=== PATIENT | female | born 1950 | race Caucasian/White ===

== ENCOUNTER 2018-05-26 13:06 | Outpatient (CLI) | payer MEDICARE, BC ==
--- NOTE | 2018-05-26 13:46 | RAD ---
PA AND LATERAL OF THE CHEST: INDICATION: History of dyspnea. COMPARISON: None. FINDINGS: The lungs are clear. Cardiomediastinal silhouette is normal. There are mild vascular calcifications involving the aortic arch. Cholecystectomy clips are seen within the right upper quadrant. There i s mild multilevel spondylosis of S5. IMPRESSION: No acute cardiopulmonary abnormality. POS: [facility]
== END 2018-05-26 13:07 | disposition home or self-care (01) ==
LOC: RAD 13:06
PROVIDERS: ATTEND Internal Medicine Pulmonary Disease
DX: R06.00 Dyspnea, unspecified (principal)
CPT/HCPCS: 71046

== ENCOUNTER 2018-08-17 19:30 | Outpatient (CLI) | payer MEDICARE, BC | END 2018-08-17 19:31 | disposition home or self-care (01) | LOC: SLEEPLAB 19:30 | PROVIDERS: ATTEND Internal Medicine Pulmonary Disease | DX: G47.33 Obstructive sleep apnea (adult) (pediatric) (principal); R53.83 Other fatigue; J44.9 Chronic obstructive pulmonary disease, unspecified; I49.9 Cardiac arrhythmia, unspecified; E66.9 Obesity, unspecified; Z68.41 Body mass index [BMI] 40.0-44.9, adult | CPT/HCPCS: 95810 ==

== ENCOUNTER 2018-09-07 19:30 | Outpatient (CLI) | payer MEDICARE, BC | END 2018-09-07 19:31 | disposition home or self-care (01) | LOC: SLEEPLAB 19:30 | PROVIDERS: ATTEND Internal Medicine Pulmonary Disease | DX: G47.33 Obstructive sleep apnea (adult) (pediatric) (principal); J44.9 Chronic obstructive pulmonary disease, unspecified; R09.89 Other specified symptoms and signs involving the circulatory and respiratory systems; R53.83 Other fatigue; R40.0 Somnolence; I51.89 Other ill-defined heart diseases; E66.9 Obesity, unspecified; Z68.41 Body mass index [BMI] 40.0-44.9, adult | CPT/HCPCS: 95811 ==

== ENCOUNTER 2018-09-10 08:40 | Outpatient (CLI) | payer MEDICARE, BC ==
--- NOTE | 2018-09-10 11:27 | MRI ---
MRI OF LUMBAR SPINE WITHOUT CONTRAST: Date: 09-10-18 Comparison: 05-06-12 History: Low back pain for several years. Technique: Multiplanar, multisequence MR imaging of the lumbar spine provided without contrast media. FINDINGS: The sagittal STIR imaging demonstrates no focal area of osseous marrow edema. There is a T2 hyperintense area within the right hemipelvis, only visualized on the sagittal T2 and S TIR imaging. This is likely on the basis of a T2 hyperintense adnexal abnormality. It measures up to 2.6 cm and should be further assessed via pelvic ultrasound given patient's age. Fluid signal intensity is noted within facet joints at L3-4 and L4-5, left greater than right. There is no significant anterolisthesis or retrolisthesis noted within the lumbar spine. Assuming five lumbar type vertebral bodies, conus medullaris terminates at L1-2. T11-12: There is disc space narrowing with disc bulge and mild central canal stenosis. Mild bilateral facet hypertrophy with mild bilateral neural foraminal stenosis. T12-L1: Mild bilateral facet hypertrophy. No significant central canal or neural foraminal stenosis. L1-2: There is disc desiccation with a central annular tear and tiny associated disc protrusion causi ng no central canal or neural foraminal stenosis. L2-3: Disc space narrowing, disc desiccation and mild disc bulge. Mild bilateral facet hypertrophy. N o significant central canal or neural foraminal stenosis. L3-4: Disc space narrowing and disc desiccation noted with a central small disc herniation with mild superior migration. No significant associated central canal stenosis. Bilateral facet hypertrophy, ri ght greater than left. No significant neural foraminal stenosis. L4-5: Disc space narrowing, disc desiccation, and disc bulge noted. There is a central disc protrusio n, new. There is new mild/moderate associated central canal stenosis. Significant bilateral facet hyp ertrophy with no significant neural foraminal stenosis. L5-S1: There is space narrowing, disc desiccation and disc osteophyte complex, slightly more conspicu ous than on the prior exam. There is significant facet hypertrophy, left greater than right. There is also lateral left sided osteophyte formation. There is severe left neural foraminal stenosis, simila r when compared to the prior exam. No significant central canal or right neural foraminal stenosis. Imaged retroperitoneal structures demonstrate no acute findings. IMPRESSION: 1. Multilevel degenerative change within the lumbar spine as detailed above. Most significant finding is severe neural foraminal stenosis on the left at L5-S1. 2. T2 hyperintense incompletely assessed lesion within the right hemipelvis. Pelvic ultrasound advise sommer Bae POS: OFF
== END 2018-09-10 08:41 | disposition home or self-care (01) ==
LOC: TBSIIMAG 08:40
PROVIDERS: ATTEND Neurological Surgery
DX: M54.5 Low back pain (principal); M47.816 Spondylosis without myelopathy or radiculopathy, lumbar region; M48.07 Spinal stenosis, lumbosacral region; M89.9 Disorder of bone, unspecified
CPT/HCPCS: 72148; 72158; 82565

== ENCOUNTER 2020-09-01 23:35 | Inpatient (IN) | payer MEDICARE, BC ==
[~2020-09-01 23:35] MED LIST: Iopamidol-370 76% 500 ML 1 ML ONE
[2020-09-01] MEDS ORDERED: Acetaminophen 500 MG TAB ONE (23:50)
[2020-09-02 00:07] LABS: Hemoglobin 13.6 g/dL (12.0-16.0); Mean Corpuscular HGB CONC 34.1 g/dL (32.0-36.0); Mean Corpuscular Hemoglobin 32.1 pg (27.0-31.0); Mean Corpuscular Volume 94.2 fL (78.0-98.0); Mean Platelet Volume 9.4 fL (7.4-10.4); Platelet Count 156 thou/uL (130-400); RBC Distribution Width 11.5 % (11.5-14.5); Red Blood Cell (RBC) Count 4.25 mill/uL (4.20-5.40); White Blood Cell (WBC) Count 9.7 thou/uL (4.8-10.8)
[2020-09-02] MEDS ORDERED: cefTRIAXone\\ROCEPHIN 2 GM VIAL ONE (00:22)
[2020-09-02 00:29] LABS: ALT (SGPT) 20 U/L (8-55); AST (SGOT) 56 U/L (5-34); Albumin 3.5 g/dL (3.4-4.8); Alkaline Phosphatase 51 U/L (40-110); Anion Gap 19 mmol/L (10-20); BUN (Urea Nitrogen) 23 mg/dL (9.8-20.1); Bilirubin, Total 0.3 mg/dL (0.2-1.2); Calc. Creatinine Clearance 0 mL/min (70-130); Calcium 8.5 mg/dL (7.8-10.44); Carbon Dioxide 19 mmol/L (23-31); Chloride 104 mmol/L (98-107); Globulin 4.2 g/dL (2.4-3.5); Glucose 147 mg/dL (83-110); Potassium 5.2 mmol/L (3.5-5.1); Protein, Total 7.7 g/dL (6.0-8.3); Sodium 137 mmol/L (136-145)
[2020-09-02 00:32] LABS: Band 11 % (5-11); Lymphocytes 15 % (21-51); MDiff Complete? YES; Monocytes 7 % (0-10); Neutrophil 67 % (42-75); Platelet Morphology Comment Appears Adequate; RBC Morphology Normal
[2020-09-02] MEDS ORDERED: Guaifenesin DM 100-10/5 ML UDCUP PO PRN (01:53)
[2020-09-02] MEDS ORDERED: Dextrose 50% Abboject 50 ML SYRINGE SLOW IVP PRN (02:00)
[2020-09-02] MEDS ORDERED: Dextrose 5% in Water 1,000 ML IV PRN (02:00)
--- NOTE | 2020-09-02 02:08 | PDOC.BPN ---
- Brief Progress Note [id number] dictated
[2020-09-02] MEDS ORDERED: Azithromycin 500 MG VIAL ONE (03:04)
--- NOTE | 2020-09-02 03:36 | HP ---
CHIEF COMPLAINT: Shortness of breath. HISTORY OF PRESENT ILLNESS: Ms. Guerrero is a 70-year-old female, who was recently diagnosed with COVID, presented to the emergency room with shortness of breath, cough, and fever, treated with diarrhea for the last week. The patient was tested positive earlier this week. Her shortness of breath became more severe, has generalized weakness this evening. She is complaining of burning pain in her chest, most when she coughs. Her cough has been nonproductive. Denies nausea or vomiting. Workup in the emergency room, the patient was hypoxic with oxygen saturation of 82% on room air. The patient was placed on 4 L of nasal cannula. Current oxygen saturation is 95%. The patient had a fever with a temperature of 100.9. Lab work, the patient had WBC count of 9.7 with lymphopenia. BNP is 49. Troponin 0.01. Potassium is 5.2. BUN is 23, creatinine 1.5. Glucose 147. CT of the chest is being ordered, results are still pending. Lactic acid is 1.4. Septic workup done in the ED. Started on IV antibiotics, oxygen, IV dexamethasone. The patient is being admitted to hospital for further management. PAST MEDICAL HISTORY: 1. Asthma as mentioned above in the history of present illness. 2. The patient has a history of GERD. 3. Chronic kidney disease stage 3. 4. Congestive heart failure. 5. Diabetes. 6. Hypothyroidism. 7. Hyperlipidemia. 8. Hypertension. 9. Obesity. PAST SURGICAL HISTORY: Cholecystectomy. SOCIAL HISTORY: Denies smoking, alcohol drinking, drug abuse. FAMILY HISTORY: Reviewed and noncontributory. HOME MEDICATIONS: See home medication reconciliation form for updated medications. ALLERGIES: NO KNOWN ALLERGIES. REVIEW OF SYSTEMS: Review of 14 systems negative except what is mentioned in history of present illness. PHYSICAL EXAMINATION: GENERAL: The patient is awake, alert, in moderate respiratory distress. VITAL SIGNS: Blood pressure 112/62, pulse is 77, respiratory rate is 27, temperature is 100.9, oxygen saturation 82% on room air, and 95% on 4 L/minute nasal cannula. HEAD AND NECK: Normocephalic, atraumatic. NECK: Supple. CHEST: Coarse bilateral breath sounds, respirations are labored. HEART: S1, S2. Regular. ABDOMEN: Soft, nontender. Bowel sounds present. NEUROLOGIC: Awake, alert, moving extremities. PSYCH: Unable to assess. EXTREMITIES: No clubbing or cyanosis. GENITOURINARY: No suprapubic tenderness. No flank tenderness. LABORATORY DATA: As mentioned above in history of present illness. CT of the chest is being done to follow results. ASSESSMENT: 1. Acute hypoxic respiratory failure. 2. COVID pneumonia. 3. Congestive heart failure history. 4. Chronic kidney disease stage 3. 5. Hyperkalemia, mild. 6. Diabetes mellitus, type 2. 7. Hyperlipidemia. 8. Hypertension. PLAN: 1. Admit. 2. Septic workup in the ED. 3. CT of the chest being done to follow the results. 4. Isolation precautions. 5. Oxygen to keep saturation more than 92%. 6. IV dexamethasone. 7. Empiric IV antibiotics for now, reassess in a.m. 8. To consult Pulmonary in a.m. for evaluation of further management. 9. Monitor kidney function and urine output. 10. Reconcile home medications. 11. DVT prophylaxis as appropriate. 12. Expected length of stay, 2 midnights or more. Job ID: [id number]
[2020-09-02] MEDS: Aspirin 81 mg Enteric Coated Tablet PO SCH (08:27)
[2020-09-02] MEDS: Levothyroxine Sodium 112 MCG TAB PO SCH (08:27)
[2020-09-02] MEDS: Heparin 5,000 UNITS/ML VIAL SC SCH ×3 (08:28→20:33)
[2020-09-02] MEDS: Fenofibrate 48 MG TAB PO SCH (08:28)
--- NOTE | 2020-09-02 08:33 | RAD ---
PORTABLE CHEST 1 VIEW: Date: 08/23/2020 Time: 1207 hours HISTORY: Shortness of breath. COVID-positive. FINDINGS: The heart size is borderline. There are peripheral patchy opacities in the lung valentine bilaterally, l eft greater than right. No pneumothoraces or pleural effusions are seen. IMPRESSION: Findings are consistent with COVID-19 pneumonia. POS: OFF
[2020-09-02] MEDS ORDERED: Famotidine/PF 20 mg/2ml Vial SLOW IVP SCH (09:00)
--- NOTE | 2020-09-02 10:17 | CT ---
PRELIMINARY REPORT/[facility]/EMERGENCY AFTER HOURS PROCEDURE: EXAM: CTA Chest with Intravenous Contrast CLINICAL HISTORY: Patient COVID positive on Friday, Reports shortness of breath tonight arrived on 4L TECHNIQUE: Axial CTA images of the chest with intravenous contrast. Three-dimensional MIP/volume rendered reform ations were performed. CONTRAST: With; 60ML ISOVUE 370 COMPARISON: None provided. FINDINGS: PULMONARY ARTERIES There is no intraluminal filling defect suspicious for PE. AORTA No thoracic aortic aneurysm or dissection. LUNGS There are scattered alveolar infiltrates with groundglass opacities identified throughout both lungs. The findings are consistent with viral pneumonia. The central airway is patent PLEURAL SPACES No pleural effusion. No pneumothorax. HEART AND MEDIASTINUM No cardiomegaly. No significant pericardial effusion. LYMPH NODES No lymphadenopathy. BONES No focal osseous abnormality or acute fracture. CHEST WALL AND UPPER ABDOMEN Images through the upper abdomen are unremarkable. The chest wall is unremarkable. IMPRESSION: There are scattered alveolar infiltrates with groundglass opacities identified throughout both lungs consistent with viral pneumonia. No effusion or pneumothorax. There is no evidence of pulmonary arterial emboli.. ELECTRONICALLY SIGNED BY: Yadira Bond DO Sep 02, 2020 1:30:39 AM [employer] This report is intended for review by the ordering physician only, in accordance of law. If you recei ve this report in error, please call [facility] at [phone]. FINAL REPORT EMERGENCY AFTER HOURS CT PULMONARY ANGIOGRAM WITH IV CONTRAST AND 3D POSTPROCESSING: Date: 09/01/2020 FINDINGS/IMPRESSION: I agree with the preliminary report given by [facility]. POS: [facility]
[2020-09-02] MEDS: Dexamethasone Sod Phosphate 6 MG in Sodium Chloride 0.9% 50 ML IVPB SCH (10:30)
[2020-09-02] MEDS: Diabetic Tussin 200 MG/10 ML UDCUP PO PRN (11:51)
[2020-09-02] MEDS: Cepastat Lozenges 1 LOZ PO PRN (11:51)
[2020-09-02] MEDS: HumaLOG 300 UNITS/3 ML VIAL SC PRN ×3 (14:08→20:56)
[2020-09-02] MEDS: Benzonatate 100 MG CAP PO SCH ×2 (14:08→20:33)
--- NOTE | 2020-09-02 15:08 | PDOC.HOSPP ---
- Subjective Encounter Date: 09/02/20 Encounter Time: 10:15 Subjective: has cough and sob, is on 5 lts NC her symptoms of sob and diarrhea started 08/25 has diarrhea says she had similar diarrhea in may and is not sure if she had covid then has uri symptoms from last 2 days now. - Objective Vital Signs & Weight: Vital Signs (12 hours) Temp Pulse Resp BP Pulse Ox 09/02/20 12:04 98.5 F 84 24 H 122/67 93 L 09/02/20 10:30 95 09/02/20 08:49 97.8 F 72 24 H 120/72 93 L 09/02/20 06:00 98.8 F 69 22 H 135/70 91 L Weight Admit Weight 238 lb 1.6 oz Weight 238 lb 1.6 oz I&O: 09/01/20 09/02/20 09/03/20 06:59 06:59 06:59 Intake Total 400 Output Total 300 Balance 100 Result Diagrams: 09/01/20 23:56 09/01/20 23:56 Additional Labs: Accuchecks 09/02/20 09/02/20 11:55 05:56 POC Glucose 331 H 187 H Hospitalist ROS - Medication Medications: Active Medications Generic Name Dose Route Start Last Admin Trade Name Freq PRN Reason Stop Dose Admin Aspirin 81 mg 09/02/20 09:00 09/02/20 08:27 Aspirin 81 Mg Enteric Coated Tablet PO 81 mg DAILY QUINTEN Administration Benzonatate 100 mg 09/02/20 15:00 09/02/20 14:08 Benzonatate 100 Mg Cap PO 100 mg TID QUINTEN Administration Fenofibrate 48 mg 09/02/20 09:00 09/02/20 08:28 Fenofibrate 48 Mg Tab PO 48 mg DAILY QUINTEN Administration Guaifenesin 200 mg 09/02/20 11:15 09/02/20 11:51 Diabetic Tussin 200 Mg/10 Ml Udcup PO 200 mg Q4H PRN Administration Cough Heparin Sodium (Porcine) 5,000 units 09/02/20 09:00 09/02/20 14:08 Heparin 5,000 Units/Ml Vial SC 5,000 units TID QUINTEN Administration Dexamethasone Sodium Phosphate 51.5 mls @ 101.756 mls/hr 09/02/20 09:00 09/02/20 10:30 6 mg/ Sodium Chloride IVPB 51.5 mls DAILY QUINTEN Administration Insulin Human Lispro 0 units 09/02/20 02:00 09/02/20 14:08 Humalog 300 Units/3 Ml Vial SC 5 unit .MILD SLIDING SCALE PRN Administration Mild Correctional Scale Levothyroxine Sodium 112 mcg 09/02/20 09:00 09/02/20 08:27 Levothyroxine Sodium 112 Mcg Tab PO 112 mcg DAILY QUINTEN Administration Throat Lozenges 1 ramesh 09/02/20 11:14 09/02/20 11:51 Cepastat Lozenges 1 Ramesh PO 1 ramesh Q4H PRN Administration Cough - Exam General Appearance: awake alert Eye: PERRL, anicteric sclera ENT: no oropharyngeal lesions, moist mucosa Neck: supple, no JVD Heart: RRR, no murmur Respiratory: no wheezes, rales, rhonchi Gastrointestinal: soft, non-tender, non-distended, normal bowel sounds Extremities: no cyanosis, no edema Neurological: cranial nerve grossly intact, no new deficit Psychiatric: normal affect, A&O x 3 Hosp A/P (1) Pneumonia due to COVID-19 virus Code(s): U07.1 - COVID-19; J12.89 - OTHER VIRAL PNEUMONIA Status: Acute (2) Acute respiratory failure with hypoxia Code(s): J96.01 - ACUTE RESPIRATORY FAILURE WITH HYPOXIA Status: Acute (3) Diarrhea due to COVID-19 Code(s): U07.1 - COVID-19; A08.39 - OTHER VIRAL ENTERITIS Status: Suspected (4) CHF (congestive heart failure) Code(s): I50.9 - HEART FAILURE, UNSPECIFIED Status: Chronic Qualifiers: Heart failure type: unspecified Heart failure chronicity: chronic Qualified Code(s): I50.9 - Heart failure, unspecified (5) Asthma Code(s): J45.909 - UNSPECIFIED ASTHMA, UNCOMPLICATED Status: Chronic Qualifiers: Asthma severity: mild Asthma persistence: intermittent Asthma complication type: uncomplicated Qualified Code(s): J45.20 - Mild intermittent asthma, uncomplicated (6) Obesity Code(s): E66.9 - OBESITY, UNSPECIFIED Status: Chronic Qualifiers: Obesity classification: adult class 3 (BMI >= 40) Body mass index: BMI 40.0-44.9 - Plan is on dexamethasone, may need high flow, will start remdesivir (d/w ), aspirin, heparin for dvt prophylaxis, synthroid and protonix hemostable prognosis guarded PT to mobilize as tolerated got symptomatic from last 2 days encourage po intake of fluids and food
[2020-09-02] MEDS ORDERED: REMDESIVIR (EUA) 200 MG in Sodium Chloride 0.9% 250 ML 210 ML IV SCH (16:00)
--- NOTE | 2020-09-02 18:06 | CON ---
DATE OF CONSULTATION: 09/02/2020 REASON FOR CONSULTATION: COVID pneumonia. HISTORY OF PRESENT ILLNESS: A 70-year-old with history of CKD stage 3, type 2 diabetes, CHF, who developed symptoms which were eventually determined to be secondary to SARS-CoV2 infection on August 24 and now she is admitted yesterday because of worsening of dyspnea, hypoxemia, diffuse pulmonary infiltrates. Currently, she is on high-flow nasal cannula at 40 L/minute and she is tachypneic. She is probably at least 34 to 36 breaths per minute, appears uncomfortable at rest. Able to move in bed. No headaches. No visual symptoms, sore throat, odynophagia, or dysphagia. No chest pain, no abdominal pain or diarrhea, no genitourinary symptoms. No joint symptoms. PAST MEDICAL HISTORY: Type 2 diabetes, CKD stage 3, CHF, hypothyroidism, hyperlipidemia, hypertension, obesity. PAST SURGICAL HISTORY: Cholecystectomy. SOCIAL HISTORY: Never a smoker. Does not drink alcoholic beverages. ALLERGIES: NONE. CURRENT MEDICATIONS: 1. Decadron. 2. Remdesivir. 3. She is on heparin 5000 units subcu t.i.d. and other p.r.n. medications. 4. Aspirin. FAMILY HISTORY: Noncontributory. PHYSICAL EXAMINATION: VITAL SIGNS: T-max 98.5, blood pressure 120/60, breathing 36 times a minute, saturating at 89% with high-flow nasal cannula at 40 L, quite uncomfortable at rest still. SKIN: Normal. Peripheral IV access. Voiding in the bedpan. NECK: No lymphadenopathy. HEENT: Ocular movements conjugate. Oral cavity normal. LUNGS: With diffuse scattered inspiratory crackles, more prominent on the left side. No wheezing. HEART: S1, S2. Regular rate. ABDOMEN: Soft, not distended. No tenderness. No ascites. No bladder distention. EXTREMITIES: No joint inflammatory activity. No edema. Moves all extremities equally. NEUROLOGIC: Cognitive function appears to be intact. LABORATORY DATA: Sodium 137, creatinine 1.50, GFR 34. Her lowest creatinine was 1.4 recently. Liver profile: AST 56, albumin 3.5, globulin 4.2. White cell count is 9.7, hemoglobin 13.6, platelets 156. Lymphocytopenia. SARS-CoV2 PCR from outside was positive. CT chest with diffuse bilateral ground-glass opacities. ASSESSMENT: Type 2 diabetes, chronic kidney disease 3, congestive heart failure, hypertension with severe COVID pneumonia, on high-flow O2 at 40. She probably needs to be upgraded to 45 at least to get her O2 saturations in a reasonable range. May need to be transferred to [facility] depending on the next 24 to 48 hours. This is the 8th day of illness, so she still has long ways to go through this and I expect her to worsen in the next few days, maybe Decadron will kick in and change things around. Follow up markers. Job ID: [id number]
[2020-09-02] MEDS: Albuterol 200 PUFF (6.7GM INHALER) INH SCH (18:09)
[2020-09-02] MEDS: guaiFENesin ER 600 MG TAB PO SCH (20:33)
--- NOTE | 2020-09-02 22:12 | CON ---
DATE OF CONSULTATION: 09/02/2020 CHIEF COMPLAINT: COVID pneumonia. HISTORY OF PRESENT ILLNESS: Ms. Guerrero is a 70-year-old female, who lives independently with her . About two weeks ago, she was tested for COVID and was negative. Her was then admitted to [facility] for valve surgery on Friday of last week. She has been tonight with him. Last Friday, she then suddenly noted the onset of runny nose and fever and was "out of it" for about 3 days. She had an outpatient COVID test done earlier this week and it returned positive on Friday. Through this time, she was continuing to have fever of as much as 101.5 degrees. She was having coughing paroxysms and gradually became more and more short of breath. Appetite was extremely poor over this period of time, although without symptoms of loss of smell or taste. She became increasingly breathless and finally presented to the emergency room today and chest x-ray demonstrates bilateral patchy consolidations consistent with her COVID pneumonia. She has low oxygen saturation and oxygen demands have increased steadily throughout the day. She has been seen in consultation by Dr. Cleveland and has been placed on remdesivir. Pulmonary Service is consulted because of her progressive symptoms. At the time I saw her, she was mildly tachypneic in the low 30s. She was on high-flow nasal cannula at 60% FiO2. She has had fairly dramatic coughing paroxysms, which are associated with desaturation. SOCIAL HISTORY: The patient is a 70-year-old female. She still works as a CPA. She has no medication allergies and is a lifelong nonsmoker. She lives with her . He has not had any COVID symptoms and his test today is not yet returned. HOME MEDICATIONS: Include: 1. Pantoprazole daily. 2. Macrodantin daily. 3. Cozaar daily. 4. Synthroid daily. 5. Propranolol daily. 6. Potassium. 7. Lasix daily. 8. Pravastatin. 9. TriCor. 10. Trulicity. 11. Aspirin. None of her home doses are recorded. PAST MEDICAL HISTORY: Remarkable for hypertension, diabetes, hypothyroidism, stage 3 kidney disease, dyslipidemia, and obesity. She is reported to have heart failure, although I do not see an echocardiogram. She has had a sleep study with diagnostic apnea-hypopnea index is 17. She has a home CPAP. PHYSICAL EXAMINATION: VITAL SIGNS: Blood pressure 117/66, respiratory rate 24, saturation 91% on high-flow nasal cannula at 60% FiO2. She is afebrile. GENERAL: She is awake, alert, and in mild distress. HEENT: Shows no oral Kaya. NECK: She has no adenopathy or JVD. LUNGS: Show bilateral coarse rhonchi. There is no pleural friction rub. There is no wheezing. HEART: Regular rate and rhythm. ABDOMEN: Obese, but soft. There is no organomegaly. EXTREMITIES: Without cyanosis, clubbing, or edema. Height is 5 feet 4 inches, weight 238, and BMI of 41. LABORATORY DATA: A chest x-ray has been obtained and I have reviewed it and find it to demonstrate bilateral patchy consolidative findings, most notable in the left periphery although streaky focal changes are seen diffusely. Her white count is 9700, hemoglobin 13.6 with hematocrit 40, platelet count 156,000. She has 67 neutrophils and 11 bands. Her admitting electrolytes include sodium 137, potassium 5.2, chloride 104, CO2 of 19, BUN 23, creatinine 1.5, glucose ranges from 180 to 320. Liver tests are within normal limits. IMPRESSION: 1. COVID pneumonia with hypoxia and impending respiratory failure. She is on high-flow nasal cannula and is receiving treatment for her COVID pneumonia with remdesivir. I have discussed the potential need for intubation and she is willing, although not anxious to accept ventilatory support if required. 2. Diabetes. 3. History of hypertension. PLAN: We will continue current therapies including high-flow nasal cannula. Hopefully, she will begin to show some clinical improvement, but we remain available if there is worsening and intubation or ventilatory support become a requirement. Thank you for this consultation. Job ID: [id number]
[2020-09-03] MEDS ORDERED: Azithromycin 500 MG in Sodium Chloride 0.9% 250 ML 250 ML IVPB SCH (01:00)
[2020-09-03] MEDS: Albuterol 200 PUFF (6.7GM INHALER) INH SCH ×4 (01:00→18:24)
[2020-09-03 04:37] LABS: Band 6 % (5-11); Hemoglobin 12.4 g/dL (12.0-16.0); Lymphocytes 10 % (21-51); MDiff Complete? YES; Mean Corpuscular HGB CONC 33.9 g/dL (32.0-36.0); Mean Corpuscular Hemoglobin 31.9 pg (27.0-31.0); Mean Platelet Volume 9.4 fL (7.4-10.4); Monocytes 3 % (0-10); Neutrophil 81 % (42-75); Platelet Count 253 thou/uL (130-400); Platelet Morphology Comment Appears Adequate; RBC Distribution Width 11.5 % (11.5-14.5); White Blood Cell (WBC) Count 16.7 thou/uL (4.8-10.8)
[2020-09-03 04:50] LABS: ALT (SGPT) 19 U/L (8-55); AST (SGOT) 29 U/L (5-34); Albumin 3.5 g/dL (3.4-4.8); Alkaline Phosphatase 52 U/L (40-110); Bilirubin, Direct 0.2 mg/dL (0.1-0.3); Bilirubin, Total 0.2 mg/dL (0.2-1.2); CRP (Inflammatory) 4.91 mg/dL (= or < 0.5); Protein, Total 6.8 g/dL (6.0-8.3)
[2020-09-03 04:52] LABS: Anion Gap 18 mmol/L (10-20); BUN (Urea Nitrogen) 25 mg/dL (9.8-20.1); Calc. Creatinine Clearance 76 mL/min (70-130); Calcium 8.4 mg/dL (7.8-10.44); Carbon Dioxide 20 mmol/L (23-31); Chloride 106 mmol/L (98-107); Glucose 270 mg/dL (83-110); Potassium 4.3 mmol/L (3.5-5.1); Sodium 140 mmol/L (136-145)
[2020-09-03] MEDS: HumaLOG 300 UNITS/3 ML VIAL SC PRN ×4 (05:14→21:18)
[2020-09-03] MEDS: Diabetic Tussin 200 MG/10 ML UDCUP PO PRN (05:25)
[2020-09-03] MEDS: Fenofibrate 48 MG TAB PO SCH (08:22)
[2020-09-03] MEDS: Benzonatate 100 MG CAP PO SCH ×3 (08:22→21:22)
[2020-09-03] MEDS: guaiFENesin ER 600 MG TAB PO SCH ×2 (08:22→21:22)
[2020-09-03] MEDS: Aspirin 81 mg Enteric Coated Tablet PO SCH (08:22)
[2020-09-03] MEDS: Cepastat Lozenges 1 LOZ PO PRN ×2 (08:22→21:22)
[2020-09-03] MEDS: Levothyroxine Sodium 112 MCG TAB PO SCH (08:22)
[2020-09-03] MEDS: Heparin 5,000 UNITS/ML VIAL SC SCH ×3 (08:22→21:16)
[2020-09-03] MEDS: Dexamethasone Sod Phosphate 6 MG in Sodium Chloride 0.9% 50 ML IVPB SCH (10:02)
--- NOTE | 2020-09-03 12:56 | PDOC.HOSPP ---
- Subjective Encounter Date: 09/03/20 Encounter Time: 11:00 Subjective: sob is better, says she has not slept in 2 days now is wearing high flow, ate her breakfast - Objective Vital Signs & Weight: Vital Signs (12 hours) Temp Pulse Resp BP Pulse Ox 09/03/20 12:14 98.2 F 87 18 132/73 93 L 09/03/20 08:38 91 L 09/03/20 08:00 98.4 F 91 18 134/79 91 L 09/03/20 07:55 95 09/03/20 05:28 98.5 F 80 25 H 126/73 Weight Admit Weight 238 lb 1.6 oz Weight 238 lb 1.6 oz I&O: 09/02/20 09/03/20 09/04/20 06:59 06:59 06:59 Intake Total 400 780 Output Total 300 650 Balance 100 130 Result Diagrams: 09/03/20 04:01 09/03/20 04:01 Additional Labs: Accuchecks 09/03/20 09/02/20 09/02/20 12:21 20:44 15:49 POC Glucose 200 H 397 H 316 H Hospitalist ROS - Medication Medications: Active Medications Generic Name Dose Route Start Last Admin Trade Name Freq PRN Reason Stop Dose Admin Albuterol Sulfate 2 puff 09/02/20 19:00 09/03/20 12:47 Albuterol 200 Puff (6.7gm Inhaler) INH 2 puff [id number] QUINTEN Administration Aspirin 81 mg 09/02/20 09:00 09/03/20 08:22 Aspirin 81 Mg Enteric Coated Tablet PO 81 mg DAILY QUINTEN Administration Benzonatate 100 mg 09/02/20 15:00 09/03/20 08:22 Benzonatate 100 Mg Cap PO 100 mg TID QUINTEN Administration Fenofibrate 48 mg 09/02/20 09:00 09/03/20 08:22 Fenofibrate 48 Mg Tab PO 48 mg DAILY QUINTEN Administration Guaifenesin 600 mg 09/02/20 21:00 09/03/20 08:22 Guaifenesin Er 600 Mg Tab PO 600 mg Q12HR QUINTEN Administration Guaifenesin 200 mg 09/02/20 11:15 09/03/20 05:25 Diabetic Tussin 200 Mg/10 Ml Udcup PO 200 mg Q4H PRN Administration Cough Heparin Sodium (Porcine) 5,000 units 09/02/20 09:00 09/03/20 08:22 Heparin 5,000 Units/Ml Vial SC 5,000 units TID QUINTEN Administration Dexamethasone Sodium Phosphate 51.5 mls @ 101.756 mls/hr 09/02/20 09:00 09/03/20 10:02 6 mg/ Sodium Chloride IVPB 51.5 mls DAILY QUINTEN Administration Insulin Human Lispro 0 units 09/02/20 02:00 09/03/20 12:46 Humalog 300 Units/3 Ml Vial SC 2 unit .MILD SLIDING SCALE PRN Administration Mild Correctional Scale Levothyroxine Sodium 112 mcg 09/02/20 09:00 09/03/20 08:22 Levothyroxine Sodium 112 Mcg Tab PO 112 mcg DAILY QUINTEN Administration Pantoprazole Sodium 40 mg 09/02/20 21:00 09/02/20 20:33 Pantoprazole 40 Mg Tab PO 40 mg HS QUINTEN Administration Throat Lozenges 1 ramesh 09/02/20 11:14 09/03/20 08:22 Cepastat Lozenges 1 Ramesh PO 1 ramesh Q4H PRN Administration Cough - Exam General Appearance: awake alert Eye: PERRL, anicteric sclera ENT: no oropharyngeal lesions, moist mucosa Neck: supple, no JVD Heart: RRR, no murmur Respiratory: no wheezes, rales, rhonchi Gastrointestinal: soft, non-tender, non-distended, normal bowel sounds Extremities: no cyanosis, 1+ LE edema Neurological: cranial nerve grossly intact, no focal deficits Psychiatric: A&O x 3 Hosp A/P (1) Pneumonia due to COVID-19 virus Code(s): U07.1 - COVID-19; J12.89 - OTHER VIRAL PNEUMONIA Status: Acute (2) Acute respiratory failure with hypoxia Code(s): J96.01 - ACUTE RESPIRATORY FAILURE WITH HYPOXIA Status: Acute (3) Diarrhea due to COVID-19 Code(s): U07.1 - COVID-19; A08.39 - OTHER VIRAL ENTERITIS Status: Resolved (4) CHF (congestive heart failure) Code(s): I50.9 - HEART FAILURE, UNSPECIFIED Status: Chronic Qualifiers: Heart failure type: unspecified Heart failure chronicity: chronic Qualified Code(s): I50.9 - Heart failure, unspecified (5) Asthma Code(s): J45.909 - UNSPECIFIED ASTHMA, UNCOMPLICATED Status: Chronic Qualifiers: Asthma severity: mild Asthma persistence: intermittent Asthma complication type: uncomplicated Qualified Code(s): J45.20 - Mild intermittent asthma, uncomplicated (6) Obesity Code(s): E66.9 - OBESITY, UNSPECIFIED Status: Chronic Qualifiers: Obesity classification: adult class 3 (BMI >= 40) Body mass index: BMI 40.0-44.9 - Plan is on dexamethasone, high flow, remdesivir, aspirin, heparin for dvt prophylaxis, synthroid and protonix hemostable prognosis guarded PT to mobilize as tolerated encourage po intake of fluids and food, counselled to lie on lateral sides or prone if she can tolerate.
[2020-09-03] MEDS: REMDESIVIR (EUA) 100 MG in Sodium Chloride 0.9% 250 ML 230 ML IV SCH (16:36)
--- NOTE | 2020-09-03 17:06 | PRG ---
DATE OF SERVICE: 09/03/2020 SUBJECTIVE: She continues to have cough paroxysms, which are vigorous and prolonged and unfortunately associated with deep desaturations into the low 80s. She has a fairly long recovery. She is not producing any notable sputum. She has not had any fevers or chills. She remains on the same high-flow cannula, but increasing FiO2 most recently reported at 85%. She was at 60% yesterday. PHYSICAL EXAMINATION: VITAL SIGNS: Blood pressure 159/68, afebrile, heart rate is 83, respiratory rate is 18. GENERAL: When I saw her, she was calm, but seems to be getting a little fatigued. She has no use of accessory muscles. LUNGS: Show diffuse rales. HEART: Regular rate and rhythm. ABDOMEN: Soft. LABORATORY DATA: White count 16,000, presumably increased due to steroid effect. Hemoglobin is 12.4, platelet count 253,000. She did not have an x-ray today. IMPRESSION: COVID pneumonia. Her condition is certainly not any better, and based on desaturations with cough and her increased high-flow oxygen, I am increasingly concerned about her need for ventilatory support. We will continue to watch, but cautious at best. Job ID: [id number]
[2020-09-04] MEDS: Albuterol 200 PUFF (6.7GM INHALER) INH SCH ×4 (00:46→18:10)
[2020-09-04] MEDS: HumaLOG 300 UNITS/3 ML VIAL SC PRN ×4 (05:36→22:45)
[2020-09-04 05:57] LABS: ALT (SGPT) 18 U/L (8-55); AST (SGOT) 29 U/L (5-34); Albumin 3.3 g/dL (3.4-4.8); Alkaline Phosphatase 57 U/L (40-110); Bilirubin, Direct 0.2 mg/dL (0.1-0.3); Bilirubin, Total 0.3 mg/dL (0.2-1.2); Protein, Total 6.4 g/dL (6.0-8.3)
[2020-09-04] MEDS: Dexamethasone Sod Phosphate 6 MG in Sodium Chloride 0.9% 50 ML IVPB SCH ×2 (08:37→22:55)
[2020-09-04] MEDS: Insulin Glargine 10 UNITS in Pre-Filled Syringe 1 EACH SC SCH ×2 (08:37→22:02)
[2020-09-04] MEDS: Aspirin 81 mg Enteric Coated Tablet PO SCH (08:37)
[2020-09-04] MEDS: Heparin 5,000 UNITS/ML VIAL SC SCH ×3 (08:37→22:02)
[2020-09-04] MEDS: guaiFENesin ER 600 MG TAB PO SCH ×2 (08:37→22:02)
[2020-09-04] MEDS: Benzonatate 100 MG CAP PO SCH ×3 (08:37→22:02)
[2020-09-04] MEDS: Cepastat Lozenges 1 LOZ PO PRN (08:37)
[2020-09-04] MEDS: Fenofibrate 48 MG TAB PO SCH (08:38)
[2020-09-04] MEDS: Levothyroxine Sodium 112 MCG TAB PO SCH (08:38)
--- NOTE | 2020-09-04 11:00 | RAD ---
XR Chest 1 View Portable History: Pneumonia Comparison: Radiograph 2 days prior Findings: Similar appearance of the multifocal peripheral and perihilar opacities without worsening. No pneumothorax. No significant effusion. No acute osseous abnormality. Impression: Similar examination of the chest without worsening lung aeration.
--- NOTE | 2020-09-04 11:01 | PRG ---
DATE OF SERVICE: 09/04/2020 SUBJECTIVE: Maci Guerrero is a morbidly obese female, BMI 40, who is on high-flow, 50 L, 70%, sats are 93%. The patient is awake, responsive. OBJECTIVE: VITAL SIGNS: Temperature 98, pulse 86, respiratory rate 16, blood pressure 168/87. CHEST: No wheezing. No crackles. CARDIAC: Normal S1, S2. No gallops. ABDOMEN: No masses. IMPRESSION: Respiratory failure, roland positive pneumonia, morbid obesity. Convalescent plasma is initiated along with remdesivir on board, high-dose steroids, supportive care, diabetes. PLAN: We are going to increase the dose of Decadron, empiric antibiotics. We will follow. Job ID: [id number]
--- NOTE | 2020-09-04 14:15 | PDOC.HOSPP ---
- Subjective Encounter Date: 09/04/20 Encounter Time: 09:45 Subjective: is on high flow O2, feels weak didn't eat much of her breakfast - Objective Vital Signs & Weight: Vital Signs (12 hours) Temp Pulse Resp BP BP Pulse Ox 09/04/20 13:15 97.8 F 81 28 H 150/82 H 90 L 09/04/20 08:35 97.6 F 80 26 H 153/77 H 91 L 09/04/20 08:20 98.0 F 86 18 165/87 H 96 09/04/20 05:39 93 L Weight Admit Weight 238 lb 1.6 oz Weight 238 lb 1.6 oz I&O: 09/03/20 09/04/20 09/05/20 06:59 06:59 06:59 Intake Total 780 900 Output Total 650 1200 Balance 130 -300 Result Diagrams: 09/03/20 04:01 09/03/20 04:01 Additional Labs: Accuchecks 09/04/20 09/04/20 09/03/20 11:27 05:41 20:14 POC Glucose 305 H 192 H 279 H Hospitalist ROS - Medication Medications: Active Medications Generic Name Dose Route Start Last Admin Trade Name Freq PRN Reason Stop Dose Admin Albuterol Sulfate 2 puff 09/02/20 19:00 09/04/20 13:10 Albuterol 200 Puff (6.7gm Inhaler) INH 2 puff [id number] QUINTEN Administration Aspirin 81 mg 09/02/20 09:00 09/04/20 08:37 Aspirin 81 Mg Enteric Coated Tablet PO 81 mg DAILY QUINTEN Administration Benzonatate 100 mg 09/02/20 15:00 09/04/20 08:37 Benzonatate 100 Mg Cap PO 100 mg TID QUINTEN Administration Fenofibrate 48 mg 09/02/20 09:00 09/04/20 08:38 Fenofibrate 48 Mg Tab PO 48 mg DAILY QUINTEN Administration Guaifenesin 600 mg 09/02/20 21:00 09/04/20 08:37 Guaifenesin Er 600 Mg Tab PO 600 mg Q12HR QUINTEN Administration Guaifenesin 200 mg 09/02/20 11:15 09/03/20 05:25 Diabetic Tussin 200 Mg/10 Ml Udcup PO 200 mg Q4H PRN Administration Cough Heparin Sodium (Porcine) 5,000 units 09/02/20 09:00 09/04/20 08:37 Heparin 5,000 Units/Ml Vial SC 5,000 units TID QUINTEN Administration Remdesivir 100 mg/ Sodium 250 mls @ 250 mls/hr 09/03/20 16:00 09/03/20 16:36 Chloride IV 09/06/20 16:59 250 mls 1600 QUINTEN Administration Insulin Glargine 10 units/ 0.1 mls @ 0 mls/hr 09/04/20 09:00 09/04/20 08:37 Miscellaneous Medication SC 0.1 mls BID QUINTEN Administration Insulin Human Lispro 0 units 09/02/20 02:00 09/04/20 13:10 Humalog 300 Units/3 Ml Vial SC 5 unit .MILD SLIDING SCALE PRN Administration Mild Correctional Scale Insulin Human Lispro 0 units 09/03/20 20:47 09/03/20 21:18 Humalog 300 Units/3 Ml Vial SC 3 unit .BEDTIME SLIDING SC PRN Administration Bedtime Correctional Scale Levothyroxine Sodium 112 mcg 09/02/20 09:00 09/04/20 08:38 Levothyroxine Sodium 112 Mcg Tab PO 112 mcg DAILY QUINTEN Administration Pantoprazole Sodium 40 mg 09/02/20 21:00 09/03/20 21:22 Pantoprazole 40 Mg Tab PO 40 mg HS QUINTEN Administration Sodium Chloride 10 ml 09/02/20 02:30 09/04/20 08:38 Flush - Normal Saline 10 Ml Syringe IVF 10 ml PRN PRN Administration Saline Flush Throat Lozenges 1 ramesh 09/02/20 11:14 09/04/20 08:37 Cepastat Lozenges 1 Ramesh PO 1 ramesh Q4H PRN Administration Cough - Exam General Appearance: awake alert Eye: PERRL, anicteric sclera ENT: no oropharyngeal lesions, dry oral mucosa Neck: supple, no JVD Heart: RRR, no murmur Respiratory: no wheezes, rales, rhonchi Gastrointestinal: soft, non-tender, non-distended, normal bowel sounds Extremities: no cyanosis, no edema Neurological: cranial nerve grossly intact, no focal deficits Psychiatric: A&O x 3 Hosp A/P (1) Pneumonia due to COVID-19 virus Code(s): U07.1 - COVID-19; J12.89 - OTHER VIRAL PNEUMONIA Status: Acute (2) Acute respiratory failure with hypoxia Code(s): J96.01 - ACUTE RESPIRATORY FAILURE WITH HYPOXIA Status: Acute (3) Diarrhea due to COVID-19 Code(s): U07.1 - COVID-19; A08.39 - OTHER VIRAL ENTERITIS Status: Resolved (4) CHF (congestive heart failure) Code(s): I50.9 - HEART FAILURE, UNSPECIFIED Status: Chronic Qualifiers: Heart failure type: unspecified Heart failure chronicity: chronic Qualified Code(s): I50.9 - Heart failure, unspecified (5) Asthma Code(s): J45.909 - UNSPECIFIED ASTHMA, UNCOMPLICATED Status: Chronic Qualifiers: Asthma severity: mild Asthma persistence: intermittent Asthma complication type: uncomplicated Qualified Code(s): J45.20 - Mild intermittent asthma, uncomplicated (6) Obesity Code(s): E66.9 - OBESITY, UNSPECIFIED Status: Chronic Qualifiers: Obesity classification: adult class 3 (BMI >= 40) Body mass index: BMI 40.0-44.9 - Plan is on dexamethasone, high flow, remdesivir, aspirin, heparin for dvt prophylaxis, synthroid and protonix she will get convalescent plasma today hemostable prognosis guarded PT to mobilize as tolerated encourage po intake of fluids and food, counselled to lie on lateral sides or prone if she can tolerate. d/w over phone and gave full updates (09/02, 09/04)
[2020-09-04] MEDS: REMDESIVIR (EUA) 100 MG in Sodium Chloride 0.9% 250 ML 230 ML IV SCH (15:28)
[2020-09-04 16:40] LABS: SARS-CoV-2 NAA Rapid Test DETECTED (NotDetected)
[2020-09-04] MEDS ORDERED: Doxycycline 100 MG in Syringe 0 ML IVPB SCH (21:00)
[2020-09-05] MEDS: Albuterol 200 PUFF (6.7GM INHALER) INH SCH ×4 (00:25→18:45)
[2020-09-05 04:21] LABS: ALT (SGPT) 20 U/L (8-55); AST (SGOT) 37 U/L (5-34); Albumin 3.5 g/dL (3.4-4.8); Alkaline Phosphatase 76 U/L (40-110); Anion Gap 14 mmol/L (10-20); BUN (Urea Nitrogen) 27 mg/dL (9.8-20.1); Bilirubin, Direct 0.3 mg/dL (0.1-0.3); Bilirubin, Total 0.5 mg/dL (0.2-1.2); Calc. Creatinine Clearance 81 mL/min (70-130); Calcium 8.8 mg/dL (7.8-10.44); Carbon Dioxide 26 mmol/L (23-31); Chloride 102 mmol/L (98-107); Glucose 218 mg/dL (83-110); Potassium 4.9 mmol/L (3.5-5.1); Protein, Total 7.1 g/dL (6.0-8.3); Sodium 137 mmol/L (136-145)
[2020-09-05] MEDS: HumaLOG 300 UNITS/3 ML VIAL SC PRN ×4 (06:36→20:30)
[2020-09-05] MEDS: Aspirin 81 mg Enteric Coated Tablet PO SCH (08:19)
[2020-09-05] MEDS: Levothyroxine Sodium 112 MCG TAB PO SCH (08:19)
[2020-09-05] MEDS: guaiFENesin ER 600 MG TAB PO SCH ×2 (08:20→19:58)
[2020-09-05] MEDS: Fenofibrate 48 MG TAB PO SCH (08:20)
[2020-09-05] MEDS: Insulin Glargine 10 UNITS in Pre-Filled Syringe 1 EACH SC SCH ×2 (08:21→19:58)
[2020-09-05] MEDS: Heparin 5,000 UNITS/ML VIAL SC SCH (08:21)
[2020-09-05] MEDS: Dexamethasone Sod Phosphate 6 MG in Sodium Chloride 0.9% 50 ML IVPB SCH (08:21)
[2020-09-05] MEDS: Benzonatate 100 MG CAP PO SCH ×3 (08:23→19:58)
--- NOTE | 2020-09-05 08:47 | RAD ---
PORTABLE CHEST: HISTORY: COVID pneumonia followup. COMPARISON: 09/04/2020. FINDINGS/IMPRESSION: Hazy somewhat patchy infiltrate in the left lung base. Hazy [id number] infiltrate in both mid lung valentine. The lungs show improvement when compared to 09/04/2020. POS: AGW
--- NOTE | 2020-09-05 09:31 | PRG ---
DATE OF SERVICE: SUBJECTIVE: Maci Guerrero is a 70-year-old, morbidly obese female, transferred last night after she developed respiratory distress on the medical floor in the ICU on high-flow, sats are adequate. She had been placed earlier on BiPAP for 75% FiO2. OBJECTIVE: VITAL SIGNS: Pulse 85, blood pressure 156/92, temperature 98. I's and O's even. CHEST: No wheezing, no crackles. HEART: Normal S1, S2. No gallops. ABDOMEN: Soft. LABORATORY DATA: Renal function improved. C-reactive protein 6. X-ray shows bilateral infiltrates. ASSESSMENT: Jean positive pneumonia, respiratory failure, morbid obesity. PLAN: She has received convalescent plasma. Patient is on high-dose Decadron. The patient is getting Remdesivir. Continue all supportive care. We will follow while in the ICU, PT, supportive care. Job ID: [id number]
[2020-09-05] MEDS ORDERED: Insulin Glargine 20 UNITS in Pre-Filled Syringe 1 EACH SC SCH (13:15)
--- NOTE | 2020-09-05 14:15 | PDOC.HOSPP ---
- Subjective Encounter Date: 09/05/20 Encounter Time: 08:40 Subjective: not in distress, is on bipap sitting on bed - Objective Vital Signs & Weight: Vital Signs (12 hours) Temp Pulse Pulse Ox 09/05/20 08:00 94 L 09/05/20 07:16 85 98 09/05/20 04:00 98.8 F 09/05/20 02:41 77 96 Weight Admit Weight 238 lb 1.6 oz Weight 220 lb 7.396 oz Most Recent Monitor Data Heart Rate from ECG 96 NIBP 132/67 NIBP BP-Mean 88 Respiration from ECG 27 SpO2 100 I&O: 09/04/20 09/05/20 09/06/20 06:59 06:59 06:59 Intake Total 900 1453.6 460 Output Total 1200 2015 765 Balance -300 -561.4 -305 Result Diagrams: 09/03/20 04:01 09/05/20 03:27 Additional Labs: Accuchecks 09/05/20 09/04/20 09/04/20 06:16 22:35 16:39 POC Glucose 241 H 235 H 299 H 09/03/20 16:09 POC Glucose 264 H Hospitalist ROS - Medication Medications: Active Medications Generic Name Dose Route Start Last Admin Trade Name Freq PRN Reason Stop Dose Admin Albuterol Sulfate 2 puff 09/02/20 19:00 09/05/20 06:05 Albuterol 200 Puff (6.7gm Inhaler) INH 2 puff [id number] QUINTEN Administration Aspirin 81 mg 09/02/20 09:00 09/05/20 08:19 Aspirin 81 Mg Enteric Coated Tablet PO 81 mg DAILY QUINTEN Administration Benzonatate 100 mg 09/02/20 15:00 09/05/20 08:23 Benzonatate 100 Mg Cap PO 100 mg TID QUINTEN Administration Fenofibrate 48 mg 09/02/20 09:00 09/05/20 08:20 Fenofibrate 48 Mg Tab PO 48 mg DAILY QUINTEN Administration Guaifenesin 600 mg 09/02/20 21:00 09/05/20 08:20 Guaifenesin Er 600 Mg Tab PO 600 mg Q12HR QUINTEN Administration Guaifenesin 200 mg 09/02/20 11:15 09/03/20 05:25 Diabetic Tussin 200 Mg/10 Ml Udcup PO 200 mg Q4H PRN Administration Cough Remdesivir 100 mg/ Sodium 250 mls @ 250 mls/hr 09/03/20 16:00 09/04/20 15:28 Chloride IV 09/06/20 16:59 250 mls 1600 QUINTEN Administration Insulin Glargine 10 units/ 0.1 mls @ 0 mls/hr 09/04/20 09:00 09/05/20 08:21 Miscellaneous Medication SC 0.1 mls BID QUINTEN Administration Insulin Glargine 20 units/ 0.2 mls @ 0 mls/hr 09/05/20 13:15 09/05/20 13:30 Miscellaneous Medication SC 09/05/20 15:00 0.2 mls NOW QUINTEN Administration Insulin Human Lispro 0 units 09/02/20 02:00 09/05/20 12:49 Humalog 300 Units/3 Ml Vial SC 6 unit .MILD SLIDING SCALE PRN Administration Mild Correctional Scale Insulin Human Lispro 0 units 09/03/20 20:47 09/04/20 22:45 Humalog 300 Units/3 Ml Vial SC 2 unit .BEDTIME SLIDING SC PRN Administration Bedtime Correctional Scale Levothyroxine Sodium 112 mcg 09/02/20 09:00 09/05/20 08:19 Levothyroxine Sodium 112 Mcg Tab PO 112 mcg DAILY QUINTEN Administration Pantoprazole Sodium 40 mg 09/02/20 21:00 09/04/20 22:03 Pantoprazole 40 Mg Tab PO 40 mg HS QUINTEN Administration Sodium Chloride 10 ml 09/02/20 02:30 09/04/20 08:38 Flush - Normal Saline 10 Ml Syringe IVF 10 ml PRN PRN Administration Saline Flush Throat Lozenges 1 ramesh 09/02/20 11:14 09/04/20 08:37 Cepastat Lozenges 1 Ramesh PO 1 ramesh Q4H PRN Administration Cough - Exam General Appearance: awake alert, ill appearing Eye: PERRL, anicteric sclera ENT: no oropharyngeal lesions, moist mucosa Neck: supple, no JVD Heart: RRR, no murmur Respiratory: no wheezes, rales, rhonchi Gastrointestinal: soft, non-tender, non-distended, normal bowel sounds Extremities: no cyanosis, no edema Neurological: cranial nerve grossly intact, no focal deficits Psychiatric: A&O x 3 Hosp A/P (1) Pneumonia due to COVID-19 virus Code(s): U07.1 - COVID-19; J12.89 - OTHER VIRAL PNEUMONIA Status: Acute (2) Acute respiratory failure with hypoxia Code(s): J96.01 - ACUTE RESPIRATORY FAILURE WITH HYPOXIA Status: Acute (3) Diarrhea due to COVID-19 Code(s): U07.1 - COVID-19; A08.39 - OTHER VIRAL ENTERITIS Status: Resolved (4) CHF (congestive heart failure) Code(s): I50.9 - HEART FAILURE, UNSPECIFIED Status: Chronic Qualifiers: Heart failure type: unspecified Heart failure chronicity: chronic Qualified Code(s): I50.9 - Heart failure, unspecified (5) Asthma Code(s): J45.909 - UNSPECIFIED ASTHMA, UNCOMPLICATED Status: Chronic Qualifiers: Asthma severity: mild Asthma persistence: intermittent Asthma complication type: uncomplicated Qualified Code(s): J45.20 - Mild intermittent asthma, uncomplicated (6) Obesity Code(s): E66.9 - OBESITY, UNSPECIFIED Status: Chronic Qualifiers: Obesity classification: adult class 3 (BMI >= 40) Body mass index: BMI 40.0-44.9 - Plan is on dexamethasone, high flow/bipap, remdesivir, aspirin, heparin for dvt prophylaxis, synthroid and protonix got convalescent plasma 09/04 hemostable prognosis guarded PT to mobilize as tolerated encourage po intake of fluids and food, counselled to lie on lateral sides or prone if she can tolerate. d/w over phone and gave full updates (09/02, 09/04, 09/05)
[2020-09-05] MEDS: REMDESIVIR (EUA) 100 MG in Sodium Chloride 0.9% 250 ML 230 ML IV SCH (15:00)
[2020-09-05] MEDS: Dexamethasone 4 MG TAB PO SCH (16:39)
[2020-09-05] MEDS: Mometasone 200 MCG/Formoterol 5 MCG 120 PUFF INHALER INH SCH (18:46)
[2020-09-05] MEDS: Doxycycline 100 MG CAP PO SCH (19:58)
[2020-09-05] MEDS: Enoxaparin Sodium 40 MG/0.4 ML SYRINGE SC SCH (19:58)
[2020-09-06] MEDS: Albuterol 200 PUFF (6.7GM INHALER) INH SCH ×4 (00:25→18:59)
[2020-09-06 04:26] LABS: ALT (SGPT) 19 U/L (8-55); AST (SGOT) 25 U/L (5-34); Albumin 3.2 g/dL (3.4-4.8); Alkaline Phosphatase 77 U/L (40-110); Anion Gap 15 mmol/L (10-20); BUN (Urea Nitrogen) 35 mg/dL (9.8-20.1); Bilirubin, Direct 0.2 mg/dL (0.1-0.3); Bilirubin, Total 0.4 mg/dL (0.2-1.2); Calc. Creatinine Clearance 68 mL/min (70-130); Calcium 8.7 mg/dL (7.8-10.44); Carbon Dioxide 23 mmol/L (23-31); Chloride 100 mmol/L (98-107); Glucose 378 mg/dL (83-110); Potassium 5.1 mmol/L (3.5-5.1); Protein, Total 6.7 g/dL (6.0-8.3); Sodium 133 mmol/L (136-145)
[2020-09-06] MEDS: HumaLOG 300 UNITS/3 ML VIAL SC PRN ×3 (06:35→16:48)
[2020-09-06] MEDS: Mometasone 200 MCG/Formoterol 5 MCG 120 PUFF INHALER INH SCH ×2 (07:43→18:59)
[2020-09-06] MEDS: Dexamethasone 4 MG TAB PO SCH ×2 (08:50→16:47)
--- NOTE | 2020-09-06 09:34 | PRG ---
DATE OF SERVICE: 09/06/2020 SUBJECTIVE: Maci Guerrero remains in the ICU on high-flow. OBJECTIVE: VITAL SIGNS: Saturations are 90%, flow rate is at 40, FiO2 was 80%, blood pressure 133/57. I's and O's have been even. CHEST: No wheezing. No crackles. CARDIAC: Normal S1 and S2. No gallops. ABDOMEN: No masses. LABORATORY DATA: White count unremarkable. Blood culture, coagulase staph contamination. C-reactive protein is down to 4.85. ASSESSMENT: Jean positive pneumonia, respiratory failure. Continue Decadron, empiric antibiotics. Supportive care. She has received plasma and remdesivir. One-half hour of critical care time. Job ID: [id number]
[2020-09-06] MEDS: Insulin Glargine 10 UNITS in Pre-Filled Syringe 1 EACH SC SCH (09:50)
[2020-09-06] MEDS: Aspirin 81 mg Enteric Coated Tablet PO SCH (09:57)
[2020-09-06] MEDS: Levothyroxine Sodium 112 MCG TAB PO SCH (09:57)
[2020-09-06] MEDS: Enoxaparin Sodium 40 MG/0.4 ML SYRINGE SC SCH ×2 (09:57→20:06)
[2020-09-06] MEDS: Fenofibrate 48 MG TAB PO SCH (09:57)
[2020-09-06] MEDS: guaiFENesin ER 600 MG TAB PO SCH ×2 (09:57→20:06)
[2020-09-06] MEDS: Benzonatate 100 MG CAP PO SCH ×3 (10:00→20:06)
[2020-09-06] MEDS: Doxycycline 100 MG CAP PO SCH ×2 (10:00→20:06)
--- NOTE | 2020-09-06 13:28 | PDOC.HOSPP ---
- Subjective Encounter Date: 09/06/20 Encounter Time: 09:45 Subjective: is comfortable on high flow O2, watching tv - Objective Vital Signs & Weight: Vital Signs (12 hours) Pulse Ox 09/06/20 10:58 92 L 09/06/20 07:39 85 L 09/06/20 02:00 71 L Weight Admit Weight 238 lb 1.6 oz Weight 220 lb 7.396 oz Most Recent Monitor Data Heart Rate from ECG 91 NIBP 141/78 NIBP BP-Mean 99 Respiration from ECG 33 SpO2 96 I&O: 09/05/20 09/06/20 09/07/20 06:59 06:59 06:59 Intake Total 1453.6 970.3 540 Output Total 2014 2350 250 Balance -561.4 -1379.7 290 Result Diagrams: 09/03/20 04:01 09/06/20 03:09 Additional Labs: Accuchecks 09/06/20 09/06/20 09/05/20 13:14 06:22 20:13 POC Glucose 340 H 326 H 396 H 09/05/20 15:24 POC Glucose 321 H Hospitalist ROS - Medication Medications: Active Medications Generic Name Dose Route Start Last Admin Trade Name Freq PRN Reason Stop Dose Admin Albuterol Sulfate 2 puff 09/02/20 19:00 09/06/20 13:05 Albuterol 200 Puff (6.7gm Inhaler) INH 2 puff [id number] QUINTEN Administration Aspirin 81 mg 09/02/20 09:00 09/06/20 09:57 Aspirin 81 Mg Enteric Coated Tablet PO 81 mg DAILY QUINTEN Administration Benzonatate 100 mg 09/02/20 15:00 09/06/20 10:00 Benzonatate 100 Mg Cap PO 100 mg TID QUINTEN Administration Dexamethasone 6 mg 09/05/20 17:00 09/06/20 08:50 Dexamethasone 4 Mg Tab PO 6 mg BID-WM QUINTEN Administration Doxycycline Hyclate 100 mg 09/05/20 21:00 09/06/20 10:00 Doxycycline 100 Mg Cap PO 100 mg BID QUINTEN Administration Enoxaparin Sodium 40 mg 09/05/20 21:00 09/06/20 09:57 Enoxaparin Sodium 40 Mg/0.4 Ml Syringe SC 40 mg 0900,2100 QUINTEN Administration Fenofibrate 48 mg 09/02/20 09:00 09/06/20 09:57 Fenofibrate 48 Mg Tab PO 48 mg DAILY QUINTEN Administration Guaifenesin 600 mg 09/02/20 21:00 09/06/20 09:57 Guaifenesin Er 600 Mg Tab PO 600 mg Q12HR QUINTEN Administration Guaifenesin 200 mg 09/02/20 11:15 09/03/20 05:25 Diabetic Tussin 200 Mg/10 Ml Udcup PO 200 mg Q4H PRN Administration Cough Remdesivir 100 mg/ Sodium 250 mls @ 250 mls/hr 09/03/20 16:00 09/05/20 15:00 Chloride IV 09/06/20 16:59 250 mls 1600 QUINTEN Administration Insulin Glargine 10 units/ 0.1 mls @ 0 mls/hr 09/04/20 09:00 09/06/20 09:50 Miscellaneous Medication SC 0.1 mls BID QUINTEN Administration Insulin Human Lispro 0 units 09/03/20 20:47 09/04/20 22:45 Humalog 300 Units/3 Ml Vial SC 2 unit .BEDTIME SLIDING SC PRN Administration Bedtime Correctional Scale Insulin Human Lispro 0 units 09/06/20 05:30 09/06/20 06:35 Humalog 300 Units/3 Ml Vial SC 11 units .AGGRESSIVE SLIDING PRN Administration AGGRESSIVE SLIDING SCALE Protocol Levothyroxine Sodium 112 mcg 09/02/20 09:00 09/06/20 09:57 Levothyroxine Sodium 112 Mcg Tab PO 112 mcg DAILY QUINTEN Administration Mometasone Furoate/Formoterol Fumar 2 puff 09/05/20 18:30 09/06/20 07:43 Mometasone 200 Mcg/Formoterol 5 Mcg 120 Puff Inhaler INH 2 puff BID-RT QUINTEN Administration Pantoprazole Sodium 40 mg 09/02/20 21:00 09/05/20 19:59 Pantoprazole 40 Mg Tab PO 40 mg HS QUINTEN Administration Sodium Chloride 10 ml 09/02/20 02:30 09/04/20 08:38 Flush - Normal Saline 10 Ml Syringe IVF 10 ml PRN PRN Administration Saline Flush Throat Lozenges 1 ramesh 09/02/20 11:14 09/04/20 08:37 Cepastat Lozenges 1 Ramesh PO 1 ramesh Q4H PRN Administration Cough - Exam General Appearance: awake alert Eye: PERRL, anicteric sclera ENT: no oropharyngeal lesions, moist mucosa Neck: supple, no JVD Heart: RRR, no murmur Respiratory: no wheezes, rales, rhonchi Gastrointestinal: soft, non-tender, non-distended, normal bowel sounds Extremities: no cyanosis, no edema Neurological: cranial nerve grossly intact, no focal deficits Psychiatric: A&O x 3 Hosp A/P (1) Pneumonia due to COVID-19 virus Code(s): U07.1 - COVID-19; J12.89 - OTHER VIRAL PNEUMONIA Status: Acute (2) Acute respiratory failure with hypoxia Code(s): J96.01 - ACUTE RESPIRATORY FAILURE WITH HYPOXIA Status: Acute (3) Diarrhea due to COVID-19 Code(s): U07.1 - COVID-19; A08.39 - OTHER VIRAL ENTERITIS Status: Resolved (4) CHF (congestive heart failure) Code(s): I50.9 - HEART FAILURE, UNSPECIFIED Status: Chronic Qualifiers: Heart failure type: unspecified Heart failure chronicity: chronic Qualified Code(s): I50.9 - Heart failure, unspecified (5) Asthma Code(s): J45.909 - UNSPECIFIED ASTHMA, UNCOMPLICATED Status: Chronic Qualifiers: Asthma severity: mild Asthma persistence: intermittent Asthma complication type: uncomplicated Qualified Code(s): J45.20 - Mild intermittent asthma, uncomplicated (6) Obesity Code(s): E66.9 - OBESITY, UNSPECIFIED Status: Chronic Qualifiers: Obesity classification: adult class 3 (BMI >= 40) Body mass index: BMI 40.0-44.9 - Plan is on dexamethasone, high flow/bipap, remdesivir, aspirin, heparin for dvt prophylaxis, synthroid and protonix got convalescent plasma 09/04 hemostable prognosis guarded PT to mobilize as tolerated encourage po intake of fluids and food, counselled to lie on lateral sides or prone if she can tolerate. d/w over phone and gave full updates (09/02, 09/04, 09/05, 09/06)
[2020-09-06] MEDS: ALPRAZolam 0.5 MG TAB PO PRN ×2 (13:34→23:03)
[2020-09-06] MEDS: REMDESIVIR (EUA) 100 MG in Sodium Chloride 0.9% 250 ML 230 ML IV SCH (16:00)
[2020-09-06] MEDS ORDERED: Insulin Glargine 20 UNITS in Pre-Filled Syringe 1 EACH SC SCH (16:45)
[2020-09-06] MEDS ORDERED: Insulin Glargine 10 UNITS in Pre-Filled Syringe 1 EACH SC SCH (21:00)
[2020-09-07] MEDS: Albuterol 200 PUFF (6.7GM INHALER) INH SCH ×4 (01:00→17:38)
[2020-09-07 04:55] LABS: ALT (SGPT) 20 U/L (8-55); AST (SGOT) 22 U/L (5-34); Albumin 3.3 g/dL (3.4-4.8); Alkaline Phosphatase 89 U/L (40-110); Anion Gap 17 mmol/L (10-20); BUN (Urea Nitrogen) 40 mg/dL (9.8-20.1); Bilirubin, Direct 0.2 mg/dL (0.1-0.3); Bilirubin, Total 0.3 mg/dL (0.2-1.2); CRP (Inflammatory) 2.93 mg/dL (= or < 0.5); Calc. Creatinine Clearance 62 mL/min (70-130); Carbon Dioxide 24 mmol/L (23-31); Chloride 99 mmol/L (98-107); Glucose 396 mg/dL (83-110); Potassium 4.9 mmol/L (3.5-5.1); Sodium 135 mmol/L (136-145)
[2020-09-07] MEDS: Mometasone 200 MCG/Formoterol 5 MCG 120 PUFF INHALER INH SCH ×2 (06:34→17:39)
[2020-09-07] MEDS: HumaLOG 300 UNITS/3 ML VIAL SC PRN ×4 (06:50→23:14)
--- NOTE | 2020-09-07 09:12 | PRG ---
DATE OF SERVICE: 09/07/2020 SUBJECTIVE: Maci Guerrero remains in the ICU. She finished convalescent plasma. She is on remdesivir, finished last day. OBJECTIVE: VITAL SIGNS: Blood pressure 147/82, sats are 90% on O2, pulse 83, respirations 30. CHEST: Bilateral crackles and wheezing. CARDIAC: Normal S1, S2. No gallops. ABDOMEN: No masses. ASSESSMENT: Jean positive pneumonia, obesity, severe deconditioning. PLAN: She can be transferred out of the ICU to ongoing monitored bed. Continue with PT, supportive care. Job ID: [id number]
[2020-09-07] MEDS: Dexamethasone 4 MG TAB PO SCH ×2 (09:54→16:03)
[2020-09-07] MEDS: Enoxaparin Sodium 40 MG/0.4 ML SYRINGE SC SCH ×2 (09:54→21:03)
[2020-09-07] MEDS: Aspirin 81 mg Enteric Coated Tablet PO SCH (09:55)
[2020-09-07] MEDS: Benzonatate 100 MG CAP PO SCH ×3 (09:55→21:03)
[2020-09-07] MEDS: Levothyroxine Sodium 112 MCG TAB PO SCH (09:55)
[2020-09-07] MEDS: Fenofibrate 48 MG TAB PO SCH (09:55)
[2020-09-07] MEDS: Doxycycline 100 MG CAP PO SCH ×2 (09:55→21:03)
[2020-09-07] MEDS: guaiFENesin ER 600 MG TAB PO SCH ×2 (09:55→21:03)
[2020-09-07] MEDS: Insulin Glargine 20 UNITS in Pre-Filled Syringe 1 EACH SC SCH ×2 (09:55→23:13)
[2020-09-07] MEDS: ALPRAZolam 0.5 MG TAB PO PRN (13:10)
--- NOTE | 2020-09-07 16:12 | PDOC.HOSPP ---
- Subjective Encounter Date: 09/07/20 Encounter Time: 09:00 Subjective: no sob, is sitting in chair is eating better on high flow O2 - Objective Vital Signs & Weight: Vital Signs (12 hours) Temp Pulse Resp BP Pulse Ox 09/07/20 13:30 101 H 28 H 165/76 H 94 L 09/07/20 12:00 93 L 09/07/20 09:00 96.0 F L 09/07/20 08:00 92 L Weight Admit Weight 238 lb 1.6 oz Weight 220 lb 7.396 oz Most Recent Monitor Data Heart Rate from ECG 92 NIBP 162/90 NIBP BP-Mean 114 Respiration from ECG 35 SpO2 91 I&O: 09/06/20 09/07/20 09/08/20 06:59 06:59 06:59 Intake Total 970.3 1700 570 Output Total 2350 2140 245 Balance -1379.7 -440 325 Result Diagrams: 09/03/20 04:01 09/07/20 03:33 Additional Labs: Accuchecks 09/07/20 09/07/20 09/07/20 15:57 10:04 06:39 POC Glucose 302 H 253 H 392 H 09/06/20 09/06/20 09/05/20 20:19 16:31 12:39 POC Glucose 428 H 442 H 395 H Hospitalist ROS - Medication Medications: Active Medications Generic Name Dose Route Start Last Admin Trade Name Freq PRN Reason Stop Dose Admin Albuterol Sulfate 2 puff 09/02/20 19:00 09/07/20 06:34 Albuterol 200 Puff (6.7gm Inhaler) INH 2 puff [id number] QUINTEN Administration Alprazolam 0.5 mg 09/06/20 12:16 09/07/20 13:10 Alprazolam 0.5 Mg Tab PO 0.5 mg BIDPRN PRN Administration Anxiety Aspirin 81 mg 09/02/20 09:00 09/07/20 09:55 Aspirin 81 Mg Enteric Coated Tablet PO 81 mg DAILY QUINTEN Administration Benzonatate 100 mg 09/02/20 15:00 09/07/20 09:55 Benzonatate 100 Mg Cap PO 100 mg TID QUINTEN Administration Dexamethasone 6 mg 09/05/20 17:00 09/07/20 09:54 Dexamethasone 4 Mg Tab PO 6 mg BID-WM QUINTEN Administration Doxycycline Hyclate 100 mg 09/05/20 21:00 09/07/20 09:55 Doxycycline 100 Mg Cap PO 100 mg BID QUINTEN Administration Enoxaparin Sodium 40 mg 09/05/20 21:00 09/07/20 09:54 Enoxaparin Sodium 40 Mg/0.4 Ml Syringe SC 40 mg 0900,2100 QUINTEN Administration Fenofibrate 48 mg 09/02/20 09:00 09/07/20 09:55 Fenofibrate 48 Mg Tab PO 48 mg DAILY QUINTEN Administration Guaifenesin 600 mg 09/02/20 21:00 09/07/20 09:55 Guaifenesin Er 600 Mg Tab PO 600 mg Q12HR QUINTEN Administration Guaifenesin 200 mg 09/02/20 11:15 09/03/20 05:25 Diabetic Tussin 200 Mg/10 Ml Udcup PO 200 mg Q4H PRN Administration Cough Insulin Glargine 20 units/ 0.2 mls @ 0 mls/hr 09/07/20 09:00 09/07/20 09:55 Miscellaneous Medication SC 0.2 mls BID QUINTEN Administration Insulin Human Lispro 0 units 09/03/20 20:47 09/04/20 22:45 Humalog 300 Units/3 Ml Vial SC 2 unit .BEDTIME SLIDING SC PRN Administration Bedtime Correctional Scale Insulin Human Lispro 0 units 09/06/20 05:30 09/07/20 10:18 Humalog 300 Units/3 Ml Vial SC 3 units .AGGRESSIVE SLIDING PRN Administration AGGRESSIVE SLIDING SCALE Protocol Levothyroxine Sodium 112 mcg 09/02/20 09:00 09/07/20 09:55 Levothyroxine Sodium 112 Mcg Tab PO 112 mcg DAILY QUINTEN Administration Mometasone Furoate/Formoterol Fumar 2 puff 09/05/20 18:30 09/07/20 06:34 Mometasone 200 Mcg/Formoterol 5 Mcg 120 Puff Inhaler INH 2 puff BID-RT QUINTEN Administration Pantoprazole Sodium 40 mg 09/02/20 21:00 09/06/20 20:06 Pantoprazole 40 Mg Tab PO 40 mg HS QUINTEN Administration Sodium Chloride 10 ml 09/02/20 02:30 09/04/20 08:38 Flush - Normal Saline 10 Ml Syringe IVF 10 ml PRN PRN Administration Saline Flush Throat Lozenges 1 ramesh 09/02/20 11:14 09/04/20 08:37 Cepastat Lozenges 1 Ramesh PO 1 ramesh Q4H PRN Administration Cough - Exam General Appearance: awake alert Eye: PERRL, anicteric sclera ENT: no oropharyngeal lesions, moist mucosa Neck: supple, no JVD Heart: RRR, no murmur Respiratory: no wheezes, rales, rhonchi Gastrointestinal: soft, non-tender, non-distended, normal bowel sounds Extremities: no cyanosis, no edema Neurological: cranial nerve grossly intact, no focal deficits Psychiatric: A&O x 3 Hosp A/P (1) Pneumonia due to COVID-19 virus Code(s): U07.1 - COVID-19; J12.89 - OTHER VIRAL PNEUMONIA Status: Acute (2) Acute respiratory failure with hypoxia Code(s): J96.01 - ACUTE RESPIRATORY FAILURE WITH HYPOXIA Status: Acute (3) Diarrhea due to COVID-19 Code(s): U07.1 - COVID-19; A08.39 - OTHER VIRAL ENTERITIS Status: Resolved (4) CHF (congestive heart failure) Code(s): I50.9 - HEART FAILURE, UNSPECIFIED Status: Chronic Qualifiers: Heart failure type: unspecified Heart failure chronicity: chronic Qualified Code(s): I50.9 - Heart failure, unspecified (5) Asthma Code(s): J45.909 - UNSPECIFIED ASTHMA, UNCOMPLICATED Status: Chronic Qualifiers: Asthma severity: mild Asthma persistence: intermittent Asthma complication type: uncomplicated Qualified Code(s): J45.20 - Mild intermittent asthma, uncomplicated (6) Obesity Code(s): E66.9 - OBESITY, UNSPECIFIED Status: Chronic Qualifiers: Body mass index: BMI 35.0-35.9 - Plan is on dexamethasone, high flow/bipap, finished remdesivir (09/07), aspirin, heparin for dvt prophylaxis, synthroid and protonix got convalescent plasma 09/04 hemostable prognosis guarded PT to mobilize as tolerated encourage po intake of fluids and food, counselled to lie on lateral sides or prone if she can tolerate. d/w over phone and gave full updates (09/02, 09/04, 09/05, 09/06)
[2020-09-08 05:36] LABS: ALT (SGPT) 17 U/L (8-55); AST (SGOT) 20 U/L (5-34); Albumin 3.3 g/dL (3.4-4.8); Alkaline Phosphatase 79 U/L (40-110); Anion Gap 17 mmol/L (10-20); BUN (Urea Nitrogen) 43 mg/dL (9.8-20.1); Bilirubin, Direct 0.3 mg/dL (0.1-0.3); Bilirubin, Total 0.4 mg/dL (0.2-1.2); Calc. Creatinine Clearance 61 mL/min (70-130); Calcium 8.9 mg/dL (7.8-10.44); Carbon Dioxide 23 mmol/L (23-31); Chloride 98 mmol/L (98-107); Glucose 384 mg/dL (83-110); Protein, Total 6.8 g/dL (6.0-8.3); Sodium 133 mmol/L (136-145)
[2020-09-08] MEDS: Albuterol 200 PUFF (6.7GM INHALER) INH SCH ×4 (07:40→17:44)
[2020-09-08] MEDS: Mometasone 200 MCG/Formoterol 5 MCG 120 PUFF INHALER INH SCH ×2 (07:41→17:44)
[2020-09-08] MEDS: Enoxaparin Sodium 40 MG/0.4 ML SYRINGE SC SCH ×2 (07:44→21:25)
[2020-09-08] MEDS: glipiZIDE 5 MG TAB PO SCH (07:44)
[2020-09-08] MEDS: Doxycycline 100 MG CAP PO SCH ×2 (07:44→21:25)
[2020-09-08] MEDS: Aspirin 81 mg Enteric Coated Tablet PO SCH (07:44)
[2020-09-08] MEDS: Dexamethasone 4 MG TAB PO SCH (07:44)
[2020-09-08] MEDS: Benzonatate 100 MG CAP PO SCH ×3 (07:44→21:25)
[2020-09-08] MEDS: Fenofibrate 48 MG TAB PO SCH (07:45)
[2020-09-08] MEDS: Levothyroxine Sodium 112 MCG TAB PO SCH (07:45)
[2020-09-08] MEDS: guaiFENesin ER 600 MG TAB PO SCH ×2 (07:45→21:25)
--- NOTE | 2020-09-08 08:12 | RAD ---
EXAM: Single view of the chest HISTORY: Covid pneumonia COMPARISON: 09/05/2020 FINDINGS: Single view of the chest shows a mildly enlarged cardiomediastinal silhouette. Atheroscler otic calcifications are seen in the aorta. Airspace opacities are seen in both lower lobes, left greater than right.. No acute osseous abnormality. IMPRESSION: Stable exam
[2020-09-08] MEDS: Insulin Glargine 30 UNITS in Pre-Filled Syringe 1 EACH SC SCH ×2 (08:16→21:20)
--- NOTE | 2020-09-08 10:30 | PRG ---
DATE OF SERVICE: 09/08/2020 OBJECTIVE: VITAL SIGNS: Temperature 97, pulse 90, respiratory rate 24, sats are 96%, on high-flow, 55 L. Blood pressure 150/79. CHEST: No wheezing, no crackles. CARDIAC: Normal S1 and S2. No gallops. ABDOMEN: No masses. LABORATORY DATA: Blood sugar 342. X-ray still shows significant bilateral infiltrates. ASSESSMENT AND PLAN: Morbid obesity, roland positive pneumonia, has received convalescent plasma, high-dose steroids. Because of ongoing elevated blood sugar, I am going to decrease the Decadron to 6 mg once a day. We will transition to p.o. prednisone once her oxygen requirements have decreased. Otherwise, she is also on empiric antibiotics. Continue PT and supportive care. Job ID: [id number]
[2020-09-08] MEDS: HumaLOG 300 UNITS/3 ML VIAL SC PRN ×3 (12:38→21:20)
--- NOTE | 2020-09-08 13:21 | PDOC.HOSPP ---
- Subjective Encounter Date: 09/08/20 Encounter Time: 11:35 Subjective: sitting on recliner, has sob and is on high flow has not been able to ambulate so far is scared to breathe to lie on bed - Objective Vital Signs & Weight: Vital Signs (12 hours) Temp Pulse Resp BP BP Pulse Ox 09/08/20 11:11 97.9 F 84 22 H 136/85 100 09/08/20 07:30 97.4 F L 91 24 H 156/79 H 96 09/08/20 04:00 97.7 F 75 28 H 145/79 H 97 Weight Admit Weight 238 lb 1.6 oz Weight 220 lb 7.396 oz Most Recent Monitor Data Heart Rate from ECG 92 NIBP 162/90 NIBP BP-Mean 114 Respiration from ECG 35 SpO2 91 I&O: 09/07/20 09/08/20 09/09/20 06:59 06:59 06:59 Intake Total 1700 1530 240 Output Total 2140 1645 Balance -440 -115 240 Result Diagrams: 09/03/20 04:01 09/08/20 04:48 Additional Labs: Accuchecks 09/08/20 09/08/20 09/07/20 11:08 05:55 20:27 POC Glucose 399 H 342 H 404 H 09/07/20 09/07/20 15:57 12:38 POC Glucose 302 H 270 H Hospitalist ROS - Medication Medications: Active Medications Generic Name Dose Route Start Last Admin Trade Name Freq PRN Reason Stop Dose Admin Albuterol Sulfate 2 puff 09/02/20 19:00 09/08/20 12:38 Albuterol 200 Puff (6.7gm Inhaler) INH 2 puff [id number] QUINTEN Administration Alprazolam 0.5 mg 09/06/20 12:16 09/07/20 13:10 Alprazolam 0.5 Mg Tab PO 0.5 mg BIDPRN PRN Administration Anxiety Aspirin 81 mg 09/02/20 09:00 09/08/20 07:44 Aspirin 81 Mg Enteric Coated Tablet PO 81 mg DAILY QUINTEN Administration Benzonatate 100 mg 09/02/20 15:00 09/08/20 07:44 Benzonatate 100 Mg Cap PO 100 mg TID QUINTEN Administration Doxycycline Hyclate 100 mg 09/05/20 21:00 09/08/20 07:44 Doxycycline 100 Mg Cap PO 100 mg BID QUINTEN Administration Enoxaparin Sodium 40 mg 09/05/20 21:00 09/08/20 07:44 Enoxaparin Sodium 40 Mg/0.4 Ml Syringe SC 40 mg 0900,2100 QUINTEN Administration Fenofibrate 48 mg 09/02/20 09:00 09/08/20 07:45 Fenofibrate 48 Mg Tab PO 48 mg DAILY QUINTEN Administration Glipizide 5 mg 09/08/20 07:30 09/08/20 07:44 Glipizide 5 Mg Tab PO 5 mg DAILY-AC QUINTEN Administration Guaifenesin 600 mg 09/02/20 21:00 09/08/20 07:45 Guaifenesin Er 600 Mg Tab PO 600 mg Q12HR QUINTEN Administration Guaifenesin 200 mg 09/02/20 11:15 09/03/20 05:25 Diabetic Tussin 200 Mg/10 Ml Udcup PO 200 mg Q4H PRN Administration Cough Insulin Glargine 30 units/ 0.3 mls @ 0 mls/hr 09/08/20 09:00 09/08/20 08:16 Miscellaneous Medication SC 0.3 mls BID QUINTEN Administration Insulin Human Lispro 0 units 09/03/20 20:47 09/07/20 23:14 Humalog 300 Units/3 Ml Vial SC 5 unit .BEDTIME SLIDING SC PRN Administration Bedtime Correctional Scale Insulin Human Lispro 0 units 09/06/20 05:30 09/08/20 12:38 Humalog 300 Units/3 Ml Vial SC 13 units .AGGRESSIVE SLIDING PRN Administration AGGRESSIVE SLIDING SCALE Protocol Levothyroxine Sodium 112 mcg 09/02/20 09:00 09/08/20 07:45 Levothyroxine Sodium 112 Mcg Tab PO 112 mcg DAILY QUINTEN Administration Mometasone Furoate/Formoterol Fumar 2 puff 09/05/20 18:30 09/08/20 07:41 Mometasone 200 Mcg/Formoterol 5 Mcg 120 Puff Inhaler INH 2 puff BID-RT QUINTEN Administration Pantoprazole Sodium 40 mg 09/02/20 21:00 09/07/20 21:03 Pantoprazole 40 Mg Tab PO 40 mg HS QUINTEN Administration Sodium Chloride 10 ml 09/02/20 02:30 09/08/20 07:45 Flush - Normal Saline 10 Ml Syringe IVF 10 ml PRN PRN Administration Saline Flush Throat Lozenges 1 ramesh 09/02/20 11:14 09/04/20 08:37 Cepastat Lozenges 1 Ramesh PO 1 ramesh Q4H PRN Administration Cough - Exam General Appearance: awake alert Eye: PERRL, anicteric sclera ENT: no oropharyngeal lesions, moist mucosa Neck: supple, no JVD Heart: RRR, no murmur Respiratory: no wheezes, rales, rhonchi Gastrointestinal: soft, non-tender, non-distended, normal bowel sounds Extremities: no cyanosis, 1+ LE edema Neurological: cranial nerve grossly intact, no focal deficits Psychiatric: normal affect, A&O x 3 Hosp A/P (1) Pneumonia due to COVID-19 virus Code(s): U07.1 - COVID-19; J12.89 - OTHER VIRAL PNEUMONIA Status: Acute (2) Acute respiratory failure with hypoxia Code(s): J96.01 - ACUTE RESPIRATORY FAILURE WITH HYPOXIA Status: Acute (3) Diarrhea due to COVID-19 Code(s): U07.1 - COVID-19; A08.39 - OTHER VIRAL ENTERITIS Status: Resolved (4) CHF (congestive heart failure) Code(s): I50.9 - HEART FAILURE, UNSPECIFIED Status: Chronic Qualifiers: Heart failure type: unspecified Heart failure chronicity: chronic Qualified Code(s): I50.9 - Heart failure, unspecified (5) Asthma Code(s): J45.909 - UNSPECIFIED ASTHMA, UNCOMPLICATED Status: Chronic Qualifiers: Asthma severity: mild Asthma persistence: intermittent Asthma complication type: uncomplicated Qualified Code(s): J45.20 - Mild intermittent asthma, uncomplicated (6) Obesity Code(s): E66.9 - OBESITY, UNSPECIFIED Status: Chronic Qualifiers: Body mass index: BMI 35.0-35.9 - Plan is on dexamethasone, high flow with 91% fio2, finished remdesivir (09/07), aspirin, heparin for dvt prophylaxis, synthroid and protonix got convalescent plasma 09/04 hemostable prognosis guarded PT to mobilize as tolerated encourage po intake of fluids and food, counselled to lie on lateral sides or pr one if she can tolerate. d/w over phone and gave full updates (09/02, 09/04, 09/05, 09/06), d/w daughter 09/08 and gave full updates.
[2020-09-08] MEDS ORDERED: Insulin Glargine 25 UNITS in Pre-Filled Syringe 1 EACH SC SCH (18:00)
[2020-09-08] MEDS ORDERED: glipiZIDE 5 MG TAB PO SCH (18:00)
[2020-09-09] MEDS: Albuterol 200 PUFF (6.7GM INHALER) INH SCH ×4 (01:50→17:36)
[2020-09-09 05:38] LABS: ALT (SGPT) 17 U/L (8-55); AST (SGOT) 21 U/L (5-34); Albumin 3.4 g/dL (3.4-4.8); Alkaline Phosphatase 86 U/L (40-110); Anion Gap 18 mmol/L (10-20); BUN (Urea Nitrogen) 41 mg/dL (9.8-20.1); Bilirubin, Direct 0.3 mg/dL (0.1-0.3); Bilirubin, Total 0.5 mg/dL (0.2-1.2); Calc. Creatinine Clearance 66 mL/min (70-130); Calcium 9.3 mg/dL (7.8-10.44); Carbon Dioxide 25 mmol/L (23-31); Chloride 99 mmol/L (98-107); Glucose 204 mg/dL (83-110); Potassium 4.5 mmol/L (3.5-5.1); Protein, Total 7.1 g/dL (6.0-8.3); Sodium 137 mmol/L (136-145)
[2020-09-09] MEDS: HumaLOG 300 UNITS/3 ML VIAL SC PRN ×2 (06:33→22:19)
[2020-09-09] MEDS: Mometasone 200 MCG/Formoterol 5 MCG 120 PUFF INHALER INH SCH ×2 (06:55→17:35)
[2020-09-09] MEDS: Insulin Glargine 30 UNITS in Pre-Filled Syringe 1 EACH SC SCH ×2 (08:41→22:18)
[2020-09-09] MEDS: Enoxaparin Sodium 40 MG/0.4 ML SYRINGE SC SCH ×2 (08:43→20:38)
[2020-09-09] MEDS: Dexamethasone 4 MG TAB PO SCH (08:43)
[2020-09-09] MEDS: Benzonatate 100 MG CAP PO SCH ×3 (08:44→20:38)
[2020-09-09] MEDS: guaiFENesin ER 600 MG TAB PO SCH ×2 (08:44→20:38)
[2020-09-09] MEDS: Levothyroxine Sodium 112 MCG TAB PO SCH (08:44)
[2020-09-09] MEDS: glipiZIDE 5 MG TAB PO SCH (08:44)
[2020-09-09] MEDS: Aspirin 81 mg Enteric Coated Tablet PO SCH (08:44)
[2020-09-09] MEDS: Fenofibrate 48 MG TAB PO SCH (08:45)
[2020-09-09] MEDS: Doxycycline 100 MG CAP PO SCH ×2 (08:45→20:38)
--- NOTE | 2020-09-09 12:42 | PDOC.HOSPP ---
- Subjective Encounter Date: 09/09/20 Encounter Time: 12:40 Subjective: This is a 70-year-old woman admitted for COVID-19 pneumonia. She is on high flow at this time. She seems to be struggling. I am going to watch her closely. We will consider transfer to the [facility] if she does not improve. On exam she does have bibasilar rales noted. She does take Lasix at home which was not continued. I am going to give a one-time dose of IV Lasix and will restart her p.o. meds. - Objective Vital Signs & Weight: Vital Signs (12 hours) Temp Pulse Resp BP Pulse Ox 09/09/20 08:00 97.6 F 102 H 25 H 132/74 91 L 09/09/20 03:32 97.8 F 77 22 H 155/70 H 95 Weight Admit Weight 238 lb 1.6 oz Weight 220 lb 7.396 oz Most Recent Monitor Data Heart Rate from ECG 92 NIBP 162/90 NIBP BP-Mean 114 Respiration from ECG 35 SpO2 91 I&O: 09/08/20 09/09/20 09/10/20 06:59 06:59 06:59 Intake Total 1530 960 360 Output Total 2482 848 3394 Balance -115 60 -690 Result Diagrams: 09/03/20 04:01 09/09/20 04:42 Additional Labs: Accuchecks 09/09/20 09/08/20 09/08/20 12:20 20:34 16:16 POC Glucose 123 H 426 H 480 H Radiology Reviewed by me: Yes EKG Reviewed by me: Yes Hospitalist ROS - Review of Systems Constitutional: reports: weakness, malaise Respiratory: reports: cough, shortness of breath, SOB with excertion Cardiovascular: reports: chest pain, paroxysmal noc. dyspnea Gastrointestinal: reports: nausea Neurological: reports: weakness - Medication Medications: Active Medications Generic Name Dose Route Start Last Admin Trade Name Freq PRN Reason Stop Dose Admin Albuterol Sulfate 2 puff 09/02/20 19:00 09/09/20 06:55 Albuterol 200 Puff (6.7gm Inhaler) INH 2 puff [id number] QUINTEN Administration Alprazolam 0.5 mg 09/06/20 12:16 09/07/20 13:10 Alprazolam 0.5 Mg Tab PO 0.5 mg BIDPRN PRN Administration Anxiety Aspirin 81 mg 09/02/20 09:00 09/09/20 08:44 Aspirin 81 Mg Enteric Coated Tablet PO 81 mg DAILY QUINTEN Administration Benzonatate 100 mg 09/02/20 15:00 09/09/20 08:44 Benzonatate 100 Mg Cap PO 100 mg TID QUINTEN Administration Dexamethasone 6 mg 09/09/20 08:00 09/09/20 08:43 Dexamethasone 4 Mg Tab PO 6 mg QAM-WM QUINTEN Administration Doxycycline Hyclate 100 mg 09/05/20 21:00 09/09/20 08:45 Doxycycline 100 Mg Cap PO 100 mg BID QUINTEN Administration Enoxaparin Sodium 40 mg 09/05/20 21:00 09/09/20 08:43 Enoxaparin Sodium 40 Mg/0.4 Ml Syringe SC 40 mg 09,2100 QUINTEN Administration Fenofibrate 48 mg 09/02/20 09:00 09/09/20 08:45 Fenofibrate 48 Mg Tab PO 48 mg DAILY QUINTEN Administration Glipizide 5 mg 09/08/20 07:30 09/09/20 08:44 Glipizide 5 Mg Tab PO 5 mg DAILY-AC QUINTEN Administration Guaifenesin 600 mg 09/02/20 21:00 09/09/20 08:44 Guaifenesin Er 600 Mg Tab PO 600 mg Q12HR QUINTEN Administration Guaifenesin 200 mg 09/02/20 11:15 09/03/20 05:25 Diabetic Tussin 200 Mg/10 Ml Udcup PO 200 mg Q4H PRN Administration Cough Insulin Glargine 30 units/ 0.3 mls @ 0 mls/hr 09/08/20 09:00 09/09/20 08:41 Miscellaneous Medication SC 0.3 mls BID QUINTEN Administration Insulin Human Lispro 0 units 09/03/20 20:47 09/09/20 06:33 Humalog 300 Units/3 Ml Vial SC 2 unit .BEDTIME SLIDING SC PRN Administration Bedtime Correctional Scale Insulin Human Lispro 0 units 09/06/20 05:30 09/08/20 17:42 Humalog 300 Units/3 Ml Vial SC 13 units .AGGRESSIVE SLIDING PRN Administration AGGRESSIVE SLIDING SCALE Protocol Levothyroxine Sodium 112 mcg 09/02/20 09:00 12/19/20 08:44 Levothyroxine Sodium 112 Mcg Tab PO 112 mcg DAILY QUINTEN Administration Mometasone Furoate/Formoterol Fumar 2 puff 09/05/20 18:30 09/09/20 06:55 Mometasone 200 Mcg/Formoterol 5 Mcg 120 Puff Inhaler INH 2 puff BID-RT QUINTEN Administration Pantoprazole Sodium 40 mg 09/02/20 21:00 09/08/20 21:25 Pantoprazole 40 Mg Tab PO 40 mg HS QUINTEN Administration Sodium Chloride 10 ml 09/02/20 02:30 09/08/20 07:45 Flush - Normal Saline 10 Ml Syringe IVF 10 ml PRN PRN Administration Saline Flush Throat Lozenges 1 ramesh 09/02/20 11:14 09/04/20 08:37 Cepastat Lozenges 1 Ramesh PO 1 ramesh Q4H PRN Administration Cough - Exam General Appearance: awake alert, ill appearing ENT: normocephalic atraumatic, no oropharyngeal lesions Neck: supple, symmetric, no JVD, no thyromegaly Heart: RRR, no murmur Respiratory: CTAB, normal chest expansion Gastrointestinal: soft, non-tender, non-distended, normal bowel sounds, no palpable masses Neurological: cranial nerve grossly intact Psychiatric: normal affect, normal behavior, A&O x 3 Hosp A/P - Plan #1. Acute respiratory failure with hypoxia. Likely secondary to COVID-19 pneumonia. Continue O2 supplementation and wean as tolerated. I will have a low threshold to intubate in this unfortunate woman. 2. COVID-19 pneumonia. She has received remdesivir and convalescent plasma. We appreciate ID ongoing evaluation. 3. Chronic kidney disease at least stage III. Supportive care. 4. Hypertensive heart disease.
[2020-09-09] MEDS ORDERED: Loratadine 10 MG TAB PO PRN (12:43)
[2020-09-09] MEDS ORDERED: Furosemide 100 MG/10 ML VIAL SLOW IVP SCH (12:45)
[2020-09-09] MEDS ORDERED: (Dulaglutide [Trulicity] 0.75 MG/0.5 ML Pen.Injctr) SC SCH (12:45)
--- NOTE | 2020-09-09 13:26 | PRG ---
DATE OF SERVICE: 09/09/2020 SUBJECTIVE: The patient is fairly stable on high-flow oxygen. She is somewhat depressed. OBJECTIVE: VITAL SIGNS: On exam, temperature 98.1, pulse 106, respirations 20, O2 saturation 92% on 83% high-flow oxygen, and blood pressure 130/65. HEENT: Unremarkable. NECK: No JVD. LUNGS: Inspiratory crackles. CARDIAC: S1 and S2. Regular. ABDOMEN: Soft. EXTREMITIES: No edema. LABORATORY DATA: Sodium 137, potassium 4.5, BUN 41, creatinine 1.2, and glucose 204. Ferritin 387 down from 414. ASSESSMENT: COVID-19 pneumonia with acute hypoxic respiratory failure. PLAN: She is being treated with anticoagulation, steroids and oxygen and is slowly improving. Job ID: [id number]
--- NOTE | 2020-09-09 15:07 | EKG ---
Test Reason : Blood Pressure : / mmHG Vent. Rate : 080 BPM Atrial Rate : 080 BPM P-R Int : 128 ms QRS Dur : 076 ms QT Int : 376 ms P-R-T Axes : 022 -11 043 degrees QTc Int : 433 ms Sinus rhythm with Premature supraventricular complexes Moderate voltage criteria for LVH, may be normal variant Inferior infarct , age undetermined Abnormal ECG Confirmed by BARBARA HILL ([id number]), video tape editor CYNTHIA PAUL ([id number]) on 09/09/2020 3:06:50 PM Referred By: Confirmed By:BARBARA HILL
[2020-09-09] MEDS: Simvastatin 10 MG TAB PO SCH (20:38)
[2020-09-09] MEDS: Propranolol HCl LA 80 MG CAP PO SCH (20:38)
[2020-09-09 21:52] LABS: Glucose 590 mg/dL (83-110)
[2020-09-10] MEDS: Albuterol 200 PUFF (6.7GM INHALER) INH SCH ×4 (01:37→18:00)
[2020-09-10 05:25] LABS: ALT (SGPT) 16 U/L (8-55); AST (SGOT) 33 U/L (5-34); Albumin 3.1 g/dL (3.4-4.8); Alkaline Phosphatase 77 U/L (40-110); Anion Gap 18 mmol/L (10-20); BUN (Urea Nitrogen) 42 mg/dL (9.8-20.1); Bilirubin, Direct 0.2 mg/dL (0.1-0.3); Bilirubin, Total 0.5 mg/dL (0.2-1.2); Calc. Creatinine Clearance 61 mL/min (70-130); Calcium 9.1 mg/dL (7.8-10.44); Carbon Dioxide 24 mmol/L (23-31); Chloride 97 mmol/L (98-107); Glucose 241 mg/dL (83-110); Protein, Total 7.2 g/dL (6.0-8.3); Sodium 134 mmol/L (136-145)
[2020-09-10] MEDS: Furosemide 40 MG/4 ML VIAL SLOW IVP SCH ×2 (05:42→15:45)
[2020-09-10] MEDS: Mometasone 200 MCG/Formoterol 5 MCG 120 PUFF INHALER INH SCH ×2 (05:43→17:58)
[2020-09-10 05:49] LABS: Band 6 % (5-11); Hemoglobin 14.3 g/dL (12.0-16.0); Lymphocytes 8 % (21-51); MDiff Complete? YES; Mean Corpuscular HGB CONC 33.6 g/dL (32.0-36.0); Mean Corpuscular Hemoglobin 32.4 pg (27.0-31.0); Mean Corpuscular Volume 96.5 fL (78.0-98.0); Mean Platelet Volume 8.2 fL (7.4-10.4); Metamyelocyte 1 % (0-0); Monocytes 1 % (0-10); Neutrophil 84 % (42-75); Platelet Count 465 thou/uL (130-400); RBC Distribution Width 11.9 % (11.5-14.5); Red Blood Cell (RBC) Count 4.42 mill/uL (4.20-5.40); White Blood Cell (WBC) Count 21.7 thou/uL (4.8-10.8)
[2020-09-10] MEDS: HumaLOG 300 UNITS/3 ML VIAL SC PRN ×4 (06:35→21:18)
[2020-09-10] MEDS: Doxycycline 100 MG CAP PO SCH ×2 (08:43→21:18)
[2020-09-10] MEDS: Insulin Glargine 30 UNITS in Pre-Filled Syringe 1 EACH SC SCH ×2 (08:43→21:19)
[2020-09-10] MEDS: Enoxaparin Sodium 40 MG/0.4 ML SYRINGE SC SCH ×2 (08:43→21:21)
[2020-09-10] MEDS: guaiFENesin ER 600 MG TAB PO SCH ×2 (08:44→21:18)
[2020-09-10] MEDS: Calcium Carbonate 600 MG TAB PO SCH (08:44)
[2020-09-10] MEDS: Dexamethasone 4 MG TAB PO SCH (08:44)
[2020-09-10] MEDS: Levothyroxine Sodium 112 MCG TAB PO SCH (08:44)
[2020-09-10] MEDS: glipiZIDE 5 MG TAB PO SCH (08:44)
[2020-09-10] MEDS: Aspirin 81 mg Enteric Coated Tablet PO SCH (08:44)
[2020-09-10] MEDS: Fenofibrate 48 MG TAB PO SCH (08:44)
[2020-09-10] MEDS: Benzonatate 100 MG CAP PO SCH ×3 (08:44→21:18)
[2020-09-10] MEDS ORDERED: Losartan 25 MG TAB PO SCH (09:00)
--- NOTE | 2020-09-10 10:06 | RAD ---
CHEST 1 VIEW: HISTORY: Followup COVID pneumonia. COMPARISON: 09/08/2020 exam. FINDINGS: Bilateral lung infiltrates have worsened as compared to that exam. Heart size is borderline. IMPRESSION: Suggestion of some slight worsening to the bilateral lung infiltrates. POS: ZAINA
--- NOTE | 2020-09-10 12:35 | PDOC.HOSPP ---
- Subjective Encounter Date: 09/10/20 Encounter Time: 11:48 Subjective: 70-year-old female seen and examined today at the bedside. She remains on high flow nasal cannula for acute respiratory failure related to COVID-19 pneumonia. She reports feeling somewhat better today as opposed to yesterday. She remains on the high flow nasal cannula. No fever has been reported. I will continue current management plan. - Objective Vital Signs & Weight: Vital Signs (12 hours) Temp Pulse Resp BP Pulse Ox 09/10/20 08:51 95 F L 90 19 124/60 94 L 09/10/20 05:43 74 28 H 90 L 09/10/20 03:40 98.5 F 78 30 H 133/73 90 L 09/10/20 00:45 80 28 H 95 Weight Admit Weight 238 lb 1.6 oz Weight 220 lb 7.396 oz Most Recent Monitor Data Heart Rate from ECG 92 NIBP 162/90 NIBP BP-Mean 114 Respiration from ECG 35 SpO2 91 I&O: 09/09/20 09/10/20 09/11/20 06:59 06:59 06:59 Intake Total 960 2390 Output Total 900 4750 Balance 60 -2360 Result Diagrams: 09/10/20 04:41 09/10/20 04:41 Additional Labs: Accuchecks 09/10/20 09/09/20 11:21 12:20 POC Glucose 263 H 123 H Radiology Reviewed by me: Yes EKG Reviewed by me: Yes Hospitalist ROS - Review of Systems Constitutional: reports: weakness Respiratory: reports: shortness of breath, SOB with excertion, pleuritic pain, wheezing Neurological: reports: weakness - Medication Medications: Active Medications Generic Name Dose Route Start Last Admin Trade Name Freq PRN Reason Stop Dose Admin Albuterol Sulfate 2 puff 09/02/20 19:00 09/10/20 05:45 Albuterol 200 Puff (6.7gm Inhaler) INH 2 puff [id number] QUINTEN Administration Alprazolam 0.5 mg 09/06/20 12:16 09/07/20 13:10 Alprazolam 0.5 Mg Tab PO 0.5 mg BIDPRN PRN Administration Anxiety Aspirin 81 mg 09/02/20 09:00 09/10/20 08:44 Aspirin 81 Mg Enteric Coated Tablet PO 81 mg DAILY QUINTEN Administration Benzonatate 100 mg 09/02/20 15:00 09/10/20 08:44 Benzonatate 100 Mg Cap PO 100 mg TID QUINTEN Administration Calcium Carbonate 600 mg 09/10/20 09:00 09/10/20 08:44 Calcium Carbonate 600 Mg Tab PO 600 mg DAILY QUINTEN Administration Dexamethasone 6 mg 09/09/20 08:00 09/10/20 08:44 Dexamethasone 4 Mg Tab PO 6 mg QAM-WM QUINTEN Administration Doxycycline Hyclate 100 mg 09/05/20 21:00 09/10/20 08:43 Doxycycline 100 Mg Cap PO 100 mg BID QUINTEN Administration Enoxaparin Sodium 40 mg 09/05/20 21:00 09/10/20 08:43 Enoxaparin Sodium 40 Mg/0.4 Ml Syringe SC 40 mg 0900,2100 QUINTEN Administration Fenofibrate 48 mg 09/02/20 09:00 09/10/20 08:44 Fenofibrate 48 Mg Tab PO 48 mg DAILY QUINTEN Administration Furosemide 40 mg 09/10/20 06:00 09/10/20 05:42 Furosemide 40 Mg/4 Ml Vial SLOW IVP 09/11/20 14:01 40 mg 0600,1400 QUINTEN Administration Glipizide 5 mg 09/08/20 07:30 09/10/20 08:44 Glipizide 5 Mg Tab PO 5 mg DAILY-AC QUINTEN Administration Guaifenesin 600 mg 09/02/20 21:00 09/10/20 08:44 Guaifenesin Er 600 Mg Tab PO 600 mg Q12HR QUINTEN Administration Guaifenesin 200 mg 09/02/20 11:15 09/03/20 05:25 Diabetic Tussin 200 Mg/10 Ml Udcup PO 200 mg Q4H PRN Administration Cough Insulin Glargine 30 units/ 0.3 mls @ 0 mls/hr 09/08/20 09:00 09/10/20 08:43 Miscellaneous Medication SC 0.3 mls BID QUINTEN Administration Insulin Human Lispro 0 units 09/03/20 20:47 09/09/20 22:19 Humalog 300 Units/3 Ml Vial SC 5 unit .BEDTIME SLIDING SC PRN Administration Bedtime Correctional Scale Insulin Human Lispro 0 units 09/06/20 05:30 09/10/20 06:35 Humalog 300 Units/3 Ml Vial SC 6 units .AGGRESSIVE SLIDING PRN Administration AGGRESSIVE SLIDING SCALE Protocol Levothyroxine Sodium 112 mcg 09/02/20 09:00 09/10/20 08:44 Levothyroxine Sodium 112 Mcg Tab PO 112 mcg DAILY QUINTEN Administration Mometasone Furoate/Formoterol Fumar 2 puff 09/05/20 18:30 09/10/20 05:43 Mometasone 200 Mcg/Formoterol 5 Mcg 120 Puff Inhaler INH 2 puff BID-RT QUINTEN Administration Pantoprazole Sodium 40 mg 09/02/20 21:00 09/09/20 20:38 Pantoprazole 40 Mg Tab PO 40 mg HS QUINTEN Administration Propranolol HCl 80 mg 09/09/20 21:00 09/09/20 20:38 Propranolol Hcl La 80 Mg Cap PO 80 mg HS QUINTEN Administration Simvastatin 10 mg 09/09/20 21:00 09/09/20 20:38 Simvastatin 10 Mg Tab PO 10 mg HS QUINTEN Administration Sodium Chloride 10 ml 09/02/20 02:30 09/10/20 05:45 Flush - Normal Saline 10 Ml Syringe IVF 10 ml PRN PRN Administration Saline Flush Throat Lozenges 1 ramesh 09/02/20 11:14 09/04/20 08:37 Cepastat Lozenges 1 Ramesh PO 1 ramesh Q4H PRN Administration Cough - Exam General Appearance: awake alert, ill appearing ENT: normocephalic atraumatic, no oropharyngeal lesions Neck: supple, symmetric, no JVD, no thyromegaly Heart: RRR, no murmur, no gallops, no rubs Respiratory: CTAB, no wheezes Gastrointestinal: soft, non-tender, non-distended Neurological: cranial nerve grossly intact Musculoskeletal: normal tone, normal strength, no muscle wasting Psychiatric: A&O x 3 Hosp A/P (1) Acute respiratory failure with hypoxia Code(s): J96.01 - ACUTE RESPIRATORY FAILURE WITH HYPOXIA Status: Acute (2) Pneumonia due to COVID-19 virus Code(s): U07.1 - COVID-19; J12.89 - OTHER VIRAL PNEUMONIA Status: Acute (3) CHF (congestive heart failure) Code(s): I50.9 - HEART FAILURE, UNSPECIFIED Status: Chronic Qualifiers: Heart failure type: unspecified Heart failure chronicity: chronic Qualified Code(s): I50.9 - Heart failure, unspecified (4) Diarrhea due to COVID-19 Code(s): U07.1 - COVID-19; A08.39 - OTHER VIRAL ENTERITIS Status: Resolved - Plan old records reviewed/req, continue antibiotics, PT/OT #1. Acute respiratory failure with hypoxia. Likely secondary to COVID-19 pneumonia. Continue O2 supplementation and wean as tolerated. I will have a low threshold to intubate in this unfortunate woman. 09/10/2020. She remains on high flow nasal cannula today. I will continue this for now. 2. COVID-19 pneumonia. She has received remdesivir and convalescent plasma. We appreciate ID ongoing evaluation. 3. Chronic kidney disease at least stage III. Supportive care. 4. Hypertensive heart disease.
[2020-09-10] MEDS: Bisacodyl 5 MG TAB PO PRN (13:30)
--- NOTE | 2020-09-10 13:32 | PRG ---
DATE OF SERVICE: 09/10/2020 SUBJECTIVE: She is in good spirits. Overall, she looks about the same. OBJECTIVE: VITAL SIGNS: Temperature 98.5, pulse 94, respirations 20, O2 saturation 94% on 87% high-flow oxygen, blood pressure 126/62. HEENT: Clear. NECK: No adenopathy or JVD. LUNGS: Distant, but clear breath sounds anteriorly. CARDIAC: S1, S2. Regular. ABDOMEN: Soft. EXTREMITIES: No edema. DIAGNOSTIC DATA: Chest x-ray continued to show bilateral infiltrates. LABORATORY DATA: Sodium 134, potassium 5, chloride 97, CO2 of 24, BUN 42, creatinine 1.3, glucose 241. White blood cell count 21.7, hematocrit 42.6, and platelet count 465. ASSESSMENT: COVID-19 pneumonia with prolonged hypoxic respiratory failure. PLAN: The best we can do is to wait this out and hopefully she will improve to the point, where we can begin weaning her oxygen. I have reviewed the orders. Agree with anticoagulation, corticosteroids, and general supportive care. Job ID: [id number]
[2020-09-10] MEDS: Propranolol HCl LA 80 MG CAP PO SCH (21:22)
[2020-09-10] MEDS: Simvastatin 10 MG TAB PO SCH (22:30)
[2020-09-11] MEDS: Albuterol 200 PUFF (6.7GM INHALER) INH SCH ×4 (02:42→18:03)
[2020-09-11] MEDS: Furosemide 40 MG/4 ML VIAL SLOW IVP SCH ×2 (05:16→13:17)
[2020-09-11] MEDS: Milk Of Magnesia 30 ML UDCUP PO PRN (05:17)
[2020-09-11 05:44] LABS: Band 4 % (5-11); Hemoglobin 15.2 g/dL (12.0-16.0); Lymphocytes 8 % (21-51); MDiff Complete? YES; Mean Corpuscular HGB CONC 33.6 g/dL (32.0-36.0); Mean Corpuscular Hemoglobin 32.2 pg (27.0-31.0); Mean Corpuscular Volume 95.7 fL (78.0-98.0); Mean Platelet Volume 8.9 fL (7.4-10.4); Monocytes 2 % (0-10); Neutrophil 86 % (42-75); Platelet Count 482 thou/uL (130-400); Platelet Morphology Comment Appears Increased; RBC Distribution Width 11.9 % (11.5-14.5); Red Blood Cell (RBC) Count 4.73 mill/uL (4.20-5.40); White Blood Cell (WBC) Count 25.1 thou/uL (4.8-10.8)
[2020-09-11 05:54] LABS: BUN (Urea Nitrogen) 54 mg/dL (9.8-20.1); Calc. Creatinine Clearance 70 mL/min (70-130); Calcium 9.2 mg/dL (7.8-10.44); Carbon Dioxide 21 mmol/L (23-31); Chloride 96 mmol/L (98-107); Glucose 73 mg/dL (83-110); Potassium 4.6 mmol/L (3.5-5.1); Sodium 135 mmol/L (136-145)
[2020-09-11] MEDS: Mometasone 200 MCG/Formoterol 5 MCG 120 PUFF INHALER INH SCH ×2 (06:20→18:04)
[2020-09-11 06:37] LABS: Anion Gap 23 mmol/L (10-20)
[2020-09-11 07:00] LABS: ALT (SGPT) 16 U/L (8-55); AST (SGOT) 40 U/L (5-34); Alkaline Phosphatase 79 U/L (40-110); Bilirubin, Direct 0.2 mg/dL (0.1-0.3); Bilirubin, Total 0.6 mg/dL (0.2-1.2); Protein, Total 7.5 g/dL (6.0-8.3)
[2020-09-11] MEDS: Doxycycline 100 MG CAP PO SCH ×2 (08:26→19:57)
[2020-09-11] MEDS: glipiZIDE 5 MG TAB PO SCH (08:26)
[2020-09-11] MEDS: Dexamethasone 4 MG TAB PO SCH (08:26)
[2020-09-11] MEDS: Levothyroxine Sodium 112 MCG TAB PO SCH (08:27)
[2020-09-11] MEDS: guaiFENesin ER 600 MG TAB PO SCH ×2 (08:27→19:58)
[2020-09-11] MEDS: Benzonatate 100 MG CAP PO SCH ×3 (08:27→19:58)
[2020-09-11] MEDS: Calcium Carbonate 600 MG TAB PO SCH (08:27)
[2020-09-11] MEDS: Aspirin 81 mg Enteric Coated Tablet PO SCH (08:28)
[2020-09-11] MEDS: Bisacodyl 5 MG TAB PO PRN (08:30)
[2020-09-11] MEDS: Enoxaparin Sodium 40 MG/0.4 ML SYRINGE SC SCH ×2 (08:33→19:57)
[2020-09-11] MEDS: Insulin Glargine 30 UNITS in Pre-Filled Syringe 1 EACH SC SCH ×2 (08:37→20:39)
[2020-09-11] MEDS: Fenofibrate 48 MG TAB PO SCH (08:38)
[2020-09-11] MEDS: HumaLOG 300 UNITS/3 ML VIAL SC PRN ×3 (13:08→20:40)
--- NOTE | 2020-09-11 14:05 | PDOC.HOSPP ---
- Subjective Encounter Date: 09/11/20 Encounter Time: 14:03 Subjective: Patient seems pretty depressed today. She is an unfortunate 70-year-old admitted with COVID-19 pneumonia and respiratory failure. She remains on high flow nasal cannula. Saturation is acceptable at 92% at this time. - Objective Vital Signs & Weight: Vital Signs (12 hours) Temp Pulse Resp BP Pulse Ox 09/11/20 11:36 98.0 F 85 28 H 116/59 L 91 L 09/11/20 08:45 98.5 F 92 21 H 122/66 92 L 09/11/20 07:49 92 L 09/11/20 04:59 97.6 F 76 25 H 136/60 92 L Weight Admit Weight 238 lb 1.6 oz Weight 219 lb 5 oz Most Recent Monitor Data Heart Rate from ECG 92 NIBP 162/90 NIBP BP-Mean 114 Respiration from ECG 35 SpO2 91 I&O: 09/10/20 09/11/20 09/12/20 06:59 06:59 06:59 Intake Total 2390 974 Output Total 4300 3064 Balance -2360 -0 Result Diagrams: 09/11/20 04:42 09/11/20 04:33 Additional Labs: Accuchecks 09/11/20 09/10/20 09/10/20 11:36 20:05 17:04 POC Glucose 190 H 328 H 310 H 09/09/20 20:24 POC Glucose Greater than 500 H Radiology Reviewed by me: Yes EKG Reviewed by me: Yes Hospitalist ROS - Review of Systems Respiratory: reports: shortness of breath, SOB with excertion, sputum Gastrointestinal: reports: nausea Neurological: reports: weakness - Medication Medications: Active Medications Generic Name Dose Route Start Last Admin Trade Name Freq PRN Reason Stop Dose Admin Albuterol Sulfate 2 puff 09/02/20 19:00 09/11/20 13:10 Albuterol 200 Puff (6.7gm Inhaler) INH 2 puff [id number] QUINTEN Administration Alprazolam 0.5 mg 09/06/20 12:16 09/07/20 13:10 Alprazolam 0.5 Mg Tab PO 0.5 mg BIDPRN PRN Administration Anxiety Aspirin 81 mg 09/02/20 09:00 09/11/20 08:28 Aspirin 81 Mg Enteric Coated Tablet PO 81 mg DAILY QUINTEN Administration Benzonatate 100 mg 09/02/20 15:00 09/11/20 08:27 Benzonatate 100 Mg Cap PO 100 mg TID QUINTEN Administration Bisacodyl 10 mg 09/10/20 12:38 09/11/20 08:30 Bisacodyl 5 Mg Tab PO 10 mg DAILYPRN PRN Administration Constipation Calcium Carbonate 600 mg 09/10/20 09:00 09/11/20 08:27 Calcium Carbonate 600 Mg Tab PO 600 mg DAILY QUINTEN Administration Dexamethasone 6 mg 09/09/20 08:00 09/11/20 08:26 Dexamethasone 4 Mg Tab PO 6 mg QAM-WM QUINTEN Administration Doxycycline Hyclate 100 mg 09/05/20 21:00 09/11/20 08:26 Doxycycline 100 Mg Cap PO 100 mg BID QUINTEN Administration Enoxaparin Sodium 40 mg 09/05/20 21:00 09/11/20 08:33 Enoxaparin Sodium 40 Mg/0.4 Ml Syringe SC 40 mg 0900,2100 QUINTEN Administration Fenofibrate 48 mg 09/02/20 09:00 09/11/20 08:38 Fenofibrate 48 Mg Tab PO 48 mg DAILY QUINTEN Administration Glipizide 5 mg 09/08/20 07:30 09/11/20 08:26 Glipizide 5 Mg Tab PO 5 mg DAILY-AC QUINTEN Administration Guaifenesin 600 mg 09/02/20 21:00 09/11/20 08:27 Guaifenesin Er 600 Mg Tab PO 600 mg Q12HR QUINTEN Administration Guaifenesin 200 mg 09/02/20 11:15 09/03/20 05:25 Diabetic Tussin 200 Mg/10 Ml Udcup PO 200 mg Q4H PRN Administration Cough Insulin Glargine 30 units/ 0.3 mls @ 0 mls/hr 09/08/20 09:00 09/11/20 08:37 Miscellaneous Medication SC Not Given BID QUINTEN Insulin Human Lispro 0 units 09/03/20 20:47 09/10/20 21:18 Humalog 300 Units/3 Ml Vial SC 4 unit .BEDTIME SLIDING SC PRN Administration Bedtime Correctional Scale Insulin Human Lispro 0 units 09/06/20 05:30 09/11/20 13:08 Humalog 300 Units/3 Ml Vial SC 3 units .AGGRESSIVE SLIDING PRN Administration AGGRESSIVE SLIDING SCALE Protocol Levothyroxine Sodium 112 mcg 09/02/20 09:00 09/11/20 08:27 Levothyroxine Sodium 112 Mcg Tab PO 112 mcg DAILY QUINTEN Administration Loratadine 10 mg 09/09/20 12:43 09/10/20 22:30 Loratadine 10 Mg Tab PO 10 mg DAILY PRN Administration Allergies Magnesium Hydroxide 30 ml 09/10/20 12:38 09/11/20 05:17 Milk Of Magnesia 30 Ml Udcup PO 30 ml DAILYPRN PRN Administration Constipation Mometasone Furoate/Formoterol Fumar 2 puff 09/05/20 18:30 09/11/20 06:20 Mometasone 200 Mcg/Formoterol 5 Mcg 120 Puff Inhaler INH 2 puff BID-RT QUINTEN Administration Pantoprazole Sodium 40 mg 09/02/20 21:00 09/10/20 21:18 Pantoprazole 40 Mg Tab PO 40 mg HS QUINTEN Administration Propranolol HCl 80 mg 09/09/20 21:00 09/10/20 21:22 Propranolol Hcl La 80 Mg Cap PO 80 mg HS QUINTEN Administration Simvastatin 10 mg 09/09/20 21:00 09/10/20 22:30 Simvastatin 10 Mg Tab PO 10 mg HS QUINTEN Administration Sodium Chloride 10 ml 09/02/20 02:30 09/10/20 21:22 Flush - Normal Saline 10 Ml Syringe IVF 10 ml PRN PRN Administration Saline Flush Throat Lozenges 1 ramesh 09/02/20 11:14 09/04/20 08:37 Cepastat Lozenges 1 Ramesh PO 1 ramesh Q4H PRN Administration Cough - Exam General Appearance: awake alert, ill appearing Eye: PERRL, anicteric sclera ENT: normocephalic atraumatic, no oropharyngeal lesions Neck: supple, symmetric, no JVD, no thyromegaly Heart: RRR, no murmur, no gallops Respiratory: CTAB Gastrointestinal: soft, non-tender, non-distended Neurological: cranial nerve grossly intact Musculoskeletal: normal tone, normal strength Psychiatric: normal affect, normal behavior, A&O x 3 Hosp A/P (1) Acute respiratory failure with hypoxia Code(s): J96.01 - ACUTE RESPIRATORY FAILURE WITH HYPOXIA Status: Acute (2) Pneumonia due to COVID-19 virus Code(s): U07.1 - COVID-19; J12.89 - OTHER VIRAL PNEUMONIA Status: Acute (3) CHF (congestive heart failure) Code(s): I50.9 - HEART FAILURE, UNSPECIFIED Status: Chronic Qualifiers: Heart failure type: unspecified Heart failure chronicity: chronic Qualified Code(s): I50.9 - Heart failure, unspecified (4) Diarrhea due to COVID-19 Code(s): U07.1 - COVID-19; A08.39 - OTHER VIRAL ENTERITIS Status: Resolved - Plan PT/OT, social worker delinquency prevention, respiratory therapy, incentive spirometry, out of bed/ambulate, DVT proph w/lovenox #1. Acute respiratory failure with hypoxia. Likely secondary to COVID-19 pneumonia. Continue O2 supplementation and wean as tolerated. I will have a low threshold to intubate in this unfortunate woman. 09/10/2020. She remains on high flow nasal cannula today. I will continue this for now. 2. COVID-19 pneumonia. She has received remdesivir and convalescent plasma. We appreciate ID ongoing evaluation. 3. Chronic kidney disease at least stage III. Supportive care. 4. Hypertensive heart disease.
[2020-09-11] MEDS: Simvastatin 10 MG TAB PO SCH (19:56)
[2020-09-11] MEDS: Propranolol HCl LA 80 MG CAP PO SCH (19:57)
[2020-09-12] MEDS: Albuterol 200 PUFF (6.7GM INHALER) INH SCH ×4 (01:57→18:24)
[2020-09-12 05:39] LABS: ALT (SGPT) 15 U/L (8-55); AST (SGOT) 20 U/L (5-34); Albumin 3.2 g/dL (3.4-4.8); Alkaline Phosphatase 78 U/L (40-110); Anion Gap 18 mmol/L (10-20); BUN (Urea Nitrogen) 58 mg/dL (9.8-20.1); Bilirubin, Direct 0.3 mg/dL (0.1-0.3); Bilirubin, Total 0.6 mg/dL (0.2-1.2); Calc. Creatinine Clearance 63 mL/min (70-130); Calcium 9.5 mg/dL (7.8-10.44); Carbon Dioxide 27 mmol/L (23-31); Chloride 92 mmol/L (98-107); Glucose 228 mg/dL (83-110); Magnesium 2.1 mg/dL (1.6-2.6); Potassium 4.2 mmol/L (3.5-5.1); Protein, Total 7.4 g/dL (6.0-8.3); Sodium 133 mmol/L (136-145)
[2020-09-12] MEDS: HumaLOG 300 UNITS/3 ML VIAL SC PRN ×4 (05:53→21:16)
[2020-09-12] MEDS: Mometasone 200 MCG/Formoterol 5 MCG 120 PUFF INHALER INH SCH ×2 (05:54→18:24)
[2020-09-12 06:35] LABS: Band 4 % (5-11); Hemoglobin 15.6 g/dL (12.0-16.0); Lymphocytes 5 % (21-51); MDiff Complete? YES; Mean Corpuscular HGB CONC 34.6 g/dL (32.0-36.0); Mean Corpuscular Hemoglobin 32.6 pg (27.0-31.0); Mean Corpuscular Volume 94.3 fL (78.0-98.0); Mean Platelet Volume 8.9 fL (7.4-10.4); Monocytes 3 % (0-10); Neutrophil 88 % (42-75); Platelet Count 466 thou/uL (130-400); RBC Distribution Width 11.9 % (11.5-14.5); Red Blood Cell (RBC) Count 4.79 mill/uL (4.20-5.40); White Blood Cell (WBC) Count 26.5 thou/uL (4.8-10.8)
[2020-09-12] MEDS: Doxycycline 100 MG CAP PO SCH ×2 (08:38→21:15)
[2020-09-12] MEDS: Fenofibrate 48 MG TAB PO SCH (08:39)
[2020-09-12] MEDS: Dexamethasone 4 MG TAB PO SCH (08:39)
[2020-09-12] MEDS: Enoxaparin Sodium 40 MG/0.4 ML SYRINGE SC SCH ×2 (08:40→21:15)
[2020-09-12] MEDS: Aspirin 81 mg Enteric Coated Tablet PO SCH (08:40)
[2020-09-12] MEDS: Calcium Carbonate 600 MG TAB PO SCH (08:40)
[2020-09-12] MEDS: Benzonatate 100 MG CAP PO SCH ×3 (08:40→21:15)
[2020-09-12] MEDS: Levothyroxine Sodium 112 MCG TAB PO SCH (08:40)
[2020-09-12] MEDS: glipiZIDE 5 MG TAB PO SCH (08:40)
[2020-09-12] MEDS: guaiFENesin ER 600 MG TAB PO SCH ×2 (08:40→21:15)
[2020-09-12] MEDS: Insulin Glargine 30 UNITS in Pre-Filled Syringe 1 EACH SC SCH ×2 (08:41→22:00)
[2020-09-12] MEDS: Acetaminophen 325 MG TAB PO PRN (08:57)
[2020-09-12 09:51] LABS: Actual Bicarbonate (HCO3a) 27.2 mEq/L (22-28); Base Excess (BEa) 4.7 mEq/L (-2.0 to +3.0); CO2 Tension 34.1 mmHg (35.0-45.0); Carboxyhemoglobin (COHb) 1.5 gm% (0.0-3.0); Hemoglobin (Hb) 16.2 g/dL (12.0-16.0); Potassium - ABG Lab 3.92 mmol/L (3.70-5.30); pH, Arterial 7.52 (7.35-7.45)
[2020-09-12 09:53] LABS: O2 Tension (PaO2), arterial 42.2 mmHg (> 70.0)
[2020-09-12 09:54] LABS: ALV-art Gradient 364.365 mmHg (0-20); Puncture Site LBA
--- NOTE | 2020-09-12 09:54 | RAD ---
PORTABLE CHEST: Date: 09/12/2020 COMPARISON: 09/10/2020 exam. HISTORY: COVID pneumonia follow-up. FINDINGS: Heart size is borderline. Bilateral lung infiltrates are stable. IMPRESSION: Stable exam. POS: OFF
[2020-09-12] MEDS: Lorazepam 0.5 MG TAB PO PRN ×3 (12:33→21:46)
--- NOTE | 2020-09-12 15:28 | PDOC.HOSPP ---
- Subjective Encounter Date: 09/12/20 Encounter Time: 15:26 Subjective: She remains on a high flow nasal cannula. A blood gas obtained earlier today shows significant hypoxia. She is almost maxed out on the high flow nasal cannula. She is very anxious. I will keep her on this high flow and adjust the settings to improve oxygenation. - Objective Vital Signs & Weight: Vital Signs (12 hours) Temp Pulse Resp BP Pulse Ox 09/12/20 14:02 92 L 09/12/20 11:18 97.7 F 84 32 H 116/71 94 L 09/12/20 08:50 97.8 F 77 30 H 109/68 95 09/12/20 03:55 97.3 F L 71 15 134/73 95 Weight Admit Weight 238 lb 1.6 oz Weight 215 lb 8 oz Most Recent Monitor Data Heart Rate from ECG 92 NIBP 162/90 NIBP BP-Mean 114 Respiration from ECG 35 SpO2 91 I&O: 09/11/20 09/12/20 09/13/20 06:59 06:59 06:59 Intake Total 974 1210 Output Total 3060 6536 Balance -8694 -789 Result Diagrams: 09/12/20 04:45 09/12/20 04:45 Additional Labs: Accuchecks 09/12/20 09/11/20 09/11/20 11:17 18:12 16:28 POC Glucose 302 H 497 H 425 H Radiology Reviewed by me: Yes EKG Reviewed by me: Yes Hospitalist ROS - Review of Systems Constitutional: reports: weakness, malaise Respiratory: reports: cough, shortness of breath, SOB with excertion, sputum, wheezing Gastrointestinal: reports: nausea Neurological: reports: weakness, numbness - Medication Medications: Active Medications Generic Name Dose Route Start Last Admin Trade Name Freq PRN Reason Stop Dose Admin Acetaminophen 650 mg 09/02/20 01:53 09/12/20 08:57 Acetaminophen 325 Mg Tab PO 650 mg Q4H PRN Administration Headache/Fever/Mild Pain (1-3) Albuterol Sulfate 2 puff 09/02/20 19:00 09/12/20 12:29 Albuterol 200 Puff (6.7gm Inhaler) INH 2 puff [id number] QUINTEN Administration Alprazolam 0.5 mg 09/06/20 12:16 09/07/20 13:10 Alprazolam 0.5 Mg Tab PO 0.5 mg BIDPRN PRN Administration Anxiety Aspirin 81 mg 09/02/20 09:00 09/12/20 08:40 Aspirin 81 Mg Enteric Coated Tablet PO 81 mg DAILY QUINTEN Administration Benzonatate 100 mg 09/02/20 15:00 09/12/20 08:40 Benzonatate 100 Mg Cap PO 100 mg TID QUINTEN Administration Bisacodyl 10 mg 09/10/20 12:38 09/11/20 08:30 Bisacodyl 5 Mg Tab PO 10 mg DAILYPRN PRN Administration Constipation Calcium Carbonate 600 mg 09/10/20 09:00 09/12/20 08:40 Calcium Carbonate 600 Mg Tab PO 600 mg DAILY QUINTEN Administration Dexamethasone 6 mg 09/09/20 08:00 09/12/20 08:39 Dexamethasone 4 Mg Tab PO 6 mg QAM-WM QUINTEN Administration Doxycycline Hyclate 100 mg 09/05/20 21:00 09/12/20 08:38 Doxycycline 100 Mg Cap PO 100 mg BID QUINTEN Administration Enoxaparin Sodium 40 mg 09/05/20 21:00 09/12/20 08:40 Enoxaparin Sodium 40 Mg/0.4 Ml Syringe SC 40 mg 0900,2100 QUINTEN Administration Fenofibrate 48 mg 09/02/20 09:00 09/12/20 08:39 Fenofibrate 48 Mg Tab PO 48 mg DAILY QUINTEN Administration Glipizide 5 mg 09/08/20 07:30 09/12/20 08:40 Glipizide 5 Mg Tab PO 5 mg DAILY-AC QUINTEN Administration Guaifenesin 600 mg 09/02/20 21:00 09/12/20 08:40 Guaifenesin Er 600 Mg Tab PO 600 mg Q12HR QUINTEN Administration Guaifenesin 200 mg 09/02/20 11:15 09/03/20 05:25 Diabetic Tussin 200 Mg/10 Ml Udcup PO 200 mg Q4H PRN Administration Cough Insulin Glargine 30 units/ 0.3 mls @ 0 mls/hr 09/08/20 09:00 09/12/20 08:41 Miscellaneous Medication SC 0.3 mls BID QUINTEN Administration Insulin Human Lispro 0 units 09/03/20 20:47 09/11/20 20:40 Humalog 300 Units/3 Ml Vial SC 5 unit .BEDTIME SLIDING SC PRN Administration Bedtime Correctional Scale Insulin Human Lispro 0 units 09/06/20 05:30 09/12/20 12:34 Humalog 300 Units/3 Ml Vial SC 11 units .AGGRESSIVE SLIDING PRN Administration AGGRESSIVE SLIDING SCALE Protocol Levothyroxine Sodium 112 mcg 09/02/20 09:00 09/12/20 08:40 Levothyroxine Sodium 112 Mcg Tab PO 112 mcg DAILY QUINTEN Administration Loratadine 10 mg 09/09/20 12:43 09/10/20 22:30 Loratadine 10 Mg Tab PO 10 mg DAILY PRN Administration Allergies Lorazepam 0.25 mg 09/12/20 09:20 09/12/20 12:33 Lorazepam 0.5 Mg Tab PO 0.25 mg Q4H PRN Administration Anxiety Magnesium Hydroxide 30 ml 09/10/20 12:38 09/11/20 05:17 Milk Of Magnesia 30 Ml Udcup PO 30 ml DAILYPRN PRN Administration Constipation Mometasone Furoate/Formoterol Fumar 2 puff 09/05/20 18:30 09/12/20 05:54 Mometasone 200 Mcg/Formoterol 5 Mcg 120 Puff Inhaler INH 2 puff BID-RT QUINTEN Administration Pantoprazole Sodium 40 mg 09/02/20 21:00 09/11/20 19:58 Pantoprazole 40 Mg Tab PO 40 mg HS QUINTEN Administration Propranolol HCl 80 mg 09/09/20 21:00 09/11/20 19:57 Propranolol Hcl La 80 Mg Cap PO 80 mg HS QUINTEN Administration Simvastatin 10 mg 09/09/20 21:00 09/11/20 19:56 Simvastatin 10 Mg Tab PO 10 mg HS QUINTEN Administration Sodium Chloride 10 ml 09/02/20 02:30 09/11/20 19:57 Flush - Normal Saline 10 Ml Syringe IVF 10 ml PRN PRN Administration Saline Flush Throat Lozenges 1 ramesh 09/02/20 11:14 09/04/20 08:37 Cepastat Lozenges 1 Ramesh PO 1 ramesh Q4H PRN Administration Cough - Exam General Appearance: ill appearing ENT: normocephalic atraumatic, no oropharyngeal lesions Neck: supple, symmetric, no JVD Heart: RRR, no murmur, no gallops, no rubs, normal peripheral pulses Respiratory: no rales, rales, wheezes Gastrointestinal: soft, non-tender, non-distended, normal bowel sounds Extremities: 2+ LE edema Neurological: cranial nerve grossly intact, normal sensation to touch Musculoskeletal: normal tone, normal strength, no muscle wasting, generalized weakness Psychiatric: normal affect, normal behavior, A&O x 3 Hosp A/P (1) Acute respiratory failure with hypoxia Code(s): J96.01 - ACUTE RESPIRATORY FAILURE WITH HYPOXIA Status: Acute (2) Pneumonia due to COVID-19 virus Code(s): U07.1 - COVID-19; J12.89 - OTHER VIRAL PNEUMONIA Status: Acute (3) CHF (congestive heart failure) Code(s): I50.9 - HEART FAILURE, UNSPECIFIED Status: Chronic Qualifiers: Heart failure type: unspecified Heart failure chronicity: chronic Qualified Code(s): I50.9 - Heart failure, unspecified (4) Diarrhea due to COVID-19 Code(s): U07.1 - COVID-19; A08.39 - OTHER VIRAL ENTERITIS Status: Resolved - Plan old records reviewed/req, PT/OT, respiratory therapy, incentive spirometry, DVT proph w/lovenox Consults: Palliative Care #1. Acute respiratory failure with hypoxia. Likely secondary to COVID-19 pneumonia. Continue O2 supplementation and wean as tolerated. I will have a low threshold to intubate in this unfortunate woman. 09/10/2020. She remains on high flow nasal cannula today. I will continue this for now. 09/12/2020. She has significant hypoxemia and a blood gas obtained earlier today. We will continue high flow nasal cannula and I will have a low threshold to intubate her. 2. COVID-19 pneumonia. She has received remdesivir and convalescent plasma. We appreciate ID ongoing evaluation. 3. Chronic kidney disease at least stage III. Supportive care. 4. Hypertensive heart disease.
[2020-09-12] MEDS: Propranolol HCl LA 80 MG CAP PO SCH (22:19)
[2020-09-12] MEDS: Simvastatin 10 MG TAB PO SCH (22:19)
[2020-09-13] MEDS: Albuterol 200 PUFF (6.7GM INHALER) INH SCH ×4 (02:53→19:14)
[2020-09-13] MEDS: ALPRAZolam 0.5 MG TAB PO PRN (04:28)
[2020-09-13] MEDS: Acetaminophen 325 MG TAB PO PRN (05:10)
[2020-09-13 05:12] LABS: Actual Bicarbonate (HCO3a) 30.1 mEq/L (22-28); Base Excess (BEa) 6.2 mEq/L (-2.0 to +3.0); CO2 Tension 40.9 mmHg (35.0-45.0); Calcium, Ionized (arterial) 1.21 mmol/L (1.12-1.30); Carboxyhemoglobin (COHb) 1.6 gm% (0.0-3.0); Hemoglobin (Hb) 15.5 g/dL (12.0-16.0); pH, Arterial 7.49 (7.35-7.45)
[2020-09-13 05:14] LABS: ALV-art Gradient 572.695 mmHg (0-20); O2 Tension (PaO2), arterial 46.4 mmHg (> 70.0); Puncture Site RRA
[2020-09-13] MEDS: Mometasone 200 MCG/Formoterol 5 MCG 120 PUFF INHALER INH SCH ×2 (05:19→19:14)
[2020-09-13 05:44] LABS: Hemoglobin 14.8 g/dL (12.0-16.0); Mean Corpuscular HGB CONC 32.7 g/dL (32.0-36.0); Mean Corpuscular Hemoglobin 30.6 pg (27.0-31.0); Mean Corpuscular Volume 93.7 fL (78.0-98.0); Mean Platelet Volume 9.3 fL (7.4-10.4); Platelet Count 440 thou/uL (130-400); RBC Distribution Width 11.8 % (11.5-14.5); Red Blood Cell (RBC) Count 4.82 mill/uL (4.20-5.40); White Blood Cell (WBC) Count 26.2 thou/uL (4.8-10.8)
[2020-09-13 06:01] LABS: ALT (SGPT) 14 U/L (8-55); AST (SGOT) 20 U/L (5-34); Alkaline Phosphatase 90 U/L (40-110); Anion Gap 15 mmol/L (10-20); BUN (Urea Nitrogen) 53 mg/dL (9.8-20.1); Bilirubin, Direct 0.3 mg/dL (0.1-0.3); Bilirubin, Total 0.5 mg/dL (0.2-1.2); Calc. Creatinine Clearance 72 mL/min (70-130); Calcium 9.4 mg/dL (7.8-10.44); Carbon Dioxide 29 mmol/L (23-31); Chloride 91 mmol/L (98-107); Glucose 329 mg/dL (83-110); Potassium 4.1 mmol/L (3.5-5.1); Protein, Total 6.9 g/dL (6.0-8.3); Sodium 131 mmol/L (136-145)
[2020-09-13 06:10] LABS: Band 1 % (5-11); Lymphocytes 4 % (21-51); MDiff Complete? YES; Metamyelocyte 1 % (0-0); Monocytes 3 % (0-10); Neutrophil 91 % (42-75)
[2020-09-13] MEDS: HumaLOG 300 UNITS/3 ML VIAL SC PRN ×2 (06:53→21:35)
[2020-09-13] MEDS: Dexamethasone 4 MG TAB PO SCH (07:46)
[2020-09-13] MEDS: Aspirin 81 mg Enteric Coated Tablet PO SCH (07:46)
[2020-09-13] MEDS: glipiZIDE 5 MG TAB PO SCH (07:46)
[2020-09-13] MEDS: Calcium Carbonate 600 MG TAB PO SCH (07:47)
[2020-09-13] MEDS: Doxycycline 100 MG CAP PO SCH (07:47)
[2020-09-13] MEDS: guaiFENesin ER 600 MG TAB PO SCH ×2 (07:47→20:52)
[2020-09-13] MEDS: Benzonatate 100 MG CAP PO SCH ×3 (07:47→22:15)
[2020-09-13] MEDS: Lorazepam 0.5 MG TAB PO PRN (07:47)
[2020-09-13] MEDS: Levothyroxine Sodium 112 MCG TAB PO SCH (07:47)
[2020-09-13] MEDS: Enoxaparin Sodium 40 MG/0.4 ML SYRINGE SC SCH ×2 (07:51→20:51)
[2020-09-13] MEDS: Fenofibrate 48 MG TAB PO SCH (07:58)
[2020-09-13] MEDS: Insulin Glargine 30 UNITS in Pre-Filled Syringe 1 EACH SC SCH ×2 (08:02→21:34)
[2020-09-13] MEDS ORDERED: Vecuronium 10 MG VIAL ONE ×2 (10:05→11:12)
[2020-09-13] MEDS ORDERED: Ventilator Sedation Protocol 1 EACH FS SCH (11:05)
[2020-09-13] MEDS ORDERED: Electrolyte Replacement Protocol 1 EACH FS ONE (11:05)
[2020-09-13] MEDS ORDERED: Norepinephrine 8 MG/0.9% NS 250 ML IVPB SCH (11:15)
--- NOTE | 2020-09-13 11:26 | PRG ---
DATE OF SERVICE: 09/13/2020 35 minutes critical care time. SUBJECTIVE: This patient's changed his mind about code status. The patient was brought over here and intubated. She has COVID-19 pneumonia and has not responded to any type of therapy during the hospitalization. She has been both on high-flow oxygen and on BiPAP. PHYSICAL EXAMINATION: VITAL SIGNS: Her heart rate is 83, blood pressure consistently running around 112/70, O2 saturation in the high 80s on high-flow oxygen 90%, temperature 97.6. HEENT: Unremarkable. NECK: No JVD. LUNGS: Coarse breath sounds. CARDIOVASCULAR: S1, S2. Regular. ABDOMEN: Soft. EXTREMITIES: Edematous. LABORATORY DATA: White blood cell count 26.2, hematocrit 45.2, and platelet count 440. pH 7.49, pCO2 of 40, pO2 of 46 and that was on high-flow oxygen. Sodium 131, potassium 4.1, chloride 91, CO2 of 29, BUN 53, creatinine 1.1, glucose 329. ASSESSMENT: 1. COVID-19 pneumonia. 2. Acute hypoxic respiratory failure, requiring mechanical ventilation. 3. Blood sugars out of control. PLAN: The patient has been intubated and placed on mechanical ventilation. I have spoken with her stepdaughter over the phone. I related my belief that the patient's prognosis is dismal. Nevertheless, we will continue aggressive care. I have brought up the prospect of having the visit her on Friday as he will be 14 days out of his COVID. Job ID: [id number]
--- NOTE | 2020-09-13 11:36 | OP ---
DATE OF PROCEDURE: 09/10/2020 PROCEDURE PERFORMED: Central line placement. PREOPERATIVE DIAGNOSIS: Poor IV access. POSTOPERATIVE DIAGNOSIS: Successful right subclavian central line placement. ANESTHESIA: 1% lidocaine without epinephrine. DESCRIPTION OF PROCEDURE: The patient was placed in Trendelenburg position. The right subclavian area was cleansed with chlorhexidine and draped sterilely. 1% lidocaine was used to anesthetize the entry site. With some difficulty, the right subclavian vein was cannulated. A triple-lumen catheter was placed via the modified Seldinger technique. Three ports flushed venous blood. Postoperative x-ray was pending. Job ID: [id number]
[2020-09-13] MEDS ORDERED: Propofol BOLUS 1,000 MG/100 ML VIAL IV PRN (12:00)
[2020-09-13] MEDS ORDERED: DISCONTINUE PREVIOUS NARCOTIC PAIN MEDICATIONS AND BENZODIAZEPINES FS SCH (12:00)
[2020-09-13] MEDS ORDERED: Fentanyl BOLUS 250 ML IVPB PRN (12:00)
[2020-09-13] MEDS ORDERED: Electrolyte Replacement Protocol FS PRN (12:00)
[2020-09-13] MEDS: Sodium Chloride 0.9% 1,000 ML IV SCH (12:13)
[2020-09-13] MEDS: Micafungin 100 MG in Sodium Chloride 0.9% 100 ML IVPB SCH (12:15)
[2020-09-13] MEDS: methylPREDNISolone Sod Succ 40 MG VIAL IVP SCH ×3 (12:15→23:12)
--- NOTE | 2020-09-13 12:38 | RAD ---
SUPINE FRONTAL CHEST RADIOGRAPH: Date: 09/13/2020 COMPARISON: 09/12/2020. HISTORY: Intubated patient, line placement, COVID pneumonia. FINDINGS: There is an endotracheal tube and nasogastric tube in proper position. There is a right-sided vascula r catheter, distal tip overlying the region of the right atrium. Supine imaging limits assessment for pneumothorax and pleural fluid. There is extensive interstitial and alveolar/ground-glass opacity bi laterally with a perihilar/bibasilar predominance, not significantly changed, inconsistent with provi ded history of COVID pneumonia. IMPRESSION: Lines and tubes as detailed above. Parenchymal opacities consistent with the provided history of COVI D pneumonia. POS: AH
[2020-09-13] MEDS: Lorazepam 2 MG/ML VIAL SLOW IVP PRN ×2 (12:50→19:23)
[2020-09-13] MEDS: Meropenem 2 GM, Admixture Fee 1 EACH in Sodium Chloride 0.9% 100 ML IVPB SCH ×2 (14:33→22:34)
--- NOTE | 2020-09-13 16:01 | PDOC.HOSPP ---
- Subjective Encounter Date: 09/13/20 Encounter Time: 16:00 Subjective: I visited with the patient at the bedside this morning. She seemed to be struggling to breathe. She was maxed out on a high flow nasal cannula and she was still very tachypneic. Her saturations were barely crossing in the 90s. I discussed with her about her goals of care. She referred me to her and I had a chance to discuss with her earlier this morning as well. He revoked the initial DO NOT RESUSCITATE order and wanted her to be intubated to give her a chance to fight. I did call and speak with the ICU service of Dr. Kirk who kindly agreed to take over the care and medicine continues to fol low. The patient went ahead and was intubated. Clearly she has very poor prognosis based on the severity of her illness. - Objective Vital Signs & Weight: Vital Signs (12 hours) Temp Temp Pulse Pulse Pulse Pulse Resp 09/13/20 15:18 80 09/13/20 12:58 99.8 F H 09/13/20 12:00 99.8 F H 09/13/20 11:39 20 09/13/20 11:37 88 09/13/20 07:47 09/13/20 07:35 97.6 F 63 23 H 09/13/20 05:19 77 30 H 09/13/20 04:47 97.9 F 76 73 28 L 09/13/20 04:40 97.9 F 70 30 H Resp Resp Resp BP BP BP BP 09/13/20 15:18 86/57 L 09/13/20 12:58 09/13/20 12:00 09/13/20 11:39 09/13/20 11:37 156/66 H 09/13/20 07:47 09/13/20 07:35 112/70 09/13/20 05:19 09/13/20 04:47 32 H 31 H 27 H 128/58 L 127/66 09/13/20 04:40 138/76 Pulse Ox Pulse Ox Pulse Ox Pulse Ox Pulse Ox Pulse Ox 09/13/20 15:18 09/13/20 12:58 09/13/20 12:00 09/13/20 11:39 92 L 09/13/20 11:37 09/13/20 07:47 90 L 09/13/20 07:35 90 L 09/13/20 05:19 91 L 09/13/20 04:47 86 L 91 L 89 L 91 L 92 L 09/13/20 04:40 79 L Weight Admit Weight 238 lb 1.6 oz Weight 215 lb 7.994 oz Most Recent Monitor Data Heart Rate from ECG 78 NIBP 86/57 NIBP BP-Mean 66 Respiration from ECG 20 SpO2 98 I&O: 09/12/20 09/13/20 09/14/20 06:59 06:59 06:59 Intake Total 1210 1780 0 Output Total 1955 1800 120 Balance -745 -20 -120 Result Diagrams: 09/13/20 05:16 09/13/20 05:16 Additional Labs: Accuchecks 09/13/20 09/13/20 09/12/20 14:38 04:52 20:04 POC Glucose 188 H 350 H 441 H 09/12/20 17:05 POC Glucose 424 H Radiology Reviewed by me: Yes EKG Reviewed by me: Yes Hospitalist ROS - Review of Systems ROS unobtainable: due to mental status Constitutional: reports: weakness, malaise Respiratory: reports: shortness of breath, SOB with excertion Gastrointestinal: reports: nausea Neurological: reports: weakness - Medication Medications: Active Medications Generic Name Dose Route Start Last Admin Trade Name Freq PRN Reason Stop Dose Admin Acetaminophen 650 mg 09/02/20 01:53 09/13/20 05:10 Acetaminophen 325 Mg Tab PO 650 mg Q4H PRN Administration Headache/Fever/Mild Pain (1-3) Albuterol Sulfate 2 puff 09/02/20 19:00 09/13/20 15:17 Albuterol 200 Puff (6.7gm Inhaler) INH 2 puff [id number] QUINTEN Administration Aspirin 81 mg 09/02/20 09:00 09/13/20 07:46 Aspirin 81 Mg Enteric Coated Tablet PO 81 mg DAILY QUINTEN Administration Benzonatate 100 mg 09/02/20 15:00 09/13/20 14:17 Benzonatate 100 Mg Cap PO Not Given TID QUINTEN Bisacodyl 10 mg 09/10/20 12:38 09/11/20 08:30 Bisacodyl 5 Mg Tab PO 10 mg DAILYPRN PRN Administration Constipation Calcium Carbonate 600 mg 09/10/20 09:00 09/13/20 07:47 Calcium Carbonate 600 Mg Tab PO 600 mg DAILY QUINTEN Administration Enoxaparin Sodium 40 mg 09/05/20 21:00 09/13/20 07:51 Enoxaparin Sodium 40 Mg/0.4 Ml Syringe SC 40 mg 0900,2100 QUINTEN Administration Fenofibrate 48 mg 09/02/20 09:00 09/13/20 07:58 Fenofibrate 48 Mg Tab PO 48 mg DAILY QUINTEN Administration Glipizide 5 mg 09/08/20 07:30 09/13/20 07:46 Glipizide 5 Mg Tab PO 5 mg DAILY-AC QUINTEN Administration Guaifenesin 600 mg 09/02/20 21:00 09/13/20 07:47 Guaifenesin Er 600 Mg Tab PO 600 mg Q12HR QUINTEN Administration Guaifenesin 200 mg 09/02/20 11:15 09/03/20 05:25 Diabetic Tussin 200 Mg/10 Ml Udcup PO 200 mg Q4H PRN Administration Cough Insulin Glargine 30 units/ 0.3 mls @ 0 mls/hr 09/08/20 09:00 09/13/20 08:02 Miscellaneous Medication SC 0.3 mls BID QUINTEN Administration Meropenem 2 gm/ Miscellaneous 100 mls @ 200 mls/hr 09/13/20 14:00 09/13/20 14:33 Medication 1 each/ Sodium IVPB 100 mls Chloride Q8HR QUINTEN Administration Micafungin Sodium 100 mg/ 100 mls @ 100 mls/hr 09/13/20 12:00 09/13/20 12:15 Sodium Chloride IVPB 100 mls 1200 QUINTEN Administration Sodium Chloride 1,000 mls @ 70 mls/hr 09/13/20 11:15 09/13/20 12:13 Normal Saline 0.9% IV 1,000 mls .[id number] QUINTEN Administration Insulin Human Lispro 0 units 09/03/20 20:47 09/12/20 21:16 Humalog 300 Units/3 Ml Vial SC 5 unit .BEDTIME SLIDING SC PRN Administration Bedtime Correctional Scale Insulin Human Lispro 0 units 09/06/20 05:30 09/13/20 06:53 Humalog 300 Units/3 Ml Vial SC 11 units .AGGRESSIVE SLIDING PRN Administration AGGRESSIVE SLIDING SCALE Protocol Levothyroxine Sodium 112 mcg 09/02/20 09:00 09/13/20 07:47 Levothyroxine Sodium 112 Mcg Tab PO 112 mcg DAILY QUINTEN Administration Loratadine 10 mg 09/09/20 12:43 09/10/20 22:30 Loratadine 10 Mg Tab PO 10 mg DAILY PRN Administration Allergies Lorazepam 2 mg 09/13/20 12:00 09/13/20 12:50 Lorazepam 2 Mg/Ml Vial SLOW IVP 10/13/20 12:00 2 mg Q1H PRN Administration Breakthrough agitation Magnesium Hydroxide 30 ml 09/10/20 12:38 09/11/20 05:17 Milk Of Magnesia 30 Ml Udcup PO 30 ml DAILYPRN PRN Administration Constipation Methylprednisolone Sodium Succinate 60 mg 09/13/20 12:00 09/13/20 12:15 Methylprednisolone Sod Succ 40 Mg Vial IVP 60 mg Q6HR QUINTEN Administration Mometasone Furoate/Formoterol Fumar 2 puff 09/05/20 18:30 09/13/20 05:19 Mometasone 200 Mcg/Formoterol 5 Mcg 120 Puff Inhaler INH 2 puff BID-RT QUINTEN Administration Pantoprazole Sodium 40 mg 09/02/20 21:00 09/12/20 21:15 Pantoprazole 40 Mg Tab PO 40 mg HS QUINTEN Administration Propranolol HCl 80 mg 09/09/20 21:00 09/12/20 22:19 Propranolol Hcl La 80 Mg Cap PO 80 mg HS QUINTEN Administration Simvastatin 10 mg 09/09/20 21:00 09/12/20 22:19 Simvastatin 10 Mg Tab PO 10 mg HS QUINTEN Administration Sodium Chloride 10 ml 09/02/20 02:30 09/13/20 07:48 Flush - Normal Saline 10 Ml Syringe IVF 10 ml PRN PRN Administration Saline Flush Throat Lozenges 1 ramesh 09/02/20 11:14 09/04/20 08:37 Cepastat Lozenges 1 Ramesh PO 1 ramesh Q4H PRN Administration Cough - Exam General Appearance: awake alert, ill appearing Eye: PERRL, anicteric sclera ENT: normocephalic atraumatic, no oropharyngeal lesions Neck: supple, symmetric, no JVD, no thyromegaly Heart: RRR, no murmur, no gallops Respiratory: CTAB, no wheezes, no rales Gastrointestinal: soft, non-tender, non-distended, normal bowel sounds Neurological: cranial nerve grossly intact Psychiatric: somnolent, lethargic Hosp A/P (1) Acute respiratory failure with hypoxia Code(s): J96.01 - ACUTE RESPIRATORY FAILURE WITH HYPOXIA Status: Acute (2) Pneumonia due to COVID-19 virus Code(s): U07.1 - COVID-19; J12.89 - OTHER VIRAL PNEUMONIA Status: Acute (3) CHF (congestive heart failure) Code(s): I50.9 - HEART FAILURE, UNSPECIFIED Status: Chronic Qualifiers: Heart failure type: unspecified Heart failure chronicity: chronic Qualified Code(s): I50.9 - Heart failure, unspecified (4) Diarrhea due to COVID-19 Code(s): U07.1 - COVID-19; A08.39 - OTHER VIRAL ENTERITIS Status: Resolved - Plan #1. Acute respiratory failure with hypoxia. Likely secondary to COVID-19 pneumonia. Continue O2 supplementation and wean as tolerated. I will have a low threshold to intubate in this unfortunate woman. 09/10/2020. She remains on high flow nasal cannula today. I will continue this for now. 09/12/2020. She has significant hypoxemia and a blood gas obtained earlier today. We will continue high flow nasal cannula and I will have a low threshold to intubate her. 09/13/2020. She deteriorated very rapidly since the last couple hours. We made a decision to move her to the ICU. She has since been intubated by the ICU service. Her prognosis appears to be poor. 2. COVID-19 pneumonia. She has received remdesivir and convalescent plasma. We appreciate ID ongoing evaluation. 3. Chronic kidney disease at least stage III. Supportive care. 4. Hypertensive heart disease.
[2020-09-13] MEDS: Propofol 1,000 MG/100 ML VIAL IV PRN ×2 (16:32→23:13)
[2020-09-13] MEDS: Simvastatin 10 MG TAB PO SCH (20:51)
[2020-09-13] MEDS: Cholecalciferol 1,000 UNITS (25 MCG) TAB PER TUBE SCH (20:52)
[2020-09-13] MEDS: fentaNYL Citrate/PF 2,000 MCG in Sodium Chloride 0.9% 60 ML IV SCH (20:53)
[2020-09-13] MEDS: Propranolol HCl LA 80 MG CAP PO SCH (22:15)
[2020-09-14] MEDS: Albuterol 200 PUFF (6.7GM INHALER) INH SCH ×5 (00:14→23:43)
[2020-09-14] MEDS: Sodium Chloride 0.9% 1,000 ML IV SCH ×2 (01:20→14:51)
[2020-09-14] MEDS: HumaLOG 300 UNITS/3 ML VIAL SC PRN ×3 (01:37→21:29)
[2020-09-14 05:33] LABS: #Lymphocytes 1.2 thou/uL (1.20-3.40); #Monocytes 0.3 thou/uL (0.11-0.59); #Neutrophils 14.1 thou/uL (1.40-6.50); %Basophils 0.1 % (0.0-1.0); %Lymphocytes 7.7 % (21.0-51.0); %Monocytes 1.8 % (0.0-10.0); %Neutrophils 90.4 % (42.0-75.0); Mean Corpuscular HGB CONC 33.1 g/dL (32.0-36.0); Mean Corpuscular Hemoglobin 32.3 pg (27.0-31.0); Mean Corpuscular Volume 97.5 fL (78.0-98.0); Mean Platelet Volume 9.5 fL (7.4-10.4); Platelet Count 332 thou/uL (130-400); RBC Distribution Width 11.8 % (11.5-14.5); Red Blood Cell (RBC) Count 4.33 mill/uL (4.20-5.40); White Blood Cell (WBC) Count 15.6 thou/uL (4.8-10.8)
[2020-09-14 05:38] LABS: ALT (SGPT) 12 U/L (8-55); AST (SGOT) 17 U/L (5-34); Albumin 2.8 g/dL (3.4-4.8); Alkaline Phosphatase 62 U/L (40-110); Anion Gap 15 mmol/L (10-20); BUN (Urea Nitrogen) 57 mg/dL (9.8-20.1); Bilirubin, Direct 0.2 mg/dL (0.1-0.3); Bilirubin, Total 0.4 mg/dL (0.2-1.2); Calc. Creatinine Clearance 72 mL/min (70-130); Calcium 8.6 mg/dL (7.8-10.44); Carbon Dioxide 32 mmol/L (23-31); Chloride 95 mmol/L (98-107); Glucose 179 mg/dL (83-110); Protein, Total 6.3 g/dL (6.0-8.3); Sodium 138 mmol/L (136-145)
[2020-09-14] MEDS: Meropenem 2 GM, Admixture Fee 1 EACH in Sodium Chloride 0.9% 100 ML IVPB SCH ×3 (05:48→23:03)
[2020-09-14] MEDS: methylPREDNISolone Sod Succ 40 MG VIAL IVP SCH ×4 (05:50→23:04)
[2020-09-14] MEDS: Propofol 1,000 MG/100 ML VIAL IV PRN ×3 (06:35→21:53)
--- NOTE | 2020-09-14 07:48 | RAD ---
Portable frontal chest radiograph: 09/14/2020 COMPARISON: 09/13/2020 HISTORY: Pneumonia FINDINGS: Stable endotracheal tube, nasogastric tube, and right vascular catheter. There is severe ex tensive interstitial and alveolar/groundglass opacity bilaterally, which has not significantly changed when compared to the prior examination. Findings are consistent with the provided history of Covid pneumonia. IMPRESSION: No significant interval change.
[2020-09-14] MEDS: glipiZIDE 5 MG TAB PO SCH (08:09)
[2020-09-14] MEDS: Mometasone 200 MCG/Formoterol 5 MCG 120 PUFF INHALER INH SCH ×2 (08:17→18:53)
[2020-09-14 08:37] LABS: Base Excess (BEa) -0.9 mEq/L (-2.0 to +3.0); Calcium, Ionized (arterial) 1.18 mmol/L (1.12-1.30); Carboxyhemoglobin (COHb) 1.2 gm% (0.0-3.0); Hemoglobin (Hb) 17.3 g/dL (12.0-16.0); Potassium - ABG Lab 4.12 mmol/L (3.70-5.30); pH, Arterial 7.33 (7.35-7.45)
[2020-09-14] MEDS: Insulin Glargine 30 UNITS in Pre-Filled Syringe 1 EACH SC SCH ×2 (08:42→21:28)
[2020-09-14] MEDS: Zinc Sulfate 220 MG CAP PER TUBE SCH (08:43)
[2020-09-14] MEDS: Calcium Carbonate 600 MG TAB PO SCH (08:43)
[2020-09-14] MEDS: Enoxaparin Sodium 40 MG/0.4 ML SYRINGE SC SCH ×2 (08:43→21:00)
[2020-09-14] MEDS: Benzonatate 100 MG CAP PO SCH ×3 (08:43→22:20)
[2020-09-14] MEDS: Aspirin 81 mg Enteric Coated Tablet PO SCH (08:43)
[2020-09-14] MEDS: guaiFENesin ER 600 MG TAB PO SCH ×2 (08:43→21:00)
[2020-09-14] MEDS: Fenofibrate 48 MG TAB PO SCH (08:43)
[2020-09-14] MEDS: Ascorbic Acid 500 mg Chewable Tablet PER TUBE SCH (08:43)
[2020-09-14] MEDS: Levothyroxine Sodium 112 MCG TAB PO SCH (08:45)
[2020-09-14 08:46] LABS: O2 Tension (PaO2), arterial 56.1 mmHg (> 70.0); Puncture Site RRA
--- NOTE | 2020-09-14 11:31 | PRG ---
DATE OF SERVICE: 09/14/2020 35 minutes of critical care time. SUBJECTIVE: The patient remains intubated in a prone position on mechanical ventilation for COVID-19 pneumonia. OBJECTIVE: VITAL SIGNS: Temperature 96.4, pulse 61, blood pressure 89/62, O2 saturation 92%. Total intake for 24 hours was 1780, output 1800. HEENT: Unremarkable. NECK: No JVD. LUNGS: Expiratory crackles bilaterally. CARDIAC: S1, S2. Regular. ABDOMEN: Soft. EXTREMITIES: No edema. LABORATORY DATA: White blood cell count 15.6, hematocrit 42.2, and platelet count 332. PH of 7.33, pCO2 of 51, pO2 of 56 on bilevel ventilation, rate of 20, high pressure 28, low pressure 9, FiO2 of 60%. Sodium 138, potassium 4, chloride 95, CO2 of 32, BUN 57, creatinine 1.1, glucose 179. Ferritin 506. IMAGING: Chest x-ray continues to show bilateral infiltrates, no better than yesterday. ASSESSMENT: 1. COVID-19 pneumonia. 2. Acute hypoxic respiratory failure, requiring mechanical ventilation. 3. Hyperglycemia. PLAN: 1. The patient was started on empiric antibiotics and antifungals yesterday which should be continued for 7 days. This was done in case she has secondary infections given the duration she has taken steroids. 2. I have switched her to high-dose Solu-Medrol. 3. Continue insulin. 4. Continue anticoagulation. 5. This patient's prognosis is very poor for functional recovery. Job ID: [id number]
[2020-09-14] MEDS: Micafungin 100 MG in Sodium Chloride 0.9% 100 ML IVPB SCH (12:57)
[2020-09-14] MEDS: Lorazepam 2 MG/ML VIAL SLOW IVP PRN (16:02)
[2020-09-14] MEDS: fentaNYL Citrate/PF 2,000 MCG in Sodium Chloride 0.9% 60 ML IV SCH (16:25)
--- NOTE | 2020-09-14 17:15 | PDOC.HOSPP ---
- Subjective Encounter Date: 09/14/20 Encounter Time: 17:14 Subjective: Patient is intubated and in a prone position. This is an unfortunate 70-year-old with COVID-19 pneumonia and acute respiratory failure. She deteriorated yesterday to the point of not being intubated. Prognosis remains poor. - Objective Vital Signs & Weight: Vital Signs (12 hours) Temp Pulse Resp BP Pulse Ox 09/14/20 14:43 85 107/58 L 09/14/20 14:00 20 09/14/20 12:00 21 H 09/14/20 11:38 65 89/59 L 09/14/20 10:00 97.1 F L 23 H 09/14/20 09:00 96.5 F L 09/14/20 08:18 62 09/14/20 08:00 94.9 F L 20 94 L 09/14/20 06:00 20 Weight Admit Weight 238 lb 1.6 oz Weight 217 lb 6.012 oz Most Recent Monitor Data Heart Rate from ECG 81 NIBP 97/63 NIBP BP-Mean 74 Respiration from ECG 20 SpO2 90 I&O: 09/13/20 09/14/20 09/15/20 06:59 06:59 06:59 Intake Total 1780 1755.2 30 Output Total 1800 893 500 Balance -20 862.2 -470 Result Diagrams: 09/14/20 04:00 09/14/20 04:00 Additional Labs: Accuchecks 09/14/20 09/14/20 09/14/20 16:11 13:09 04:00 POC Glucose 226 H 116 H 189 H 09/14/20 09/13/20 01:22 21:04 POC Glucose 186 H 251 H Radiology Reviewed by me: Yes EKG Reviewed by me: Yes Hospitalist ROS - Review of Systems ROS unobtainable: due to endotracheal tube Constitutional: reports: weakness Respiratory: reports: cough, dry, shortness of breath, hemoptysis, SOB with excertion Gastrointestinal: reports: nausea, vomiting Neurological: reports: weakness, other - Medication Medications: Active Medications Generic Name Dose Route Start Last Admin Trade Name Freq PRN Reason Stop Dose Admin Acetaminophen 650 mg 09/02/20 01:53 09/13/20 05:10 Acetaminophen 325 Mg Tab PO 650 mg Q4H PRN Administration Headache/Fever/Mild Pain (1-3) Albuterol Sulfate 2 puff 09/02/20 19:00 09/14/20 14:14 Albuterol 200 Puff (6.7gm Inhaler) INH 2 puff [id number] QUINTEN Administration Ascorbic Acid 1,000 mg 09/14/20 09:00 09/14/20 08:43 Ascorbic Acid 500 Mg Chewable Tablet PER TUBE 1,000 mg DAILY QUINTEN Administration Aspirin 81 mg 09/02/20 09:00 09/14/20 08:43 Aspirin 81 Mg Enteric Coated Tablet PO 81 mg DAILY QUINTEN Administration Benzonatate 100 mg 09/02/20 15:00 09/14/20 14:21 Benzonatate 100 Mg Cap PO 100 mg TID QUINTEN Administration Bisacodyl 10 mg 09/10/20 12:38 09/11/20 08:30 Bisacodyl 5 Mg Tab PO 10 mg DAILYPRN PRN Administration Constipation Calcium Carbonate 600 mg 09/10/20 09:00 09/14/20 08:43 Calcium Carbonate 600 Mg Tab PO 600 mg DAILY QUINTEN Administration Cholecalciferol 5,000 units 09/13/20 21:00 09/13/20 20:52 Cholecalciferol 1,000 Units (25 Mcg) Tab PER TUBE 5,000 units HS QUINTEN Administration Enoxaparin Sodium 40 mg 09/05/20 21:00 09/14/20 08:43 Enoxaparin Sodium 40 Mg/0.4 Ml Syringe SC 40 mg 0900,2100 QUINTEN Administration Fenofibrate 48 mg 09/02/20 09:00 09/14/20 08:43 Fenofibrate 48 Mg Tab PO 48 mg DAILY QUINTEN Administration Glipizide 5 mg 09/08/20 07:30 09/14/20 08:09 Glipizide 5 Mg Tab PO 5 mg DAILY-AC QUINTEN Administration Guaifenesin 600 mg 09/02/20 21:00 09/14/20 08:43 Guaifenesin Er 600 Mg Tab PO 600 mg Q12HR QUINTEN Administration Guaifenesin 200 mg 09/02/20 11:15 09/03/20 05:25 Diabetic Tussin 200 Mg/10 Ml Udcup PO 200 mg Q4H PRN Administration Cough Insulin Glargine 30 units/ 0.3 mls @ 0 mls/hr 09/08/20 09:00 09/14/20 08:42 Miscellaneous Medication SC 0.3 mls BID QUINTEN Administration Meropenem 2 gm/ Miscellaneous 100 mls @ 200 mls/hr 09/13/20 14:00 09/14/20 14:49 Medication 1 each/ Sodium IVPB 100 mls Chloride Q8HR QUINTEN Administration Micafungin Sodium 100 mg/ 100 mls @ 100 mls/hr 09/13/20 12:00 09/14/20 12:57 Sodium Chloride IVPB 100 mls 1200 QUINTEN Administration Sodium Chloride 1,000 mls @ 70 mls/hr 09/13/20 11:15 09/14/20 14:51 Normal Saline 0.9% IV 1,000 mls .[id number] QUINTEN Administration Fentanyl Citrate 2,000 mcg/ 100 mls @ 0 mls/hr 09/13/20 12:00 09/14/20 16:25 Sodium Chloride IV 10/13/20 12:00 100 mls INF QUINTEN Administration Protocol Per Protocol Insulin Human Lispro 0 units 09/03/20 20:47 09/12/20 21:16 Humalog 300 Units/3 Ml Vial SC 5 unit .BEDTIME SLIDING SC PRN Administration Bedtime Correctional Scale Insulin Human Lispro 0 units 09/06/20 05:30 09/14/20 01:37 Humalog 300 Units/3 Ml Vial SC 3 units .AGGRESSIVE SLIDING PRN Administration AGGRESSIVE SLIDING SCALE Protocol Levothyroxine Sodium 112 mcg 09/02/20 09:00 09/14/20 08:45 Levothyroxine Sodium 112 Mcg Tab PO 112 mcg DAILY QUINTEN Administration Loratadine 10 mg 09/09/20 12:43 09/10/20 22:30 Loratadine 10 Mg Tab PO 10 mg DAILY PRN Administration Allergies Lorazepam 2 mg 09/13/20 12:00 09/14/20 16:02 Lorazepam 2 Mg/Ml Vial SLOW IVP 10/13/20 12:00 2 mg Q1H PRN Administration Breakthrough agitation Magnesium Hydroxide 30 ml 09/10/20 12:38 09/11/20 05:17 Milk Of Magnesia 30 Ml Udcup PO 30 ml DAILYPRN PRN Administration Constipation Methylprednisolone Sodium Succinate 60 mg 09/13/20 12:00 09/14/20 12:57 Methylprednisolone Sod Succ 40 Mg Vial IVP 60 mg Q6HR QUINTEN Administration Mometasone Furoate/Formoterol Fumar 2 puff 09/05/20 18:30 09/14/20 08:17 Mometasone 200 Mcg/Formoterol 5 Mcg 120 Puff Inhaler INH 2 puff BID-RT QUINTEN Administration Pantoprazole Sodium 40 mg 09/02/20 21:00 09/13/20 20:52 Pantoprazole 40 Mg Tab PO 40 mg HS QUINTEN Administration Propofol 1,000 mg 09/13/20 12:00 09/14/20 08:43 Propofol 1,000 Mg/100 Ml Vial IV 10/13/20 12:00 1,000 mg INF PRN Administration TO ACHIEVE GOAL RASS Protocol Propranolol HCl 80 mg 09/09/20 21:00 09/13/20 22:15 Propranolol Hcl La 80 Mg Cap PO Not Given HS QUINTEN Simvastatin 10 mg 09/09/20 21:00 09/13/20 20:51 Simvastatin 10 Mg Tab PO 10 mg HS QUINTEN Administration Sodium Chloride 10 ml 09/02/20 02:30 09/13/20 07:48 Flush - Normal Saline 10 Ml Syringe IVF 10 ml PRN PRN Administration Saline Flush Throat Lozenges 1 ramesh 09/02/20 11:14 09/04/20 08:37 Cepastat Lozenges 1 Ramesh PO 1 ramesh Q4H PRN Administration Cough Zinc Sulfate 220 mg 09/14/20 09:00 09/14/20 08:43 Zinc Sulfate 220 Mg Cap PER TUBE 220 mg DAILY QUINTEN Administration - Exam General Appearance: ill appearing Eye: PERRL ENT: normocephalic atraumatic, no oropharyngeal lesions Neck: supple, symmetric, no JVD, no thyromegaly Heart: RRR, no murmur, no gallops, no rubs, normal peripheral pulses Respiratory: CTAB, no wheezes, no rales, no ronchi Gastrointestinal: soft, non-tender, non-distended, normal bowel sounds Neurological: cranial nerve grossly intact, normal sensation to touch Musculoskeletal: generalized weakness Psychiatric: somnolent, lethargic Hosp A/P (1) Acute respiratory failure with hypoxia Code(s): J96.01 - ACUTE RESPIRATORY FAILURE WITH HYPOXIA Status: Acute (2) Pneumonia due to COVID-19 virus Code(s): U07.1 - COVID-19; J12.89 - OTHER VIRAL PNEUMONIA Status: Acute (3) CHF (congestive heart failure) Code(s): I50.9 - HEART FAILURE, UNSPECIFIED Status: Chronic Qualifiers: Heart failure type: unspecified Heart failure chronicity: chronic Qualified Code(s): I50.9 - Heart failure, unspecified (4) Diarrhea due to COVID-19 Code(s): U07.1 - COVID-19; A08.39 - OTHER VIRAL ENTERITIS Status: Resolved - Plan old records reviewed/req, PT/OT, respiratory therapy, incentive spirometry, DVT proph w/lovenox #1. Acute respiratory failure with hypoxia. Likely secondary to COVID-19 pneumonia. Continue O2 supplementation and wean as tolerated. I will have a low threshold to intubate in this unfortunate woman. 09/10/2020. She remains on high flow nasal cannula today. I will continue this for now. 09/12/2020. She has significant hypoxemia and a blood gas obtained earlier today. We will continue high flow nasal cannula and I will have a low threshold to intubate her. 09/13/2020. She deteriorated very rapidly since the last couple hours. We made a decision to move her to the ICU. She has since been intubated by the ICU service. Her prognosis appears to be poor. 2. COVID-19 pneumonia. She has received remdesivir and convalescent plasma. We appreciate ID ongoing evaluation. 3. Chronic kidney disease at least stage III. Supportive care. 4. Hypertensive heart disease.
[2020-09-14] MEDS: Cholecalciferol 1,000 UNITS (25 MCG) TAB PER TUBE SCH (21:00)
[2020-09-14] MEDS: Simvastatin 10 MG TAB PO SCH (21:01)
[2020-09-14] MEDS: Propranolol HCl LA 80 MG CAP PO SCH (22:20)
[2020-09-15] MEDS: HumaLOG 300 UNITS/3 ML VIAL SC PRN ×4 (01:18→21:45)
[2020-09-15 04:23] LABS: #Lymphocytes 0.9 thou/uL (1.20-3.40); #Monocytes 0.5 thou/uL (0.11-0.59); %Basophils 0.1 % (0.0-1.0); %Eosinophils 0.1 % (0.0-10.0); %Lymphocytes 4.4 % (21.0-51.0); %Monocytes 2.6 % (0.0-10.0); %Neutrophils 92.8 % (42.0-75.0); Hemoglobin 13.2 g/dL (12.0-16.0); Mean Corpuscular HGB CONC 32.9 g/dL (32.0-36.0); Mean Corpuscular Hemoglobin 31.6 pg (27.0-31.0); Mean Corpuscular Volume 95.9 fL (78.0-98.0); Mean Platelet Volume 9.8 fL (7.4-10.4); Platelet Count 346 thou/uL (130-400); RBC Distribution Width 11.8 % (11.5-14.5); Red Blood Cell (RBC) Count 4.18 mill/uL (4.20-5.40); White Blood Cell (WBC) Count 19.4 thou/uL (4.8-10.8)
[2020-09-15 04:44] LABS: ALT (SGPT) 13 U/L (8-55); AST (SGOT) 18 U/L (5-34); Albumin 2.8 g/dL (3.4-4.8); Alkaline Phosphatase 57 U/L (40-110); Anion Gap 14 mmol/L (10-20); BUN (Urea Nitrogen) 64 mg/dL (9.8-20.1); Bilirubin, Direct 0.2 mg/dL (0.1-0.3); Bilirubin, Total 0.3 mg/dL (0.2-1.2); Calc. Creatinine Clearance 65 mL/min (70-130); Calcium 8.3 mg/dL (7.8-10.44); Carbon Dioxide 30 mmol/L (23-31); Chloride 98 mmol/L (98-107); Glucose 252 mg/dL (83-110); Potassium 4.3 mmol/L (3.5-5.1); Protein, Total 6.2 g/dL (6.0-8.3); Sodium 138 mmol/L (136-145)
[2020-09-15] MEDS: Propofol 1,000 MG/100 ML VIAL IV PRN ×3 (05:11→16:30)
[2020-09-15] MEDS: methylPREDNISolone Sod Succ 40 MG VIAL IVP SCH ×4 (05:11→23:05)
[2020-09-15] MEDS: Meropenem 2 GM, Admixture Fee 1 EACH in Sodium Chloride 0.9% 100 ML IVPB SCH ×3 (06:02→22:32)
[2020-09-15] MEDS: Mometasone 200 MCG/Formoterol 5 MCG 120 PUFF INHALER INH SCH ×2 (07:28→19:36)
[2020-09-15] MEDS: Albuterol 200 PUFF (6.7GM INHALER) INH SCH ×3 (07:28→19:37)
[2020-09-15] MEDS: Levothyroxine Sodium 112 MCG TAB PO SCH (07:34)
[2020-09-15] MEDS: Enoxaparin Sodium 40 MG/0.4 ML SYRINGE SC SCH ×2 (07:34→19:31)
[2020-09-15] MEDS: Sodium Chloride 0.9% 1,000 ML IV SCH ×2 (07:34→19:27)
[2020-09-15] MEDS: Lorazepam 2 MG/ML VIAL SLOW IVP PRN (07:34)
[2020-09-15] MEDS: glipiZIDE 5 MG TAB PO SCH (07:34)
[2020-09-15] MEDS: Aspirin 81 mg Enteric Coated Tablet PO SCH (07:34)
[2020-09-15] MEDS: Calcium Carbonate 600 MG TAB PO SCH (07:35)
[2020-09-15] MEDS: Fenofibrate 48 MG TAB PO SCH ×2 (07:35→19:29)
[2020-09-15] MEDS: guaiFENesin ER 600 MG TAB PO SCH ×2 (07:35→19:28)
[2020-09-15] MEDS: Zinc Sulfate 220 MG CAP PER TUBE SCH (07:35)
[2020-09-15] MEDS: Ascorbic Acid 500 mg Chewable Tablet PER TUBE SCH (07:35)
[2020-09-15] MEDS: Benzonatate 100 MG CAP PO SCH ×3 (07:36→19:28)
[2020-09-15] MEDS: Insulin Glargine 30 UNITS in Pre-Filled Syringe 1 EACH SC SCH ×2 (07:40→19:31)
[2020-09-15 07:44] LABS: Actual Bicarbonate (HCO3a) 28.6 mEq/L (22-28); Base Excess (BEa) 2.9 mEq/L (-2.0 to +3.0); CO2 Tension 47.5 mmHg (35.0-45.0); Calcium, Ionized (arterial) 1.16 mmol/L (1.12-1.30); Carboxyhemoglobin (COHb) 1.1 gm% (0.0-3.0); Hemoglobin (Hb) 15.6 g/dL (12.0-16.0); Potassium - ABG Lab 4.38 mmol/L (3.70-5.30)
[2020-09-15 07:49] LABS: O2 Tension (PaO2), arterial 55.1 mmHg (> 70.0); Puncture Site RRA
[2020-09-15 07:50] LABS: ALV-art Gradient 313.325 mmHg (0-20)
--- NOTE | 2020-09-15 07:55 | RAD ---
CHEST 1 VIEW: Date: 09/15/2020 INDICATION: History of pneumonia. COMPARISON: Prior exam dated 09/14/2020. FINDINGS: Bilateral air space disease is stable. Cardiomegaly persists. ET tube and gastric catheter are unchan ged. Some focus of lucent lung within the left lung apex is stable. There is a stable right subclavia n central venous catheter, ET tube, and gastric catheter. IMPRESSION: Stable bilateral pneumonia. POS: BH
[2020-09-15] MEDS: fentaNYL Citrate/PF 2,000 MCG in Sodium Chloride 0.9% 60 ML IV SCH (08:25)
[2020-09-15] MEDS: Micafungin 100 MG in Sodium Chloride 0.9% 100 ML IVPB SCH (10:45)
[2020-09-15] MEDS: Vecuronium 10 MG VIAL IV PRN (16:24)
--- NOTE | 2020-09-15 16:42 | PRG ---
DATE OF SERVICE: 09/15/2020 SUBJECTIVE: Ms. Guerrero was prone this morning. She is scheduled to come off being proned after lunch today. OBJECTIVE: VITAL SIGNS: Heart rate is in 80s, respiratory rate is in the 20s, FiO2 is at 50%. LUNGS: Clear. HEART: Regular rhythm. ABDOMEN: Soft. LABORATORY DATA: White count 19.4, hemoglobin 13.2, platelets 346. Electrolytes are normal. BUN 64, creatinine 1.23. Chest radiographs, unchanged. IMPRESSION: COVID pneumonia requiring prone ventilation. PLAN: Continue supportive care. She is not weanable. Job ID: [id number]
[2020-09-15] MEDS: Propranolol HCl LA 80 MG CAP PO SCH (19:28)
[2020-09-15] MEDS: Simvastatin 10 MG TAB PO SCH (19:30)
[2020-09-15] MEDS: Cholecalciferol 1,000 UNITS (25 MCG) TAB PER TUBE SCH (19:40)
[2020-09-16] MEDS: Albuterol 200 PUFF (6.7GM INHALER) INH SCH ×4 (00:12→18:54)
[2020-09-16 03:57] LABS: ALT (SGPT) 17 U/L (8-55); AST (SGOT) 24 U/L (5-34); Albumin 2.7 g/dL (3.4-4.8); Alkaline Phosphatase 51 U/L (40-110); Anion Gap 15 mmol/L (10-20); BUN (Urea Nitrogen) 53 mg/dL (9.8-20.1); Bilirubin, Direct 0.2 mg/dL (0.1-0.3); Bilirubin, Total 0.3 mg/dL (0.2-1.2); Calc. Creatinine Clearance 78 mL/min (70-130); Calcium 8.4 mg/dL (7.8-10.44); Carbon Dioxide 30 mmol/L (23-31); Chloride 100 mmol/L (98-107); Glucose 275 mg/dL (83-110); Potassium 4.5 mmol/L (3.5-5.1); Protein, Total 5.8 g/dL (6.0-8.3); Sodium 140 mmol/L (136-145)
[2020-09-16 04:01] LABS: Band 1 % (5-11); Hemoglobin 12.5 g/dL (12.0-16.0); Lymphocytes 4 % (21-51); MDiff Complete? YES; Mean Corpuscular HGB CONC 33.5 g/dL (32.0-36.0); Mean Corpuscular Hemoglobin 32.2 pg (27.0-31.0); Mean Corpuscular Volume 96.3 fL (78.0-98.0); Mean Platelet Volume 9.5 fL (7.4-10.4); Monocytes 2 % (0-10); Neutrophil 93 % (42-75); Platelet Count 312 thou/uL (130-400); Platelet Morphology Comment Appears Adequate; RBC Distribution Width 11.9 % (11.5-14.5); Red Blood Cell (RBC) Count 3.87 mill/uL (4.20-5.40); White Blood Cell (WBC) Count 18.8 thou/uL (4.8-10.8)
[2020-09-16] MEDS: Mometasone 200 MCG/Formoterol 5 MCG 120 PUFF INHALER INH SCH ×2 (04:30→18:54)
[2020-09-16] MEDS: HumaLOG 300 UNITS/3 ML VIAL SC PRN ×6 (05:19→23:45)
[2020-09-16] MEDS: Propofol 1,000 MG/100 ML VIAL IV PRN ×5 (05:19→19:27)
[2020-09-16] MEDS: methylPREDNISolone Sod Succ 40 MG VIAL IVP SCH ×4 (05:20→23:42)
[2020-09-16] MEDS: Meropenem 2 GM, Admixture Fee 1 EACH in Sodium Chloride 0.9% 100 ML IVPB SCH ×3 (05:23→19:57)
[2020-09-16 08:15] LABS: Actual Bicarbonate (HCO3a) 27.5 mEq/L (22-28); Base Excess (BEa) 3.6 mEq/L (-2.0 to +3.0); CO2 Tension 39.5 mmHg (35.0-45.0); Calcium, Ionized (arterial) 1.17 mmol/L (1.12-1.30); Carboxyhemoglobin (COHb) 1.2 gm% (0.0-3.0); Potassium - ABG Lab 4.28 mmol/L (3.70-5.30); pH, Arterial 7.46 (7.35-7.45)
[2020-09-16 08:27] LABS: O2 Tension (PaO2), arterial 58.5 mmHg (> 70.0); Puncture Site RBA
[2020-09-16 08:28] LABS: ALV-art Gradient 248.625 mmHg (0-20)
--- NOTE | 2020-09-16 08:29 | RAD ---
Chest AP view INDICATION: Pneumonia COMPARISON: September 15, 2020 FINDINGS: Lungs: Bilateral airspace disease is stable Cardiac silhouette: Mild cardiomegaly is stable Pulmonary vasculature: Normal Pleural spaces: No pleural effusion or pneumothorax is demonstrated. Upper abdomen: No abnormality seen. Osseous structures: No acute osseous abnormality. Additional findings: ET tube, gastric catheter and right subclavian central venous catheter are unch anged. IMPRESSION: Stable bilateral pneumonia. No pneumothorax.
[2020-09-16] MEDS: Aspirin 81 mg Enteric Coated Tablet PO SCH (09:16)
[2020-09-16] MEDS: glipiZIDE 5 MG TAB PO SCH (09:16)
[2020-09-16] MEDS: Ascorbic Acid 500 mg Chewable Tablet PER TUBE SCH (09:16)
[2020-09-16] MEDS: Enoxaparin Sodium 40 MG/0.4 ML SYRINGE SC SCH ×2 (09:16→19:27)
[2020-09-16] MEDS: guaiFENesin ER 600 MG TAB PO SCH ×2 (09:16→19:29)
[2020-09-16] MEDS: Zinc Sulfate 220 MG CAP PER TUBE SCH (09:16)
[2020-09-16] MEDS: Calcium Carbonate 600 MG TAB PO SCH (09:16)
[2020-09-16] MEDS: Insulin Glargine 30 UNITS in Pre-Filled Syringe 1 EACH SC SCH ×2 (09:18→20:05)
[2020-09-16] MEDS: Benzonatate 100 MG CAP PO SCH ×3 (12:30→19:28)
[2020-09-16] MEDS: Micafungin 100 MG in Sodium Chloride 0.9% 100 ML IVPB SCH (12:32)
[2020-09-16] MEDS: fentaNYL Citrate/PF 2,000 MCG in Sodium Chloride 0.9% 60 ML IV SCH (12:48)
[2020-09-16] MEDS: Sodium Chloride 0.9% 1,000 ML IV SCH (12:59)
--- NOTE | 2020-09-16 14:19 | PRG ---
DATE OF SERVICE: 09/16/2020 SUBJECTIVE: Ms. Guerrero remains hemodynamically stable. OBJECTIVE: VITAL SIGNS: Blood pressure 129/71, heart rate is in the 90s to 100, respiratory rate is in the 20s. LUNGS: Unchanged. HEART: Unchanged. ABDOMEN: Unchanged. LABORATORY DATA: White count 18.8, hemoglobin 12.5, and platelets 312. Electrolytes were normal. BUN 53, creatinine 1.04. The pH 7.46, CO2 39, PO2 58. FiO2 is at 50%. IMPRESSION: COVID pneumonia, stable, but given that she is 14 days into her hospitalization, this will undoubtedly be a very slow process. Job ID: [id number]
[2020-09-16] MEDS: Lorazepam 2 MG/ML VIAL SLOW IVP PRN ×3 (14:33→19:29)
--- NOTE | 2020-09-16 17:13 | PDOC.HOSPP ---
- Subjective Encounter Date: 09/16/20 Encounter Time: 10:20 Subjective: is on vent, sedated - Objective Vital Signs & Weight: Vital Signs (12 hours) Pulse Resp Pulse Ox 09/16/20 14:00 24 H 09/16/20 12:41 106 H 09/16/20 12:00 20 09/16/20 10:00 31 H 09/16/20 08:00 24 H 90 L 09/16/20 06:00 20 Weight Admit Weight 238 lb 1.6 oz Weight 218 lb 14.704 oz Most Recent Monitor Data Heart Rate from ECG 98 NIBP 114/67 NIBP BP-Mean 82 Respiration from ECG 20 SpO2 88 I&O: 09/15/20 09/16/20 09/17/20 06:59 06:59 06:59 Intake Total 2838.1 1826.6 150 Output Total 1430 1245 560 Balance 1408.1 581.6 -410 Result Diagrams: 09/16/20 03:00 09/16/20 03:00 Additional Labs: Accuchecks 09/16/20 09/16/20 09/15/20 15:58 07:59 21:35 POC Glucose 194 H 270 H 301 H Hospitalist ROS - Medication Medications: Active Medications Generic Name Dose Route Start Last Admin Trade Name Freq PRN Reason Stop Dose Admin Acetaminophen 650 mg 09/02/20 01:53 09/13/20 05:10 Acetaminophen 325 Mg Tab PO 650 mg Q4H PRN Administration Headache/Fever/Mild Pain (1-3) Albuterol Sulfate 2 puff 09/02/20 19:00 09/16/20 13:25 Albuterol 200 Puff (6.7gm Inhaler) INH 2 puff [id number] QUINTEN Administration Ascorbic Acid 1,000 mg 09/14/20 09:00 09/16/20 09:16 Ascorbic Acid 500 Mg Chewable Tablet PER TUBE 1,000 mg DAILY QUINTEN Administration Aspirin 81 mg 09/02/20 09:00 09/16/20 09:16 Aspirin 81 Mg Enteric Coated Tablet PO 81 mg DAILY QUINTEN Administration Benzonatate 100 mg 09/02/20 15:00 09/16/20 15:29 Benzonatate 100 Mg Cap PO Not Given TID QUINTEN Bisacodyl 10 mg 09/10/20 12:38 09/11/20 08:30 Bisacodyl 5 Mg Tab PO 10 mg DAILYPRN PRN Administration Constipation Calcium Carbonate 600 mg 09/10/20 09:00 09/16/20 09:16 Calcium Carbonate 600 Mg Tab PO 600 mg DAILY QUINTEN Administration Cholecalciferol 5,000 units 09/13/20 21:00 09/15/20 19:40 Cholecalciferol 1,000 Units (25 Mcg) Tab PER TUBE 5,000 units HS QUINTEN Administration Enoxaparin Sodium 40 mg 09/05/20 21:00 09/16/20 09:16 Enoxaparin Sodium 40 Mg/0.4 Ml Syringe SC 40 mg 09,2099 QUINTEN Administration Fenofibrate 48 mg 09/02/20 09:00 09/15/20 19:29 Fenofibrate 48 Mg Tab PO 48 mg DAILY QUINTEN Administration Glipizide 5 mg 09/08/20 07:30 09/16/20 09:16 Glipizide 5 Mg Tab PO 5 mg DAILY-AC QUINTEN Administration Guaifenesin 600 mg 09/02/20 21:00 09/16/20 09:16 Guaifenesin Er 600 Mg Tab PO 600 mg Q12HR QUINTEN Administration Guaifenesin 200 mg 09/02/20 11:15 09/03/20 05:25 Diabetic Tussin 200 Mg/10 Ml Udcup PO 200 mg Q4H PRN Administration Cough Insulin Glargine 30 units/ 0.3 mls @ 0 mls/hr 09/08/20 09:00 09/16/20 09:18 Miscellaneous Medication SC 0.3 mls BID QUINTEN Administration Meropenem 2 gm/ Miscellaneous 100 mls @ 200 mls/hr 09/13/20 14:00 09/16/20 14:33 Medication 1 each/ Sodium IVPB 100 mls Chloride Q8HR QUINTEN Administration Micafungin Sodium 100 mg/ 100 mls @ 100 mls/hr 09/13/20 12:00 09/16/20 12:32 Sodium Chloride IVPB 100 mls 1200 QUINTEN Administration Sodium Chloride 1,000 mls @ 70 mls/hr 09/13/20 11:15 09/16/20 12:59 Normal Saline 0.9% IV 1,000 mls .[id number] QUINTEN Administration Fentanyl Citrate 2,000 mcg/ 100 mls @ 0 mls/hr 09/13/20 12:00 09/16/20 12:48 Sodium Chloride IV 10/13/20 12:00 100 mls INF QUINTEN Administration Protocol Per Protocol Insulin Human Lispro 0 units 09/03/20 20:47 09/12/20 21:16 Humalog 300 Units/3 Ml Vial SC 5 unit .BEDTIME SLIDING SC PRN Administration Bedtime Correctional Scale Insulin Human Lispro 0 units 09/06/20 05:30 09/16/20 13:10 Humalog 300 Units/3 Ml Vial SC 6 units .AGGRESSIVE SLIDING PRN Administration AGGRESSIVE SLIDING SCALE Protocol Loratadine 10 mg 09/09/20 12:43 09/10/20 22:30 Loratadine 10 Mg Tab PO 10 mg DAILY PRN Administration Allergies Lorazepam 2 mg 09/13/20 12:00 09/16/20 15:52 Lorazepam 2 Mg/Ml Vial SLOW IVP 10/13/20 12:00 2 mg Q1H PRN Administration Breakthrough agitation Magnesium Hydroxide 30 ml 09/10/20 12:38 09/11/20 05:17 Milk Of Magnesia 30 Ml Udcup PO 30 ml DAILYPRN PRN Administration Constipation Methylprednisolone Sodium Succinate 60 mg 09/13/20 12:00 09/16/20 12:46 Methylprednisolone Sod Succ 40 Mg Vial IVP 60 mg Q6HR QUINTEN Administration Mometasone Furoate/Formoterol Fumar 2 puff 09/05/20 18:30 09/16/20 04:30 Mometasone 200 Mcg/Formoterol 5 Mcg 120 Puff Inhaler INH 2 puff BID-RT QUINTEN Administration Pantoprazole Sodium 40 mg 09/02/20 21:00 09/15/20 19:30 Pantoprazole 40 Mg Tab PO 40 mg HS QUINTEN Administration Propofol 1,000 mg 09/13/20 12:00 09/16/20 12:48 Propofol 1,000 Mg/100 Ml Vial IV 10/13/20 12:00 1,000 mg INF PRN Administration TO ACHIEVE GOAL RASS Protocol Propranolol HCl 80 mg 09/09/20 21:00 09/15/20 19:28 Propranolol Hcl La 80 Mg Cap PO 80 mg HS QUINTEN Administration Simvastatin 10 mg 09/09/20 21:00 09/15/20 19:30 Simvastatin 10 Mg Tab PO 10 mg HS QUINTEN Administration Sodium Chloride 10 ml 09/02/20 02:30 09/13/20 07:48 Flush - Normal Saline 10 Ml Syringe IVF 10 ml PRN PRN Administration Saline Flush Throat Lozenges 1 ramesh 09/02/20 11:14 09/04/20 08:37 Cepastat Lozenges 1 Ramesh PO 1 ramesh Q4H PRN Administration Cough Vecuronium [place] 10 mg 09/15/20 11:54 09/15/20 16:24 Vecuronium 10 Mg Vial IV 10 mg Q1H PRN Administration SEDATION/MOVEMENT Zinc Sulfate 220 mg 09/14/20 09:00 09/16/20 09:16 Zinc Sulfate 220 Mg Cap PER TUBE 220 mg DAILY QUINTEN Administration - Exam ENT: normocephalic atraumatic Neck: no JVD Heart: RRR Respiratory: normal chest expansion Gastrointestinal: non-distended Extremities: no cyanosis, 1+ LE edema Hosp A/P (1) Pneumonia due to COVID-19 virus Code(s): U07.1 - COVID-19; J12.89 - OTHER VIRAL PNEUMONIA Status: Acute (2) Acute respiratory failure with hypoxia Code(s): J96.01 - ACUTE RESPIRATORY FAILURE WITH HYPOXIA Status: Acute (3) Diarrhea due to COVID-19 Code(s): U07.1 - COVID-19; A08.39 - OTHER VIRAL ENTERITIS Status: Resolved (4) CHF (congestive heart failure) Code(s): I50.9 - HEART FAILURE, UNSPECIFIED Status: Chronic Qualifiers: Heart failure type: unspecified Heart failure chronicity: chronic Qualified Code(s): I50.9 - Heart failure, unspecified (5) Asthma Code(s): J45.909 - UNSPECIFIED ASTHMA, UNCOMPLICATED Status: Chronic Qualifiers: Asthma severity: mild Asthma persistence: intermittent Asthma c omplication type: uncomplicated Qualified Code(s): J45.20 - Mild intermittent asthma, uncomplicated (6) Obesity Code(s): E66.9 - OBESITY, UNSPECIFIED Status: Chronic Qualifiers: Body mass index: BMI 35.0-35.9 (7) DM type 2 (diabetes mellitus, type 2) Status: Chronic Qualifiers: Diabetes mellitus [facility] insulin use: with communications department chair use (8) Hypothyroidism Code(s): E03.9 - HYPOTHYROIDISM, UNSPECIFIED Status: Chronic Qualifiers: Hypothyroidism type: acquired Qualified Code(s): E03.9 - Hypothyroidism, unspecified (9) Dyslipidemia Code(s): E78.5 - HYPERLIPIDEMIA, UNSPECIFIED Status: Chronic - Plan is on steroids, merrem, micafungin, albuterol, dulera continue aspirin, tricor, glipizide, lantus u 30 bid, synthroid, zocor, inderal, protonix finished remdesivir (09/07), got convalescent plasma 09/04 hemostable prognosis guarded
[2020-09-16] MEDS: Cholecalciferol 1,000 UNITS (25 MCG) TAB PER TUBE SCH (19:28)
[2020-09-16] MEDS: Simvastatin 10 MG TAB PO SCH (19:56)
[2020-09-16] MEDS: Propranolol HCl LA 80 MG CAP PO SCH (19:56)
[2020-09-17] MEDS: Albuterol 200 PUFF (6.7GM INHALER) INH SCH ×5 (00:32→23:19)
[2020-09-17] MEDS: Sodium Chloride 0.9% 1,000 ML IV SCH ×3 (00:34→20:00)
[2020-09-17] MEDS: Propofol 1,000 MG/100 ML VIAL IV PRN ×4 (03:28→18:02)
[2020-09-17 03:55] LABS: #Lymphocytes 0.8 thou/uL (1.20-3.40); #Monocytes 0.5 thou/uL (0.11-0.59); #Neutrophils 14.5 thou/uL (1.40-6.50); %Eosinophils 0.2 % (0.0-10.0); %Lymphocytes 5.2 % (21.0-51.0); %Monocytes 2.9 % (0.0-10.0); %Neutrophils 91.7 % (42.0-75.0); Hemoglobin 11.8 g/dL (12.0-16.0); Mean Corpuscular HGB CONC 32.9 g/dL (32.0-36.0); Mean Corpuscular Hemoglobin 32.2 pg (27.0-31.0); Mean Platelet Volume 9.1 fL (7.4-10.4); Platelet Count 250 thou/uL (130-400); RBC Distribution Width 12.3 % (11.5-14.5); Red Blood Cell (RBC) Count 3.65 mill/uL (4.20-5.40); White Blood Cell (WBC) Count 15.8 thou/uL (4.8-10.8)
[2020-09-17 04:21] LABS: ALT (SGPT) 15 U/L (8-55); AST (SGOT) 21 U/L (5-34); Albumin 2.6 g/dL (3.4-4.8); Alkaline Phosphatase 47 U/L (40-110); Anion Gap 15 mmol/L (10-20); BUN (Urea Nitrogen) 47 mg/dL (9.8-20.1); Bilirubin, Direct 0.2 mg/dL (0.1-0.3); Bilirubin, Total 0.3 mg/dL (0.2-1.2); Calc. Creatinine Clearance 102 mL/min (70-130); Calcium 8.1 mg/dL (7.8-10.44); Carbon Dioxide 28 mmol/L (23-31); Chloride 104 mmol/L (98-107); Glucose 246 mg/dL (83-110); Potassium 4.6 mmol/L (3.5-5.1); Protein, Total 5.5 g/dL (6.0-8.3); Sodium 142 mmol/L (136-145)
[2020-09-17] MEDS: Mometasone 200 MCG/Formoterol 5 MCG 120 PUFF INHALER INH SCH ×2 (05:08→19:34)
[2020-09-17] MEDS: methylPREDNISolone Sod Succ 40 MG VIAL IVP SCH ×3 (05:15→17:59)
[2020-09-17] MEDS: Levothyroxine Sodium 112 MCG TAB PO SCH (05:15)
[2020-09-17] MEDS: Meropenem 2 GM, Admixture Fee 1 EACH in Sodium Chloride 0.9% 100 ML IVPB SCH ×3 (06:23→21:18)
[2020-09-17] MEDS: HumaLOG 300 UNITS/3 ML VIAL SC PRN ×5 (06:47→22:36)
[2020-09-17 07:52] LABS: Actual Bicarbonate (HCO3a) 29.6 mEq/L (22-28); Base Excess (BEa) 5.1 mEq/L (-2.0 to +3.0); CO2 Tension 42.8 mmHg (35.0-45.0); Carboxyhemoglobin (COHb) 1.5 gm% (0.0-3.0); Hemoglobin (Hb) 15.5 g/dL (12.0-16.0); Potassium - ABG Lab 4.72 mmol/L (3.70-5.30); pH, Arterial 7.46 (7.35-7.45)
[2020-09-17] MEDS: guaiFENesin ER 600 MG TAB PO SCH ×2 (07:53→21:18)
[2020-09-17] MEDS: Ascorbic Acid 500 mg Chewable Tablet PER TUBE SCH (07:53)
[2020-09-17] MEDS: Enoxaparin Sodium 40 MG/0.4 ML SYRINGE SC SCH ×2 (07:53→21:16)
[2020-09-17] MEDS: Zinc Sulfate 220 MG CAP PER TUBE SCH (07:53)
[2020-09-17] MEDS: Aspirin 81 mg Enteric Coated Tablet PO SCH (07:53)
[2020-09-17] MEDS: Benzonatate 100 MG CAP PO SCH ×3 (07:53→21:03)
[2020-09-17] MEDS: glipiZIDE 5 MG TAB PO SCH (07:53)
[2020-09-17] MEDS: Calcium Carbonate 600 MG TAB PO SCH (07:53)
[2020-09-17] MEDS: Fenofibrate 48 MG TAB PO SCH (07:55)
[2020-09-17 08:12] LABS: O2 Tension (PaO2), arterial 57.3 mmHg (> 70.0); Puncture Site RBA
--- NOTE | 2020-09-17 08:34 | RAD ---
Chest AP view INDICATION: History of pneumonia COMPARISON: Prior exam dated September 16, 2020 4:58 AM FINDINGS: Lungs: Diffuse airspace disease has slightly worsened. Cardiac silhouette: Stable mild cardiomegaly Pulmonary vasculature: Normal Pleural spaces: There is a new small left apical pneumothorax. There is new pneumomediastinum and tran bcutaneous emphysema. Upper abdomen: No abnormality seen. Osseous structures: No acute osseous abnormality. Additional findings: Patient is intubated with gastric catheter placement. The ET tube is slightly l ow lying with the tip overlying the aleah. Retraction 1 cm is recommended. Right subclavian central venous catheter is unchanged. IMPRESSION: New small left apical pneumothorax with pneumomediastinum and subcutaneous emphysema. Findings called to Kory Mims RN at 8:30 AM on September 17, 2020. Low-lying ET tube. Recommend retraction approximately 1 cm. Worsening bilateral pneumonia.
[2020-09-17] MEDS: Insulin Glargine 40 UNITS in Pre-Filled Syringe 1 EACH SC SCH ×2 (09:02→21:16)
[2020-09-17] MEDS: Vecuronium 10 MG VIAL IV PRN ×2 (09:04→16:30)
[2020-09-17] MEDS: Lorazepam 2 MG/ML VIAL SLOW IVP PRN ×2 (09:04→17:59)
[2020-09-17] MEDS: Micafungin 100 MG in Sodium Chloride 0.9% 100 ML IVPB SCH (11:15)
[2020-09-17] MEDS ORDERED: Lidocaine 1% w/Epinephrine 1:100K 20 ML VIAL ONE ×2 (13:44→15:50)
--- NOTE | 2020-09-17 13:57 | PDOC.HOSPP ---
- Subjective Encounter Date: 09/17/20 Encounter Time: 10:45 Subjective: on vent, is sedated - Objective Vital Signs & Weight: Vital Signs (12 hours) Pulse Resp Pulse Ox 09/17/20 12:00 20 09/17/20 10:06 104 H 09/17/20 10:00 27 H 09/17/20 08:00 30 H 90 L 09/17/20 06:00 20 09/17/20 04:00 20 09/17/20 02:00 20 Weight Admit Weight 238 lb 1.6 oz Weight 220 lb 14.451 oz Most Recent Monitor Data Heart Rate from ECG 103 NIBP 136/67 NIBP BP-Mean 90 Respiration from ECG 20 SpO2 87 I&O: 09/16/20 09/17/20 09/18/20 06:59 06:59 06:59 Intake Total 1826.6 3190 160 Output Total 1245 1620 400 Balance 581.6 1570 -240 Result Diagrams: 09/17/20 03:30 09/17/20 03:30 Additional Labs: Accuchecks 09/17/20 09/16/20 09/16/20 07:59 23:49 20:40 POC Glucose 273 H 284 H 243 H 09/16/20 15:58 POC Glucose 194 H Hospitalist ROS - Medication Medications: Active Medications Generic Name Dose Route Start Last Admin Trade Name Freq PRN Reason Stop Dose Admin Acetaminophen 650 mg 09/02/20 01:53 09/13/20 05:10 Acetaminophen 325 Mg Tab PO 650 mg Q4H PRN Administration Headache/Fever/Mild Pain (1-3) Albuterol Sulfate 2 puff 09/02/20 19:00 09/17/20 12:30 Albuterol 200 Puff (6.7gm Inhaler) INH 2 puff [id number] QUINTEN Administration Ascorbic Acid 1,000 mg 09/14/20 09:00 09/17/20 07:53 Ascorbic Acid 500 Mg Chewable Tablet PER TUBE 1,000 mg DAILY QUINTEN Administration Aspirin 81 mg 09/02/20 09:00 09/17/20 07:53 Aspirin 81 Mg Enteric Coated Tablet PO 81 mg DAILY QUINTEN Administration Benzonatate 100 mg 09/02/20 15:00 09/17/20 13:10 Benzonatate 100 Mg Cap PO 100 mg TID QUINTEN Administration Bisacodyl 10 mg 09/10/20 12:38 09/11/20 08:30 Bisacodyl 5 Mg Tab PO 10 mg DAILYPRN PRN Administration Constipation Calcium Carbonate 600 mg 09/10/20 09:00 09/17/20 07:53 Calcium Carbonate 600 Mg Tab PO 600 mg DAILY QUINTEN Administration Cholecalciferol 5,000 units 09/13/20 21:00 09/16/20 19:28 Cholecalciferol 1,000 Units (25 Mcg) Tab PER TUBE 5,000 units HS QUINTEN Administration Enoxaparin Sodium 40 mg 09/05/20 21:00 09/17/20 07:53 Enoxaparin Sodium 40 Mg/0.4 Ml Syringe SC 40 mg 09,2100 QUINTEN Administration Fenofibrate 48 mg 09/02/20 09:00 09/17/20 07:55 Fenofibrate 48 Mg Tab PO 48 mg DAILY QUINTEN Administration Glipizide 5 mg 09/08/20 07:30 09/17/20 07:53 Glipizide 5 Mg Tab PO 5 mg DAILY-AC QUINTEN Administration Guaifenesin 600 mg 09/02/20 21:00 09/17/20 07:53 Guaifenesin Er 600 Mg Tab PO 600 mg Q12HR QUINTEN Administration Guaifenesin 200 mg 09/02/20 11:15 09/03/20 05:25 Diabetic Tussin 200 Mg/10 Ml Udcup PO 200 mg Q4H PRN Administration Cough Meropenem 2 gm/ Miscellaneous 100 mls @ 200 mls/hr 09/13/20 14:00 09/17/20 13:47 Medication 1 each/ Sodium IVPB 100 mls Chloride Q8HR QUINTEN Administration Micafungin Sodium 100 mg/ 100 mls @ 100 mls/hr 09/13/20 12:00 09/17/20 11:15 Sodium Chloride IVPB 100 mls 1200 QUINTEN Administration Sodium Chloride 1,000 mls @ 70 mls/hr 09/13/20 11:15 09/17/20 00:34 Normal Saline 0.9% IV 1,000 mls .[id number] QUINTEN Administration Fentanyl Citrate 2,000 mcg/ 100 mls @ 0 mls/hr 09/13/20 12:00 09/16/20 12:48 Sodium Chloride IV 10/13/20 12:00 100 mls INF QUINTEN Administration Protocol Per Protocol Insulin Glargine 40 units/ 0.4 mls @ 0 mls/hr 09/17/20 09:00 09/17/20 09:02 Miscellaneous Medication SC 0.4 mls BID QUINTEN Administration Insulin Human Lispro 0 units 09/03/20 20:47 09/12/20 21:16 Humalog 300 Units/3 Ml Vial SC 5 unit .BEDTIME SLIDING SC PRN Administration Bedtime Correctional Scale Insulin Human Lispro 0 units 09/06/20 05:30 09/17/20 09:03 Humalog 300 Units/3 Ml Vial SC 9 units .AGGRESSIVE SLIDING PRN Administration AGGRESSIVE SLIDING SCALE Protocol Levothyroxine Sodium 112 mcg 09/17/20 06:00 09/17/20 05:15 Levothyroxine Sodium 112 Mcg Tab PO 112 mcg 0600 QUINTEN Administration Loratadine 10 mg 09/09/20 12:43 09/10/20 22:30 Loratadine 10 Mg Tab PO 10 mg DAILY PRN Administration Allergies Lorazepam 2 mg 09/13/20 12:00 09/17/20 09:04 Lorazepam 2 Mg/Ml Vial SLOW IVP 10/13/20 12:00 2 mg Q1H PRN Administration Breakthrough agitation Magnesium Hydroxide 30 ml 09/10/20 12:38 09/11/20 05:17 Milk Of Magnesia 30 Ml Udcup PO 30 ml DAILYPRN PRN Administration Constipation Methylprednisolone Sodium Succinate 60 mg 09/13/20 12:00 09/17/20 11:18 Methylprednisolone Sod Succ 40 Mg Vial IVP 60 mg Q6HR QUINTEN Administration Mometasone Furoate/Formoterol Fumar 2 puff 09/05/20 18:30 09/17/20 05:08 Mometasone 200 Mcg/Formoterol 5 Mcg 120 Puff Inhaler INH 2 puff BID-RT QUINTEN Administration Pantoprazole Sodium 40 mg 09/02/20 21:00 09/16/20 19:29 Pantoprazole 40 Mg Tab PO 40 mg HS QUINTEN Administration Propofol 1,000 mg 09/13/20 12:00 09/17/20 13:07 Propofol 1,000 Mg/100 Ml Vial IV 10/13/20 12:00 1,000 mg INF PRN Administration TO ACHIEVE GOAL RASS Protocol Propranolol HCl 80 mg 09/09/20 21:00 09/16/20 19:56 Propranolol Hcl La 80 Mg Cap PO 80 mg HS QUINTEN Administration Simvastatin 10 mg 09/09/20 21:00 09/16/20 19:56 Simvastatin 10 Mg Tab PO 10 mg HS QUINTEN Administration Sodium Chloride 10 ml 09/02/20 02:30 09/13/20 07:48 Flush - Normal Saline 10 Ml Syringe IVF 10 ml PRN PRN Administration Saline Flush Throat Lozenges 1 ramesh 09/02/20 11:14 09/04/20 08:37 Cepastat Lozenges 1 Ramesh PO 1 ramesh Q4H PRN Administration Cough Vecuronium [place] 10 mg 09/15/20 11:54 09/17/20 09:04 Vecuronium 10 Mg Vial IV 10 mg Q1H PRN Administration SEDATION/MOVEMENT Zinc Sulfate 220 mg 09/14/20 09:00 09/17/20 07:53 Zinc Sulfate 220 Mg Cap PER TUBE 220 mg DAILY QUINTEN Administration - Exam General Appearance: ill appearing Eye: PERRL, anicteric sclera ENT: no oropharyngeal lesions, dry oral mucosa Neck: supple, no JVD Heart: RRR, no murmur Respiratory: no wheezes, rales, rhonchi Gastrointestinal: soft, non-tender, non-distended, normal bowel sounds Extremities: no cyanosis, no edema Neurological: cranial nerve grossly intact, no focal deficits Hosp A/P (1) Pneumonia due to COVID-19 virus Code(s): U07.1 - COVID-19; J12.89 - OTHER VIRAL PNEUMONIA Status: Acute (2) Acute respiratory failure with hypoxia Code(s): J96.01 - ACUTE RESPIRATORY FAILURE WITH HYPOXIA Status: Acute (3) Diarrhea due to COVID-19 Code(s): U07.1 - COVID-19; A08.39 - OTHER VIRAL ENTERITIS Status: Resolved (4) CHF (congestive heart failure) Code(s): I50.9 - HEART FAILURE, UNSPECIFIED Status: Chronic Qualifiers: Heart failure type: unspecified Heart failure chronicity: chronic Qualified Code(s): I50.9 - Heart failure, unspecified (5) Asthma Code(s): J45.909 - UNSPECIFIED ASTHMA, UNCOMPLICATED Status: Chronic Qualifiers: Asthma severity: mild Asthma persistence: intermittent Asthma compli cation type: uncomplicated Qualified Code(s): J45.20 - Mild intermittent asthma, uncomplicated (6) Obesity Code(s): E66.9 - OBESITY, UNSPECIFIED Status: Chronic Qualifiers: Body mass index: BMI 35.0-35.9 (7) DM type 2 (diabetes mellitus, type 2) Status: Chronic Qualifiers: Diabetes mellitus [facility] insulin use: with intermediate accountant use (8) Hypothyroidism Code(s): E03.9 - HYPOTHYROIDISM, UNSPECIFIED Status: Chronic Qualifiers: Hypothyroidism type: acquired Qualified Code(s): E03.9 - Hypothyroidism, unspecified (9) Dyslipidemia Code(s): E78.5 - HYPERLIPIDEMIA, UNSPECIFIED Status: Chronic - Plan is on steroids, merrem, micafungin, albuterol, dulera continue aspirin, tricor, glipizide, lantus u 40 bid, synthroid, zocor, inderal, protonix finished remdesivir (09/07), got convalescent plasma 09/04 hemostable prognosis guarded, d/w daughter over phone, she will come see her today (she is covid -ve, pt's covid test is pending)
--- NOTE | 2020-09-17 15:34 | RAD ---
Chest AP view INDICATION: History of chest tube placement COMPARISON: Prior exam dated September 17, 2020 FINDINGS: Lungs: Diffuse airspace disease persists Cardiac silhouette: Mild cardiomegaly is stable Pulmonary vasculature: Normal Pleural spaces: There is been interval placement of a left-sided chest tube. Left-sided pneumothorax is smaller. Small residual left apical pneumothorax remains. However, there is a new small to moderate right-sided pneumothorax that has developed. There is worsening chest wall emphysema Upper abdomen: No abnormality seen. Osseous structures: No acute osseous abnormality. Additional findings: Patient remains intubated with gastric catheter placement. Right subclavian chema tral venous catheter is stable. IMPRESSION: New [id number] right-sided pneumothorax. Interval placement of left-sided thoracostomy tube. R eduction in size of the left pneumothorax. Small residual left apical pneumothorax remains. Findings called to Dayami Villalba RN for this patient at 3:31 PM on September 17, 2020.
--- NOTE | 2020-09-17 16:36 | OP ---
DATE OF PROCEDURE: 09/17/2020 PROCEDURE PERFORMED: 36-Italian left tube thoracostomy. PREOPERATIVE DIAGNOSIS: Left-sided pneumothorax. POSTOPERATIVE DIAGNOSIS: Left-sided pneumothorax. ANESTHESIA: 1% lidocaine local anesthesia. INDICATIONS: The patient is a 70-year-old woman, intubated, requiring sedation and chemical paralytics for ventilatory support. On today's x-ray, she was noted to have left-sided pneumothorax. FINDINGS: Good positioning of the tube and near complete re-expansion of the lung on postprocedure chest x-ray. No air marc heard upon entering the chest. DESCRIPTION OF PROCEDURE: After informed consent was obtained from the patient's family, the patient's pendulous left breast was retracted cephalad and taped into position. Her left upper quadrant and lower chest were prepped and draped in sterile fashion. At the level of the xiphoid and nipple line, just below the inframammary crease, 1% lidocaine was used to infiltrate the skin and subcutaneous tissues. An incision was made sharply there and a subcutaneous tract was developed posteriorly and superiorly. While it was possible to aspirate pleural fluid on one of the multiple attempts at aspirating air from the chest prior tube blunt entry into the chest cavity, the patient's body habitus was such to make infiltrating lidocaine along the rib surface and superior rib margin quite difficult. That was finally abandoned and blunt dissection was used in the intercostal space. No air marc was heard upon entering the chest, but upon palpating the chest, the beating heart was readily appreciable. A 36-Italian chest tube was inserted and guided postero-apically with fogging noted in the tube. The chest tube was secured to the skin with suture, connected to close suction drainage and dressed. Job ID: [id number]
--- NOTE | 2020-09-17 16:42 | RAD ---
RADIOGRAPH CHEST 1 VIEW: DATE: 09/17/2020 TIME: 4:22 PM HISTORY: 70-year-old female bilateral pneumothorax COMPARISON: 09/17/2020 2:40 PM FINDINGS: New right-sided chest tube, with distal tip overlapping the right hilar shadow. Right pneumothorax no longer visualized. Left-sided chest tube remains. Very small left apical pneumothorax is similar in size, perhaps 5% volume. Endotracheal tube and esophagogastric tube remain. Right subclavian central line remains. No cardiomegaly. Very extensive infiltrates throughout all visualized lung valentine bilaterally, either severe pneumonia or pulmonary edema or both, unchanged. Bilateral subcutaneous emphysema, unchanged. IMPRESSION: 1) interval resolution of right pneumothorax upon placement of right sided chest tube. 2) no other interval change. 3) tiny left apical pneumothorax unchanged.
--- NOTE | 2020-09-17 16:44 | OP ---
DATE OF PROCEDURE: 09/17/2020 PROCEDURE PERFORMED: 40-Ecuadorean right tube thoracostomy. PREOPERATIVE DIAGNOSIS: Right pneumothorax. POSTOPERATIVE DIAGNOSIS: Right pneumothorax. ANESTHESIA: 1% lidocaine local anesthesia. INDICATIONS: The patient is a 70-year-old, intubated, COVID patient, who on this morning's x-ray had a left-sided pneumothorax, on the chest x-ray done to follow up on the left-sided chest tube placement, a right-sided pneumothorax was seen and right-sided chest tube is now being placed. DESCRIPTION OF PROCEDURE: The patient's pendulous right breast was retracted cephalad and held in place with tape. Her right upper chest and right upper quadrant were prepped and draped in sterile fashion. At about the nipple line at the level of the xiphoid, 1% lidocaine was infiltrated in the skin and subcutaneous tissues. The skin was sharply incised at that point and a subcutaneous tract was developed posteriorly and superiorly. Lidocaine was infiltrated along the rib and air bubbles were aspirated by advancing the needle over the superior rib margin. A bolus of lidocaine was infiltrated into the intercostal space and then blunt dissection was used to enter the pleural space. An air marc was heard. The wound was probed and a 40-Ecuadorean chest tube was placed through that intercostal defect. The chest tube was secured to the skin with suture, connected to close suction drainage and dressed. Job ID: [id number]
--- NOTE | 2020-09-17 20:38 | PRG ---
DATE OF SERVICE: 09/17/2020 SUBJECTIVE: Maci Guerrero had a 20% pneumothorax on chest radiograph this morning and corresponding decrease in O2 saturation. Chest tube was placed on the left. Followup film showed a right pneumothorax. Chest tube was eventually placed on the right as well. Dr. Garcia assistance was greatly appreciated. Hemodynamically, she has been stable. OBJECTIVE: LUNGS AND ABDOMEN: Otherwise unchanged. LABORATORY DATA: White count 15.8, hemoglobin 11.8, platelets 250,000. Electrolytes are unremarkable. Creatinine is 0.7. IMPRESSION: COVID pneumonia with bilateral spontaneous pneumo. PLAN: Continue supportive care. Try to decrease her FiO2 now, she has chest tubes in place. Blood gases reviewed and there is no significant change compared to yesterday. Job ID: [id number]
--- NOTE | 2020-09-17 20:40 | CON ---
DATE OF CONSULTATION: 09/17/2020 REQUESTING PHYSICIAN: Dr. Muller. REASON FOR CONSULTATION: Pneumothorax. HISTORY OF PRESENT ILLNESS: The patient is a 70-year-old obese diabetic patient with asthma, who presented to the emergency room about 2 weeks ago with shortness of breath, fever, a recent diagnosis of COVID. About 10 days into her hospitalization, she became more short of breath and desaturated and required intubation. On this morning's x-ray, she was found to have a left-sided pneumothorax. PAST MEDICAL HISTORY: Notable for asthma, GE reflux disease, diabetes, hypothyroidism, hyperlipidemia, hypertension, obesity, congestive heart failure and renal insufficiency. HOME MEDICATIONS: 1. Trulicity. 2. Tresiba. 3. Pravastatin. 4. Fenofibrate. 5. Aspirin. 6. Pantoprazole. 7. Nitrofurantoin. 8. Cozaar. 9. Propranolol. 10. Lasix. 11. Potassium. 12. Synthroid. She is currently intubated on, 1. Meropenem. 2. Micafungin. 3. Solu-Medrol. ALLERGIES: DENIES ANY MEDICAL ALLERGIES. SOCIAL HISTORY: She does not smoke. REVIEW OF SYSTEMS: Not able to give a review of systems. PHYSICAL EXAMINATION: GENERAL: On exam, she is an obese woman, sedated and paralyzed on the ventilator. VITAL SIGNS: Height is 5 feet 6 inches and weighs 221 pounds. Heart rate in the low 100s. Blood pressure 115 to 135 over 60 to 75 range, O2 saturations have been running in upper 80s to low 90s, but drifted to the mid 80s on bilevel ventilatory support, 70% FiO2. She has no overt crepitus, even though some subcu air seen on her chest x-ray. LUNGS: She has coarse breath sounds. HEART: Regular rate and rhythm. ABDOMEN: Soft, nontender. DIAGNOSTIC STUDIES: IMAGING STUDIES: Her chest x-ray shows diffuse infiltrates and large left-sided pneumothorax. IMPRESSION AND RECOMMENDATION: Left-sided pneumothorax on an intubated patient with COVID. We will plan on left chest tube placement. Job ID: [id number]
[2020-09-17] MEDS: Propranolol HCl LA 80 MG CAP PO SCH (21:16)
[2020-09-17] MEDS: Simvastatin 10 MG TAB PO SCH (21:18)
[2020-09-17] MEDS: Cholecalciferol 1,000 UNITS (25 MCG) TAB PER TUBE SCH (21:19)
[2020-09-17] MEDS ORDERED: Propofol 1,000 MG/100 ML VIAL IV ONE (23:29)
[2020-09-18] MEDS: methylPREDNISolone Sod Succ 40 MG VIAL IVP SCH ×5 (01:43→23:37)
[2020-09-18 05:01] LABS: #Lymphocytes 0.7 thou/uL (1.20-3.40); #Monocytes 0.6 thou/uL (0.11-0.59); #Neutrophils 16.5 thou/uL (1.40-6.50); %Eosinophils 0.2 % (0.0-10.0); %Lymphocytes 3.7 % (21.0-51.0); %Monocytes 3.4 % (0.0-10.0); %Neutrophils 92.6 % (42.0-75.0); Hemoglobin 11.1 g/dL (12.0-16.0); Mean Corpuscular HGB CONC 32.4 g/dL (32.0-36.0); Mean Corpuscular Hemoglobin 32.6 pg (27.0-31.0); Mean Platelet Volume 9.4 fL (7.4-10.4); Platelet Count 260 thou/uL (130-400); RBC Distribution Width 12.3 % (11.5-14.5); Red Blood Cell (RBC) Count 3.42 mill/uL (4.20-5.40); White Blood Cell (WBC) Count 17.8 thou/uL (4.8-10.8)
[2020-09-18 05:15] LABS: ALT (SGPT) 23 U/L (8-55); AST (SGOT) 25 U/L (5-34); Albumin 2.6 g/dL (3.4-4.8); Alkaline Phosphatase 47 U/L (40-110); Anion Gap 11 mmol/L (10-20); BUN (Urea Nitrogen) 48 mg/dL (9.8-20.1); Bilirubin, Direct 0.2 mg/dL (0.1-0.3); Bilirubin, Total 0.4 mg/dL (0.2-1.2); Calc. Creatinine Clearance 103 mL/min (70-130); Calcium 8.4 mg/dL (7.8-10.44); Carbon Dioxide 33 mmol/L (23-31); Chloride 105 mmol/L (98-107); Glucose 368 mg/dL (83-110); Potassium 5.9 mmol/L (3.5-5.1); Protein, Total 5.3 g/dL (6.0-8.3); Sodium 143 mmol/L (136-145)
[2020-09-18] MEDS: Levothyroxine Sodium 112 MCG TAB PO SCH (07:57)
[2020-09-18] MEDS: glipiZIDE 5 MG TAB PO SCH (08:01)
[2020-09-18] MEDS: Aspirin 81 mg Enteric Coated Tablet PO SCH (08:02)
[2020-09-18] MEDS: Enoxaparin Sodium 40 MG/0.4 ML SYRINGE SC SCH ×2 (08:02→20:12)
[2020-09-18] MEDS: Ascorbic Acid 500 mg Chewable Tablet PER TUBE SCH (08:02)
[2020-09-18] MEDS: Calcium Carbonate 600 MG TAB PO SCH (08:02)
[2020-09-18] MEDS: guaiFENesin ER 600 MG TAB PO SCH ×2 (08:03→20:11)
[2020-09-18] MEDS: Fenofibrate 48 MG TAB PO SCH (08:03)
[2020-09-18] MEDS: Zinc Sulfate 220 MG CAP PER TUBE SCH (08:03)
--- NOTE | 2020-09-18 08:09 | RAD ---
XR Chest 1 View Portable History: Pneumonia Comparison: Radiograph prior day Findings: Similar location of the bilateral thoracostomy tubes. Similar left pneumothorax with an ant erior and apical component with unchanged apical pleural line between the posterior second-third rib interspace. Right subclavian central venous catheter tip projects over the right atrium. Enteric tube tip below diaphragm although out of field of view. Extensive subcutaneous emphysema. Impression: Similar examination of the chest.
[2020-09-18] MEDS: Meropenem 2 GM, Admixture Fee 1 EACH in Sodium Chloride 0.9% 100 ML IVPB SCH ×3 (08:12→21:02)
[2020-09-18] MEDS: HumaLOG 300 UNITS/3 ML VIAL SC PRN ×3 (08:20→20:40)
[2020-09-18] MEDS: Albuterol 200 PUFF (6.7GM INHALER) INH SCH ×3 (08:30→19:16)
[2020-09-18] MEDS: Mometasone 200 MCG/Formoterol 5 MCG 120 PUFF INHALER INH SCH ×2 (08:30→19:15)
[2020-09-18 08:45] LABS: Base Excess (BEa) 4.2 mEq/L (-2.0 to +3.0); CO2 Tension 56.1 mmHg (35.0-45.0); Calcium, Ionized (arterial) 1.26 mmol/L (1.12-1.30); Carboxyhemoglobin (COHb) 1.3 gm% (0.0-3.0); Hemoglobin (Hb) 12.7 g/dL (12.0-16.0); O2 Tension (PaO2), arterial 62.4 mmHg (> 70.0); Potassium - ABG Lab 5.65 mmol/L (3.70-5.30); pH, Arterial 7.36 (7.35-7.45)
[2020-09-18 08:49] LABS: ALV-art Gradient 295.275 mmHg (0-20); Puncture Site LRA
[2020-09-18] MEDS: Benzonatate 100 MG CAP PO SCH ×3 (09:11→20:12)
[2020-09-18] MEDS: Propofol 1,000 MG/100 ML VIAL IV PRN ×4 (09:20→23:37)
--- NOTE | 2020-09-18 09:37 | PRG ---
DATE OF SERVICE: 09/18/2020 SUBJECTIVE: Maci Guerrero is a 70-year-old female, remains in the ICU, intubated in the vent, day #16, roland positive pneumonia. X-ray still shows extensive bilateral infiltrates, bilateral chest tube in place. OBJECTIVE: VITAL SIGNS: Pulse 80, blood pressure , temperature 98. CHEST: Bilateral rhonchi, crackles. CARDIAC: Normal S1, S2. ABDOMEN: No masses. LABORATORY DATA: White count 17,000, 11, 34, platelet count 260. pO2 of 62, pCO2 of PEEP of 11. Creatinine and BUN are normal. Blood sugar 359. ASSESSMENT: Respiratory failure, roland positive pneumonia, bilateral spontaneous pneumothorax, obesity. PLAN: Continue vent support. She is not weanable at day #21. Consider trach and a PEG after discussed with family. One-half hour of critical time. Job ID: [id number]
[2020-09-18] MEDS: Insulin Glargine 40 UNITS in Pre-Filled Syringe 1 EACH SC SCH ×2 (10:57→20:11)
[2020-09-18] MEDS: Micafungin 100 MG in Sodium Chloride 0.9% 100 ML IVPB SCH (12:21)
--- NOTE | 2020-09-18 12:45 | PRG ---
DATE OF SERVICE: 09/18/2020 SUBJECTIVE: Maci Guerrero remains mechanically ventilated. OBJECTIVE: VITAL SIGNS: Heart rate is in 70s, blood pressure 102/71, respiratory rate 24. LUNGS: Unchanged. HEART: Unchanged. ABDOMEN: Unchanged. LABORATORY DATA: White count 17.8, hemoglobin 11.1, platelets 260. Sodium 143, potassium 5.9, chloride 105, bicarb 33, BUN 48, creatinine 0.79. Glucoses have been over 300. IMPRESSION: Coronavirus disease pneumonia, respiratory failure, not weanable. Apparently, Dr. Mcmillan saw this patient. Job ID: [id number]
[2020-09-18] MEDS: fentaNYL Citrate/PF 2,000 MCG in Sodium Chloride 0.9% 60 ML IV SCH (13:13)
--- NOTE | 2020-09-18 15:40 | PDOC.HOSPP ---
- Subjective Encounter Date: 09/18/20 Encounter Time: 10:45 Subjective: on vent, sedated - Objective Vital Signs & Weight: Vital Signs (12 hours) Temp Resp Pulse Ox 09/18/20 14:00 23 H 09/18/20 13:00 98.2 F 09/18/20 12:00 23 H 09/18/20 10:00 20 09/18/20 08:30 98 09/18/20 08:00 98.1 F 20 Weight Admit Weight 238 lb 1.6 oz Weight 3.644 oz Most Recent Monitor Data Heart Rate from ECG 79 NIBP 141/77 NIBP BP-Mean 98 Respiration from ECG 22 SpO2 90 I&O: 09/17/20 09/18/20 09/19/20 06:59 06:59 06:59 Intake Total 3190 2669 2716 Output Total 1620 1420 1220 Balance 1570 1249 1496 Result Diagrams: 09/18/20 04:22 09/18/20 04:22 Additional Labs: Accuchecks 09/18/20 09/18/20 09/18/20 11:02 08:16 05:04 POC Glucose 305 H 359 H 341 H 09/17/20 09/17/20 09/17/20 21:05 17:06 13:14 POC Glucose 258 H 266 H 229 H 09/11/20 20:10 POC Glucose 488 H Hospitalist ROS - Medication Medications: Active Medications Generic Name Dose Route Start Last Admin Trade Name Freq PRN Reason Stop Dose Admin Acetaminophen 650 mg 09/02/20 01:53 09/13/20 05:10 Acetaminophen 325 Mg Tab PO 650 mg Q4H PRN Administration Headache/Fever/Mild Pain (1-3) Albuterol Sulfate 2 puff 09/02/20 19:00 09/18/20 14:31 Albuterol 200 Puff (6.7gm Inhaler) INH 2 puff [id number] QUINTEN Administration Ascorbic Acid 1,000 mg 09/14/20 09:00 09/18/20 08:02 Ascorbic Acid 500 Mg Chewable Tablet PER TUBE 1,000 mg DAILY QUINTEN Administration Aspirin 81 mg 09/02/20 09:00 09/18/20 08:02 Aspirin 81 Mg Enteric Coated Tablet PO 81 mg DAILY QUINTEN Administration Benzonatate 100 mg 09/02/20 15:00 09/18/20 15:16 Benzonatate 100 Mg Cap PO Not Given TID QUINTEN Bisacodyl 10 mg 09/10/20 12:38 09/11/20 08:30 Bisacodyl 5 Mg Tab PO 10 mg DAILYPRN PRN Administration Constipation Calcium Carbonate 600 mg 09/10/20 09:00 09/18/20 08:02 Calcium Carbonate 600 Mg Tab PO 600 mg DAILY QUINTEN Administration Cholecalciferol 5,000 units 09/13/20 21:00 09/17/20 21:19 Cholecalciferol 1,000 Units (25 Mcg) Tab PER TUBE 5,000 units HS QUINTEN Administration Enoxaparin Sodium 40 mg 09/05/20 21:00 09/18/20 08:02 Enoxaparin Sodium 40 Mg/0.4 Ml Syringe SC 40 mg 899,2099 QUINTEN Administration Fenofibrate 48 mg 09/02/20 09:00 09/18/20 08:03 Fenofibrate 48 Mg Tab PO 48 mg DAILY QUINTEN Administration Glipizide 5 mg 09/08/20 07:30 09/18/20 08:01 Glipizide 5 Mg Tab PO 5 mg DAILY-AC QUINTEN Administration Guaifenesin 600 mg 09/02/20 21:00 09/18/20 08:03 Guaifenesin Er 600 Mg Tab PO 600 mg Q12HR QUINTEN Administration Guaifenesin 200 mg 09/02/20 11:15 09/03/20 05:25 Diabetic Tussin 200 Mg/10 Ml Udcup PO 200 mg Q4H PRN Administration Cough Meropenem 2 gm/ Miscellaneous 100 mls @ 200 mls/hr 09/13/20 14:00 09/18/20 14:07 Medication 1 each/ Sodium IVPB 100 mls Chloride Q8HR QUINTEN Administration Micafungin Sodium 100 mg/ 100 mls @ 100 mls/hr 09/13/20 12:00 09/18/20 12:21 Sodium Chloride IVPB 100 mls 1200 QUINTEN Administration Sodium Chloride 1,000 mls @ 70 mls/hr 09/13/20 11:15 09/17/20 20:00 Normal Saline 0.9% IV 1,000 mls .[id number] QUINTEN Administration Fentanyl Citrate 2,000 mcg/ 100 mls @ 0 mls/hr 09/13/20 12:00 09/18/20 13:13 Sodium Chloride IV 10/13/20 12:00 100 mls INF QUINTEN Administration Protocol Per Protocol Fentanyl Citrate 250 mls @ 0 mls/hr 09/13/20 12:00 09/17/20 16:59 Fentanyl Bolus IVPB 10/13/20 12:00 250 mls PRN PRN Administration Breakthrough pain/agitation As Directed Insulin Glargine 40 units/ 0.4 mls @ 0 mls/hr 09/17/20 09:00 09/18/20 10:57 Miscellaneous Medication SC 0.4 mls BID QUINTEN Administration Insulin Human Lispro 0 units 09/03/20 20:47 09/17/20 22:36 Humalog 300 Units/3 Ml Vial SC 3 unit .BEDTIME SLIDING SC PRN Administration Bedtime Correctional Scale Insulin Human Lispro 0 units 09/06/20 05:30 09/18/20 08:20 Humalog 300 Units/3 Ml Vial SC 13 units .AGGRESSIVE SLIDING PRN Administration AGGRESSIVE SLIDING SCALE Protocol Levothyroxine Sodium 112 mcg 09/17/20 06:00 09/18/20 07:57 Levothyroxine Sodium 112 Mcg Tab PO 112 mcg 0600 QUINTEN Administration Loratadine 10 mg 09/09/20 12:43 09/10/20 22:30 Loratadine 10 Mg Tab PO 10 mg DAILY PRN Administration Allergies Lorazepam 2 mg 09/13/20 12:00 09/17/20 17:59 Lorazepam 2 Mg/Ml Vial SLOW IVP 10/13/20 12:00 2 mg Q1H PRN Administration Breakthrough agitation Magnesium Hydroxide 30 ml 09/10/20 12:38 09/11/20 05:17 Milk Of Magnesia 30 Ml Udcup PO 30 ml DAILYPRN PRN Administration Constipation Methylprednisolone Sodium Succinate 40 mg 09/18/20 12:00 09/18/20 12:20 Methylprednisolone Sod Succ 40 Mg Vial IVP 40 mg Q6HR QUINTEN Administration Mometasone Furoate/Formoterol Fumar 2 puff 09/05/20 18:30 09/18/20 08:30 Mometasone 200 Mcg/Formoterol 5 Mcg 120 Puff Inhaler INH 2 puff BID-RT QUINTEN Administration Pantoprazole Sodium 40 mg 09/02/20 21:00 09/17/20 21:16 Pantoprazole 40 Mg Tab PO 40 mg HS QUINTEN Administration Propofol 1,000 mg 09/13/20 12:00 09/18/20 14:10 Propofol 1,000 Mg/100 Ml Vial IV 10/13/20 12:00 1,000 mg INF PRN Administration TO ACHIEVE GOAL RASS Protocol Propranolol HCl 80 mg 09/09/20 21:00 09/17/20 21:16 Propranolol Hcl La 80 Mg Cap PO 80 mg HS QUINTEN Administration Simvastatin 10 mg 09/09/20 21:00 09/17/20 21:18 Simvastatin 10 Mg Tab PO 10 mg HS QUINTEN Administration Sodium Chloride 10 ml 09/02/20 02:30 09/13/20 07:48 Flush - Normal Saline 10 Ml Syringe IVF 10 ml PRN PRN Administration Saline Flush Throat Lozenges 1 ramesh 09/02/20 11:14 09/04/20 08:37 Cepastat Lozenges 1 Ramesh PO 1 ramesh Q4H PRN Administration Cough Vecuronium Nelson 10 mg 09/15/20 11:54 09/17/20 16:30 Vecuronium 10 Mg Vial IV 10 mg Q1H PRN Administration SEDATION/MOVEMENT Zinc Sulfate 220 mg 09/14/20 09:00 09/18/20 08:03 Zinc Sulfate 220 Mg Cap PER TUBE 220 mg DAILY QUINTEN Administration - Exam General Appearance: ill appearing ENT: normocephalic atraumatic Heart: RRR Respiratory: normal chest expansion Gastrointestinal: non-distended Extremities: no cyanosis, 1+ LE edema Neurological: cranial nerve grossly intact Hosp A/P (1) Pneumonia due to COVID-19 virus Code(s): U07.1 - COVID-19; J12.89 - OTHER VIRAL PNEUMONIA Status: Acute (2) Acute respiratory failure with hypoxia Code(s): J96.01 - ACUTE RESPIRATORY FAILURE WITH HYPOXIA Status: Acute (3) Diarrhea due to COVID-19 Code(s): U07.1 - COVID-19; A08.39 - OTHER VIRAL ENTERITIS Status: Resolved (4) CHF (congestive heart failure) Code(s): I50.9 - HEART FAILURE, UNSPECIFIED Status: Chronic Qualifiers: Heart failure type: unspecified Heart failure chronicity: chronic Qualified Code(s): I50.9 - Heart failure, unspecified (5) Asthma Code(s): J45.909 - UNSPECIFIED ASTHMA, UNCOMPLICATED Status: Chronic Qualifiers: Asthma severity: mild Asthma persistence: intermittent Asthma complication type: uncomplicated Qualified Code(s): J45.20 - Mild intermittent asthma, uncomplicated (6) Obesity Code(s): E66.9 - OBESITY, UNSPECIFIED Status: Chronic Qualifiers: Body mass index: BMI 35.0-35.9 (7) DM type 2 (diabetes mellitus, type 2) Status: Chronic Qualifiers: Diabetes mellitus exterminator helper insulin use: with exterminator helper use (8) Hypothyroidism Code(s): E03.9 - HYPOTHYROIDISM, UNSPECIFIED Status: Chronic Qualifiers: Hypothyroidism type: acquired Qualified Code(s): E03.9 - Hypothyroidism, unspecified (9) Dyslipidemia Code(s): E78.5 - HYPERLIPIDEMIA, UNSPECIFIED Status: Chronic (10) Pneumothorax Code(s): J93.9 - PNEUMOTHORAX, UNSPECIFIED Status: Acute Qualifiers: Pneumothorax type: spontaneous, primary Qualified Code(s): J93.11 - Primary spontaneous pneumothorax - Plan has b/l pneumothorax with chest tubes from 09/18 she got intubated on 09/13, its day 5 on vent prior to which was on high flow. is on steroids, merrem, micafungin, albuterol, dulera continue aspirin, tricor, glipizide, lantus u 50 bid, synthroid, zocor, inderal, protonix finished remdesivir (09/07), got convalescent plasma 09/04 hemostable prognosis guarded, d/w daughter over phone 09/17 is DNAR now
[2020-09-18] MEDS: Cholecalciferol 1,000 UNITS (25 MCG) TAB PER TUBE SCH (20:11)
[2020-09-18] MEDS: Simvastatin 10 MG TAB PO SCH (20:12)
[2020-09-18] MEDS: Sodium Chloride 0.9% 1,000 ML IV SCH (20:15)
[2020-09-18] MEDS: Propranolol HCl LA 80 MG CAP PO SCH (21:07)
--- NOTE | 2020-09-18 21:29 | PDOC.EVN ---
Event Note - Event Note Event Note: Notified by RN, patient had scheduled dose of Propanolol long acting 80 mg PO due tonight (capsuled can not be opened/given via tube per pharmacy). Recommendations were to change to Propanolol (short acting) 40 mg PO BID. Changes made.
[2020-09-18] MEDS: Lorazepam 2 MG/ML VIAL SLOW IVP PRN (21:43)
[2020-09-18] MEDS ORDERED: Propranolol 40 MG TAB PO SCH (21:45)
[2020-09-18] MEDS ORDERED: Sterile Water 10 ML ONE (21:58)
[2020-09-18] MEDS: Vecuronium 10 MG VIAL IV PRN (21:59)
[2020-09-19] MEDS: HumaLOG 300 UNITS/3 ML VIAL SC PRN ×5 (00:10→21:26)
[2020-09-19] MEDS: Albuterol 200 PUFF (6.7GM INHALER) INH SCH ×5 (02:46→23:47)
[2020-09-19] MEDS: Propofol 1,000 MG/100 ML VIAL IV PRN ×4 (05:07→22:32)
[2020-09-19] MEDS: methylPREDNISolone Sod Succ 40 MG VIAL IVP SCH ×3 (05:07→20:42)
[2020-09-19 05:24] LABS: Band 2 % (5-11); Hemoglobin 10.5 g/dL (12.0-16.0); Hypochromia SLIGHT = 6-15 cells (100X) (0-5/hpf); Lymphocytes 9 % (21-51); MDiff Complete? YES; Mean Corpuscular HGB CONC 31.8 g/dL (32.0-36.0); Mean Corpuscular Hemoglobin 32.2 pg (27.0-31.0); Mean Platelet Volume 9.6 fL (7.4-10.4); Monocytes 4 % (0-10); Neutrophil 85 % (42-75); Platelet Count 248 thou/uL (130-400); Platelet Morphology Comment Appears Adequate; RBC Distribution Width 12.6 % (11.5-14.5); Red Blood Cell (RBC) Count 3.27 mill/uL (4.20-5.40); White Blood Cell (WBC) Count 15.4 thou/uL (4.8-10.8)
[2020-09-19 05:24] LABS: Albumin 2.6 g/dL (3.4-4.8); Anion Gap 11 mmol/L (10-20); BUN (Urea Nitrogen) 51 mg/dL (9.8-20.1); Bilirubin, Direct 0.2 mg/dL (0.1-0.3); Bilirubin, Total 0.3 mg/dL (0.2-1.2); Calc. Creatinine Clearance 0 mL/min (70-130); Calcium 8.4 mg/dL (7.8-10.44); Carbon Dioxide 34 mmol/L (23-31); Chloride 108 mmol/L (98-107); Glucose 256 mg/dL (83-110); Potassium 5.7 mmol/L (3.5-5.1); Protein, Total 5.2 g/dL (6.0-8.3); Sodium 147 mmol/L (136-145)
[2020-09-19 05:25] LABS: ALT (SGPT) 24 U/L (8-55); AST (SGOT) 20 U/L (5-34); Alkaline Phosphatase 45 U/L (40-110)
[2020-09-19] MEDS: Levothyroxine Sodium 112 MCG TAB PO SCH (06:00)
[2020-09-19] MEDS: Meropenem 2 GM, Admixture Fee 1 EACH in Sodium Chloride 0.9% 100 ML IVPB SCH ×3 (06:00→22:11)
[2020-09-19] MEDS: glipiZIDE 5 MG TAB PO SCH (07:31)
[2020-09-19] MEDS: Mometasone 200 MCG/Formoterol 5 MCG 120 PUFF INHALER INH SCH ×2 (07:50→19:12)
[2020-09-19 08:16] LABS: Actual Bicarbonate (HCO3a) 32.6 mEq/L (22-28); CO2 Tension 57.4 mmHg (35.0-45.0); Calcium, Ionized (arterial) 1.23 mmol/L (1.12-1.30); Carboxyhemoglobin (COHb) 0.7 gm% (0.0-3.0); O2 Tension (PaO2), arterial 61.1 mmHg (> 70.0); Potassium - ABG Lab 5.67 mmol/L (3.70-5.30); pH, Arterial 7.37 (7.35-7.45)
[2020-09-19 08:19] LABS: Puncture Site LRA
[2020-09-19] MEDS: Calcium Carbonate 600 MG TAB PO SCH (08:25)
[2020-09-19] MEDS: Zinc Sulfate 220 MG CAP PER TUBE SCH (08:25)
[2020-09-19] MEDS: Aspirin 81 mg Enteric Coated Tablet PO SCH (08:25)
[2020-09-19] MEDS: Enoxaparin Sodium 40 MG/0.4 ML SYRINGE SC SCH ×2 (08:25→20:43)
[2020-09-19] MEDS: guaiFENesin ER 600 MG TAB PO SCH ×2 (08:26→20:43)
[2020-09-19] MEDS: Ascorbic Acid 500 mg Chewable Tablet PER TUBE SCH (08:26)
[2020-09-19] MEDS: Fenofibrate 48 MG TAB PO SCH (08:26)
[2020-09-19] MEDS: fentaNYL Citrate/PF 2,000 MCG in Sodium Chloride 0.9% 60 ML IV SCH (08:28)
[2020-09-19] MEDS ORDERED: Furosemide 40 MG/4 ML VIAL IVP SCH (08:30)
[2020-09-19] MEDS: Benzonatate 100 MG CAP PO SCH ×3 (08:39→20:20)
--- NOTE | 2020-09-19 08:50 | RAD ---
PORTABLE CHEST: INDICATION: Pneumonia. CCU followup. COMPARISON: 09/18/2020. FINDINGS/IMPRESSION: ET tube and NG tube remain in place. Central line unchanged. Bilateral chest tubes again noted. Ex tensive subcutaneous emphysema again noted. Small left pneumothorax, unchanged. Hazy opacity throug hout both lung valentine unchanged. No significant interval change. POS: AGW
[2020-09-19] MEDS: Insulin Glargine 40 UNITS in Pre-Filled Syringe 1 EACH SC SCH ×2 (08:55→20:43)
--- NOTE | 2020-09-19 09:28 | PRG ---
DATE OF SERVICE: 09/19/2020 SUBJECTIVE: Maci Guerrero remains in the ICU, intubated in the vent. X-ray shows slight improvement. She has bilateral chest tubes. OBJECTIVE: VITAL SIGNS: Saturations are 95%, pulse is 85, blood pressure 130/80, respiratory rate 18. CHEST: Bilateral rhonchi and crackles. CARDIAC: Sinus tach. ABDOMEN: Soft. EXTREMITIES: Trace edema. LABORATORY DATA: 85 segs, 2 bands, 15,000 white count. PO2 of 61, pCO2 of . Lytes are normal. Potassium 5.7, glucose 264. ASSESSMENT AND PLAN: 1. Respiratory failure. 2. Jean positive pneumonia. 3. Severe deconditioning. The patient was made a DNR as per the family members. We are going to try and minimize sedation. Continue nutrition antibiotics, steroids. TIME SPENT: One-half hour of critical care time. Job ID: [id number]
[2020-09-19] MEDS: Propranolol 40 MG TAB PO SCH ×2 (09:53→20:42)
[2020-09-19] MEDS: Sodium Chloride 0.9% 1,000 ML IV SCH (11:04)
[2020-09-19] MEDS: Micafungin 100 MG in Sodium Chloride 0.9% 100 ML IVPB SCH (11:04)
[2020-09-19] MEDS: Bisacodyl 5 MG TAB PO PRN (12:39)
--- NOTE | 2020-09-19 16:31 | PDOC.HOSPP ---
- Subjective Encounter Date: 09/19/20 Encounter Time: 12:25 Subjective: sedated, is on vent - Objective Vital Signs & Weight: Vital Signs (12 hours) Temp Pulse Resp BP Pulse Ox 09/19/20 16:00 22 H 09/19/20 14:45 78 113/57 L 09/19/20 14:00 20 09/19/20 12:00 99.2 F 22 H 09/19/20 10:26 63 178/90 H 09/19/20 10:00 20 09/19/20 08:00 99.0 F 21 H 96 09/19/20 07:50 68 117/53 L 09/19/20 06:00 20 Weight Admit Weight 238 lb 1.6 oz Weight 230 lb 9.656 oz Most Recent Monitor Data Heart Rate from ECG 83 NIBP 148/72 NIBP BP-Mean 97 Respiration from ECG 18 SpO2 97 I&O: 09/18/20 09/19/20 09/20/20 06:59 06:59 06:59 Intake Total 2669 5805.1 290 Output Total 1420 2740 2080 Balance 1249 3065.1 -1790 Result Diagrams: 09/19/20 03:40 09/19/20 03:30 Additional Labs: Accuchecks 09/19/20 09/19/20 09/19/20 16:13 07:38 04:27 POC Glucose 245 H 264 H 236 H 09/19/20 09/18/20 09/18/20 00:09 20:39 16:41 POC Glucose 266 H 271 H 312 H Hospitalist ROS - Medication Medications: Active Medications Generic Name Dose Route Start Last Admin Trade Name Aparna PRN Reason Stop Dose Admin Acetaminophen 650 mg 09/02/20 01:53 09/13/20 05:10 Acetaminophen 325 Mg Tab PO 650 mg Q4H PRN Administration Headache/Fever/Mild Pain (1-3) Albuterol Sulfate 2 puff 09/02/20 19:00 09/19/20 15:19 Albuterol 200 Puff (6.7gm Inhaler) INH Not Given [id number] [id number] Ascorbic Acid 1,000 mg 09/14/20 09:00 09/19/20 08:26 Ascorbic Acid 500 Mg Chewable Tablet PER TUBE 1,000 mg DAILY QUINTEN Administration Aspirin 81 mg 09/02/20 09:00 09/19/20 08:25 Aspirin 81 Mg Enteric Coated Tablet PO 81 mg DAILY QUINTEN Administration Benzonatate 100 mg 09/02/20 15:00 09/19/20 15:52 Benzonatate 100 Mg Cap PO Not Given TID QUINTEN Bisacodyl 10 mg 09/10/20 12:38 09/19/20 12:39 Bisacodyl 5 Mg Tab PO 10 mg DAILYPRN PRN Administration Constipation Calcium Carbonate 600 mg 09/10/20 09:00 09/19/20 08:25 Calcium Carbonate 600 Mg Tab PO 600 mg DAILY QUINTEN Administration Cholecalciferol 5,000 units 09/13/20 21:00 09/18/20 20:11 Cholecalciferol 1,000 Units (25 Mcg) Tab PER TUBE 5,000 units HS QUINTEN Administration Enoxaparin Sodium 40 mg 09/05/20 21:00 09/19/20 08:25 Enoxaparin Sodium 40 Mg/0.4 Ml Syringe SC 40 mg 0900,2100 QUINTEN Administration Fenofibrate 48 mg 09/02/20 09:00 09/19/20 08:26 Fenofibrate 48 Mg Tab PO 48 mg DAILY QUINTEN Administration Glipizide 5 mg 09/08/20 07:30 09/19/20 07:31 Glipizide 5 Mg Tab PO 5 mg DAILY-AC QUINTEN Administration Guaifenesin 600 mg 09/02/20 21:00 09/19/20 08:26 Guaifenesin Er 600 Mg Tab PO 600 mg Q12HR QUINTEN Administration Guaifenesin 200 mg 09/02/20 11:15 09/03/20 05:25 Diabetic Tussin 200 Mg/10 Ml Udcup PO 200 mg Q4H PRN Administration Cough Meropenem 2 gm/ Miscellaneous 100 mls @ 200 mls/hr 09/13/20 14:00 09/19/20 14:33 Medication 1 each/ Sodium IVPB 100 mls Chloride Q8HR QUINTEN Administration Micafungin Sodium 100 mg/ 100 mls @ 100 mls/hr 09/13/20 12:00 09/19/20 11:04 Sodium Chloride IVPB 100 mls 1200 QUINTEN Administration Sodium Chloride 1,000 mls @ 70 mls/hr 09/13/20 11:15 09/19/20 11:04 Normal Saline 0.9% IV 1,000 mls .[id number] QUINTEN Administration Fentanyl Citrate 2,000 mcg/ 100 mls @ 0 mls/hr 09/13/20 12:00 09/19/20 08:28 Sodium Chloride IV 10/13/20 12:00 100 mls INF QUINTEN Administration Protocol Per Protocol Fentanyl Citrate 250 mls @ 0 mls/hr 09/13/20 12:00 09/17/20 16:59 Fentanyl Bolus IVPB 10/13/20 12:00 250 mls PRN PRN Administration Breakthrough pain/agitation As Directed Insulin Glargine 40 units/ 0.4 mls @ 0 mls/hr 09/17/20 09:00 09/19/20 08:55 Miscellaneous Medication SC 0.4 mls BID QUINTEN Administration Insulin Human Lispro 0 units 09/03/20 20:47 09/17/20 22:36 Humalog 300 Units/3 Ml Vial SC 3 unit .BEDTIME SLIDING SC PRN Administration Bedtime Correctional Scale Insulin Human Lispro 0 units 09/06/20 05:30 09/19/20 12:15 Humalog 300 Units/3 Ml Vial SC 6 units .AGGRESSIVE SLIDING PRN Administration AGGRESSIVE SLIDING SCALE Protocol Levothyroxine Sodium 112 mcg 09/17/20 06:00 09/19/20 06:00 Levothyroxine Sodium 112 Mcg Tab PO 112 mcg 0600 QUINTEN Administration Loratadine 10 mg 09/09/20 12:43 09/10/20 22:30 Loratadine 10 Mg Tab PO 10 mg DAILY PRN Administration Allergies Lorazepam 2 mg 09/13/20 12:00 09/18/20 21:43 Lorazepam 2 Mg/Ml Vial SLOW IVP 10/13/20 12:00 2 mg Q1H PRN Administration Breakthrough agitation Magnesium Hydroxide 30 ml 09/10/20 12:38 09/11/20 05:17 Milk Of Magnesia 30 Ml Udcup PO 30 ml DAILYPRN PRN Administration Constipation Methylprednisolone Sodium Succinate 40 mg 09/19/20 09:00 09/19/20 08:55 Methylprednisolone Sod Succ 40 Mg Vial IVP 40 mg BID QUINTEN Administration Mometasone Furoate/Formoterol Fumar 2 puff 09/05/20 18:30 09/19/20 07:50 Mometasone 200 Mcg/Formoterol 5 Mcg 120 Puff Inhaler INH 2 puff BID-RT QUINTEN Administration Pantoprazole Sodium 40 mg 09/02/20 21:00 09/18/20 20:11 Pantoprazole 40 Mg Tab PO 40 mg HS QUINTEN Administration Propofol 1,000 mg 09/13/20 12:00 09/19/20 15:52 Propofol 1,000 Mg/100 Ml Vial IV 10/13/20 12:00 1,000 mg INF PRN Administration TO ACHIEVE GOAL RASS Protocol Propranolol HCl 40 mg 09/19/20 09:00 09/19/20 09:53 Propranolol 40 Mg Tab PO Not Given BID QUINTEN Simvastatin 10 mg 09/09/20 21:00 09/18/20 20:12 Simvastatin 10 Mg Tab PO 10 mg HS QUINTEN Administration Sodium Chloride 10 ml 09/02/20 02:30 09/13/20 07:48 Flush - Normal Saline 10 Ml Syringe IVF 10 ml PRN PRN Administration Saline Flush Throat Lozenges 1 ramesh 09/02/20 11:14 09/04/20 08:37 Cepastat Lozenges 1 Ramesh PO 1 ramesh Q4H PRN Administration Cough Zinc Sulfate 220 mg 09/14/20 09:00 09/19/20 08:25 Zinc Sulfate 220 Mg Cap PER TUBE 220 mg DAILY QUINTEN Administration - Exam General Appearance: ill appearing Eye: PERRL, anicteric sclera ENT: no oropharyngeal lesions, moist mucosa Neck: supple, no JVD Heart: RRR, no murmur Respiratory: no wheezes, rales, rhonchi Respiratory - other findings: sub cut emphysema++, chest tubes x2 Gastrointestinal: soft, non-tender, normal bowel sounds Extremities: no cyanosis, 1+ LE edema Neurological: cranial nerve grossly intact, no focal deficits Hosp A/P (1) Pneumonia due to COVID-19 virus Code(s): U07.1 - COVID-19; J12.89 - OTHER VIRAL PNEUMONIA Status: Acute (2) Acute respiratory failure with hypoxia Code(s): J96.01 - ACUTE RESPIRATORY FAILURE WITH HYPOXIA Status: Acute (3) Diarrhea due to COVID-19 Code(s): U07.1 - COVID-19; A08.39 - OTHER VIRAL ENTERITIS Status: Resolved (4) CHF (congestive heart failure) Code(s): I50.9 - HEART FAILURE, UNSPECIFIED Status: Chronic Qualifiers: Heart failure type: unspecified Heart failure chronicity: chronic Qualified Code(s): I50.9 - Heart failure, unspecified (5) Asthma Code(s): J45.909 - UNSPECIFIED ASTHMA, UNCOMPLICATED Status: Chronic Qualifiers: Asthma severity: mild Asthma persistence: intermittent Asthma complication type: uncomplicated Qualified Code(s): J45.20 - Mild intermittent asthma, uncomplicated (6) Obesity Code(s): E66.9 - OBESITY, UNSPECIFIED Status: Chronic Qualifiers: Body mass index: BMI 35.0-35.9 (7) DM type 2 (diabetes mellitus, type 2) Status: Chronic Qualifiers: Diabetes mellitus halfway insulin use: with intermission coordinator use (8) Hypothyroidism Code(s): E03.9 - HYPOTHYROIDISM, UNSPECIFIED Status: Chronic Qualifiers: Hypothyroidism type: acquired Qualified Code(s): E03.9 - Hypothyroidism, unspecified (9) Dyslipidemia Code(s): E78.5 - HYPERLIPIDEMIA, UNSPECIFIED Status: Chronic (10) Pneumothorax Code(s): J93.9 - PNEUMOTHORAX, UNSPECIFIED Status: Acute Qualifiers: Pneumothorax type: spontaneous, primary Qualified Code(s): J93.11 - Primary spontaneous pneumothorax (11) Subcutaneous emphysema Code(s): T79.7XXA - TRAUMATIC SUBCUTANEOUS EMPHYSEMA, INITIAL ENCOUNTER Status: Acute Qualifiers: Encounter type: subsequent encounter Qualified Code(s): T79.7XXD - Traumatic subcutaneous emphysema, subsequent encounter - Plan has b/l pneumothorax with chest tubes from 09/18, subcut emphysema she got intubated on 09/13, its day 6 on vent prior to which was on high flow. is on steroids, merrem, micafungin, albuterol, dulera continue aspirin, tricor, glipizide, lantus u 40 bid, synthroid, zocor, inderal, protonix finished remdesivir (09/07), got convalescent plasma 09/04 dm is uncontrolled, steroids are being tapered, will f/u trend hemostable prognosis guarded, d/w daughter over phone 09/17. is DNAR now
[2020-09-19] MEDS: Simvastatin 10 MG TAB PO SCH (20:42)
[2020-09-19] MEDS: Cholecalciferol 1,000 UNITS (25 MCG) TAB PER TUBE SCH (21:46)
[2020-09-20] MEDS: Sodium Chloride 0.9% 1,000 ML IV SCH ×2 (00:18→14:16)
[2020-09-20] MEDS: HumaLOG 300 UNITS/3 ML VIAL SC PRN ×5 (00:22→23:50)
[2020-09-20] MEDS: fentaNYL Citrate/PF 2,000 MCG in Sodium Chloride 0.9% 60 ML IV SCH ×2 (03:58→23:29)
[2020-09-20 04:45] LABS: #Eosinphils 0.1 thou/uL (0.0-0.7); #Lymphocytes 1.1 thou/uL (1.20-3.40); #Monocytes 0.7 thou/uL (0.11-0.59); #Neutrophils 15.9 thou/uL (1.40-6.50); %Basophils 0.2 % (0.0-1.0); %Eosinophils 0.4 % (0.0-10.0); %Monocytes 3.8 % (0.0-10.0); %Neutrophils 89.7 % (42.0-75.0); Hemoglobin 10.7 g/dL (12.0-16.0); Mean Corpuscular HGB CONC 31.9 g/dL (32.0-36.0); Mean Corpuscular Hemoglobin 32.1 pg (27.0-31.0); Mean Platelet Volume 9.4 fL (7.4-10.4); Platelet Count 263 thou/uL (130-400); RBC Distribution Width 12.9 % (11.5-14.5); Red Blood Cell (RBC) Count 3.33 mill/uL (4.20-5.40); White Blood Cell (WBC) Count 17.7 thou/uL (4.8-10.8)
[2020-09-20 05:38] LABS: ALT (SGPT) 26 U/L (8-55); AST (SGOT) 24 U/L (5-34); Albumin 2.7 g/dL (3.4-4.8); Alkaline Phosphatase 45 U/L (40-110); Anion Gap 11 mmol/L (10-20); BUN (Urea Nitrogen) 54 mg/dL (9.8-20.1); Bilirubin, Direct 0.2 mg/dL (0.1-0.3); Bilirubin, Total 0.4 mg/dL (0.2-1.2); CRP (Inflammatory) Less than 0.50 mg/dL (= or < 0.5); Calc. Creatinine Clearance 117 mL/min (70-130); Calcium 8.4 mg/dL (7.8-10.44); Carbon Dioxide 37 mmol/L (23-31); Chloride 105 mmol/L (98-107); Glucose 210 mg/dL (83-110); Potassium 5.7 mmol/L (3.5-5.1); Protein, Total 5.3 g/dL (6.0-8.3); Sodium 147 mmol/L (136-145)
[2020-09-20] MEDS: Propofol 1,000 MG/100 ML VIAL IV PRN (05:49)
[2020-09-20] MEDS: Levothyroxine Sodium 112 MCG TAB PO SCH (05:49)
[2020-09-20] MEDS: Meropenem 2 GM, Admixture Fee 1 EACH in Sodium Chloride 0.9% 100 ML IVPB SCH ×3 (05:49→21:29)
[2020-09-20] MEDS: glipiZIDE 5 MG TAB PO SCH (07:21)
[2020-09-20] MEDS: Albuterol 200 PUFF (6.7GM INHALER) INH SCH ×4 (08:15→23:42)
[2020-09-20] MEDS: Mometasone 200 MCG/Formoterol 5 MCG 120 PUFF INHALER INH SCH ×2 (08:15→19:18)
[2020-09-20] MEDS: Enoxaparin Sodium 40 MG/0.4 ML SYRINGE SC SCH ×2 (08:35→20:00)
[2020-09-20] MEDS: Calcium Carbonate 600 MG TAB PO SCH (08:35)
[2020-09-20] MEDS: Ascorbic Acid 500 mg Chewable Tablet PER TUBE SCH (08:36)
[2020-09-20] MEDS: Aspirin 81 mg Enteric Coated Tablet PO SCH (08:36)
[2020-09-20] MEDS: Zinc Sulfate 220 MG CAP PER TUBE SCH (08:36)
[2020-09-20] MEDS: Propranolol 40 MG TAB PO SCH (08:36)
[2020-09-20] MEDS: Fenofibrate 48 MG TAB PO SCH (08:37)
[2020-09-20] MEDS: guaiFENesin ER 600 MG TAB PO SCH ×2 (08:37→20:00)
[2020-09-20] MEDS: Insulin Glargine 40 UNITS in Pre-Filled Syringe 1 EACH SC SCH ×2 (08:38→20:02)
[2020-09-20] MEDS: methylPREDNISolone Sod Succ 40 MG VIAL IVP SCH ×2 (08:38→20:02)
[2020-09-20] MEDS ORDERED: Furosemide 20 MG TAB PO SCH (09:00)
[2020-09-20] MEDS: cloNIDine 0.1 MG TAB PO PRN ×2 (09:18→14:50)
[2020-09-20] MEDS: Milk Of Magnesia 30 ML UDCUP PO PRN (09:21)
[2020-09-20] MEDS: Benzonatate 100 MG CAP PO SCH ×3 (09:22→19:36)
[2020-09-20] MEDS: Furosemide 20 MG TAB PO SCH (09:22)
--- NOTE | 2020-09-20 09:24 | PRG ---
DATE OF SERVICE: 09/20/2020 SUBJECTIVE: 18 days in the hospital. Jean positive pneumonia, spontaneous pneumothorax, encephalopathy. She is slowly getting better. It appears going to switch over to today. Chest tubes in place, small air leak. OBJECTIVE: CHEST: Rhonchi, crepitus. CARDIAC: Sinus tach. ABDOMEN: Soft. VITAL SIGNS: Temperature 98, respiratory rate 20, 50% FiO2 and sats 90%, blood pressure 109/57. I's and O's have been consistently even. ASSESSMENT: 1. Acute respiratory distress syndrome. 2. Jean positive pneumonia. 3. Morbid obesity. 4. Spontaneous pneumothorax, slowly improving. We will try and decrease sedation. Otherwise, we are going to continue all supportive care, PT. One-half hour of critical time. Job ID: [id number]
--- NOTE | 2020-09-20 10:51 | RAD ---
PORTABLE CHEST: INDICATION: Pneumonia followup on ventilator. COMPARISON: 09/19/2020. FINDINGS: Diffuse subcutaneous emphysema again noted over the chest and neck. Bilateral chest tubes. ET tube and NG tube. ET tube has tip just above aleah, unchanged from yesterday. The hazy bilateral infiltrates showed no significant interval change. No significant pneumothorax id entified. POS: AGW
[2020-09-20] MEDS: Micafungin 100 MG in Sodium Chloride 0.9% 100 ML IVPB SCH (12:11)
[2020-09-20] MEDS: Metoprolol Tartrate 50 MG TAB PO SCH ×2 (12:35→20:02)
[2020-09-20] MEDS: Morphine 2 MG/ML VIAL SLOW IVP PRN (14:30)
[2020-09-20] MEDS: Lorazepam 2 MG/ML VIAL SLOW IVP PRN ×3 (15:01→21:41)
--- NOTE | 2020-09-20 15:03 | PDOC.HOSPP ---
- Subjective Encounter Date: 09/20/20 Encounter Time: 13:00 Subjective: on vent, sedated - Objective Vital Signs & Weight: Vital Signs (12 hours) Temp Pulse Resp BP 09/20/20 14:50 184/89 H 09/20/20 14:00 19 09/20/20 12:00 100.1 F H 16 09/20/20 10:45 70 182/87 H 09/20/20 10:00 20 09/20/20 09:18 174/88 H 09/20/20 08:45 79 109/57 L 09/20/20 08:15 79 109/57 L 09/20/20 08:00 98.3 F 20 09/20/20 06:00 20 09/20/20 04:00 20 Weight Admit Weight 238 lb 1.6 oz Weight 231 lb 4.238 oz Most Recent Monitor Data Heart Rate from ECG 74 NIBP 174/86 NIBP BP-Mean 115 Respiration from ECG 16 SpO2 88 I&O: 09/19/20 09/20/20 09/21/20 06:59 06:59 06:59 Intake Total 5805.1 3228 384.5 Output Total 2740 3340 1770 Balance 3065.1 -112 -1385.5 Result Diagrams: 09/20/20 04:00 09/20/20 04:00 Additional Labs: Accuchecks 09/20/20 09/20/20 09/20/20 08:50 04:04 00:21 POC Glucose 126 H 213 H 214 H 09/19/20 09/19/20 09/19/20 20:53 16:13 11:40 POC Glucose 265 H 245 H 250 H Hospitalist ROS - Medication Medications: Active Medications Generic Name Dose Route Start Last Admin Trade Name Freq PRN Reason Stop Dose Admin Acetaminophen 650 mg 09/02/20 01:53 09/13/20 05:10 Acetaminophen 325 Mg Tab PO 650 mg Q4H PRN Administration Headache/Fever/Mild Pain (1-3) Albuterol Sulfate 2 puff 09/02/20 19:00 09/20/20 08:15 Albuterol 200 Puff (6.7gm Inhaler) INH 2 puff [id number] QUINTEN Administration Ascorbic Acid 1,000 mg 09/14/20 09:00 09/20/20 08:36 Ascorbic Acid 500 Mg Chewable Tablet PER TUBE 1,000 mg DAILY QUINTEN Administration Aspirin 81 mg 09/02/20 09:00 09/20/20 08:36 Aspirin 81 Mg Enteric Coated Tablet PO 81 mg DAILY QUINTEN Administration Benzonatate 100 mg 09/02/20 15:00 09/20/20 14:54 Benzonatate 100 Mg Cap PO Not Given TID QUINTEN Bisacodyl 10 mg 09/10/20 12:38 09/19/20 12:39 Bisacodyl 5 Mg Tab PO 10 mg DAILYPRN PRN Administration Constipation Calcium Carbonate 600 mg 09/10/20 09:00 09/20/20 08:35 Calcium Carbonate 600 Mg Tab PO 600 mg DAILY QUINTEN Administration Cholecalciferol 5,000 units 09/13/20 21:00 09/19/20 21:46 Cholecalciferol 1,000 Units (25 Mcg) Tab PER TUBE 5,000 units HS QUINTEN Administration Clonidine 0.1 mg 09/20/20 08:47 09/20/20 14:50 Clonidine 0.1 Mg Tab PO 0.1 mg Q4H PRN Administration Hypertension SBP>180 Enoxaparin Sodium 40 mg 09/05/20 21:00 09/20/20 08:35 Enoxaparin Sodium 40 Mg/0.4 Ml Syringe SC 40 mg 0900,2100 QUINTEN Administration Fenofibrate 48 mg 09/02/20 09:00 09/20/20 08:37 Fenofibrate 48 Mg Tab PO 48 mg DAILY QUINTEN Administration Furosemide 20 mg 09/20/20 09:00 09/20/20 09:22 Furosemide 20 Mg Tab PO 20 mg DAILY QUINTEN Administration Glipizide 5 mg 09/08/20 07:30 09/20/20 07:21 Glipizide 5 Mg Tab PO 5 mg DAILY-AC QUINTEN Administration Guaifenesin 600 mg 09/02/20 21:00 09/20/20 08:37 Guaifenesin Er 600 Mg Tab PO 600 mg Q12HR QUINTEN Administration Guaifenesin 200 mg 09/02/20 11:15 09/03/20 05:25 Diabetic Tussin 200 Mg/10 Ml Udcup PO 200 mg Q4H PRN Administration Cough Meropenem 2 gm/ Miscellaneous 100 mls @ 200 mls/hr 09/13/20 14:00 09/20/20 14:15 Medication 1 each/ Sodium IVPB 100 mls Chloride Q8HR QUINTEN Administration Micafungin Sodium 100 mg/ 100 mls @ 100 mls/hr 09/13/20 12:00 09/20/20 12:11 Sodium Chloride IVPB 100 mls 1200 QUINTEN Administration Fentanyl Citrate 2,000 mcg/ 100 mls @ 0 mls/hr 09/13/20 12:00 09/20/20 03:58 Sodium Chloride IV 10/13/20 12:00 100 mls INF QUINTEN Administration Protocol Per Protocol Fentanyl Citrate 250 mls @ 0 mls/hr 09/13/20 12:00 09/17/20 16:59 Fentanyl Bolus IVPB 10/13/20 12:00 250 mls PRN PRN Administration Breakthrough pain/agitation As Directed Insulin Glargine 40 units/ 0.4 mls @ 0 mls/hr 09/17/20 09:00 09/20/20 08:38 Miscellaneous Medication SC 0.4 mls BID QUINTEN Administration Insulin Human Lispro 0 units 09/03/20 20:47 09/17/20 22:36 Humalog 300 Units/3 Ml Vial SC 3 unit .BEDTIME SLIDING SC PRN Administration Bedtime Correctional Scale Insulin Human Lispro 0 units 09/06/20 05:30 09/20/20 04:05 Humalog 300 Units/3 Ml Vial SC 6 units .AGGRESSIVE SLIDING PRN Administration AGGRESSIVE SLIDING SCALE Protocol Levothyroxine Sodium 112 mcg 09/17/20 06:00 09/20/20 05:49 Levothyroxine Sodium 112 Mcg Tab PO 112 mcg 0600 QUINTEN Administration Loratadine 10 mg 09/09/20 12:43 09/10/20 22:30 Loratadine 10 Mg Tab PO 10 mg DAILY PRN Administration Allergies Lorazepam 2 mg 09/13/20 12:00 09/18/20 21:43 Lorazepam 2 Mg/Ml Vial SLOW IVP 10/13/20 12:00 2 mg Q1H PRN Administration Breakthrough agitation Magnesium Hydroxide 30 ml 09/10/20 12:38 09/20/20 09:21 Milk Of Magnesia 30 Ml Udcup PO 30 ml DAILYPRN PRN Administration Constipation Methylprednisolone Sodium Succinate 40 mg 09/19/20 09:00 09/20/20 08:38 Methylprednisolone Sod Succ 40 Mg Vial IVP 40 mg BID QUINTEN Administration Metoprolol Tartrate 50 mg 09/20/20 09:00 09/20/20 12:35 Metoprolol Tartrate 50 Mg Tab PO 50 mg BID QUINTEN Administration Mometasone Furoate/Formoterol Fumar 2 puff 09/05/20 18:30 09/20/20 08:15 Mometasone 200 Mcg/Formoterol 5 Mcg 120 Puff Inhaler INH 2 puff BID-RT QUINTEN Administration Morphine Sulfate 2 mg 09/13/20 12:00 09/20/20 14:30 Morphine 2 Mg/Ml Vial SLOW IVP 10/13/20 12:00 2 mg Q1H PRN Administration Breakthrough Pain/Agitation Pantoprazole Sodium 40 mg 09/02/20 21:00 09/19/20 20:42 Pantoprazole 40 Mg Tab PO 40 mg HS QUINTEN Administration Propofol 1,000 mg 09/13/20 12:00 09/20/20 05:49 Propofol 1,000 Mg/100 Ml Vial IV 10/13/20 12:00 1,000 mg INF PRN Administration TO ACHIEVE GOAL RASS Protocol Simvastatin 10 mg 09/09/20 21:00 09/19/20 20:42 Simvastatin 10 Mg Tab PO 10 mg HS QUINTEN Administration Sodium Chloride 10 ml 09/02/20 02:30 09/13/20 07:48 Flush - Normal Saline 10 Ml Syringe IVF 10 ml PRN PRN Administration Saline Flush Throat Lozenges 1 ramesh 09/02/20 11:14 09/04/20 08:37 Cepastat Lozenges 1 Ramesh PO 1 ramesh Q4H PRN Administration Cough Zinc Sulfate 220 mg 09/14/20 09:00 09/20/20 08:36 Zinc Sulfate 220 Mg Cap PER TUBE 220 mg DAILY QUINTEN Administration - Exam General Appearance: ill appearing Respiratory: normal chest expansion Gastrointestinal: non-distended Extremities: no cyanosis, 1+ LE edema Hosp A/P (1) Pneumonia due to COVID-19 virus Code(s): U07.1 - COVID-19; J12.89 - OTHER VIRAL PNEUMONIA Status: Acute (2) Acute respiratory failure with hypoxia Code(s): J96.01 - ACUTE RESPIRATORY FAILURE WITH HYPOXIA Status: Acute (3) Diarrhea due to COVID-19 Code(s): U07.1 - COVID-19; A08.39 - OTHER VIRAL ENTERITIS Status: Resolved (4) CHF (congestive heart failure) Code(s): I50.9 - HEART FAILURE, UNSPECIFIED Status: Chronic Qualifiers: Heart failure type: unspecified Heart failure chronicity: chronic Qualified Code(s): I50.9 - Heart failure, unspecified (5) Asthma Code(s): J45.909 - UNSPECIFIED ASTHMA, UNCOMPLICATED Status: Chronic Qualifiers: Asthma severity: mild Asthma persistence: intermittent Asthma complication type: uncomplicated Qualified Code(s): J45.20 - Mild intermittent asthma, uncomplicated (6) Obesity Code(s): E66.9 - OBESITY, UNSPECIFIED Status: Chronic Qualifiers: Body mass index: BMI 35.0-35.9 (7) DM type 2 (diabetes mellitus, type 2) Status: Chronic Qualifiers: Diabetes mellitus shelter 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 (8) Hypothyroidism Code(s): E03.9 - HYPOTHYROIDISM, UNSPECIFIED Status: Chronic Qualifiers: Hypothyroidism type: acquired Qualified Code(s): E03.9 - Hypothyroidism, unspecified (9) Dyslipidemia Code(s): E78.5 - HYPERLIPIDEMIA, UNSPECIFIED Status: Chronic (10) Pneumothorax Code(s): J93.9 - PNEUMOTHORAX, UNSPECIFIED Status: Acute Qualifiers: Pneumothorax type: spontaneous, primary Qualified Code(s): J93.11 - Primary spontaneous pneumothorax (11) Subcutaneous emphysema Code(s): T79.7XXA - TRAUMATIC SUBCUTANEOUS EMPHYSEMA, INITIAL ENCOUNTER Status: Acute Qualifiers: Encounter type: subsequent encounter Qualified Code(s): T79.7XXD - Traumatic subcutaneous emphysema, subsequent encounter - Plan has b/l pneumothorax with chest tubes from 09/18, subcut emphysema she got intubated on 09/13, its day 7 on vent prior to which was on high flow. is on steroids, merrem, micafungin, albuterol, dulera continue aspirin, tricor, glipizide, lantus u 40 bid, synthroid, zocor, inderal, protonix finished remdesivir (09/07), got convalescent plasma 09/04 dm is slowly getting controlled with tapering of steroids, will f/u trend hemostable prognosis guarded, d/w daughter over phone 09/17. is DNAR
[2020-09-20] MEDS: Sodium Chloride 0.45% 1,000 ML IV SCH (15:51)
[2020-09-20] MEDS: Cholecalciferol 1,000 UNITS (25 MCG) TAB PER TUBE SCH (20:00)
[2020-09-20] MEDS: Pantoprazole 40 MG GRANULES PACKET PO SCH (20:00)
[2020-09-20] MEDS ORDERED: Pantoprazole 40 MG GRANULES PACKET PO SCH (21:00)
[2020-09-20] MEDS: Simvastatin 10 MG TAB PO SCH (21:29)
[2020-09-21 04:33] LABS: ALT (SGPT) 32 U/L (8-55); AST (SGOT) 33 U/L (5-34); Albumin 2.5 g/dL (3.4-4.8); Alkaline Phosphatase 41 U/L (40-110); BUN (Urea Nitrogen) 49 mg/dL (9.8-20.1); Bilirubin, Direct 0.2 mg/dL (0.1-0.3); Bilirubin, Total 0.4 mg/dL (0.2-1.2); Calc. Creatinine Clearance 131 mL/min (70-130); Glucose 124 mg/dL (83-110); Protein, Total 4.9 g/dL (6.0-8.3)
[2020-09-21 04:34] LABS: Band 2 % (5-11); Hemoglobin 10.5 g/dL (12.0-16.0); Hypochromia SLIGHT = 6-15 cells (100X) (0-5/hpf); Lymphocytes 5 % (21-51); MDiff Complete? YES; Mean Corpuscular HGB CONC 32.6 g/dL (32.0-36.0); Mean Corpuscular Hemoglobin 32.7 pg (27.0-31.0); Mean Platelet Volume 9.2 fL (7.4-10.4); Monocytes 5 % (0-10); Neutrophil 88 % (42-75); Nucleated RBC 1 % (0); Platelet Count 226 thou/uL (130-400); Platelet Morphology Comment Appears Adequate; White Blood Cell (WBC) Count 18.2 thou/uL (4.8-10.8)
[2020-09-21 04:42] LABS: Anion Gap 16 mmol/L (10-20); Carbon Dioxide 33 mmol/L (23-31); Chloride 102 mmol/L (98-107); Potassium 5.2 mmol/L (3.5-5.1); Sodium 146 mmol/L (136-145)
[2020-09-21] MEDS: Levothyroxine Sodium 112 MCG TAB PO SCH (05:51)
[2020-09-21] MEDS: Meropenem 2 GM, Admixture Fee 1 EACH in Sodium Chloride 0.9% 100 ML IVPB SCH ×3 (05:51→21:48)
[2020-09-21] MEDS: Albuterol 200 PUFF (6.7GM INHALER) INH SCH ×3 (07:32→20:07)
[2020-09-21] MEDS: Mometasone 200 MCG/Formoterol 5 MCG 120 PUFF INHALER INH SCH ×2 (07:32→20:07)
--- NOTE | 2020-09-21 08:22 | RAD ---
Portable frontal chest radiograph: 09/21/2020 COMPARISON: 09/20/2020 HISTORY: Pneumonia FINDINGS: Stable extensive subcutaneous gas at the base of the neck and overlying bilateral chest wal l soft tissues, not significantly changed. Stable bilateral chest tubes, stable endotracheal tube, nasogastric tube, and right-sided vascular catheter. Extensive interstitial opacity noted bilaterally , left greater than right with superimposed bibasilar and perihilar groundglass opacity, left greater than right. There is a questionable tiny apical pneumothorax in the superior medial left lung apex versus artifact. IMPRESSION: Stable lines and tubes. Extensive interstitial and groundglass opacity bilaterally, left greater than right. Extensive stable subcutaneous emphysema. Questionable tiny apical pneumothorax versus artifact in the medial left lung apex.
[2020-09-21 08:34] LABS: Actual Bicarbonate (HCO3a) 37.6 mEq/L (22-28); Base Excess (BEa) 11.4 mEq/L (-2.0 to +3.0); Calcium, Ionized (arterial) 1.17 mmol/L (1.12-1.30); Carboxyhemoglobin (COHb) 1.8 gm% (0.0-3.0); Hemoglobin (Hb) 12.2 g/dL (12.0-16.0); Potassium - ABG Lab 5.31 mmol/L (3.70-5.30); pH, Arterial 7.44 (7.35-7.45)
[2020-09-21] MEDS ORDERED: Pantoprazole 40 MG GRANULES PACKET PO SCH (09:00)
[2020-09-21 09:02] LABS: O2 Tension (PaO2), arterial 51.4 mmHg (> 70.0); Puncture Site RRA
[2020-09-21] MEDS: Ascorbic Acid 500 mg Chewable Tablet PER TUBE SCH (09:18)
[2020-09-21] MEDS: Aspirin 81 mg Enteric Coated Tablet PO SCH (09:18)
[2020-09-21] MEDS: glipiZIDE 5 MG TAB PO SCH (09:18)
[2020-09-21] MEDS: Zinc Sulfate 220 MG CAP PER TUBE SCH (09:18)
[2020-09-21] MEDS: Furosemide 20 MG TAB PO SCH (09:19)
[2020-09-21] MEDS: guaiFENesin ER 600 MG TAB PO SCH ×2 (09:19→22:30)
[2020-09-21] MEDS: Losartan 25 MG TAB PO SCH (09:19)
[2020-09-21] MEDS: Metoprolol Tartrate 50 MG TAB PO SCH ×2 (09:19→20:26)
[2020-09-21] MEDS: Benzonatate 100 MG CAP PO SCH ×3 (09:20→20:44)
[2020-09-21] MEDS: Fenofibrate 48 MG TAB PO SCH (09:20)
[2020-09-21] MEDS: Calcium Carbonate 600 MG TAB PO SCH (09:20)
[2020-09-21] MEDS: Enoxaparin Sodium 40 MG/0.4 ML SYRINGE SC SCH ×2 (09:20→20:26)
[2020-09-21] MEDS: methylPREDNISolone Sod Succ 40 MG VIAL IVP SCH ×2 (09:20→20:39)
[2020-09-21] MEDS: Insulin Glargine 40 UNITS in Pre-Filled Syringe 1 EACH SC SCH ×2 (09:21→21:10)
[2020-09-21] MEDS: Sodium Chloride 0.45% 1,000 ML IV SCH (11:23)
[2020-09-21] MEDS: Micafungin 100 MG in Sodium Chloride 0.9% 100 ML IVPB SCH (13:24)
[2020-09-21] MEDS: HumaLOG 300 UNITS/3 ML VIAL SC PRN ×3 (13:45→21:10)
--- NOTE | 2020-09-21 15:20 | PDOC.HOSPP ---
- Subjective Encounter Date: 09/21/20 Encounter Time: 09:50 Subjective: on vent, sedated not in distress - Objective Vital Signs & Weight: Vital Signs (12 hours) Temp Pulse Resp BP Pulse Ox 09/21/20 14:35 87 131/75 09/21/20 14:00 99.3 F 16 09/21/20 12:00 20 09/21/20 11:03 73 166/103 H 09/21/20 10:00 16 09/21/20 08:00 99.1 F 17 93 L 09/21/20 07:32 92 16 100 09/21/20 07:16 93 144/87 H 09/21/20 06:00 18 09/21/20 04:00 98.7 F 16 Weight Admit Weight 238 lb 1.6 oz Weight 227 lb 11.8 oz Most Recent Monitor Data Heart Rate from ECG 79 NIBP 159/73 NIBP BP-Mean 101 Respiration from ECG 17 SpO2 93 I&O: 09/20/20 09/21/20 09/22/20 06:59 06:59 06:59 Intake Total 3228 3024.3 210 Output Total 3340 3775 1530 Balance -112 -750.7 -1320 Result Diagrams: 09/21/20 04:00 09/21/20 04:00 Additional Labs: Accuchecks 09/21/20 09/21/20 09/20/20 13:28 08:10 23:48 POC Glucose 226 H 158 H 215 H 09/20/20 09/20/20 09/20/20 20:12 16:11 11:28 POC Glucose 184 H 175 H 192 H Hospitalist ROS - Medication Medications: Active Medications Generic Name Dose Route Start Last Admin Trade Name Freq PRN Reason Stop Dose Admin Acetaminophen 650 mg 09/02/20 01:53 09/13/20 05:10 Acetaminophen 325 Mg Tab PO 650 mg Q4H PRN Administration Headache/Fever/Mild Pain (1-3) Albuterol Sulfate 2 puff 09/02/20 19:00 09/21/20 13:30 Albuterol 200 Puff (6.7gm Inhaler) INH 2 puff [id number] QUINTEN Administration Ascorbic Acid 1,000 mg 09/14/20 09:00 09/21/20 09:18 Ascorbic Acid 500 Mg Chewable Tablet PER TUBE 1,000 mg DAILY QUINTEN Administration Aspirin 81 mg 12/12/20 09:00 09/21/20 09:18 Aspirin 81 Mg Enteric Coated Tablet PO 81 mg DAILY QUINTEN Administration Benzonatate 100 mg 09/02/20 15:00 09/21/20 09:20 Benzonatate 100 Mg Cap PO Not Given TID QUINTEN Bisacodyl 10 mg 09/10/20 12:38 09/19/20 12:39 Bisacodyl 5 Mg Tab PO 10 mg DAILYPRN PRN Administration Constipation Calcium Carbonate 600 mg 09/10/20 09:00 09/21/20 09:20 Calcium Carbonate 600 Mg Tab PO 600 mg DAILY QUINTEN Administration Cholecalciferol 5,000 units 09/13/20 21:00 09/20/20 20:00 Cholecalciferol 1,000 Units (25 Mcg) Tab PER TUBE 5,000 units HS QUINTEN Administration Clonidine 0.1 mg 09/20/20 08:47 09/20/20 14:50 Clonidine 0.1 Mg Tab PO 0.1 mg Q4H PRN Administration Hypertension SBP>180 Enoxaparin Sodium 40 mg 09/05/20 21:00 09/21/20 09:20 Enoxaparin Sodium 40 Mg/0.4 Ml Syringe SC 40 mg 0900,2100 QUINTEN Administration Fenofibrate 48 mg 09/02/20 09:00 09/21/20 09:20 Fenofibrate 48 Mg Tab PO 48 mg DAILY QUINTEN Administration Furosemide 20 mg 09/20/20 09:00 09/21/20 09:19 Furosemide 20 Mg Tab PO 20 mg DAILY QUINTEN Administration Glipizide 5 mg 09/08/20 07:30 09/21/20 09:18 Glipizide 5 Mg Tab PO 5 mg DAILY-AC QUINTEN Administration Guaifenesin 600 mg 09/02/20 21:00 09/21/20 09:19 Guaifenesin Er 600 Mg Tab PO 600 mg Q12HR QUINTEN Administration Guaifenesin 200 mg 09/02/20 11:15 09/03/20 05:25 Diabetic Tussin 200 Mg/10 Ml Udcup PO 200 mg Q4H PRN Administration Cough Meropenem 2 gm/ Miscellaneous 100 mls @ 200 mls/hr 09/13/20 14:00 09/21/20 15:08 Medication 1 each/ Sodium IVPB 100 mls Chloride Q8HR QUINTEN Administration Micafungin Sodium 100 mg/ 100 mls @ 100 mls/hr 09/13/20 12:00 09/21/20 13:24 Sodium Chloride IVPB 100 mls 1200 QUINTEN Administration Fentanyl Citrate 2,000 mcg/ 100 mls @ 0 mls/hr 09/13/20 12:00 09/20/20 23:29 Sodium Chloride IV 10/13/20 12:00 100 mls INF QUINTEN Administration Protocol Per Protocol Fentanyl Citrate 250 mls @ 0 mls/hr 09/13/20 12:00 09/17/20 16:59 Fentanyl Bolus IVPB 10/13/20 12:00 250 mls PRN PRN Administration Breakthrough pain/agitation As Directed Insulin Glargine 40 units/ 0.4 mls @ 0 mls/hr 09/17/20 09:00 09/21/20 09:21 Miscellaneous Medication SC 0.4 mls BID QUINTEN Administration Sodium Chloride 1,000 mls @ 50 mls/hr 09/20/20 15:00 09/21/20 11:23 1/2 Normal Saline IV 1,000 mls .Q20H QUINTEN Administration Insulin Human Lispro 0 units 09/03/20 20:47 09/17/20 22:36 Humalog 300 Units/3 Ml Vial SC 3 unit .BEDTIME SLIDING SC PRN Administration Bedtime Correctional Scale Insulin Human Lispro 0 units 09/06/20 05:30 09/21/20 13:45 Humalog 300 Units/3 Ml Vial SC 6 units .AGGRESSIVE SLIDING PRN Administration AGGRESSIVE SLIDING SCALE Protocol Levothyroxine Sodium 112 mcg 09/17/20 06:00 09/21/20 05:51 Levothyroxine Sodium 112 Mcg Tab PO 112 mcg 0600 QUINTEN Administration Loratadine 10 mg 09/09/20 12:43 09/10/20 22:30 Loratadine 10 Mg Tab PO 10 mg DAILY PRN Administration Allergies Lorazepam 2 mg 09/13/20 12:00 09/20/20 21:41 Lorazepam 2 Mg/Ml Vial SLOW IVP 10/13/20 12:00 2 mg Q1H PRN Administration Breakthrough agitation Losartan Potassium 50 mg 09/21/20 09:00 09/21/20 09:19 Losartan 25 Mg Tab PO 50 mg DAILY QUINTEN Administration Magnesium Hydroxide 30 ml 09/10/20 12:38 09/20/20 09:21 Milk Of Magnesia 30 Ml Udcup PO 30 ml DAILYPRN PRN Administration Constipation Methylprednisolone Sodium Succinate 40 mg 09/19/20 09:00 09/21/20 09:20 Methylprednisolone Sod Succ 40 Mg Vial IVP 40 mg BID QUINTEN Administration Metoprolol Tartrate 50 mg 09/20/20 09:00 09/21/20 09:19 Metoprolol Tartrate 50 Mg Tab PO 50 mg BID QUINTEN Administration Mometasone Furoate/Formoterol Fumar 2 puff 09/05/20 18:30 09/21/20 07:32 Mometasone 200 Mcg/Formoterol 5 Mcg 120 Puff Inhaler INH 2 puff BID-RT QUINTEN Administration Morphine Sulfate 2 mg 09/13/20 12:00 09/20/20 14:30 Morphine 2 Mg/Ml Vial SLOW IVP 10/13/20 12:00 2 mg Q1H PRN Administration Breakthrough Pain/Agitation Pantoprazole Sodium 40 mg 09/20/20 21:00 09/20/20 20:00 Pantoprazole 40 Mg Granules Packet PO 40 mg HS QUINTEN Administration Propofol 1,000 mg 09/13/20 12:00 09/20/20 05:49 Propofol 1,000 Mg/100 Ml Vial IV 10/13/20 12:00 1,000 mg INF PRN Administration TO ACHIEVE GOAL RASS Protocol Simvastatin 10 mg 09/09/20 21:00 09/20/20 21:29 Simvastatin 10 Mg Tab PO 10 mg HS QUINTEN Administration Sodium Chloride 10 ml 09/02/20 02:30 09/13/20 07:48 Flush - Normal Saline 10 Ml Syringe IVF 10 ml PRN PRN Administration Saline Flush Throat Lozenges 1 ramesh 09/02/20 11:14 09/04/20 08:37 Cepastat Lozenges 1 Ramesh PO 1 ramesh Q4H PRN Administration Cough Zinc Sulfate 220 mg 09/14/20 09:00 09/21/20 09:18 Zinc Sulfate 220 Mg Cap PER TUBE 220 mg DAILY QUINTEN Administration - Exam General Appearance: ill appearing Eye: PERRL, anicteric sclera ENT: no oropharyngeal lesions, dry oral mucosa Neck: supple, no JVD Heart: RRR, no murmur Respiratory: no wheezes, no rales Respiratory - other findings: distant breath sounds, sub cut emphysema+ Gastrointestinal: soft, non-tender, non-distended, normal bowel sounds Extremities: no cyanosis, 1+ LE edema Neurological: cranial nerve grossly intact, no focal deficits Hosp A/P (1) Pneumonia due to COVID-19 virus Code(s): U07.1 - COVID-19; J12.89 - OTHER VIRAL PNEUMONIA Status: Acute (2) Acute respiratory failure with hypoxia Code(s): J96.01 - ACUTE RESPIRATORY FAILURE WITH HYPOXIA Status: Acute (3) Diarrhea due to COVID-19 Code(s): U07.1 - COVID-19; A08.39 - OTHER VIRAL ENTERITIS Status: Resolved (4) CHF (congestive heart failure) Code(s): I50.9 - HEART FAILURE, UNSPECIFIED Status: Chronic Qualifiers: Heart failure type: unspecified Heart failure chronicity: chronic Qualified Code(s): I50.9 - Heart failure, unspecified (5) Asthma Code(s): J45.909 - UNSPECIFIED ASTHMA, UNCOMPLICATED Status: Chronic Qualifiers: Asthma severity: mild Asthma persistence: intermittent Asthma complication type: uncomplicated Qualified Code(s): J45.20 - Mild intermittent asthma, uncomplicated (6) Obesity Code(s): E66.9 - OBESITY, UNSPECIFIED Status: Chronic Qualifiers: Body mass index: BMI 35.0-35.9 (7) DM type 2 (diabetes mellitus, type 2) Status: Chronic Qualifiers: Diabetes mellitus terminal press operator insulin use: with terminal press operator use (8) Hypothyroidism Code(s): E03.9 - HYPOTHYROIDISM, UNSPECIFIED Status: Chronic Qualifiers: Hypothyroidism type: acquired Qualified Code(s): E03.9 - Hypothyroidism, unspecified (9) Dyslipidemia Code(s): E78.5 - HYPERLIPIDEMIA, UNSPECIFIED Status: Chronic (10) Pneumothorax Code(s): J93.9 - PNEUMOTHORAX, UNSPECIFIED Status: Acute Qualifiers: Pneumothorax type: spontaneous, primary Qualified Code(s): J93.11 - Primary spontaneous pneumothorax (11) Subcutaneous emphysema Code(s): T79.7XXA - TRAUMATIC SUBCUTANEOUS EMPHYSEMA, INITIAL ENCOUNTER Status: Acute Qualifiers: Encounter type: subsequent encounter Qualified Code(s): T79.7XXD - Traumatic subcutaneous emphysema, subsequent encounter - Plan has b/l pneumothorax with chest tubes from 09/18, subcut emphysema she got intubated on 09/13, its day 8 on vent, prior to which was on high flow. is on steroids, merrem, micafungin, albuterol, dulera continue aspirin, tricor, glipizide, lantus u 40 bid, synthroid, zocor, inderal, protonix finished remdesivir (09/07), got convalescent plasma 09/04 dm is slowly getting controlled with tapering of steroids, will f/u trend hemostable prognosis guarded, d/w daughter over phone 09/17, 09/21. is DNAR
--- NOTE | 2020-09-21 17:48 | PRG ---
DATE OF SERVICE: 09/21/2020 SUBJECTIVE: Ms. Guerrero remains stable, mechanically ventilated. OBJECTIVE: VITAL SIGNS: Blood pressure 139/106, 137/74 earlier; heart rate is in the 90s; respiratory rate is in the 20s; oximetry is 95%. LUNGS: Clear. HEART: Regular rhythm. ABDOMEN: Soft. LABORATORY DATA: White count 18.2, hemoglobin 10.5, and platelets 226. Sodium 146, potassium 5.2, chloride 102, bicarb 33, BUN 49, creatinine 0.6, glucose 124. PH 7.44, CO2 of 57, pO2 of 51, FiO2 is at 50%, tidal lungs are 450, PEEP 7. IMPRESSION: COVID pneumonia and respiratory failure, making slow progress muscle weakness at this point likely may dictate a need for tracheostomy, but we will just continue supportive care for now. Job ID: [id number]
[2020-09-21] MEDS: fentaNYL Citrate/PF 2,000 MCG in Sodium Chloride 0.9% 60 ML IV SCH (18:41)
[2020-09-21] MEDS: Pantoprazole 40 MG GRANULES PACKET PO SCH (20:26)
[2020-09-21] MEDS: Cholecalciferol 1,000 UNITS (25 MCG) TAB PER TUBE SCH (20:26)
[2020-09-21] MEDS: Simvastatin 10 MG TAB PO SCH (20:38)
[2020-09-21] MEDS: Diabetic Tussin 200 MG/10 ML UDCUP PO PRN (21:48)
[2020-09-22] MEDS: HumaLOG 300 UNITS/3 ML VIAL SC PRN ×6 (01:00→22:54)
[2020-09-22] MEDS: Albuterol 200 PUFF (6.7GM INHALER) INH SCH ×5 (01:22→23:57)
[2020-09-22] MEDS: Lorazepam 2 MG/ML VIAL SLOW IVP PRN (01:50)
[2020-09-22 05:42] LABS: Hemoglobin 11.6 g/dL (12.0-16.0); Mean Corpuscular HGB CONC 32.3 g/dL (32.0-36.0); Mean Corpuscular Hemoglobin 32.4 pg (27.0-31.0); Mean Platelet Volume 9.7 fL (7.4-10.4); Platelet Count 261 thou/uL (130-400); RBC Distribution Width 13.2 % (11.5-14.5); Red Blood Cell (RBC) Count 3.58 mill/uL (4.20-5.40); White Blood Cell (WBC) Count 33.1 thou/uL (4.8-10.8)
[2020-09-22 05:49] LABS: ALT (SGPT) 32 U/L (8-55); AST (SGOT) 47 U/L (5-34); Albumin 2.8 g/dL (3.4-4.8); Alkaline Phosphatase 62 U/L (40-110); Anion Gap 14 mmol/L (10-20); BUN (Urea Nitrogen) 53 mg/dL (9.8-20.1); Bilirubin, Direct 0.3 mg/dL (0.1-0.3); Bilirubin, Total 0.7 mg/dL (0.2-1.2); Calc. Creatinine Clearance 108 mL/min (70-130); Calcium 8.6 mg/dL (7.8-10.44); Carbon Dioxide 36 mmol/L (23-31); Chloride 99 mmol/L (98-107); Glucose 320 mg/dL (83-110); Potassium 5.6 mmol/L (3.5-5.1); Protein, Total 5.5 g/dL (6.0-8.3); Sodium 143 mmol/L (136-145)
[2020-09-22] MEDS: Levothyroxine Sodium 112 MCG TAB PO SCH (05:54)
[2020-09-22] MEDS: Meropenem 2 GM, Admixture Fee 1 EACH in Sodium Chloride 0.9% 100 ML IVPB SCH ×3 (06:09→22:53)
[2020-09-22 07:07] LABS: Band 4 % (5-11); Lymphocytes 6 % (21-51); MDiff Complete? YES; Monocytes 1 % (0-10); Neutrophil 89 % (42-75); Nucleated RBC 1 % (0); Polychromasia SLIGHT = 2-3 cells (100X) (0-2/hpf)
[2020-09-22] MEDS: Sodium Chloride 0.45% 1,000 ML IV SCH (07:45)
[2020-09-22] MEDS: Mometasone 200 MCG/Formoterol 5 MCG 120 PUFF INHALER INH SCH ×2 (08:06→18:56)
[2020-09-22] MEDS: guaiFENesin ER 600 MG TAB PO SCH ×2 (08:06→21:11)
[2020-09-22] MEDS: Calcium Carbonate 600 MG TAB PO SCH (08:06)
[2020-09-22] MEDS: Aspirin 81 mg Enteric Coated Tablet PO SCH (08:06)
[2020-09-22] MEDS: Furosemide 20 MG TAB PO SCH (08:06)
[2020-09-22] MEDS: glipiZIDE 5 MG TAB PO SCH (08:06)
[2020-09-22] MEDS: Fenofibrate 48 MG TAB PO SCH (08:07)
[2020-09-22] MEDS: Enoxaparin Sodium 40 MG/0.4 ML SYRINGE SC SCH ×2 (08:08→21:10)
[2020-09-22] MEDS: methylPREDNISolone Sod Succ 40 MG VIAL IVP SCH ×2 (08:08→21:10)
[2020-09-22] MEDS: Ascorbic Acid 500 mg Chewable Tablet PER TUBE SCH (08:09)
[2020-09-22] MEDS: Benzonatate 100 MG CAP PO SCH ×3 (08:10→19:26)
[2020-09-22] MEDS: Losartan 25 MG TAB PO SCH (08:12)
[2020-09-22] MEDS: Metoprolol Tartrate 50 MG TAB PO SCH ×2 (08:12→21:11)
[2020-09-22] MEDS: Zinc Sulfate 220 MG CAP PER TUBE SCH (08:12)
[2020-09-22] MEDS: Insulin Glargine 40 UNITS in Pre-Filled Syringe 1 EACH SC SCH (08:28)
[2020-09-22 08:53] LABS: Analyzer IN Cardio ER; Base Excess (BEa) 9.9 mEq/L (-2.0 to +3.0); CO2 Tension 55.2 mmHg (35.0-45.0); Calcium, Ionized (arterial) 1.14 mmol/L (1.12-1.30); Carboxyhemoglobin (COHb) 1.3 gm% (0.0-3.0); Hemoglobin (Hb) 12.7 g/dL (12.0-16.0); Potassium - ABG Lab 5.28 mmol/L (3.70-5.30); pH, Arterial 7.43 (7.35-7.45)
[2020-09-22 09:13] LABS: O2 Tension (PaO2), arterial 55.5 mmHg (> 70.0)
[2020-09-22 09:14] LABS: Puncture Site RRA
--- NOTE | 2020-09-22 10:06 | RAD ---
EXAM: Chest one view: HISTORY: Follow-up pneumonia COMPARISON: 09/21/2020 FINDINGS: Stable last support tubes and right chest tube and left chest tubes. Heart size: Within normal limits. Lungs: Extensive bilateral alveolar, interstitial, and groundglass opacity changes Possible tiny left-sided pneumothorax or pneumomediastinum. Extensive subcutaneous emphysema. IMPRESSION: Complicated bilateral pneumonia with probable small left-sided pneumothorax or pneumomediastinum with chest tubes in place. Continued short-term follow-up.
[2020-09-22] MEDS ORDERED: Insulin Glargine 50 UNITS in Pre-Filled Syringe 1 EACH SC SCH ×2 (10:55→11:00)
[2020-09-22] MEDS: Micafungin 100 MG in Sodium Chloride 0.9% 100 ML IVPB SCH (11:00)
[2020-09-22] MEDS: fentaNYL Citrate/PF 2,000 MCG in Sodium Chloride 0.9% 60 ML IV SCH (11:00)
--- NOTE | 2020-09-22 11:15 | PRG ---
DATE OF SERVICE: 09/22/2020 SUBJECTIVE: She remains intubated in the vent, day #20 with bilateral chest tube. X-ray looks relatively stable. OBJECTIVE: VITAL SIGNS: Maximum temperature is 99, respirations 20, saturation 95%, blood pressure 160/82. CHEST: Bilateral rhonchi and crackles. CARDIAC: Normal S1, S2. ABDOMEN: No masses. LABORATORY DATA: White count 47578, pO2 of 55, pCO2 on a PEEP of . Lytes are normal. Blood sugar 300. C-reactive protein is 0.5. X-ray: Bilateral infiltrates. IMPRESSION: Respiratory failure, roland positive pneumonia, bilateral spontaneous pneumothorax. She is on micafungin, meropenem. I may consider adding an anti-Staph antibiotic. Discuss with family whether they would like a trach and a PEG. One-half hour of critical care time. Job ID: [id number]
[2020-09-22] MEDS: Acetaminophen 325 MG TAB PO PRN ×2 (11:23→22:28)
--- NOTE | 2020-09-22 14:46 | PDOC.HOSPP ---
- Subjective Encounter Date: 09/22/20 Encounter Time: 13:00 Subjective: is sedated and on vent not in distress - Objective Vital Signs & Weight: Vital Signs (12 hours) Temp Pulse Resp BP Pulse Ox 09/22/20 12:00 28 H 09/22/20 11:00 100.5 F H 09/22/20 10:58 93 162/82 H 09/22/20 10:00 20 09/22/20 08:06 74 20 95 09/22/20 08:00 99.9 F H 21 H 90 L 09/22/20 07:51 87 78/51 L 09/22/20 04:00 99.4 F Weight Admit Weight 238 lb 1.6 oz Weight 225 lb 8.526 oz Most Recent Monitor Data Heart Rate from ECG 85 NIBP 162/74 NIBP BP-Mean 103 Respiration from ECG 16 SpO2 91 I&O: 09/21/20 09/22/20 09/23/20 06:59 06:59 06:59 Intake Total 3024.3 3480.2 130 Output Total 3775 3320 890 Balance -750.7 160.2 -760 Result Diagrams: 09/22/20 04:20 09/22/20 04:20 Additional Labs: Accuchecks 09/22/20 09/22/20 09/22/20 11:12 08:34 00:48 POC Glucose 263 H 300 H 243 H 09/21/20 09/21/20 20:58 16:07 POC Glucose 194 H 220 H Hospitalist ROS - Medication Medications: Active Medications Generic Name Dose Route Start Last Admin Trade Name Freq PRN Reason Stop Dose Admin Acetaminophen 650 mg 09/02/20 01:53 09/22/20 11:23 Acetaminophen 325 Mg Tab PO 650 mg Q4H PRN Administration Headache/Fever/Mild Pain (1-3) Albuterol Sulfate 2 puff 09/02/20 19:00 09/22/20 12:32 Albuterol 200 Puff (6.7gm Inhaler) INH 2 puff [id number] QUINTEN Administration Ascorbic Acid 1,000 mg 09/14/20 09:00 09/22/20 08:09 Ascorbic Acid 500 Mg Chewable Tablet PER TUBE 1,000 mg DAILY QUINTEN Administration Aspirin 81 mg 09/02/20 09:00 09/22/20 08:06 Aspirin 81 Mg Enteric Coated Tablet PO 81 mg DAILY QUINTEN Administration Benzonatate 100 mg 09/02/20 15:00 09/22/20 08:10 Benzonatate 100 Mg Cap PO Not Given TID QUINTEN Bisacodyl 10 mg 09/10/20 12:38 09/19/20 12:39 Bisacodyl 5 Mg Tab PO 10 mg DAILYPRN PRN Administration Constipation Calcium Carbonate 600 mg 09/10/20 09:00 09/22/20 08:06 Calcium Carbonate 600 Mg Tab PO 600 mg DAILY QUINTEN Administration Cholecalciferol 5,000 units 09/13/20 21:00 09/21/20 20:26 Cholecalciferol 1,000 Units (25 Mcg) Tab PER TUBE 5,000 units HS QUINTEN Administration Clonidine 0.1 mg 09/20/20 08:47 09/20/20 14:50 Clonidine 0.1 Mg Tab PO 0.1 mg Q4H PRN Administration Hypertension SBP>180 Enoxaparin Sodium 40 mg 09/05/20 21:00 09/22/20 08:08 Enoxaparin Sodium 40 Mg/0.4 Ml Syringe SC 40 mg 0900,2100 QUINTEN Administration Fenofibrate 48 mg 09/02/20 09:00 09/22/20 08:07 Fenofibrate 48 Mg Tab PO 48 mg DAILY QUINTEN Administration Furosemide 20 mg 09/20/20 09:00 09/22/20 08:06 Furosemide 20 Mg Tab PO 20 mg DAILY QUINTEN Administration Glipizide 5 mg 09/08/20 07:30 09/22/20 08:06 Glipizide 5 Mg Tab PO 5 mg DAILY-AC QUINTEN Administration Guaifenesin 600 mg 09/02/20 21:00 09/22/20 08:06 Guaifenesin Er 600 Mg Tab PO 600 mg Q12HR QUINTEN Administration Guaifenesin 200 mg 09/02/20 11:15 09/21/20 21:48 Diabetic Tussin 200 Mg/10 Ml Udcup PO 200 mg Q4H PRN Administration Cough Meropenem 2 gm/ Miscellaneous 100 mls @ 200 mls/hr 09/13/20 14:00 09/22/20 14:33 Medication 1 each/ Sodium IVPB 100 mls Chloride Q8HR QUINTEN Administration Micafungin Sodium 100 mg/ 100 mls @ 100 mls/hr 09/13/20 12:00 09/22/20 11:00 Sodium Chloride IVPB 100 mls 1200 QUINTEN Administration Fentanyl Citrate 2,000 mcg/ 100 mls @ 0 mls/hr 09/13/20 12:00 09/22/20 11:00 Sodium Chloride IV 10/13/20 12:00 100 mls INF QUINTEN Administration Protocol Per Protocol Fentanyl Citrate 250 mls @ 0 mls/hr 09/13/20 12:00 09/17/20 16:59 Fentanyl Bolus IVPB 10/13/20 12:00 250 mls PRN PRN Administration Breakthrough pain/agitation As Directed Sodium Chloride 1,000 mls @ 50 mls/hr 09/20/20 15:00 09/22/20 07:45 1/2 Normal Saline IV 1,000 mls .Q20H QUINTEN Administration Insulin Human Lispro 0 units 09/03/20 20:47 09/21/20 16:10 Humalog 300 Units/3 Ml Vial SC 6 unit .BEDTIME SLIDING SC PRN Administration Bedtime Correctional Scale Insulin Human Lispro 0 units 09/06/20 05:30 09/22/20 11:41 Humalog 300 Units/3 Ml Vial SC 9 unit .AGGRESSIVE SLIDING PRN Administration AGGRESSIVE SLIDING SCALE Protocol Levothyroxine Sodium 112 mcg 09/17/20 06:00 09/22/20 05:54 Levothyroxine Sodium 112 Mcg Tab PO 112 mcg 0600 QUINTEN Administration Loratadine 10 mg 09/09/20 12:43 09/10/20 22:30 Loratadine 10 Mg Tab PO 10 mg DAILY PRN Administration Allergies Lorazepam 2 mg 09/13/20 12:00 09/22/20 01:50 Lorazepam 2 Mg/Ml Vial SLOW IVP 10/13/20 12:00 2 mg Q1H PRN Administration Breakthrough agitation Losartan Potassium 50 mg 09/21/20 09:00 09/22/20 08:12 Losartan 25 Mg Tab PO 50 mg DAILY QUINTEN Administration Magnesium Hydroxide 30 ml 09/10/20 12:38 09/20/20 09:21 Milk Of Magnesia 30 Ml Udcup PO 30 ml DAILYPRN PRN Administration Constipation Methylprednisolone Sodium Succinate 40 mg 09/19/20 09:00 09/22/20 08:08 Methylprednisolone Sod Succ 40 Mg Vial IVP 40 mg BID QUINTEN Administration Metoprolol Tartrate 50 mg 09/20/20 09:00 09/22/20 08:12 Metoprolol Tartrate 50 Mg Tab PO 50 mg BID QUINTEN Administration Mometasone Furoate/Formoterol Fumar 2 puff 09/05/20 18:30 09/22/20 08:06 Mometasone 200 Mcg/Formoterol 5 Mcg 120 Puff Inhaler INH 2 puff BID-RT QUINTEN Administration Morphine Sulfate 2 mg 09/13/20 12:00 09/20/20 14:30 Morphine 2 Mg/Ml Vial SLOW IVP 10/13/20 12:00 2 mg Q1H PRN Administration Breakthrough Pain/Agitation Pantoprazole Sodium 40 mg 09/20/20 21:00 09/21/20 20:26 Pantoprazole 40 Mg Granules Packet PO 40 mg HS QUINTEN Administration Propofol 1,000 mg 09/13/20 12:00 09/20/20 05:49 Propofol 1,000 Mg/100 Ml Vial IV 10/13/20 12:00 1,000 mg INF PRN Administration TO ACHIEVE GOAL RASS Protocol Simvastatin 10 mg 09/09/20 21:00 09/21/20 20:38 Simvastatin 10 Mg Tab PO 10 mg HS QUINTEN Administration Sodium Chloride 10 ml 09/02/20 02:30 09/13/20 07:48 Flush - Normal Saline 10 Ml Syringe IVF 10 ml PRN PRN Administration Saline Flush Throat Lozenges 1 ramesh 09/02/20 11:14 09/04/20 08:37 Cepastat Lozenges 1 Ramesh PO 1 ramesh Q4H PRN Administration Cough Zinc Sulfate 220 mg 09/14/20 09:00 09/22/20 08:12 Zinc Sulfate 220 Mg Cap PER TUBE 220 mg DAILY QUINTEN Administration - Exam General Appearance: ill appearing Eye: anicteric sclera ENT: no oropharyngeal lesions, dry oral mucosa Neck: supple, no JVD Heart: RRR, no murmur Respiratory: no wheezes, rhonchi Respiratory - other findings: distant breath sounds, chest tubes b/l Gastrointestinal: soft, non-tender, non-distended, normal bowel sounds Extremities: no cyanosis, 1+ LE edema Neurological: cranial nerve grossly intact, no focal deficits Hosp A/P (1) Pneumonia due to COVID-19 virus Code(s): U07.1 - COVID-19; J12.89 - OTHER VIRAL PNEUMONIA Status: Acute (2) Acute respiratory failure with hypoxia Code(s): J96.01 - ACUTE RESPIRATORY FAILURE WITH HYPOXIA Status: Acute (3) Diarrhea due to COVID-19 Code(s): U07.1 - COVID-19; A08.39 - OTHER VIRAL ENTERITIS Status: Resolved (4) CHF (congestive heart failure) Code(s): I50.9 - HEART FAILURE, UNSPECIFIED Status: Chronic Qualifiers: Heart failure type: diastolic Heart failure chronicity: chronic Qualified Code(s): I50.32 - Chronic diastolic (congestive) heart failure (5) Asthma Code(s): J45.909 - UNSPECIFIED ASTHMA, UNCOMPLICATED Status: Chronic Qualifiers: Asthma severity: mild Asthma persistence: intermittent Asthma complication type: uncomplicated Qualified Code(s): J45.20 - Mild intermittent asthma, uncomplicated (6) Obesity Code(s): E66.9 - OBESITY, UNSPECIFIED Status: Chronic Qualifiers: Body mass index: BMI 35.0-35.9 (7) DM type 2 (diabetes mellitus, type 2) Status: Chronic Qualifiers: Diabetes mellitus buttermaker continuous churn insulin use: with buttermaker continuous churn use (8) Hypothyroidism Code(s): E03.9 - HYPOTHYROIDISM, UNSPECIFIED Status: Chronic Qualifiers: Hypothyroidism type: acquired Qualified Code(s): E03.9 - Hypothyroidism, unspecified (9) Dyslipidemia Code(s): E78.5 - HYPERLIPIDEMIA, UNSPECIFIED Status: Chronic (10) Pneumothorax Code(s): J93.9 - PNEUMOTHORAX, UNSPECIFIED Status: Acute Qualifiers: Pneumothorax type: spontaneous, primary Qualified Code(s): J93.11 - Primary spontaneous pneumothorax (11) Subcutaneous emphysema Code(s): T79.7XXA - TRAUMATIC SUBCUTANEOUS EMPHYSEMA, INITIAL ENCOUNTER Status: Acute Qualifiers: Encounter type: subsequent encounter Qualified Code(s): T79.7XXD - Traumatic subcutaneous emphysema, subsequent encounter - Plan has b/l pneumothorax with chest tubes from 09/18, subcut emphysema she got intubated on 09/13, its day 9 on vent, prior to which was on high flow. is on steroids, merrem, micafungin, albuterol, dulera continue aspirin, tricor, glipizide, lantus u 40 bid, synthroid, zocor, inderal, protonix finished remdesivir (09/07), got convalescent plasma 09/04 dm is slowly getting controlled with tapering of steroids, will f/u trend hemostable prognosis guarded, d/w daughter over phone 09/17, 09/21, 09/2020. is DNAR
[2020-09-22] MEDS: Linezolid 600 MG in Premix Bag 1 BAG IVPB SCH (21:10)
[2020-09-22] MEDS: Cholecalciferol 1,000 UNITS (25 MCG) TAB PER TUBE SCH (21:11)
[2020-09-22] MEDS: Pantoprazole 40 MG GRANULES PACKET PO SCH (21:11)
[2020-09-22] MEDS: Simvastatin 10 MG TAB PO SCH (21:11)
[2020-09-22] MEDS: Insulin Glargine 50 UNITS in Pre-Filled Syringe 1 EACH SC SCH (21:16)
[2020-09-23] MEDS: HumaLOG 300 UNITS/3 ML VIAL SC PRN ×5 (04:30→20:00)
[2020-09-23 05:40] LABS: ALT (SGPT) 35 U/L (8-55); AST (SGOT) 56 U/L (5-34); Albumin 2.7 g/dL (3.4-4.8); Alkaline Phosphatase 60 U/L (40-110); Anion Gap 13 mmol/L (10-20); BUN (Urea Nitrogen) 47 mg/dL (9.8-20.1); Bilirubin, Direct 0.3 mg/dL (0.1-0.3); Bilirubin, Total 0.8 mg/dL (0.2-1.2); Calc. Creatinine Clearance 111 mL/min (70-130); Calcium 8.8 mg/dL (7.8-10.44); Carbon Dioxide 37 mmol/L (23-31); Chloride 97 mmol/L (98-107); Glucose 230 mg/dL (83-110); Potassium 5.2 mmol/L (3.5-5.1); Protein, Total 5.3 g/dL (6.0-8.3); Sodium 142 mmol/L (136-145)
[2020-09-23] MEDS: Sodium Chloride 0.45% 1,000 ML IV SCH (05:44)
[2020-09-23] MEDS: Meropenem 2 GM, Admixture Fee 1 EACH in Sodium Chloride 0.9% 100 ML IVPB SCH ×3 (05:45→22:44)
[2020-09-23] MEDS: Morphine 2 MG/ML VIAL SLOW IVP PRN (05:46)
[2020-09-23] MEDS: Levothyroxine Sodium 112 MCG TAB PO SCH (05:47)
[2020-09-23 06:15] LABS: Hemoglobin 10.8 g/dL (12.0-16.0); MDiff Complete? YES; Mean Corpuscular HGB CONC 32.1 g/dL (32.0-36.0); Mean Corpuscular Hemoglobin 32.2 pg (27.0-31.0); Platelet Count 236 thou/uL (130-400); RBC Distribution Width 14.1 % (11.5-14.5); Red Blood Cell (RBC) Count 3.36 mill/uL (4.20-5.40); White Blood Cell (WBC) Count 37.3 thou/uL (4.8-10.8)
[2020-09-23 06:16] LABS: Band 8 % (5-11); Lymphocytes 5 % (21-51); Monocytes 3 % (0-10); Neutrophil 84 % (42-75); Nucleated RBC 3 % (0)
[2020-09-23] MEDS: fentaNYL Citrate/PF 2,000 MCG in Sodium Chloride 0.9% 60 ML IV SCH (07:11)
[2020-09-23] MEDS: Acetaminophen 325 MG TAB PO PRN (07:18)
[2020-09-23] MEDS: Albuterol 200 PUFF (6.7GM INHALER) INH SCH ×3 (07:50→19:27)
[2020-09-23] MEDS: Mometasone 200 MCG/Formoterol 5 MCG 120 PUFF INHALER INH SCH ×2 (07:50→19:27)
[2020-09-23] MEDS: Losartan 25 MG TAB PO SCH (08:13)
[2020-09-23] MEDS: guaiFENesin ER 600 MG TAB PO SCH ×2 (08:14→19:50)
[2020-09-23] MEDS: glipiZIDE 5 MG TAB PO SCH (08:14)
[2020-09-23] MEDS: Ascorbic Acid 500 mg Chewable Tablet PER TUBE SCH (08:14)
[2020-09-23] MEDS: Enoxaparin Sodium 40 MG/0.4 ML SYRINGE SC SCH ×2 (08:14→19:49)
[2020-09-23] MEDS: Metoprolol Tartrate 50 MG TAB PO SCH ×2 (08:14→19:22)
[2020-09-23] MEDS: Furosemide 20 MG TAB PO SCH (08:14)
[2020-09-23] MEDS: methylPREDNISolone Sod Succ 40 MG VIAL IVP SCH ×2 (08:15→19:50)
[2020-09-23] MEDS: Benzonatate 100 MG CAP PO SCH ×3 (08:15→19:18)
[2020-09-23] MEDS: Aspirin 81 mg Enteric Coated Tablet PO SCH (08:15)
[2020-09-23] MEDS: Insulin Glargine 50 UNITS in Pre-Filled Syringe 1 EACH SC SCH ×2 (08:16→19:50)
[2020-09-23] MEDS: Fenofibrate 48 MG TAB PO SCH (08:16)
[2020-09-23 08:18] LABS: Base Excess (BEa) 9.3 mEq/L (-2.0 to +3.0); CO2 Tension 46.7 mmHg (35.0-45.0); Calcium, Ionized (arterial) 1.19 mmol/L (1.12-1.30); Carboxyhemoglobin (COHb) 1.2 gm% (0.0-3.0); Hemoglobin (Hb) 11.3 g/dL (12.0-16.0); O2 Tension (PaO2), arterial 62.7 mmHg (> 70.0); Potassium - ABG Lab 4.93 mmol/L (3.70-5.30); pH, Arterial 7.48 (7.35-7.45)
--- NOTE | 2020-09-23 08:19 | RAD ---
Chest one view HISTORY: Pneumonia. Follow-up. COMPARISON: 09/22/2020. FINDINGS: Cardiac silhouette is magnified by projection. Pulmonary vasculature predominantly obscured by widespread interstitial and parenchymal opacity similar in appearance to the previous exam. Mediastinum is midline. Lines and tubes unchanged in position. Bilateral thoracostomy tubes remain in place without significant pneumothorax apparent. Gas underlyin g the left paramediastinal pleura is similar in appearance to the prior exam. Extensive bilateral chest wall gas is also stable. IMPRESSION : Widespread infiltrate, pneumomediastinum, and other findings are stable.
[2020-09-23 08:20] LABS: Puncture Site RRA
[2020-09-23 08:21] LABS: ALV-art Gradient 306.725 mmHg (0-20)
[2020-09-23] MEDS: Linezolid 600 MG in Premix Bag 1 BAG IVPB SCH ×2 (08:40→19:50)
[2020-09-23] MEDS: Calcium Carbonate 600 MG TAB PO SCH (08:41)
--- NOTE | 2020-09-23 11:37 | PRG ---
DATE OF SERVICE: 09/23/2020 SUBJECTIVE: Morbidly obese female, day #20 in the hospital with roland positive pneumonia and respiratory failure. She is slowly getting better. Her main problem is severely deconditioned and weak. OBJECTIVE: VITAL SIGNS: Temperature is 101.6, pulse 74, blood pressure 125/57, respiratory rate 18. I's and O's have been good. CHEST: No wheezing. No crackles. CARDIAC: Normal S1 and S2. No gallops. ABDOMEN: No masses. LABORATORY DATA: White count 30,000; H and H 10 and 33; platelet count is normal. The pO2 is 62, pCO2 is . BUN and creatinine are slightly elevated. X-ray; stable findings. ASSESSMENT: Bilateral chest tube, bilateral spontaneous pneumothorax, respiratory failure, mild azotemia. PLAN: She is on meropenem and Zyvox. We will re-culture. Supportive care and PT. Minimize sedation. One-half hour of critical care time. Job ID: [id number]
[2020-09-23] MEDS: Micafungin 100 MG in Sodium Chloride 0.9% 100 ML IVPB SCH (12:43)
[2020-09-23] MEDS: Zinc Sulfate 220 MG CAP PER TUBE SCH (12:51)
[2020-09-23] MEDS ORDERED: Lorazepam 2 MG/ML VIAL SLOW IVP PRN (18:10)
--- NOTE | 2020-09-23 18:12 | PDOC.HOSPP ---
- Subjective Encounter Date: 09/23/20 Encounter Time: 18:12 Subjective: Patient intubated - Objective Vital Signs & Weight: Vital Signs (12 hours) Temp Pulse Resp BP Pulse Ox 09/23/20 16:00 16 09/23/20 14:54 87 148/115 H 09/23/20 14:00 16 09/23/20 12:00 17 09/23/20 10:37 74 125/57 L 09/23/20 10:00 16 09/23/20 08:00 38 H 99 09/23/20 07:51 96 129/69 09/23/20 07:50 97 20 94 L 09/23/20 07:18 101.6 F H Weight Admit Weight 238 lb 1.6 oz Weight 229 lb 0.964 oz Most Recent Monitor Data Heart Rate from ECG 97 NIBP 126/69 NIBP BP-Mean 88 Respiration from ECG 24 SpO2 94 I&O: 09/22/20 09/23/20 09/24/20 06:59 06:59 06:59 Intake Total 3480.2 3378 1876 Output Total 3320 3060 1270 Balance 160.2 318 606 Result Diagrams: 09/23/20 04:05 09/23/20 04:05 Additional Labs: Accuchecks 09/23/20 09/23/20 09/23/20 17:11 12:02 04:17 POC Glucose 197 H 185 H 229 H 09/22/20 22:46 POC Glucose 295 H Hospitalist ROS - Review of Systems Other: Patient intubated - Medication Medications: Active Medications Generic Name Dose Route Start Last Admin Trade Name Freq PRN Reason Stop Dose Admin Acetaminophen 650 mg 09/02/20 01:53 09/23/20 07:18 Acetaminophen 325 Mg Tab PO 650 mg Q4H PRN Administration Headache/Fever/Mild Pain (1-3) Albuterol Sulfate 2 puff 09/02/20 19:00 09/23/20 12:51 Albuterol 200 Puff (6.7gm Inhaler) INH 2 puff [id number] QUINTEN Administration Ascorbic Acid 1,000 mg 09/14/20 09:00 09/23/20 08:14 Ascorbic Acid 500 Mg Chewable Tablet PER TUBE 1,000 mg DAILY QUINTEN Administration Aspirin 81 mg 09/02/20 09:00 09/23/20 08:15 Aspirin 81 Mg Enteric Coated Tablet PO 81 mg DAILY QUINTEN Administration Benzonatate 100 mg 09/02/20 15:00 09/23/20 15:52 Benzonatate 100 Mg Cap PO Not Given TID QUINTEN Bisacodyl 10 mg 09/10/20 12:38 09/19/20 12:39 Bisacodyl 5 Mg Tab PO 10 mg DAILYPRN PRN Administration Constipation Calcium Carbonate 600 mg 09/10/20 09:00 09/23/20 08:41 Calcium Carbonate 600 Mg Tab PO 600 mg DAILY QUINTEN Administration Cholecalciferol 5,000 units 09/13/20 21:00 09/22/20 21:11 Cholecalciferol 1,000 Units (25 Mcg) Tab PER TUBE 5,000 units HS QUINTEN Administration Clonidine 0.1 mg 09/20/20 08:47 09/20/20 14:50 Clonidine 0.1 Mg Tab PO 0.1 mg Q4H PRN Administration Hypertension SBP>180 Enoxaparin Sodium 40 mg 09/05/20 21:00 09/23/20 08:14 Enoxaparin Sodium 40 Mg/0.4 Ml Syringe SC 40 mg 09,2100 QUINTEN Administration Fenofibrate 48 mg 09/02/20 09:00 09/23/20 08:16 Fenofibrate 48 Mg Tab PO 48 mg DAILY QUINTEN Administration Furosemide 20 mg 09/20/20 09:00 09/23/20 08:14 Furosemide 20 Mg Tab PO 20 mg DAILY QUINTEN Administration Glipizide 5 mg 09/08/20 07:30 09/23/20 08:14 Glipizide 5 Mg Tab PO 5 mg DAILY-AC QUINTEN Administration Guaifenesin 600 mg 09/02/20 21:00 09/23/20 08:14 Guaifenesin Er 600 Mg Tab PO 600 mg Q12HR QUINTEN Administration Guaifenesin 200 mg 09/02/20 11:15 09/21/20 21:48 Diabetic Tussin 200 Mg/10 Ml Udcup PO 200 mg Q4H PRN Administration Cough Meropenem 2 gm/ Miscellaneous 100 mls @ 200 mls/hr 09/13/20 14:00 09/23/20 17:00 Medication 1 each/ Sodium IVPB 100 mls Chloride Q8HR QUINTEN Administration Micafungin Sodium 100 mg/ 100 mls @ 100 mls/hr 09/13/20 12:00 09/23/20 12:43 Sodium Chloride IVPB 100 mls 1200 QUINTEN Administration Sodium Chloride 1,000 mls @ 50 mls/hr 09/20/20 15:00 09/23/20 05:44 1/2 Normal Saline IV 1,000 mls .Q20H QUINTEN Administration Linezolid 600 mg/ Device 300 mls @ 150 mls/hr 09/22/20 21:00 09/23/20 08:40 IVPB 300 mls Q12HR QUINTEN Administration Insulin Glargine 50 units/ 0.5 mls @ 0 mls/hr 09/22/20 21:00 09/23/20 08:16 Miscellaneous Medication SC 0.5 mls BID QUINTEN Administration As Directed Insulin Human Lispro 0 units 09/03/20 20:47 09/21/20 16:10 Humalog 300 Units/3 Ml Vial SC 6 unit .BEDTIME SLIDING SC PRN Administration Bedtime Correctional Scale Insulin Human Lispro 0 units 09/06/20 05:30 09/23/20 17:56 Humalog 300 Units/3 Ml Vial SC 3 unit .AGGRESSIVE SLIDING PRN Administration AGGRESSIVE SLIDING SCALE Protocol Levothyroxine Sodium 112 mcg 09/17/20 06:00 09/23/20 05:47 Levothyroxine Sodium 112 Mcg Tab PO 112 mcg 0600 QUINTEN Administration Loratadine 10 mg 09/09/20 12:43 09/10/20 22:30 Loratadine 10 Mg Tab PO 10 mg DAILY PRN Administration Allergies Losartan Potassium 50 mg 09/21/20 09:00 09/23/20 08:13 Losartan 25 Mg Tab PO 50 mg DAILY QUINTEN Administration Magnesium Hydroxide 30 ml 09/10/20 12:38 09/20/20 09:21 Milk Of Magnesia 30 Ml Udcup PO 30 ml DAILYPRN PRN Administration Constipation Methylprednisolone Sodium Succinate 40 mg 09/19/20 09:00 09/23/20 08:15 Methylprednisolone Sod Succ 40 Mg Vial IVP 40 mg BID QUINTEN Administration Metoprolol Tartrate 50 mg 09/20/20 09:00 09/23/20 08:14 Metoprolol Tartrate 50 Mg Tab PO 50 mg BID QUINTEN Administration Mometasone Furoate/Formoterol Fumar 2 puff 09/05/20 18:30 09/23/20 07:50 Mometasone 200 Mcg/Formoterol 5 Mcg 120 Puff Inhaler INH 2 puff BID-RT QUINTEN Administration Pantoprazole Sodium 40 mg 09/20/20 21:00 09/22/20 21:11 Pantoprazole 40 Mg Granules Packet PO 40 mg HS QUINTEN Administration Propofol 1,000 mg 09/13/20 12:00 09/20/20 05:49 Propofol 1,000 Mg/100 Ml Vial IV 10/13/20 12:00 1,000 mg INF PRN Administration TO ACHIEVE GOAL RASS Protocol Simvastatin 10 mg 09/09/20 21:00 09/22/20 21:11 Simvastatin 10 Mg Tab PO 10 mg HS QUINTEN Administration Sodium Chloride 10 ml 09/02/20 02:30 09/13/20 07:48 Flush - Normal Saline 10 Ml Syringe IVF 10 ml PRN PRN Administration Saline Flush Throat Lozenges 1 ramesh 09/02/20 11:14 09/04/20 08:37 Cepastat Lozenges 1 Ramesh PO 1 ramesh Q4H PRN Administration Cough Zinc Sulfate 220 mg 09/14/20 09:00 09/23/20 12:51 Zinc Sulfate 220 Mg Cap PER TUBE 220 mg DAILY QUINTEN Administration - Exam Neck: negative: supple, symmetric, no JVD, no thyromegaly, no lymphadenopathy, no carotid bruit, JVD Heart: negative: RRR, no murmur, no gallops, no rubs, normal peripheral pulses, irregular, diminshed peripheral pulses, murmur present, II/IV, III/IV Respiratory: negative: CTAB, no wheezes, no rales, no ronchi, normal chest expansion, no tachypnea, normal percussion, rales, rhonchi, tachypneic, wheezes Hosp A/P - Plan (1) Pneumonia due to COVID-19 virus Code(s): U07.1 - COVID-19; J12.89 - OTHER VIRAL PNEUMONIA Status: Acute (2) Acute respiratory failure with hypoxia Code(s): J96.01 - ACUTE RESPIRATORY FAILURE WITH HYPOXIA Status: Acute (3) Diarrhea due to COVID-19 Code(s): U07.1 - COVID-19; A08.39 - OTHER VIRAL ENTERITIS Status: Resolved (4) CHF (congestive heart failure) Code(s): I50.9 - HEART FAILURE, UNSPECIFIED Status: Chronic Qualifiers: Heart failure type: diastolic Heart failure chronicity: chronic Qualified Code(s): I50.32 - Chronic diastolic (congestive) heart failure (5) Asthma Code(s): J45.909 - UNSPECIFIED ASTHMA, UNCOMPLICATED Status: Chronic Qualifiers: Asthma severity: mild Asthma persistence: intermittent Asthma com plication type: uncomplicated Qualified Code(s): J45.20 - Mild intermittent asthma, uncomplicated (6) Obesity Code(s): E66.9 - OBESITY, UNSPECIFIED Status: Chronic Qualifiers: Body mass index: BMI 35.0-35.9 (7) DM type 2 (diabetes mellitus, type 2) Status: Chronic Qualifiers: Diabetes mellitus regional intermodal truck driver insulin use: with regional intermodal truck driver use (8) Hypothyroidism Code(s): E03.9 - HYPOTHYROIDISM, UNSPECIFIED Status: Chronic Qualifiers: Hypothyroidism type: acquired Qualified Code(s): E03.9 - Hypothyroidism, unspecified (9) Dyslipidemia Code(s): E78.5 - HYPERLIPIDEMIA, UNSPECIFIED Status: Chronic (10) Pneumothorax Code(s): J93.9 - PNEUMOTHORAX, UNSPECIFIED Status: Acute Qualifiers: Pneumothorax type: spontaneous, primary Qualified Code(s): J93.11 - Primary spontaneous pneumothorax (11) Subcutaneous emphysema Code(s): T79.7XXA - TRAUMATIC SUBCUTANEOUS EMPHYSEMA, INITIAL ENCOUNTER Status: Acute Qualifiers: Encounter type: subsequent encounter Qualified Code(s): T79.7XXD - Traumatic subcutaneous emphysema, subsequent encounter - Plan has b/l pneumothorax with chest tubes from 09/18, subcut emphysema she got intubated on 09/13, its day 9 on vent, prior to which was on high flow. is on steroids, merrem, micafungin, albuterol, dulera continue aspirin, tricor, glipizide, lantus u 40 bid, synthroid, zocor, inderal, protonix finished remdesivir (09/07), got convalescent plasma 09/04 dm is slowly getting controlled with tapering of steroids, will f/u trend hemostable prognosis guarded, d/w daughter over phone 09/17, 09/21, 09/2020. is DNAR 1/2 patient has significantly elevated WBCs. She is on meropenem, Zyvox, micafungin. Continue DVT prophylaxis. Patient follows commands per nursing sta ff.
[2020-09-23] MEDS: Cholecalciferol 1,000 UNITS (25 MCG) TAB PER TUBE SCH (19:49)
[2020-09-23] MEDS: Pantoprazole 40 MG GRANULES PACKET PO SCH (19:50)
[2020-09-23] MEDS: Simvastatin 10 MG TAB PO SCH (19:51)
[2020-09-23] MEDS ORDERED: Morphine 2 MG/ML VIAL SLOW IVP PRN (23:30)
[2020-09-23] MEDS ORDERED: Fentanyl BOLUS 250 ML IVPB PRN (23:31)
[2020-09-24] MEDS: fentaNYL Citrate/PF 2,000 MCG in Sodium Chloride 0.9% 60 ML IV SCH ×2 (00:42→14:57)
[2020-09-24] MEDS: Albuterol 200 PUFF (6.7GM INHALER) INH SCH ×4 (01:21→19:22)
[2020-09-24] MEDS: HumaLOG 300 UNITS/3 ML VIAL SC PRN ×3 (01:55→12:47)
[2020-09-24 05:06] LABS: ALT (SGPT) 34 U/L (8-55); AST (SGOT) 60 U/L (5-34); Albumin 2.6 g/dL (3.4-4.8); Alkaline Phosphatase 77 U/L (40-110); Anion Gap 13 mmol/L (10-20); BUN (Urea Nitrogen) 51 mg/dL (9.8-20.1); Bilirubin, Direct 0.3 mg/dL (0.1-0.3); Bilirubin, Total 0.7 mg/dL (0.2-1.2); Calc. Creatinine Clearance 110 mL/min (70-130); Calcium 8.6 mg/dL (7.8-10.44); Carbon Dioxide 36 mmol/L (23-31); Chloride 96 mmol/L (98-107); Glucose 234 mg/dL (83-110); Potassium 4.5 mmol/L (3.5-5.1); Sodium 140 mmol/L (136-145)
[2020-09-24 05:27] LABS: Band 3 % (5-11); Hemoglobin 9.8 g/dL (12.0-16.0); Lymphocytes 3 % (21-51); MDiff Complete? YES; Mean Corpuscular HGB CONC 32.2 g/dL (32.0-36.0); Mean Corpuscular Hemoglobin 32.2 pg (27.0-31.0); Mean Platelet Volume 10.4 fL (7.4-10.4); Metamyelocyte 1 % (0-0); Monocytes 3 % (0-10); Myelocyte 1 % (0-0); Neutrophil 89 % (42-75); Platelet Count 205 thou/uL (130-400); Polychromasia SLIGHT = 2-3 cells (100X) (0-2/hpf); RBC Distribution Width 14.3 % (11.5-14.5); Red Blood Cell (RBC) Count 3.06 mill/uL (4.20-5.40); White Blood Cell (WBC) Count 34.8 thou/uL (4.8-10.8)
[2020-09-24] MEDS: Meropenem 2 GM, Admixture Fee 1 EACH in Sodium Chloride 0.9% 100 ML IVPB SCH ×3 (06:20→22:51)
[2020-09-24] MEDS: Levothyroxine Sodium 112 MCG TAB PO SCH (06:21)
[2020-09-24] MEDS: Insulin Glargine 50 UNITS in Pre-Filled Syringe 1 EACH SC SCH ×2 (08:30→20:00)
[2020-09-24] MEDS: Linezolid 600 MG in Premix Bag 1 BAG IVPB SCH ×2 (08:31→20:00)
[2020-09-24] MEDS: Ascorbic Acid 500 mg Chewable Tablet PER TUBE SCH (08:31)
[2020-09-24] MEDS: Enoxaparin Sodium 40 MG/0.4 ML SYRINGE SC SCH ×2 (08:31→20:00)
[2020-09-24] MEDS: methylPREDNISolone Sod Succ 40 MG VIAL IVP SCH ×2 (08:31→20:02)
[2020-09-24] MEDS: Zinc Sulfate 220 MG CAP PER TUBE SCH (08:32)
[2020-09-24] MEDS: Furosemide 20 MG TAB PO SCH (08:32)
[2020-09-24] MEDS: Benzonatate 100 MG CAP PO SCH ×3 (08:32→19:33)
[2020-09-24] MEDS: guaiFENesin ER 600 MG TAB PO SCH ×2 (08:32→20:00)
[2020-09-24] MEDS: Fenofibrate 48 MG TAB PO SCH (08:32)
[2020-09-24] MEDS: glipiZIDE 5 MG TAB PO SCH (08:32)
[2020-09-24] MEDS: Aspirin 81 mg Enteric Coated Tablet PO SCH (08:32)
[2020-09-24] MEDS: Calcium Carbonate 600 MG TAB PO SCH (08:32)
[2020-09-24] MEDS: Metoprolol Tartrate 50 MG TAB PO SCH ×2 (08:34→21:59)
[2020-09-24] MEDS: Losartan 25 MG TAB PO SCH (08:35)
[2020-09-24] MEDS: Mometasone 200 MCG/Formoterol 5 MCG 120 PUFF INHALER INH SCH ×2 (08:50→19:23)
[2020-09-24 08:53] LABS: Actual Bicarbonate (HCO3a) 34.9 mEq/L (22-28); CO2 Tension 49.8 mmHg (35.0-45.0); Calcium, Ionized (arterial) 1.17 mmol/L (1.12-1.30); Carboxyhemoglobin (COHb) 0.8 gm% (0.0-3.0); Hemoglobin (Hb) 9.8 g/dL (12.0-16.0); pH, Arterial 7.46 (7.35-7.45)
[2020-09-24 08:54] LABS: O2 Tension (PaO2), arterial 59.9 mmHg (> 70.0); Puncture Site RRA
--- NOTE | 2020-09-24 09:01 | RAD ---
Chest one view HISTORY: Pneumonia. Follow-up. COMPARISON: 221. FINDINGS: Cardiac silhouette is magnified by projection. Pulmonary vasculature remains predominantly obscured by widespread reticulonodular interstitial prominence and patchy areas of parenchymal infiltrate. Mediastinum is midline. Bilateral thoracostomy tubes and other lines and tubes unchanged in position. Left mediastinal gas much less conspicuous on the current exam. Chest wall gas has also decreased sli ghtly. No evidence of pneumothorax. IMPRESSION : Slight interval improvement, with decrease in mediastinal and chest wall gas. Other findings are stable.
[2020-09-24] MEDS ORDERED: Morphine 4 MG/ML VIAL SLOW IVP PRN (10:40)
--- NOTE | 2020-09-24 11:07 | PRG ---
DATE OF SERVICE: SUBJECTIVE: Remains on the vent with bilateral chest tubes in place. She is looking better. She is appropriate, having significant pain. Temperature was yesterday up to 101.6. She was started on broad-spectrum antibiotics. So far, cultures are negative. OBJECTIVE: VITAL SIGNS: Blood pressure is 90/53, saturations are 100%, respiratory rate is 18. LABORATORY DATA: PO2 was 59, pCO2 of 49, , rate of 16, 60%, and a low PEEP of 7. White count is still 34,000. ASSESSMENT: Respiratory failure, persistent fever, bilateral chest tubes, roland positive pneumonia. She is day #21 on the vent. Family is going to make a decision even though she is a DNR, whether we should consider trach, PEG, extubation, comfort care, etc. One-half hour of critical time. Job ID: [id number]
[2020-09-24] MEDS: Albumin 25% 25 GM/100 ML BOT IVPB SCH ×3 (11:42→22:51)
[2020-09-24] MEDS: Micafungin 100 MG in Sodium Chloride 0.9% 100 ML IVPB SCH (11:42)
[2020-09-24 11:58] LABS: Bilirubin Negative (Negative); Blood, Urine 3+ (Negative); Clarity Clear (Clear); Glucose, Urine (Dipstick) Normal (Negative); Ketone, Urine Trace mg/dL (Negative); Leukocyte Negative Leu/uL (Negative); Nitrite Negative (Negative); Protein, Urine (Dipstick) 30 mg/dL (Neg-Trace); RBC/HPF 0-3 HPF (0-3); Specific Gravity, Urine 1.023 (1.002-1.036); Squamous Epithelial None Seen HPF (0-3); pH, Urine 6.5 (5.0-9.0)
[2020-09-24 11:59] LABS: Bacteria/HPF 1+ HPF (None Seen)
[2020-09-24 12:00] LABS: Urine Culture Reflex Yes Yes
[2020-09-24] MEDS: Lorazepam 2 MG/ML VIAL SLOW IVP PRN ×2 (14:45→17:38)
--- NOTE | 2020-09-24 18:26 | PDOC.HOSPP ---
- Subjective Encounter Date: 09/24/20 Encounter Time: 12:45 Subjective: Patient intubated. Patient seen by pulmonology did not see the patient today. - Objective Vital Signs & Weight: Vital Signs (12 hours) Pulse Resp BP Pulse Ox 09/24/20 18:00 17 09/24/20 16:00 21 H 09/24/20 14:35 92 09/24/20 14:00 26 H 09/24/20 12:00 29 H 09/24/20 11:27 78 148/60 H 09/24/20 10:00 16 09/24/20 08:41 78 09/24/20 08:00 16 93 L Weight Admit Weight 238 lb 1.6 oz Weight 230 lb 2.601 oz Most Recent Monitor Data Heart Rate from ECG 108 NIBP 164/69 NIBP BP-Mean 100 Respiration from ECG 15 SpO2 91 I&O: 09/23/20 09/24/20 09/25/20 06:59 06:59 06:59 Intake Total 3378 3226.8 1454 Output Total 3060 2410 885 Balance 318 816.8 569 Result Diagrams: 09/24/20 03:50 09/24/20 03:50 Additional Labs: Accuchecks 09/24/20 09/24/20 09/24/20 16:29 12:01 03:52 POC Glucose 134 H 164 H 237 H 09/24/20 09/23/20 00:49 20:02 POC Glucose 276 H 181 H Hospitalist ROS - Review of Systems Other: Patient intubated - Medication Medications: Active Medications Generic Name Dose Route Start Last Admin Trade Name Freq PRN Reason Stop Dose Admin Acetaminophen 650 mg 09/02/20 01:53 09/23/20 07:18 Acetaminophen 325 Mg Tab PO 650 mg Q4H PRN Administration Headache/Fever/Mild Pain (1-3) Albumin Human 25 gm 09/24/20 11:00 09/24/20 16:04 Albumin 25% 25 Gm/100 Ml Bot IVPB 09/24/20 23:01 25 gm Q6H QUINTEN Administration Albuterol Sulfate 2 puff 09/02/20 19:00 09/24/20 14:34 Albuterol 200 Puff (6.7gm Inhaler) INH 2 puff [id number] QUINTEN Administration Ascorbic Acid 1,000 mg 09/14/20 09:00 09/24/20 08:31 Ascorbic Acid 500 Mg Chewable Tablet PER TUBE 1,000 mg DAILY QUINTEN Administration Aspirin 81 mg 09/02/20 09:00 09/24/20 08:32 Aspirin 81 Mg Enteric Coated Tablet PO 81 mg DAILY QUINTEN Administration Benzonatate 100 mg 09/02/20 15:00 09/24/20 11:43 Benzonatate 100 Mg Cap PO Not Given TID QUINTEN Bisacodyl 10 mg 09/10/20 12:38 09/19/20 12:39 Bisacodyl 5 Mg Tab PO 10 mg DAILYPRN PRN Administration Constipation Calcium Carbonate 600 mg 09/10/20 09:00 09/24/20 08:32 Calcium Carbonate 600 Mg Tab PO 600 mg DAILY QUINTEN Administration Cholecalciferol 5,000 units 09/13/20 21:00 09/23/20 19:49 Cholecalciferol 1,000 Units (25 Mcg) Tab PER TUBE 5,000 units HS QUINTEN Administration Clonidine 0.1 mg 09/20/20 08:47 09/20/20 14:50 Clonidine 0.1 Mg Tab PO 0.1 mg Q4H PRN Administration Hypertension SBP>180 Enoxaparin Sodium 40 mg 09/05/20 21:00 09/24/20 08:31 Enoxaparin Sodium 40 Mg/0.4 Ml Syringe SC 40 mg 09,2100 QUINTEN Administration Fenofibrate 48 mg 09/02/20 09:00 09/24/20 08:32 Fenofibrate 48 Mg Tab PO 48 mg DAILY QUINTEN Administration Furosemide 20 mg 09/20/20 09:00 09/24/20 08:32 Furosemide 20 Mg Tab PO 20 mg DAILY QUINTEN Administration Glipizide 5 mg 09/08/20 07:30 09/24/20 08:32 Glipizide 5 Mg Tab PO 5 mg DAILY-AC QUINTEN Administration Guaifenesin 600 mg 09/02/20 21:00 09/24/20 08:32 Guaifenesin Er 600 Mg Tab PO 600 mg Q12HR QUINTEN Administration Guaifenesin 200 mg 09/02/20 11:15 09/21/20 21:48 Diabetic Tussin 200 Mg/10 Ml Udcup PO 200 mg Q4H PRN Administration Cough Meropenem 2 gm/ Miscellaneous 100 mls @ 200 mls/hr 09/13/20 14:00 09/24/20 14:38 Medication 1 each/ Sodium IVPB 100 mls Chloride Q8HR QUINTEN Administration Micafungin Sodium 100 mg/ 100 mls @ 100 mls/hr 09/13/20 12:00 09/24/20 11:42 Sodium Chloride IVPB 100 mls 1200 QUINTEN Administration Linezolid 600 mg/ Device 300 mls @ 150 mls/hr 09/22/20 21:00 09/24/20 08:31 IVPB 300 mls Q12HR QUINTEN Administration Insulin Glargine 50 units/ 0.5 mls @ 0 mls/hr 09/22/20 21:00 09/24/20 08:30 Miscellaneous Medication SC 0.5 mls BID QUINTEN Administration As Directed Fentanyl Citrate 2,000 mcg/ 100 mls @ 0 mls/hr 09/23/20 23:45 09/24/20 14:57 Sodium Chloride IV 100 mls INF QUINTEN Administration Protocol Per Protocol Insulin Human Lispro 0 units 09/03/20 20:47 09/21/20 16:10 Humalog 300 Units/3 Ml Vial SC 6 unit .BEDTIME SLIDING SC PRN Administration Bedtime Correctional Scale Insulin Human Lispro 0 units 09/06/20 05:30 09/24/20 12:47 Humalog 300 Units/3 Ml Vial SC 3 unit .AGGRESSIVE SLIDING PRN Administration AGGRESSIVE SLIDING SCALE Protocol Levothyroxine Sodium 112 mcg 09/17/20 06:00 09/24/20 06:21 Levothyroxine Sodium 112 Mcg Tab PO 112 mcg 0600 QUINTEN Administration Loratadine 10 mg 09/09/20 12:43 09/10/20 22:30 Loratadine 10 Mg Tab PO 10 mg DAILY PRN Administration Allergies Lorazepam 1 mg 09/23/20 18:10 09/23/20 18:35 Lorazepam 2 Mg/Ml Vial SLOW IVP 1 mg Q6H PRN Administration Anxiety/Agitation Lorazepam 2 mg 09/23/20 23:30 09/24/20 17:38 Lorazepam 2 Mg/Ml Vial SLOW IVP 2 mg Q1H PRN Administration Breakthrough agitation Losartan Potassium 50 mg 09/21/20 09:00 09/24/20 08:35 Losartan 25 Mg Tab PO Not Given DAILY QUINTEN Magnesium Hydroxide 30 ml 09/10/20 12:38 09/20/20 09:21 Milk Of Magnesia 30 Ml Udcup PO 30 ml DAILYPRN PRN Administration Constipation Methylprednisolone Sodium Succinate 40 mg 09/19/20 09:00 09/24/20 08:31 Methylprednisolone Sod Succ 40 Mg Vial IVP 40 mg BID QUINTEN Administration Metoprolol Tartrate 50 mg 09/20/20 09:00 09/24/20 08:34 Metoprolol Tartrate 50 Mg Tab PO Not Given BID QUINTEN Mometasone Furoate/Formoterol Fumar 2 puff 09/05/20 18:30 09/24/20 08:50 Mometasone 200 Mcg/Formoterol 5 Mcg 120 Puff Inhaler INH 2 puff BID-RT QUINTEN Administration Morphine Sulfate 2 mg 09/23/20 23:30 09/24/20 10:46 Morphine 2 Mg/Ml Vial SLOW IVP 2 mg Q1H PRN Administration Breakthrough Pain/Agitation Pantoprazole Sodium 40 mg 09/20/20 21:00 09/23/20 19:50 Pantoprazole 40 Mg Granules Packet PO 40 mg HS QUINTEN Administration Propofol 1,000 mg 09/13/20 12:00 09/20/20 05:49 Propofol 1,000 Mg/100 Ml Vial IV 10/13/20 12:00 1,000 mg INF PRN Administration TO ACHIEVE GOAL RASS Protocol Simvastatin 10 mg 09/09/20 21:00 09/23/20 19:51 Simvastatin 10 Mg Tab PO 10 mg HS QUINTEN Administration Sodium Chloride 10 ml 09/02/20 02:30 09/13/20 07:48 Flush - Normal Saline 10 Ml Syringe IVF 10 ml PRN PRN Administration Saline Flush Throat Lozenges 1 ramesh 09/02/20 11:14 09/04/20 08:37 Cepastat Lozenges 1 Ramesh PO 1 ramesh Q4H PRN Administration Cough Zinc Sulfate 220 mg 09/14/20 09:00 09/24/20 08:32 Zinc Sulfate 220 Mg Cap PER TUBE 220 mg DAILY QUINTEN Administration Hosp A/P - Plan (1) Pneumonia due to COVID-19 virus Code(s): U07.1 - COVID-19; J12.89 - OTHER VIRAL PNEUMONIA Status: Acute (2) Acute respiratory failure with hypoxia Code(s): J96.01 - ACUTE RESPIRATORY FAILURE WITH HYPOXIA Status: Acute (3) Diarrhea due to COVID-19 Code(s): U07.1 - COVID-19; A08.39 - OTHER VIRAL ENTERITIS Status: Resolved (4) CHF (congestive heart failure) Code(s): I50.9 - HEART FAILURE, UNSPECIFIED Status: Chronic Qualifiers: Heart failure type: diastolic Heart failure chronicity: chronic Qualified Code(s): I50.32 - Chronic diastolic (congestive) heart failure (5) Asthma Code(s): J45.909 - UNSPECIFIED ASTHMA, UNCOMPLICATED Status: Chronic Qualifiers: Asthma severity: mild Asthma persistence: intermittent Asthma complication type: uncomplicated Qualified Code(s): J45.20 - Mild intermittent asthma, uncomplicated (6) Obesity Code(s): E66.9 - OBESITY, UNSPECIFIED Status: Chronic Qualifiers: Body mass index: BMI 35.0-35.9 (7) DM type 2 (diabetes mellitus, type 2) Status: Chronic Qualifiers: Diabetes mellitus long term care pharmacist insulin use: with long term care pharmacist use (8) Hypothyroidism Code(s): E03.9 - HYPOTHYROIDISM, UNSPECIFIED Status: Chronic Qualifiers: Hypothyroidism type: acquired Qualified Code(s): E03.9 - Hypothyroidism, unspecified (9) Dyslipidemia Code(s): E78.5 - HYPERLIPIDEMIA, UNSPECIFIED Status: Chronic (10) Pneumothorax Code(s): J93.9 - PNEUMOTHORAX, UNSPECIFIED Status: Acute Qualifiers: Pneumothorax type: spontaneous, primary Qualified Code(s): J93.11 - Primary spontaneous pneumothorax (11) Subcutaneous emphysema Code(s): T79.7XXA - TRAUMATIC SUBCUTANEOUS EMPHYSEMA, INITIAL ENCOUNTER St at[facility]: Acute Qualifiers: Encounter type: subsequent encounter Qualified Code(s): T79.7XXD - Traumatic subcutaneous emphysema, subsequent encounter - Plan has b/l pneumothorax with chest tubes from 09/18, subcut emphysema she got intubated on 09/13, its day 9 on vent, prior to which was on high flow. is on steroids, merrem, micafungin, albuterol, dulera continue aspirin, tricor, glipizide, lantus u 40 bid, synthroid, zocor, inderal, protonix finished remdesivir (09/07), got convalescent plasma 09/04 dm is slowly getting controlled with tapering of steroids, will f/u trend hemostable prognosis guarded, d/w daughter over phone 09/17, 12/31, 09/2020. is DNAR 09/23 patient has significantly elevated WBCs. She is on meropenem, Zyvox, micafungin. Continue DVT prophylaxis. Patient follows commands per nursing staff. 09/24 patient continues to have elevated WBCs. Nurse called stating pink frothy sputum from patient's chest tube. Will give Lasix x1. We will also check magnesium and phosphorus.
[2020-09-24] MEDS ORDERED: Furosemide 40 MG/4 ML VIAL SLOW IVP SCH (18:30)
[2020-09-24 19:44] LABS: Magnesium 2.2 mg/dL (1.6-2.6); Phosphorus 4.4 mg/dL (2.3-4.7)
[2020-09-24] MEDS: Cholecalciferol 1,000 UNITS (25 MCG) TAB PER TUBE SCH (19:59)
[2020-09-24] MEDS: Pantoprazole 40 MG GRANULES PACKET PO SCH (20:02)
[2020-09-24] MEDS: Simvastatin 10 MG TAB PO SCH (20:03)
[2020-09-25] MEDS: Albuterol 200 PUFF (6.7GM INHALER) INH SCH ×4 (00:17→19:56)
[2020-09-25] MEDS: HumaLOG 300 UNITS/3 ML VIAL SC PRN (00:25)
[2020-09-25] MEDS: Lorazepam 2 MG/ML VIAL SLOW IVP PRN ×3 (04:41→23:56)
[2020-09-25 05:01] LABS: ALT (SGPT) 37 U/L (8-55); AST (SGOT) 80 U/L (5-34); Albumin 3.9 g/dL (3.4-4.8); Alkaline Phosphatase 60 U/L (40-110); BUN (Urea Nitrogen) 50 mg/dL (9.8-20.1); Bilirubin, Direct 0.5 mg/dL (0.1-0.3); Calc. Creatinine Clearance 121 mL/min (70-130); Glucose 144 mg/dL (83-110); Protein, Total 5.8 g/dL (6.0-8.3)
[2020-09-25 05:10] LABS: Anion Gap 20 mmol/L (10-20); Carbon Dioxide 34 mmol/L (23-31); Chloride 93 mmol/L (98-107); Potassium 4.2 mmol/L (3.5-5.1); Sodium 143 mmol/L (136-145)
[2020-09-25 05:49] LABS: Band 13 % (5-11); Hemoglobin 7.6 g/dL (12.0-16.0); Lymphocytes 7 % (21-51); MDiff Complete? YES; Mean Corpuscular Hemoglobin 32.8 pg (27.0-31.0); Mean Platelet Volume 10.5 fL (7.4-10.4); Monocytes 3 % (0-10); Neutrophil 77 % (42-75); Platelet Count 151 thou/uL (130-400); RBC Distribution Width 16.3 % (11.5-14.5); White Blood Cell (WBC) Count 22.8 thou/uL (4.8-10.8)
[2020-09-25] MEDS: Meropenem 2 GM, Admixture Fee 1 EACH in Sodium Chloride 0.9% 100 ML IVPB SCH ×3 (05:55→22:13)
[2020-09-25] MEDS: Levothyroxine Sodium 112 MCG TAB PO SCH (05:55)
[2020-09-25] MEDS: fentaNYL Citrate/PF 2,000 MCG in Sodium Chloride 0.9% 60 ML IV SCH ×2 (06:33→23:05)
--- NOTE | 2020-09-25 08:02 | RAD ---
Chest one view HISTORY: Pneumonia. Follow-up. COMPARISON: 09/24/2020. FINDINGS: Cardiac silhouette is magnified by projection. Pulmonary vasculature remains accentuated by shallow inspiration. Ill-defined patchy areas of parenchymal opacity throughout each lung similar in appearance to the nieves or study. Mediastinum is midline lines and tubes unchanged in position. Bilateral thoracostomy tubes remain in place. No evidence of pneumothorax. Chest wall gas is not sign ificantly changed. IMPRESSION : No interval change.
[2020-09-25] MEDS: glipiZIDE 5 MG TAB PO SCH (08:25)
[2020-09-25] MEDS: Insulin Glargine 50 UNITS in Pre-Filled Syringe 1 EACH SC SCH ×2 (09:07→22:05)
[2020-09-25] MEDS: Linezolid 600 MG in Premix Bag 1 BAG IVPB SCH ×2 (09:07→20:39)
[2020-09-25] MEDS: Calcium Carbonate 600 MG TAB PO SCH (09:08)
[2020-09-25] MEDS: Aspirin 81 mg Enteric Coated Tablet PO SCH (09:08)
[2020-09-25] MEDS: Losartan 25 MG TAB PO SCH (09:08)
[2020-09-25] MEDS: Enoxaparin Sodium 40 MG/0.4 ML SYRINGE SC SCH ×2 (09:08→20:40)
[2020-09-25] MEDS: Benzonatate 100 MG CAP PO SCH ×3 (09:08→22:05)
[2020-09-25] MEDS: Metoprolol Tartrate 50 MG TAB PO SCH ×2 (09:08→22:06)
[2020-09-25] MEDS: Ascorbic Acid 500 mg Chewable Tablet PER TUBE SCH (09:09)
[2020-09-25] MEDS: Zinc Sulfate 220 MG CAP PER TUBE SCH (09:09)
[2020-09-25] MEDS: guaiFENesin ER 600 MG TAB PO SCH (09:09)
[2020-09-25] MEDS: methylPREDNISolone Sod Succ 40 MG VIAL IVP SCH ×2 (09:10→20:39)
[2020-09-25] MEDS: Furosemide 20 MG TAB PO SCH (09:10)
[2020-09-25] MEDS: Fenofibrate 48 MG TAB PO SCH (09:19)
[2020-09-25] MEDS: Mometasone 200 MCG/Formoterol 5 MCG 120 PUFF INHALER INH SCH ×2 (09:44→19:56)
[2020-09-25 10:16] LABS: Actual Bicarbonate (HCO3a) 43.6 mEq/L (22-28); Hemoglobin (Hb) 9.3 g/dL (12.0-16.0); pH, Arterial 7.44 (7.35-7.45)
[2020-09-25 10:17] LABS: Calcium, Ionized (arterial) 1.15 mmol/L (1.12-1.30); Carboxyhemoglobin (COHb) 1.1 gm% (0.0-3.0); Potassium - ABG Lab 3.91 mmol/L (3.70-5.30)
[2020-09-25 10:24] LABS: CO2 Tension 66.3 mmHg (35.0-45.0); O2 Tension (PaO2), arterial 53.2 mmHg (> 70.0)
[2020-09-25 10:26] LABS: ALV-art Gradient 256.075 mmHg (0-20); Puncture Site RRA
[2020-09-25] MEDS: Micafungin 100 MG in Sodium Chloride 0.9% 100 ML IVPB SCH (11:23)
--- NOTE | 2020-09-25 15:42 | PDOC.HOSPP ---
- Subjective Encounter Date: 09/25/20 Encounter Time: 11:45 Subjective: Patient intubated. Patient seen by pulmonology so I did not examine the patient today - Objective Vital Signs & Weight: Vital Signs (12 hours) Pulse Resp BP Pulse Ox 09/25/20 15:28 71 154/46 H 09/25/20 14:00 12 09/25/20 12:42 85 150/62 H 09/25/20 12:00 22 H 09/25/20 11:28 78 142/57 H 09/25/20 10:00 21 H 09/25/20 09:45 88 144/52 H 09/25/20 08:00 23 H 96 09/25/20 06:00 18 09/25/20 04:48 84 09/25/20 04:00 11 L Weight Admit Weight 238 lb 1.6 oz Weight 229 lb 4.492 oz Most Recent Monitor Data Heart Rate from ECG 80 NIBP 154/46 NIBP BP-Mean 82 Respiration from ECG 19 SpO2 91 I&O: 09/24/20 09/25/20 09/26/20 06:59 06:59 06:59 Intake Total 3226.8 2768 560 Output Total 2410 3515 760 Balance 816.8 -747 -200 Result Diagrams: 09/25/20 01:14 09/25/20 03:30 Additional Labs: Accuchecks 09/25/20 09/25/20 09/25/20 09:38 04:17 00:12 POC Glucose 94 148 H 201 H 09/24/20 09/24/20 09/24/20 20:58 16:29 09:06 POC Glucose 142 H 134 H 151 H Hospitalist ROS - Medication Medications: Active Medications Generic Name Dose Route Start Last Admin Trade Name Freq PRN Reason Stop Dose Admin Acetaminophen 650 mg 09/02/20 01:53 09/23/20 07:18 Acetaminophen 325 Mg Tab PO 650 mg Q4H PRN Administration Headache/Fever/Mild Pain (1-3) Albuterol Sulfate 2 puff 09/02/20 19:00 09/25/20 12:42 Albuterol 200 Puff (6.7gm Inhaler) INH 2 puff [id number] QUINTEN Administration Ascorbic Acid 1,000 mg 09/14/20 09:00 09/25/20 09:09 Ascorbic Acid 500 Mg Chewable Tablet PER TUBE 1,000 mg DAILY QUINTEN Administration Benzonatate 100 mg 09/02/20 15:00 09/25/20 14:24 Benzonatate 100 Mg Cap PO 100 mg TID QUINTEN Administration Bisacodyl 10 mg 09/10/20 12:38 09/19/20 12:39 Bisacodyl 5 Mg Tab PO 10 mg DAILYPRN PRN Administration Constipation Calcium Carbonate 600 mg 09/10/20 09:00 09/25/20 09:08 Calcium Carbonate 600 Mg Tab PO 600 mg DAILY QUNITEN Administration Cholecalciferol 5,000 units 09/13/20 21:00 09/24/20 19:59 Cholecalciferol 1,000 Units (25 Mcg) Tab PER TUBE 5,000 units HS QUINTEN Administration Clonidine 0.1 mg 09/20/20 08:47 09/20/20 14:50 Clonidine 0.1 Mg Tab PO 0.1 mg Q4H PRN Administration Hypertension SBP>180 Enoxaparin Sodium 40 mg 09/05/20 21:00 09/25/20 09:08 Enoxaparin Sodium 40 Mg/0.4 Ml Syringe SC 40 mg 09,2099 QUINTEN Administration Fenofibrate 48 mg 09/02/20 09:00 09/25/20 09:19 Fenofibrate 48 Mg Tab PO 48 mg DAILY QUINTEN Administration Furosemide 20 mg 09/20/20 09:00 09/25/20 09:10 Furosemide 20 Mg Tab PO 20 mg DAILY QUINTEN Administration Glipizide 5 mg 09/08/20 07:30 09/25/20 08:25 Glipizide 5 Mg Tab PO 5 mg DAILY-AC QUINTEN Administration Guaifenesin 200 mg 09/02/20 11:15 09/21/20 21:48 Diabetic Tussin 200 Mg/10 Ml Udcup PO 200 mg Q4H PRN Administration Cough Meropenem 2 gm/ Miscellaneous 100 mls @ 200 mls/hr 09/13/20 14:00 09/25/20 14:25 Medication 1 each/ Sodium IVPB 100 mls Chloride Q8HR QUINTEN Administration Micafungin Sodium 100 mg/ 100 mls @ 100 mls/hr 09/13/20 12:00 09/25/20 11:23 Sodium Chloride IVPB 100 mls 1200 QUINTEN Administration Linezolid 600 mg/ Device 300 mls @ 150 mls/hr 09/22/20 21:00 09/25/20 09:07 IVPB 300 mls Q12HR QUINTEN Administration Insulin Glargine 50 units/ 0.5 mls @ 0 mls/hr 09/22/20 21:00 09/25/20 09:07 Miscellaneous Medication SC 0.5 mls BID QUINTEN Administration As Directed Fentanyl Citrate 2,000 mcg/ 100 mls @ 0 mls/hr 09/23/20 23:45 09/25/20 06:33 Sodium Chloride IV 100 mls INF QUINTEN Administration Protocol Per Protocol Insulin Human Lispro 0 units 09/03/20 20:47 09/21/20 16:10 Humalog 300 Units/3 Ml Vial SC 6 unit .BEDTIME SLIDING SC PRN Administration Bedtime Correctional Scale Insulin Human Lispro 0 units 09/06/20 05:30 09/25/20 00:25 Humalog 300 Units/3 Ml Vial SC 6 unit .AGGRESSIVE SLIDING PRN Administration AGGRESSIVE SLIDING SCALE Protocol Levothyroxine Sodium 112 mcg 09/17/20 06:00 09/25/20 05:55 Levothyroxine Sodium 112 Mcg Tab PO 112 mcg 0600 QUINTEN Administration Loratadine 10 mg 09/09/20 12:43 09/10/20 22:30 Loratadine 10 Mg Tab PO 10 mg DAILY PRN Administration Allergies Lorazepam 2 mg 09/23/20 23:30 09/25/20 13:02 Lorazepam 2 Mg/Ml Vial SLOW IVP 2 mg Q1H PRN Administration Breakthrough agitation Losartan Potassium 50 mg 09/21/20 09:00 09/25/20 09:08 Losartan 25 Mg Tab PO 50 mg DAILY QUINTEN Administration Magnesium Hydroxide 30 ml 09/10/20 12:38 09/20/20 09:21 Milk Of Magnesia 30 Ml Udcup PO 30 ml DAILYPRN PRN Administration Constipation Methylprednisolone Sodium Succinate 40 mg 09/19/20 09:00 09/25/20 09:10 Methylprednisolone Sod Succ 40 Mg Vial IVP 40 mg BID QUINTEN Administration Metoprolol Tartrate 50 mg 09/20/20 09:00 09/25/20 09:08 Metoprolol Tartrate 50 Mg Tab PO 50 mg BID QUINTEN Administration Mometasone Furoate/Formoterol Fumar 2 puff 09/05/20 18:30 09/25/20 09:44 Mometasone 200 Mcg/Formoterol 5 Mcg 120 Puff Inhaler INH 2 puff BID-RT QUINTEN Administration Morphine Sulfate 2 mg 09/23/20 23:30 09/24/20 10:46 Morphine 2 Mg/Ml Vial SLOW IVP 2 mg Q1H PRN Administration Breakthrough Pain/Agitation Morphine Sulfate 4 mg 09/24/20 10:40 09/25/20 13:03 Morphine 4 Mg/Ml Vial SLOW IVP 4 mg Q2H PRN Administration Mild-Moderate Pain (1-5) Pantoprazole Sodium 40 mg 09/20/20 21:00 09/24/20 20:02 Pantoprazole 40 Mg Granules Packet PO 40 mg HS QUINTEN Administration Propofol 1,000 mg 09/13/20 12:00 09/20/20 05:49 Propofol 1,000 Mg/100 Ml Vial IV 10/13/20 12:00 1,000 mg INF PRN Administration TO ACHIEVE GOAL RASS Protocol Simvastatin 10 mg 09/09/20 21:00 09/24/20 20:03 Simvastatin 10 Mg Tab PO 10 mg HS QUINTEN Administration Sodium Chloride 10 ml 09/02/20 02:30 09/13/20 07:48 Flush - Normal Saline 10 Ml Syringe IVF 10 ml PRN PRN Administration Saline Flush Throat Lozenges 1 ramesh 09/02/20 11:14 09/04/20 08:37 Cepastat Lozenges 1 Ramesh PO 1 ramesh Q4H PRN Administration Cough Zinc Sulfate 220 mg 09/14/20 09:00 09/25/20 09:09 Zinc Sulfate 220 Mg Cap PER TUBE 220 mg DAILY QUINTEN Administration Hosp A/P - Plan (1) Pneumonia due to COVID-19 virus Code(s): U07.1 - COVID-19; J12.89 - OTHER VIRAL PNEUMONIA Status: Acute (2) Acute respiratory failure with hypoxia Code(s): J96.01 - ACUTE RESPIRATORY FAILURE WITH HYPOXIA Status: Acute (3) Diarrhea due to COVID-19 Code(s): U07.1 - COVID-19; A08.39 - OTHER VIRAL ENTERITIS Status: Resolved (4) CHF (congestive heart failure) Code(s): I50.9 - HEART FAILURE, UNSPECIFIED Status: Chronic Qualifiers: Heart failure type: diastolic Heart failure chronicity: chronic Qualified Code(s): I50.32 - Chronic diastolic (congestive) heart failure (5) Asthma Code(s): J45.909 - UNSPECIFIED ASTHMA, UNCOMPLICATED Status: Chronic Qualifiers: Asthma severity: mild Asthma persistence: intermittent Asthma complication type: uncomplicated Qualified Code(s): J45.20 - Mild intermittent asthma, uncomplicated (6) Obesity Code(s): E66.9 - OBESITY, UNSPECIFIED Status: Chronic Qualifiers: Body mass index: BMI 35.0-35.9 (7) DM type 2 (diabetes mellitus, type 2) Status: Chronic Qualifiers: Diabetes mellitus nursing home insulin use: with terminal operator use (8) Hypothyroidism Code(s): E03.9 - HYPOTHYROIDISM, UNSPECIFIED Status: Chronic Qualifiers: Hypothyroidism type: acquired Qualified Code(s): E03.9 - Hypothyroidism, unspecified (9) Dyslipidemia Code(s): E78.5 - HYPERLIPIDEMIA, UNSPECIFIED Status: Chronic (10) Pneumothorax Code(s): J93.9 - PNEUMOTHORAX, UNSPECIFIED Status: Acute Qualifiers: Pneumothorax type: spontaneous, primary Qualified Code(s): J93.11 - Primary spontaneous pneumothorax (11) Subcutaneous emphysema Code(s): T79.7XXA - TRAUMATIC SUBCUTANEOUS EMPHYSEMA, INITIAL ENCOUNTER Status: Acute Qualifiers: Encounter type: subsequent encounter Qualified Code(s): T79.7XXD - Traumatic subcutaneous emphysema, subsequent encounter - Plan has b/l pneumothorax with chest tubes from 09/18, subcut emphysema she got intubated on 09/13, its day 9 on vent, prior to which was on high flow. is on steroids, merrem, micafungin, albuterol, dulera continue aspirin, tricor, glipizide, lantus u 40 bid, synthroid, zocor, inderal, protonix finished remdesivir (09/07), got convalescent plasma 09/04 dm is slowly getting controlled with tapering of steroids, will f/u trend hemostable prognosis guarded, d/w daughter over phone 09/17, 09/21, 09/2020. is DNAR 09/23 patient has significantly elevated WBCs. She is on meropenem, Zyvox, micafungin. Continue DVT prophylaxis. Patient follows commands per nursing staff. 1/ patient continues to have elevated WBCs. Nurse called stating pink frothy sputum from patient's chest tube. Will give Lasix x1. We will also check magnesium and phosphorus. 1/ patient's oxygenation decreased from 60 to 55% she was unable to tolerate 50%. Most likely will require tracheostomy and PEG tube. Overall prognosis is poor. I did call patient's and updated him he is okay with patient getting a tracheostomy and a PEG tube. Continues to have elevated white count however slightly improvement noted.
[2020-09-25] MEDS: Pantoprazole 40 MG GRANULES PACKET PO SCH (20:39)
[2020-09-25] MEDS: Simvastatin 10 MG TAB PO SCH (20:40)
[2020-09-25] MEDS: Propofol 1,000 MG/100 ML VIAL IV PRN (20:41)
[2020-09-25] MEDS: Cholecalciferol 1,000 UNITS (25 MCG) TAB PER TUBE SCH (22:08)
[2020-09-26] MEDS: Albuterol 200 PUFF (6.7GM INHALER) INH SCH ×4 (00:17→19:24)
[2020-09-26 05:05] LABS: ALT (SGPT) 49 U/L (8-55); AST (SGOT) 119 U/L (5-34); Albumin 3.4 g/dL (3.4-4.8); Alkaline Phosphatase 63 U/L (40-110); BUN (Urea Nitrogen) 34 mg/dL (9.8-20.1); Bilirubin, Direct 0.4 mg/dL (0.1-0.3); Calc. Creatinine Clearance 139 mL/min (70-130); Calcium 8.7 mg/dL (7.8-10.44); Glucose 81 mg/dL (83-110); Protein, Total 5.3 g/dL (6.0-8.3)
[2020-09-26 05:15] LABS: Anion Gap 19 mmol/L (10-20); Carbon Dioxide 33 mmol/L (23-31); Chloride 94 mmol/L (98-107); Potassium 4.3 mmol/L (3.5-5.1); Sodium 142 mmol/L (136-145)
[2020-09-26] MEDS: Levothyroxine Sodium 112 MCG TAB PO SCH (05:16)
[2020-09-26 05:30] LABS: Band 3 % (5-11); Hemoglobin 8.9 g/dL (12.0-16.0); Lymphocytes 4 % (21-51); MDiff Complete? YES; Mean Corpuscular Hemoglobin 33.3 pg (27.0-31.0); Mean Platelet Volume 10.8 fL (7.4-10.4); Monocytes 1 % (0-10); Neutrophil 92 % (42-75); Platelet Count 165 thou/uL (130-400); Polychromasia SLIGHT = 2-3 cells (100X) (0-2/hpf); RBC Distribution Width 17.4 % (11.5-14.5); Red Blood Cell (RBC) Count 2.68 mill/uL (4.20-5.40); White Blood Cell (WBC) Count 22.3 thou/uL (4.8-10.8)
[2020-09-26] MEDS: Meropenem 2 GM, Admixture Fee 1 EACH in Sodium Chloride 0.9% 100 ML IVPB SCH (06:10)
--- NOTE | 2020-09-26 07:49 | RAD ---
Chest one view HISTORY: Pneumonia. Follow-up. COMPARISON: 09/25/2020. FINDINGS: Cardiac silhouette is magnified by projection. Pulmonary vasculature accentuated by shallow inspiration. Mediastinum is midline. Lines and tubes unchanged in position. Bilateral thoracostomy tubes remain in place. No evidence of pneumothorax. Widespread reticulonodular interstitial prominence unchanged in appearance. Chest wall gas again demonstrated. IMPRESSION : No interval change.
[2020-09-26] MEDS: glipiZIDE 5 MG TAB PO SCH (08:17)
[2020-09-26] MEDS: Propofol 1,000 MG/100 ML VIAL IV PRN ×3 (08:17→22:33)
[2020-09-26] MEDS: Mometasone 200 MCG/Formoterol 5 MCG 120 PUFF INHALER INH SCH ×2 (08:39→19:24)
[2020-09-26 09:24] LABS: Actual Bicarbonate (HCO3a) 38.7 mEq/L (22-28); Base Excess (BEa) 13.4 mEq/L (-2.0 to +3.0); CO2 Tension 55.7 mmHg (35.0-45.0); Calcium, Ionized (arterial) 1.12 mmol/L (1.12-1.30); Carboxyhemoglobin (COHb) 1.8 gm% (0.0-3.0); Hemoglobin (Hb) 7.9 g/dL (12.0-16.0); Potassium - ABG Lab 4.19 mmol/L (3.70-5.30); pH, Arterial 7.46 (7.35-7.45)
[2020-09-26] MEDS: Aspirin Chewable 81 MG TAB PO SCH (09:29)
[2020-09-26] MEDS: methylPREDNISolone Sod Succ 40 MG VIAL IVP SCH ×2 (09:29→20:48)
[2020-09-26] MEDS: Metoprolol Tartrate 50 MG TAB PO SCH ×2 (09:30→20:50)
[2020-09-26] MEDS: Ascorbic Acid 500 mg Chewable Tablet PER TUBE SCH (09:30)
[2020-09-26] MEDS: Losartan 25 MG TAB PO SCH (09:30)
[2020-09-26] MEDS: Calcium Carbonate 600 MG TAB PO SCH (09:30)
[2020-09-26] MEDS: Benzonatate 100 MG CAP PO SCH ×3 (09:31→20:51)
[2020-09-26] MEDS: Furosemide 20 MG TAB PO SCH (09:31)
[2020-09-26] MEDS: Fenofibrate 48 MG TAB PO SCH (09:32)
[2020-09-26] MEDS: Enoxaparin Sodium 40 MG/0.4 ML SYRINGE SC SCH ×2 (09:32→20:44)
[2020-09-26] MEDS: Insulin Glargine 50 UNITS in Pre-Filled Syringe 1 EACH SC SCH ×2 (09:33→22:00)
[2020-09-26] MEDS: Linezolid 600 MG in Premix Bag 1 BAG IVPB SCH ×2 (09:34→20:48)
[2020-09-26] MEDS: Zinc Sulfate 220 MG CAP PER TUBE SCH (09:40)
[2020-09-26 09:47] LABS: O2 Tension (PaO2), arterial 59.3 mmHg (> 70.0); Puncture Site RRA
[2020-09-26 09:48] LABS: ALV-art Gradient 298.875 mmHg (0-20)
--- NOTE | 2020-09-26 10:33 | PRG ---
DATE OF SERVICE: 09/26/2020 SUBJECTIVE: 23 days in the hospital, on the vent. OBJECTIVE: VITAL SIGNS: Pulse 71, blood pressure 97/44. She is stacking her breath. GENERAL: She is having some pain, but she is appropriate. I's and O's have been positive. CHEST: No wheezing, no crackles. CARDIAC: Normal S1, S2. ABDOMEN: No masses. LABORATORY DATA: White count 07889, H and H 8 and 27, platelet count 65. Lytes are normal. ASSESSMENT: Prolonged hospitalization. Jean positive pneumonia, spontaneous pneumothorax, bilateral. PLAN: The patient is probably not contagious at this stage. We will try and discontinue isolation. Family is going to make a decision regarding trach versus comfort care. In the meantime, continue steroids. One-half hour of critical care time. Job ID: [id number]
[2020-09-26] MEDS: Micafungin 100 MG in Sodium Chloride 0.9% 100 ML IVPB SCH (12:14)
[2020-09-26] MEDS: Lorazepam 2 MG/ML VIAL SLOW IVP PRN ×2 (15:22→22:33)
[2020-09-26] MEDS: fentaNYL Citrate/PF 2,000 MCG in Sodium Chloride 0.9% 60 ML IV SCH (15:45)
--- NOTE | 2020-09-26 17:47 | PDOC.HOSPP ---
- Subjective Encounter Date: 09/26/20 Encounter Time: 17:46 Subjective: Patient intubated - Objective Vital Signs & Weight: Vital Signs (12 hours) Pulse Resp BP Pulse Ox 09/26/20 16:30 70 97/42 L 09/26/20 16:00 19 09/26/20 14:31 86 87/35 L 09/26/20 14:00 23 H 09/26/20 12:00 29 H 09/26/20 11:19 70 121/49 L 09/26/20 10:00 23 H 09/26/20 08:39 71 97/44 L 09/26/20 08:00 24 H 09/26/20 07:50 94 L 09/26/20 06:00 16 Weight Admit Weight 238 lb 1.6 oz Weight 227 lb 1.218 oz Most Recent Monitor Data Heart Rate from ECG 73 NIBP 86/43 NIBP BP-Mean 57 Respiration from ECG 19 SpO2 99 I&O: 09/25/20 09/26/20 09/27/20 06:59 06:59 06:59 Intake Total 2768 2417.7 1216 Output Total 3515 2000 1150 Balance -747 417.7 66 Result Diagrams: 09/26/20 03:50 09/26/20 03:50 Additional Labs: Accuchecks 09/26/20 09/25/20 15:31 21:06 POC Glucose 108 H 70 Hospitalist ROS - Review of Systems Other: Patient intubated - Medication Medications: Active Medications Generic Name Dose Route Start Last Admin Trade Name Freq PRN Reason Stop Dose Admin Acetaminophen 650 mg 09/02/20 01:53 09/23/20 07:18 Acetaminophen 325 Mg Tab PO 650 mg Q4H PRN Administration Headache/Fever/Mild Pain (1-3) Albuterol Sulfate 2 puff 09/02/20 19:00 09/26/20 14:31 Albuterol 200 Puff (6.7gm Inhaler) INH 2 puff Q8ER-NS QUINTEN Administration Ascorbic Acid 1,000 mg 09/14/20 09:00 09/26/20 09:30 Ascorbic Acid 500 Mg Chewable Tablet PER TUBE 1,000 mg DAILY QUINTEN Administration Aspirin 81 mg 09/26/20 09:00 09/26/20 09:29 Aspirin Chewable 81 Mg Tab PO 81 mg DAILY QUINTEN Administration Benzonatate 100 mg 09/02/20 15:00 09/26/20 14:05 Benzonatate 100 Mg Cap PO 100 mg TID QUINTEN Administration Bisacodyl 10 mg 09/10/20 12:38 09/19/20 12:39 Bisacodyl 5 Mg Tab PO 10 mg DAILYPRN PRN Administration Constipation Calcium Carbonate 600 mg 09/10/20 09:00 09/26/20 09:30 Calcium Carbonate 600 Mg Tab PO 600 mg DAILY QUINTEN Administration Cholecalciferol 5,000 units 09/13/20 21:00 09/25/20 22:08 Cholecalciferol 1,000 Units (25 Mcg) Tab PER TUBE 5,000 units HS QUINTEN Administration Clonidine 0.1 mg 09/20/20 08:47 09/20/20 14:50 Clonidine 0.1 Mg Tab PO 0.1 mg Q4H PRN Administration Hypertension SBP>180 Enoxaparin Sodium 40 mg 09/05/20 21:00 09/26/20 09:32 Enoxaparin Sodium 40 Mg/0.4 Ml Syringe SC 40 mg 09,2100 QUINTEN Administration Fenofibrate 48 mg 09/02/20 09:00 09/26/20 09:32 Fenofibrate 48 Mg Tab PO 48 mg DAILY QUINTEN Administration Furosemide 20 mg 09/20/20 09:00 09/26/20 09:31 Furosemide 20 Mg Tab PO 20 mg DAILY QUINTEN Administration Glipizide 5 mg 09/08/20 07:30 09/26/20 08:17 Glipizide 5 Mg Tab PO 5 mg DAILY-AC QUINTEN Administration Guaifenesin 200 mg 09/02/20 11:15 09/21/20 21:48 Diabetic Tussin 200 Mg/10 Ml Udcup PO 200 mg Q4H PRN Administration Cough Linezolid 600 mg/ Device 300 mls @ 150 mls/hr 09/22/20 21:00 09/26/20 09:34 IVPB 300 mls Q12HR QUINTEN Administration Insulin Glargine 50 units/ 0.5 mls @ 0 mls/hr 09/22/20 21:00 09/26/20 09:33 Miscellaneous Medication SC Not Given BID QUINTEN As Directed Fentanyl Citrate 2,000 mcg/ 100 mls @ 0 mls/hr 09/23/20 23:45 09/26/20 15:45 Sodium Chloride IV 100 mls INF QUINTEN Administration Protocol Per Protocol Insulin Human Lispro 0 units 09/03/20 20:47 09/21/20 16:10 Humalog 300 Units/3 Ml Vial SC 6 unit .BEDTIME SLIDING SC PRN Administration Bedtime Correctional Scale Insulin Human Lispro 0 units 09/06/20 05:30 09/25/20 00:25 Humalog 300 Units/3 Ml Vial SC 6 unit .AGGRESSIVE SLIDING PRN Administration AGGRESSIVE SLIDING SCALE Protocol Levothyroxine Sodium 112 mcg 09/17/20 06:00 09/26/20 05:16 Levothyroxine Sodium 112 Mcg Tab PO 112 mcg 0600 QUINTEN Administration Loratadine 10 mg 09/09/20 12:43 09/10/20 22:30 Loratadine 10 Mg Tab PO 10 mg DAILY PRN Administration Allergies Lorazepam 2 mg 09/23/20 23:30 09/26/20 15:22 Lorazepam 2 Mg/Ml Vial SLOW IVP 2 mg Q1H PRN Administration Breakthrough agitation Losartan Potassium 50 mg 09/21/20 09:00 09/26/20 09:30 Losartan 25 Mg Tab PO 50 mg DAILY QUINTEN Administration Magnesium Hydroxide 30 ml 09/10/20 12:38 09/20/20 09:21 Milk Of Magnesia 30 Ml Udcup PO 30 ml DAILYPRN PRN Administration Constipation Methylprednisolone Sodium Succinate 40 mg 09/19/20 09:00 09/26/20 09:29 Methylprednisolone Sod Succ 40 Mg Vial IVP 40 mg BID QUINTEN Administration Metoprolol Tartrate 50 mg 09/20/20 09:00 09/26/20 09:30 Metoprolol Tartrate 50 Mg Tab PO 50 mg BID QUINTEN Administration Mometasone Furoate/Formoterol Fumar 2 puff 09/05/20 18:30 09/26/20 08:39 Mometasone 200 Mcg/Formoterol 5 Mcg 120 Puff Inhaler INH 2 puff BID-RT QUINTEN Administration Morphine Sulfate 2 mg 09/23/20 23:30 09/24/20 10:46 Morphine 2 Mg/Ml Vial SLOW IVP 2 mg Q1H PRN Administration Breakthrough Pain/Agitation Morphine Sulfate 4 mg 09/24/20 10:40 09/25/20 13:03 Morphine 4 Mg/Ml Vial SLOW IVP 4 mg Q2H PRN Administration Mild-Moderate Pain (1-5) Pantoprazole Sodium 40 mg 09/20/20 21:00 09/25/20 20:39 Pantoprazole 40 Mg Granules Packet PO 40 mg HS QUINTEN Administration Propofol 1,000 mg 09/13/20 12:00 09/26/20 15:33 Propofol 1,000 Mg/100 Ml Vial IV 10/13/20 12:00 1,000 mg INF PRN Administration TO ACHIEVE GOAL RASS Protocol Simvastatin 10 mg 09/09/20 21:00 09/25/20 20:40 Simvastatin 10 Mg Tab PO 10 mg HS QUINTEN Administration Sodium Chloride 10 ml 09/02/20 02:30 09/13/20 07:48 Flush - Normal Saline 10 Ml Syringe IVF 10 ml PRN PRN Administration Saline Flush Throat Lozenges 1 ramesh 09/02/20 11:14 09/04/20 08:37 Cepastat Lozenges 1 Ramesh PO 1 ramesh Q4H PRN Administration Cough Zinc Sulfate 220 mg 09/14/20 09:00 09/26/20 09:40 Zinc Sulfate 220 Mg Cap PER TUBE Not Given DAILY QUINTEN Hosp A/P - Plan (1) Pneumonia due to COVID-19 virus Code(s): U07.1 - COVID-19; J12.89 - OTHER VIRAL PNEUMONIA Status: Acute (2) Acute respiratory failure with hypoxia Code(s): J96.01 - ACUTE RESPIRATORY FAILURE WITH HYPOXIA Status: Acute (3) Diarrhea due to COVID-19 Code(s): U07.1 - COVID-19; A08.39 - OTHER VIRAL ENTERITIS Status: Resolved (4) CHF (congestive heart failure) Code(s): I50.9 - HEART FAILURE, UNSPECIFIED Status: Chronic Qualifiers: Heart failure type: diastolic Heart failure chronicity: chronic Qualified Code(s): I50.32 - Chronic diastolic (congestive) heart failure (5) Asthma Code(s): J45.909 - UNSPECIFIED ASTHMA, UNCOMPLICATED Status: Chronic Qualifiers: Asthma severity: mild Asthma persistence: intermittent Asthma complication type: uncomplicated Qualified Code(s): J45.20 - Mild intermittent asthma, uncomplicated (6) Obesity Code(s): E66.9 - OBESITY, UNSPECIFIED Status: Chronic Qualifiers: Body mass index: BMI 35.0-35.9 (7) DM type 2 (diabetes mellitus, type 2) Status: Chronic Qualifiers: Diabetes mellitus custodial insulin use: with intermodal dispatcher use (8) Hypothyroidism Code(s): E03.9 - HYPOTHYROIDISM, UNSPECIFIED Status: Chronic Qualifiers: Hypothyroidism type: acquired Qualified Code(s): E03.9 - Hypothyroidism, unspecified (9) Dyslipidemia Code(s): E78.5 - HYPERLIPIDEMIA, UNSPECIFIED Status: Chronic (10) Pneumothorax Code(s): J93.9 - PNEUMOTHORAX, UNSPECIFIED Status: Acute Qualifiers: Pneumothorax type: spontaneous, primary Qualified Code(s): J93.11 - Primary spontaneous pneumothorax (11) Subcutaneous emphysema Code(s): T79.7XXA - TRAUMATIC SUBCUTANEOUS EMPHYSEMA, INITIAL ENCOUNTER Status: Acute Qualifiers: Encounter type: subsequent encounter Qualified Code(s): T79.7XXD - Traumatic subcutaneous emphysema, subsequent encounter - Plan has b/l pneumothorax with chest tubes from 09/18, subcut emphysema she got intubated on 09/13, its day 9 on vent, prior to which was on high flow. is on steroids, merrem, micafungin, albuterol, dulera continue aspirin, tricor, glipizide, lantus u 40 bid, synthroid, zocor, inderal, protonix finished remdesivir (09/07), got convalescent plasma 09/04 dm is slowly getting controlled with tapering of steroids, will f/u trend hemostable prognosis guarded, d/w daughter over phone 09/17, 09/21, 09/2020. is DNAR / patient has significantly elevated WBCs. She is on meropenem, Zyvox, micaf ungin. Continue DVT prophylaxis. Patient follows commands per nursing staff. 09/24 patient continues to have elevated WBCs. Nurse called stating pink frothy sputum from patient's chest tube. Will give Lasix x1. We will also check magnesium and phosphorus. 09/25 patient's oxygenation decreased from 60 to 55% she was unable to tolerate 50%. Most likely will require tracheostomy and PEG tube. Overall prognosis is poor. I did call patient's and updated him he is okay with patient getting a tracheostomy and a PEG tube. Continues to have elevated white count however slightly improvement noted. 09/26 patient intubated overall prognosis is poor. Family to come in and see the patient on . Patient with minimal lowering of her sedation becomes hypoxic.
[2020-09-26] MEDS: Pantoprazole 40 MG GRANULES PACKET PO SCH (20:45)
[2020-09-26] MEDS: Cholecalciferol 1,000 UNITS (25 MCG) TAB PER TUBE SCH (20:45)
[2020-09-26] MEDS: risperiDONE 0.25 MG TAB PO SCH (20:48)
[2020-09-26] MEDS: Simvastatin 10 MG TAB PO SCH (20:49)
[2020-09-27] MEDS: Albuterol 200 PUFF (6.7GM INHALER) INH SCH ×5 (00:30→23:49)
[2020-09-27 04:25] LABS: #Lymphocytes 0.6 thou/uL (1.20-3.40); #Monocytes 0.3 thou/uL (0.11-0.59); #Neutrophils 16.8 thou/uL (1.40-6.50); %Basophils 0.1 % (0.0-1.0); %Eosinophils 0.2 % (0.0-10.0); %Lymphocytes 3.3 % (21.0-51.0); %Monocytes 1.5 % (0.0-10.0); Hemoglobin 8.8 g/dL (12.0-16.0); Mean Corpuscular Hemoglobin 33.3 pg (27.0-31.0); Mean Platelet Volume 10.3 fL (7.4-10.4); Platelet Count 160 thou/uL (130-400); Red Blood Cell (RBC) Count 2.65 mill/uL (4.20-5.40); White Blood Cell (WBC) Count 17.7 thou/uL (4.8-10.8)
[2020-09-27 04:54] LABS: ALT (SGPT) 65 U/L (8-55); AST (SGOT) 156 U/L (5-34); Alkaline Phosphatase 67 U/L (40-110); BUN (Urea Nitrogen) 38 mg/dL (9.8-20.1); Bilirubin, Direct 0.4 mg/dL (0.1-0.3); Bilirubin, Total 0.8 mg/dL (0.2-1.2); Calc. Creatinine Clearance 131 mL/min (70-130); Calcium 8.4 mg/dL (7.8-10.44); Glucose 182 mg/dL (83-110); Protein, Total 4.9 g/dL (6.0-8.3)
[2020-09-27 05:04] LABS: Anion Gap 19 mmol/L (10-20); Carbon Dioxide 33 mmol/L (23-31); Chloride 92 mmol/L (98-107); Potassium 4.5 mmol/L (3.5-5.1); Sodium 139 mmol/L (136-145)
[2020-09-27] MEDS: Levothyroxine Sodium 112 MCG TAB PO SCH (06:19)
[2020-09-27] MEDS: Propofol 1,000 MG/100 ML VIAL IV PRN ×4 (06:30→23:38)
[2020-09-27] MEDS: HumaLOG 300 UNITS/3 ML VIAL SC PRN ×2 (06:37→17:28)
[2020-09-27 07:13] LABS: Actual Bicarbonate (HCO3a) 37.9 mEq/L (22-28); Base Excess (BEa) 12.5 mEq/L (-2.0 to +3.0); CO2 Tension 54.7 mmHg (35.0-45.0); Calcium, Ionized (arterial) 1.14 mmol/L (1.12-1.30); Carboxyhemoglobin (COHb) 1.2 gm% (0.0-3.0); Hemoglobin (Hb) 8.8 g/dL (12.0-16.0); O2 Tension (PaO2), arterial 71.5 mmHg (> 70.0); Potassium - ABG Lab 4.19 mmol/L (3.70-5.30); pH, Arterial 7.46 (7.35-7.45)
[2020-09-27 07:14] LABS: ALV-art Gradient 287.925 mmHg (0-20); Puncture Site RRA
[2020-09-27] MEDS: Mometasone 200 MCG/Formoterol 5 MCG 120 PUFF INHALER INH SCH ×2 (07:17→18:56)
[2020-09-27] MEDS: fentaNYL Citrate/PF 2,000 MCG in Sodium Chloride 0.9% 60 ML IV SCH (07:57)
[2020-09-27] MEDS: methylPREDNISolone Sod Succ 40 MG VIAL IVP SCH ×2 (09:09→20:43)
[2020-09-27] MEDS: Aspirin Chewable 81 MG TAB PO SCH (09:10)
[2020-09-27] MEDS: Linezolid 600 MG in Premix Bag 1 BAG IVPB SCH ×2 (09:10→20:42)
[2020-09-27] MEDS: Calcium Carbonate 600 MG TAB PO SCH (09:10)
[2020-09-27] MEDS: Enoxaparin Sodium 40 MG/0.4 ML SYRINGE SC SCH ×2 (09:10→20:41)
[2020-09-27] MEDS: risperiDONE 0.25 MG TAB PO SCH ×2 (09:10→21:00)
[2020-09-27] MEDS: Furosemide 20 MG TAB PO SCH (09:10)
[2020-09-27] MEDS: Ascorbic Acid 500 mg Chewable Tablet PER TUBE SCH (09:10)
[2020-09-27] MEDS: glipiZIDE 5 MG TAB PO SCH (09:10)
[2020-09-27] MEDS: Fenofibrate 48 MG TAB PO SCH (09:11)
[2020-09-27] MEDS: Benzonatate 100 MG CAP PO SCH ×3 (09:12→20:39)
[2020-09-27] MEDS: Insulin Glargine 50 UNITS in Pre-Filled Syringe 1 EACH SC SCH (09:14)
[2020-09-27] MEDS: Zinc Sulfate 220 MG CAP PER TUBE SCH (09:15)
[2020-09-27] MEDS: Metoprolol Tartrate 50 MG TAB PO SCH ×2 (09:15→21:17)
[2020-09-27] MEDS: Losartan 25 MG TAB PO SCH (09:15)
--- NOTE | 2020-09-27 09:24 | RAD ---
EXAM: XR Chest 1 View Portable PROVIDED CLINICAL HISTORY: Pneumonia COMPARISON: 09/26/2020 FINDINGS: Cardiac and mediastinal silhouette is unchanged in appearance. Endotracheal tube and enteric catheter are again noted in similar positions. Bilateral chest tubes are in place. There is a mild right pneumothorax. IMPRESSION: Development of right pneumothorax. Findings discussed with the nurse caring for the patient 9:22 AM .
--- NOTE | 2020-09-27 10:03 | PRG ---
DATE OF SERVICE: 09/27/2020 SUBJECTIVE: Intubated in the vent, sedated. OBJECTIVE: VITAL SIGNS: Temperature 99, pulse 88, blood pressure 122/58, sats are on 60% bilevel 98%, I's and O's have been good. CHEST: No wheezing, no crackles. CARDIAC: Normal S1, S2. No masses. LABORATORY DATA: White count 17,000, H and H 8 and 27, platelet count 160. PO2 of 71, pCO2 of 54, pH 7.46 . Lytes are normal. IMPRESSION: 1. Respiratory failure. 2. Jean positive pneumonia. 3. Spontaneous pneumothorax. PLAN: Family is going to make a decision regarding comfort care, extubation, trach, and a PEG. One-half hour of critical time. Job ID: [id number]
--- NOTE | 2020-09-27 18:34 | PDOC.HOSPP ---
- Subjective Encounter Date: 09/27/20 Encounter Time: 11:20 Subjective: Patient intubated - Objective Vital Signs & Weight: Vital Signs (12 hours) Pulse Resp BP Pulse Ox 09/27/20 18:00 18 09/27/20 16:00 21 H 09/27/20 14:11 100 107/51 L 09/27/20 14:00 30 H 09/27/20 13:05 97 118/60 09/27/20 12:00 25 H 09/27/20 11:09 93 110/52 L 09/27/20 10:00 23 H 09/27/20 08:57 88 122/58 L 09/27/20 08:00 24 H 91 L Weight Admit Weight 238 lb 1.6 oz Weight 224 lb 10.417 oz Most Recent Monitor Data Heart Rate from ECG 105 NIBP 113/52 NIBP BP-Mean 72 Respiration from ECG 24 SpO2 93 I&O: 09/26/20 09/27/20 09/28/20 06:59 06:59 06:59 Intake Total 2417.7 2515 1150 Output Total 19990 Balance 417.7 558 -540 Result Diagrams: 09/27/20 03:20 09/27/20 03:20 Additional Labs: Accuchecks 09/26/20 21:24 POC Glucose 119 H Hospitalist ROS - Review of Systems Other: Intubated - Medication Medications: Active Medications Generic Name Dose Route Start Last Admin Trade Name Freq PRN Reason Stop Dose Admin Acetaminophen 650 mg 09/02/20 01:53 09/23/20 07:18 Acetaminophen 325 Mg Tab PO 650 mg Q4H PRN Administration Headache/Fever/Mild Pain (1-3) Albuterol Sulfate 2 puff 09/02/20 19:00 09/27/20 13:04 Albuterol 200 Puff (6.7gm Inhaler) INH 2 puff [id number] QUINTEN Administration Ascorbic Acid 1,000 mg 09/14/20 09:00 09/27/20 09:10 Ascorbic Acid 500 Mg Chewable Tablet PER TUBE 1,000 mg DAILY QUINTEN Administration Aspirin 81 mg 09/26/20 09:00 09/27/20 09:10 Aspirin Chewable 81 Mg Tab PO 81 mg DAILY QUINTEN Administration Benzonatate 100 mg 09/02/20 15:00 09/27/20 14:24 Benzonatate 100 Mg Cap PO Not Given TID QUINTEN Bisacodyl 10 mg 09/10/20 12:38 09/19/20 12:39 Bisacodyl 5 Mg Tab PO 10 mg DAILYPRN PRN Administration Constipation Calcium Carbonate 600 mg 09/10/20 09:00 09/27/20 09:10 Calcium Carbonate 600 Mg Tab PO 600 mg DAILY QUINTEN Administration Cholecalciferol 5,000 units 09/13/20 21:00 09/26/20 20:45 Cholecalciferol 1,000 Units (25 Mcg) Tab PER TUBE 5,000 units HS QUINTEN Administration Clonidine 0.1 mg 09/20/20 08:47 09/20/20 14:50 Clonidine 0.1 Mg Tab PO 0.1 mg Q4H PRN Administration Hypertension SBP>180 Enoxaparin Sodium 40 mg 09/05/20 21:00 09/27/20 09:10 Enoxaparin Sodium 40 Mg/0.4 Ml Syringe SC 40 mg 0900,2100 QUINTEN Administration Fenofibrate 48 mg 09/02/20 09:00 09/27/20 09:11 Fenofibrate 48 Mg Tab PO 48 mg DAILY QUINTEN Administration Furosemide 20 mg 09/20/20 09:00 09/27/20 09:10 Furosemide 20 Mg Tab PO 20 mg DAILY QUINTEN Administration Glipizide 5 mg 09/08/20 07:30 09/27/20 09:10 Glipizide 5 Mg Tab PO 5 mg DAILY-AC QUINTEN Administration Guaifenesin 200 mg 09/02/20 11:15 09/21/20 21:48 Diabetic Tussin 200 Mg/10 Ml Udcup PO 200 mg Q4H PRN Administration Cough Linezolid 600 mg/ Device 300 mls @ 150 mls/hr 09/22/20 21:00 09/27/20 09:10 IVPB 300 mls Q12HR QUINTEN Administration Fentanyl Citrate 2,000 mcg/ 100 mls @ 0 mls/hr 09/23/20 23:45 09/27/20 07:57 Sodium Chloride IV 100 mls INF QUINTEN Administration Protocol Per Protocol Insulin Human Lispro 0 units 09/03/20 20:47 09/21/20 16:10 Humalog 300 Units/3 Ml Vial SC 6 unit .BEDTIME SLIDING SC PRN Administration Bedtime Correctional Scale Insulin Human Lispro 0 units 09/06/20 05:30 09/27/20 17:28 Humalog 300 Units/3 Ml Vial SC 6 unit .AGGRESSIVE SLIDING PRN Administration AGGRESSIVE SLIDING SCALE Protocol Levothyroxine Sodium 112 mcg 09/17/20 06:00 09/27/20 06:19 Levothyroxine Sodium 112 Mcg Tab PO 112 mcg 0600 QUINTEN Administration Loratadine 10 mg 09/09/20 12:43 09/10/20 22:30 Loratadine 10 Mg Tab PO 10 mg DAILY PRN Administration Allergies Lorazepam 2 mg 09/23/20 23:30 09/26/20 22:33 Lorazepam 2 Mg/Ml Vial SLOW IVP 2 mg Q1H PRN Administration Breakthrough agitation Losartan Potassium 50 mg 09/21/20 09:00 09/27/20 09:15 Losartan 25 Mg Tab PO Not Given DAILY QUINTEN Magnesium Hydroxide 30 ml 09/10/20 12:38 09/20/20 09:21 Milk Of Magnesia 30 Ml Udcup PO 30 ml DAILYPRN PRN Administration Constipation Methylprednisolone Sodium Succinate 40 mg 09/19/20 09:00 09/27/20 09:09 Methylprednisolone Sod Succ 40 Mg Vial IVP 40 mg BID QUINTEN Administration Metoprolol Tartrate 50 mg 09/20/20 09:00 09/27/20 09:15 Metoprolol Tartrate 50 Mg Tab PO Not Given BID QUINTEN Mometasone Furoate/Formoterol Fumar 2 puff 09/05/20 18:30 09/27/20 07:17 Mometasone 200 Mcg/Formoterol 5 Mcg 120 Puff Inhaler INH 2 puff BID-RT QUINTEN Administration Morphine Sulfate 2 mg 09/23/20 23:30 09/24/20 10:46 Morphine 2 Mg/Ml Vial SLOW IVP 2 mg Q1H PRN Administration Breakthrough Pain/Agitation Morphine Sulfate 4 mg 09/24/20 10:40 09/25/20 13:03 Morphine 4 Mg/Ml Vial SLOW IVP 4 mg Q2H PRN Administration Mild-Moderate Pain (1-5) Pantoprazole Sodium 40 mg 09/20/20 21:00 09/26/20 20:45 Pantoprazole 40 Mg Granules Packet PO 40 mg HS QUINTEN Administration Propofol 1,000 mg 09/13/20 12:00 09/27/20 15:45 Propofol 1,000 Mg/100 Ml Vial IV 10/13/20 12:00 1,000 mg INF PRN Administration TO ACHIEVE GOAL RASS Protocol Risperidone 0.25 mg 09/26/20 21:00 09/27/20 09:10 Risperidone 0.25 Mg Tab PO 0.25 mg BID QUINTEN Administration Simvastatin 10 mg 09/09/20 21:00 09/26/20 20:49 Simvastatin 10 Mg Tab PO 10 mg HS QUINTEN Administration Sodium Chloride 10 ml 09/02/20 02:30 09/13/20 07:48 Flush - Normal Saline 10 Ml Syringe IVF 10 ml PRN PRN Administration Saline Flush Throat Lozenges 1 ramesh 09/02/20 11:14 09/04/20 08:37 Cepastat Lozenges 1 Ramesh PO 1 ramesh Q4H PRN Administration Cough Zinc Sulfate 220 mg 09/14/20 09:00 09/27/20 09:15 Zinc Sulfate 220 Mg Cap PER TUBE Not Given DAILY QUINTEN - Exam Heart: negative: RRR, no murmur, no gallops, no rubs, normal peripheral pulses, irregular, diminshed peripheral pulses, murmur present, II/IV, III/IV Respiratory - other findings: Subcutaneous emphysema Gastrointestinal: negative: soft, non-tender, non-distended, normal bowel sounds, no palpable masses, no hepatomegaly, no splenomegaly, no bruit, no guarding, no rigidity, tender to palpation, distended, diminished bowl sounds, voluntary guarding Hosp A/P - Plan (1) Pneumonia due to COVID-19 virus Code(s): U07.1 - COVID-19; J12.89 - OTHER VIRAL PNEUMONIA Status: Acute (2) Acute respiratory failure with hypoxia Code(s): J96.01 - ACUTE RESPIRATORY FAILURE WITH HYPOXIA Status: Acute (3) Diarrhea due to COVID-19 Code(s): U07.1 - COVID-19; A08.39 - OTHER VIRAL ENTERITIS Status: Resolved (4) CHF (congestive heart failure) Code(s): I50.9 - HEART FAILURE, UNSPECIFIED Status: Chronic Qualifiers: Heart failure type: diastolic Heart failure chronicity: chronic Qualified Code(s): I50.32 - Chronic diastolic (congestive) heart failure (5) Asthma Code(s): J45.909 - UNSPECIFIED ASTHMA, UNCOMPLICATED Status: Chronic Qualifiers: Asthma severity: mild Asthma persistence: intermittent Asthma complication type: uncomplicated Qualified Code(s): J45.20 - Mild intermittent asthma, uncomplicated (6) Obesity Code(s): E66.9 - OBESITY, UNSPECIFIED Status: Chronic Qualifiers: Body mass index: BMI 35.0-35.9 (7) DM type 2 (diabetes mellitus, type 2) Status: Chronic Qualifiers: Diabetes mellitus termite control technician insulin use: with fci use (8) Hypothyroidism Code(s): E03.9 - HYPOTHYROIDISM, UNSPECIFIED Status: Chronic Qualifiers: Hypothyroidism type: acquired Qualified Code(s): E03.9 - Hypothyroidism, unspecified (9) Dyslipidemia Code(s): E78.5 - HYPERLIPIDEMIA, UNSPECIFIED Status: Chronic (10) Pneumothorax Code(s): J93.9 - PNEUMOTHORAX, UNSPECIFIED Status: Acute Qualifiers: Pneumothorax type: spontaneous, primary Qualified Code(s): J93.11 - Primary spontaneous pneumothorax (11) Subcutaneous emphysema Code(s): T79.7XXA - TRAUMATIC SUBCUTANEOUS EMPHYSEMA, INITIAL ENCOUNTER Status: Acute Qualifiers: Encounter type: subsequent encounter Qualified Code(s): T79.7XXD - Traumatic subcutaneous emphysema, subsequent encounter - Plan has b/l pneumothorax with chest tubes from 09/18, subcut emphysema she got intubated on 09/13, its day 9 on vent, prior to which was on high flow. is on steroids, merrem, micafungin, albuterol, dulera continue aspirin, tricor, glipizide, lantus u 40 bid, synthroid, zocor, inderal, protonix finished remdesivir (09/07), got convalescent plasma 09/04 dm is slowly getting controlled with tapering of steroids, will f/u trend hemostable prognosis guarded, d/w daughter over phone 09/17, 09/21, 09/2020. is DNAR / patient has significantly elevated WBCs. She is on meropenem, Zyvox, micafungin. Continue DVT prophylaxis. Patient follows commands per nursing staff. 09/24 patient continues to have elevated WBCs. Nurse called stating pink frothy s putum from patient's chest tube. Will give Lasix x1. We will also check magnesium and phosphorus. 09/25 patient's oxygenation decreased from 60 to 55% she was unable to tolerate 50%. Most likely will require tracheostomy and PEG tube. Overall prognosis is poor. I did call patient's and updated him he is okay with patient getting a tracheostomy and a PEG tube. Continues to have elevated white count however slightly improvement noted. 09/26 patient intubated overall prognosis is poor. Family to come in and see the patient on . Patient with minimal lowering of her sedation becomes hypoxic. 09/27 patient intubated. She had an additional pneumothorax on the right side. Significant subcutaneous emphysema noted
[2020-09-27] MEDS: Cholecalciferol 1,000 UNITS (25 MCG) TAB PER TUBE SCH (20:41)
[2020-09-27] MEDS: Pantoprazole 40 MG GRANULES PACKET PO SCH (20:42)
[2020-09-28] MEDS: HumaLOG 300 UNITS/3 ML VIAL SC PRN ×3 (00:13→23:50)
[2020-09-28] MEDS: fentaNYL Citrate/PF 2,000 MCG in Sodium Chloride 0.9% 60 ML IV SCH ×2 (01:56→16:14)
[2020-09-28 05:22] LABS: #Lymphocytes 0.6 thou/uL (1.20-3.40); #Monocytes 0.2 thou/uL (0.11-0.59); %Basophils 0.1 % (0.0-1.0); %Eosinophils 0.2 % (0.0-10.0); %Lymphocytes 3.6 % (21.0-51.0); %Monocytes 1.5 % (0.0-10.0); %Neutrophils 94.6 % (42.0-75.0); Hemoglobin 9.2 g/dL (12.0-16.0); Mean Corpuscular Hemoglobin 33.7 pg (27.0-31.0); Mean Platelet Volume 10.5 fL (7.4-10.4); Platelet Count 172 thou/uL (130-400); RBC Distribution Width 17.4 % (11.5-14.5); Red Blood Cell (RBC) Count 2.71 mill/uL (4.20-5.40); White Blood Cell (WBC) Count 15.9 thou/uL (4.8-10.8)
[2020-09-28 05:43] LABS: ALT (SGPT) 95 U/L (8-55); AST (SGOT) 203 U/L (5-34); Albumin 3.1 g/dL (3.4-4.8); Alkaline Phosphatase 76 U/L (40-110); Anion Gap 14 mmol/L (10-20); BUN (Urea Nitrogen) 45 mg/dL (9.8-20.1); Bilirubin, Direct 0.5 mg/dL (0.1-0.3); Bilirubin, Total 0.9 mg/dL (0.2-1.2); Calc. Creatinine Clearance 115 mL/min (70-130); Calcium 8.6 mg/dL (7.8-10.44); Carbon Dioxide 37 mmol/L (23-31); Chloride 90 mmol/L (98-107); Glucose 247 mg/dL (83-110); Potassium 4.6 mmol/L (3.5-5.1); Protein, Total 5.4 g/dL (6.0-8.3); Sodium 136 mmol/L (136-145)
[2020-09-28] MEDS: Levothyroxine Sodium 112 MCG TAB PO SCH (06:33)
[2020-09-28 07:08] LABS: Actual Bicarbonate (HCO3a) 35.9 mEq/L (22-28); Base Excess (BEa) 12.1 mEq/L (-2.0 to +3.0); CO2 Tension 43.3 mmHg (35.0-45.0); Calcium, Ionized (arterial) 1.13 mmol/L (1.12-1.30); Carboxyhemoglobin (COHb) 1.5 gm% (0.0-3.0); Hemoglobin (Hb) 12.6 g/dL (12.0-16.0); O2 Tension (PaO2), arterial 60.5 mmHg (> 70.0); Potassium - ABG Lab 4.26 mmol/L (3.70-5.30); pH, Arterial 7.54 (7.35-7.45)
[2020-09-28] MEDS: Simvastatin 10 MG TAB PO SCH ×2 (07:10→20:42)
[2020-09-28] MEDS: Albuterol 200 PUFF (6.7GM INHALER) INH SCH ×3 (07:14→19:21)
[2020-09-28] MEDS: Mometasone 200 MCG/Formoterol 5 MCG 120 PUFF INHALER INH SCH ×2 (07:14→19:21)
[2020-09-28 07:45] LABS: Puncture Site RRA
[2020-09-28 07:46] LABS: ALV-art Gradient 313.175 mmHg (0-20)
[2020-09-28] MEDS: Ascorbic Acid 500 mg Chewable Tablet PER TUBE SCH (08:42)
[2020-09-28] MEDS: risperiDONE 0.25 MG TAB PO SCH ×2 (08:42→20:33)
[2020-09-28] MEDS: glipiZIDE 5 MG TAB PO SCH (08:42)
[2020-09-28] MEDS: Aspirin Chewable 81 MG TAB PO SCH (08:42)
[2020-09-28] MEDS: Zinc Sulfate 220 MG CAP PER TUBE SCH (08:42)
[2020-09-28] MEDS: Linezolid 600 MG in Premix Bag 1 BAG IVPB SCH ×2 (08:43→20:33)
[2020-09-28] MEDS: Enoxaparin Sodium 40 MG/0.4 ML SYRINGE SC SCH ×2 (08:43→20:32)
[2020-09-28] MEDS: Calcium Carbonate 600 MG TAB PO SCH (08:43)
[2020-09-28] MEDS: Furosemide 20 MG TAB PO SCH (08:43)
[2020-09-28] MEDS: methylPREDNISolone Sod Succ 40 MG VIAL IVP SCH ×2 (08:44→20:33)
[2020-09-28] MEDS: Fenofibrate 48 MG TAB PO SCH (08:44)
[2020-09-28] MEDS: Losartan 25 MG TAB PO SCH (08:44)
[2020-09-28] MEDS: Benzonatate 100 MG CAP PO SCH ×3 (08:45→20:32)
[2020-09-28] MEDS: Propofol 1,000 MG/100 ML VIAL IV PRN ×4 (08:45→20:33)
[2020-09-28] MEDS: Insulin Glargine 40 UNITS in Pre-Filled Syringe 1 EACH SC SCH (08:45)
[2020-09-28] MEDS: Metoprolol Tartrate 50 MG TAB PO SCH ×2 (08:47→20:41)
--- NOTE | 2020-09-28 09:42 | PRG ---
DATE OF SERVICE: 09/28/2020 SUBJECTIVE: She is intubated in the vent, agonal respiration. She has a slightly worsening right-sided pneumothorax despite her having bilateral chest tubes. Family is to meet today regarding ongoing care. OBJECTIVE: VITAL SIGNS: Temperature was 98, pulse 80, blood pressure I's and O's good. CHEST: No wheezing, no crackles. CARDIAC: Normal S1 and S2. No gallops. ABDOMEN: Soft. LABORATORY DATA: White count 15,000, H and H are stable. PO2 was 60, pCO2 bilevel, low PEEP of 10. Creatinine is normal. BUN is 45. X-ray, diffuse pulmonary infiltrates. ASSESSMENT: Respiratory failure, roland positive pneumonia, spontaneous bilateral pneumothorax, encephalopathy, pain. PLAN: She is clearly not weanable. Family did not want a trach and a PEG. We may consider extubation and comfort care today after talking to the family. One-half hour of critical care time. Job ID: [id number]
--- NOTE | 2020-09-28 10:22 | RAD ---
PORTABLE CHEST: Date; 09/28/2020 INDICATION: Pneumonia, CCU follow-up, on ventilator. COMPARISON: 09/27/2020. FINDINGS: ET tube and NG tube remain in place. Bilateral chest tubes are unchanged. The right apical pneumothor ax is again noted without significant change. Hazy infiltrates in both mid and lower lungs appear sta ble. Central line overlies the SVC. IMPRESSION: No significant interval change from yesterday. POS: AGW
[2020-09-28] MEDS: Pantoprazole 40 MG GRANULES PACKET PO SCH (20:33)
[2020-09-28] MEDS: Cholecalciferol 1,000 UNITS (25 MCG) TAB PER TUBE SCH (20:41)
[2020-09-29] MEDS: Albuterol 200 PUFF (6.7GM INHALER) INH SCH ×3 (00:38→14:32)
[2020-09-29 04:22] LABS: ALT (SGPT) 122 U/L (8-55); AST (SGOT) 184 U/L (5-34); Albumin 2.9 g/dL (3.4-4.8); Alkaline Phosphatase 80 U/L (40-110); BUN (Urea Nitrogen) 62 mg/dL (9.8-20.1); Bilirubin, Direct 0.5 mg/dL (0.1-0.3); Bilirubin, Total 0.8 mg/dL (0.2-1.2); Calc. Creatinine Clearance 93 mL/min (70-130); Calcium 8.8 mg/dL (7.8-10.44); Glucose 250 mg/dL (83-110); Protein, Total 5.2 g/dL (6.0-8.3)
[2020-09-29 04:28] LABS: Band 11 % (5-11); Hemoglobin 8.9 g/dL (12.0-16.0); Lymphocytes 2 % (21-51); MDiff Complete? YES; Mean Corpuscular HGB CONC 33.3 g/dL (32.0-36.0); Mean Corpuscular Hemoglobin 34.2 pg (27.0-31.0); Mean Platelet Volume 9.6 fL (7.4-10.4); Monocytes 1 % (0-10); Neutrophil 86 % (42-75); Platelet Count 205 thou/uL (130-400); Platelet Morphology Comment Appears Adequate; RBC Distribution Width 16.4 % (11.5-14.5); Red Blood Cell (RBC) Count 2.61 mill/uL (4.20-5.40); White Blood Cell (WBC) Count 20.7 thou/uL (4.8-10.8)
[2020-09-29 04:31] LABS: Anion Gap 19 mmol/L (10-20); Carbon Dioxide 33 mmol/L (23-31); Chloride 89 mmol/L (98-107); Potassium 4.5 mmol/L (3.5-5.1); Sodium 136 mmol/L (136-145)
[2020-09-29] MEDS: Propofol 1,000 MG/100 ML VIAL IV PRN (04:59)
[2020-09-29] MEDS: fentaNYL Citrate/PF 2,000 MCG in Sodium Chloride 0.9% 60 ML IV SCH (06:12)
[2020-09-29] MEDS: Levothyroxine Sodium 112 MCG TAB PO SCH (06:16)
[2020-09-29] MEDS: HumaLOG 300 UNITS/3 ML VIAL SC PRN ×2 (06:24→12:24)
[2020-09-29] MEDS: Mometasone 200 MCG/Formoterol 5 MCG 120 PUFF INHALER INH SCH (07:17)
--- NOTE | 2020-09-29 08:48 | RAD ---
Portable frontal chest radiograph: 09/29/2020 COMPARISON: 09/28/2020 HISTORY: Pneumonia FINDINGS: Stable endotracheal tube and nasogastric tube. Stable bilateral chest tubes. Patchy stable interstitial and groundglass opacity of the perihilar regions and both lung bases, left greater than right. Stable pneumothorax in the right lung apex/mid right lung zone. IMPRESSION: Stable right-sided pneumothorax. Stable parenchymal opacity suspicious for Covid pneumoni a.
[2020-09-29] MEDS: Insulin Glargine 40 UNITS in Pre-Filled Syringe 1 EACH SC SCH (09:33)
[2020-09-29] MEDS: methylPREDNISolone Sod Succ 40 MG VIAL IVP SCH (09:33)
[2020-09-29] MEDS: Enoxaparin Sodium 40 MG/0.4 ML SYRINGE SC SCH (09:33)
[2020-09-29] MEDS: Benzonatate 100 MG CAP PO SCH (09:34)
[2020-09-29] MEDS: Aspirin Chewable 81 MG TAB PO SCH (09:34)
[2020-09-29] MEDS: risperiDONE 0.25 MG TAB PO SCH (09:34)
[2020-09-29] MEDS: glipiZIDE 5 MG TAB PO SCH (09:34)
[2020-09-29] MEDS: Fenofibrate 48 MG TAB PO SCH (09:34)
[2020-09-29] MEDS: Metoprolol Tartrate 50 MG TAB PO SCH (09:34)
[2020-09-29] MEDS: Losartan 25 MG TAB PO SCH (09:34)
[2020-09-29] MEDS: Linezolid 600 MG in Premix Bag 1 BAG IVPB SCH (09:34)
[2020-09-29] MEDS: Zinc Sulfate 220 MG CAP PER TUBE SCH (09:34)
[2020-09-29] MEDS: Calcium Carbonate 600 MG TAB PO SCH (09:35)
[2020-09-29] MEDS: Ascorbic Acid 500 mg Chewable Tablet PER TUBE SCH (09:35)
[2020-09-29] MEDS: Furosemide 20 MG TAB PO SCH (09:35)
[2020-09-29] MEDS ORDERED: Morphine 10 MG/ML VIAL SLOW IVP PRN (10:35)
[2020-09-29] MEDS ORDERED: Lorazepam 2 MG/ML VIAL SLOW IVP PRN (10:36)
--- NOTE | 2020-09-29 10:50 | PDOC.HOSPP ---
- Subjective Encounter Date: 09/28/20 Encounter Time: 10:30 Subjective: Patient intubated - Objective Vital Signs & Weight: Vital Signs (12 hours) Temp Pulse Resp BP 09/29/20 08:00 98.4 F 17 09/29/20 07:17 97 114/43 L 09/29/20 06:00 13 09/29/20 04:00 98.3 F 12 09/29/20 02:00 12 09/29/20 00:00 98.0 F 18 Weight Admit Weight 238 lb 1.6 oz Weight 238 lb 8.642 oz Most Recent Monitor Data Heart Rate from ECG 88 NIBP 114/40 NIBP BP-Mean 64 Respiration from ECG 20 SpO2 96 I&O: 09/28/20 09/29/20 09/30/20 06:59 06:59 06:59 Intake Total 1600 3561.3 30 Output Total 2390 1370 90 Balance -790 2191.3 -60 Result Diagrams: 09/29/20 03:20 09/29/20 03:20 Additional Labs: Accuchecks 09/28/20 09/28/20 09/28/20 23:49 18:12 12:45 POC Glucose 257 H 224 H 282 H Hospitalist ROS - Review of Systems Other: Intubated - Medication Medications: Active Medications Generic Name Dose Route Start Last Admin Trade Name Freq PRN Reason Stop Dose Admin Acetaminophen 650 mg 09/02/20 01:53 09/23/20 07:18 Acetaminophen 325 Mg Tab PO 650 mg Q4H PRN Administration Headache/Fever/Mild Pain (1-3) Albuterol Sulfate 2 puff 09/02/20 19:00 09/29/20 07:17 Albuterol 200 Puff (6.7gm Inhaler) INH 2 puff [id number] QUINTEN Administration Ascorbic Acid 1,000 mg 09/14/20 09:00 09/29/20 09:35 Ascorbic Acid 500 Mg Chewable Tablet PER TUBE 1,000 mg DAILY QUINTEN Administration Aspirin 81 mg 09/26/20 09:00 09/29/20 09:34 Aspirin Chewable 81 Mg Tab PO 81 mg DAILY QUINTEN Administration Benzonatate 100 mg 09/02/20 15:00 09/29/20 09:34 Benzonatate 100 Mg Cap PO 100 mg TID QUINTEN Administration Bisacodyl 10 mg 09/10/20 12:38 09/19/20 12:39 Bisacodyl 5 Mg Tab PO 10 mg DAILYPRN PRN Administration Constipation Calcium Carbonate 600 mg 09/10/20 09:00 09/29/20 09:35 Calcium Carbonate 600 Mg Tab PO 600 mg DAILY QUINTEN Administration Cholecalciferol 5,000 units 09/13/20 21:00 09/28/20 20:41 Cholecalciferol 1,000 Units (25 Mcg) Tab PER TUBE 5,000 units HS QUINTEN Administration Clonidine 0.1 mg 09/20/20 08:47 09/20/20 14:50 Clonidine 0.1 Mg Tab PO 0.1 mg Q4H PRN Administration Hypertension SBP>180 Enoxaparin Sodium 40 mg 09/05/20 21:00 09/29/20 09:33 Enoxaparin Sodium 40 Mg/0.4 Ml Syringe SC 40 mg 0900,2100 QUINTEN Administration Fenofibrate 48 mg 09/02/20 09:00 09/29/20 09:34 Fenofibrate 48 Mg Tab PO 48 mg DAILY QUINTEN Administration Furosemide 20 mg 09/20/20 09:00 09/29/20 09:35 Furosemide 20 Mg Tab PO 20 mg DAILY QUINTEN Administration Glipizide 5 mg 09/08/20 07:30 09/29/20 09:34 Glipizide 5 Mg Tab PO 5 mg DAILY-AC QUINTEN Administration Guaifenesin 200 mg 09/02/20 11:15 09/21/20 21:48 Diabetic Tussin 200 Mg/10 Ml Udcup PO 200 mg Q4H PRN Administration Cough Linezolid 600 mg/ Device 300 mls @ 150 mls/hr 09/22/20 21:00 09/29/20 09:34 IVPB 300 mls Q12HR QUINTEN Administration Insulin Glargine 40 units/ 0.4 mls @ 0 mls/hr 09/28/20 09:00 09/29/20 09:33 Miscellaneous Medication SC 0.4 mls DAILY QUINTEN Administration As Directed Insulin Human Lispro 0 units 09/03/20 20:47 09/28/20 23:50 Humalog 300 Units/3 Ml Vial SC 3 unit .BEDTIME SLIDING SC PRN Administration Bedtime Correctional Scale Insulin Human Lispro 0 units 09/06/20 05:30 09/29/20 06:24 Humalog 300 Units/3 Ml Vial SC 6 unit .AGGRESSIVE SLIDING PRN Administration AGGRESSIVE SLIDING SCALE Protocol Levothyroxine Sodium 112 mcg 09/17/20 06:00 09/29/20 06:16 Levothyroxine Sodium 112 Mcg Tab PO 112 mcg 0600 QUINTEN Administration Loratadine 10 mg 09/09/20 12:43 09/10/20 22:30 Loratadine 10 Mg Tab PO 10 mg DAILY PRN Administration Allergies Losartan Potassium 50 mg 09/21/20 09:00 09/29/20 09:34 Losartan 25 Mg Tab PO 50 mg DAILY QUINTEN Administration Magnesium Hydroxide 30 ml 09/10/20 12:38 09/20/20 09:21 Milk Of Magnesia 30 Ml Udcup PO 30 ml DAILYPRN PRN Administration Constipation Methylprednisolone Sodium Succinate 40 mg 09/19/20 09:00 09/29/20 09:33 Methylprednisolone Sod Succ 40 Mg Vial IVP 40 mg BID QUINTEN Administration Metoprolol Tartrate 50 mg 09/20/20 09:00 09/29/20 09:34 Metoprolol Tartrate 50 Mg Tab PO 50 mg BID QUINTEN Administration Mometasone Furoate/Formoterol Fumar 2 puff 09/05/20 18:30 09/29/20 07:17 Mometasone 200 Mcg/Formoterol 5 Mcg 120 Puff Inhaler INH 2 puff BID-RT QUINTEN Administration Morphine Sulfate 4 mg 09/24/20 10:40 09/25/20 13:03 Morphine 4 Mg/Ml Vial SLOW IVP 4 mg Q2H PRN Administration Mild-Moderate Pain (1-5) Pantoprazole Sodium 40 mg 09/20/20 21:00 09/28/20 20:33 Pantoprazole 40 Mg Granules Packet PO 40 mg HS QUINTEN Administration Risperidone 0.25 mg 09/26/20 21:00 09/29/20 09:34 Risperidone 0.25 Mg Tab PO 0.25 mg BID QUINTEN Administration Simvastatin 10 mg 09/09/20 21:00 09/28/20 20:42 Simvastatin 10 Mg Tab PO 10 mg HS QUINTEN Administration Sodium Chloride 10 ml 09/02/20 02:30 09/13/20 07:48 Flush - Normal Saline 10 Ml Syringe IVF 10 ml PRN PRN Administration Saline Flush Throat Lozenges 1 ramesh 09/02/20 11:14 09/04/20 08:37 Cepastat Lozenges 1 Ramesh PO 1 ramesh Q4H PRN Administration Cough Zinc Sulfate 220 mg 09/14/20 09:00 09/29/20 09:34 Zinc Sulfate 220 Mg Cap PER TUBE 220 mg DAILY QUINTEN Administration - Exam Neck: negative: supple, symmetric, no JVD, no thyromegaly, no lymphadenopathy, no carotid bruit, JVD Heart: negative: RRR, no murmur, no gallops, no rubs, normal peripheral pulses, irregular, diminshed peripheral pulses, murmur present, II/IV, III/IV Respiratory: rhonchi Respiratory - other findings: Subcutaneous emphysema Gastrointestinal: soft Hosp A/P - Plan (1) Pneumonia due to COVID-19 virus Code(s): U07.1 - COVID-19; J12.89 - OTHER VIRAL PNEUMONIA Status: Acute (2) Acute respiratory failure with hypoxia Code(s): J96.01 - ACUTE RESPIRATORY FAILURE WITH HYPOXIA Status: Acute (3) Diarrhea due to COVID-19 Code(s): U07.1 - COVID-19; A08.39 - OTHER VIRAL ENTERITIS Status: Resolved (4) CHF (congestive heart failure) Code(s): I50.9 - HEART FAILURE, UNSPECIFIED Status: Chronic Qualifiers: Heart failure type: diastolic Heart failure chronicity: chronic Qualified Code(s): I50.32 - Chronic diastolic (congestive) heart failure (5) Asthma Code(s): J45.909 - UNSPECIFIED ASTHMA, UNCOMPLICATED Status: Chronic Qualifiers: Asthma severity: mild Asthma persistence: intermittent Asthma complication type: uncomplicated Qualified Code(s): J45.20 - Mild intermittent asthma, uncomplicated (6) Obesity Code(s): E66.9 - OBESITY, UNSPECIFIED Status: Chronic Qualifiers: Body mass index: BMI 35.0-35.9 (7) DM type 2 (diabetes mellitus, type 2) Status: Chronic Qualifiers: Diabetes mellitus usp insulin use: with technician terminal and repeater use (8) Hypothyroidism Code(s): E03.9 - HYPOTHYROIDISM, UNSPECIFIED Status: Chronic Qualifiers: Hypothyroidism type: acquired Qualified Code(s): E03.9 - Hypothyroidism, unspecified (9) Dyslipidemia Code(s): E78.5 - HYPERLIPIDEMIA, UNSPECIFIED Status: Chronic (10) Pneumothorax Code(s): J93.9 - PNEUMOTHORAX, UNSPECIFIED Status: Acute Qualifiers: Pneumothorax type: spontaneous, primary Qualified Code(s): J93.11 - Primary spontaneous pneumothorax (11) Subcutaneous emphysema Code(s): T79.7XXA - TRAUMATIC SUBCUTANEOUS EMPHYSEMA, INITIAL ENCOUNTER St atus: Acute Qualifiers: Encounter type: subsequent encounter Qualified Code(s): T79.7XXD - Traumatic subcutaneous emphysema, subsequent encounter - Plan has b/l pneumothorax with chest tubes from 09/18, subcut emphysema she got intubated on 09/13, its day 9 on vent, prior to which was on high flow. is on steroids, merrem, micafungin, albuterol, dulera continue aspirin, tricor, glipizide, lantus u 40 bid, synthroid, zocor, inderal, protonix finished remdesivir (09/07), got convalescent plasma 09/04 dm is slowly getting controlled with tapering of steroids, will f/u trend hemostable prognosis guarded, d/w daughter over phone 09/17, 09/21, 09/2020. is DNAR 09/23 patient has significantly elevated WBCs. She is on meropenem, Zyvox, micafungin. Continue DVT prophylaxis. Patient follows commands per nursing staff. 09/24 patient continues to have elevated WBCs. Nurse called stating pink frothy sputum from patient's chest tube. Will give Lasix x1. We will also check magnesium and phosphorus. 09/25 patient's oxygenation decreased from 60 to 55% she was unable to tolerate 50%. Most likely will require tracheostomy and PEG tube. Overall prognosis is poor. I did call patient's and updated him he is okay with patient getting a tracheostomy and a PEG tube. Continues to have elevated white count however slightly improvement noted. 09/26 patient intubated overall prognosis is poor. Family to come in and see the patient on . Patient with minimal lowering of her sedation becomes hypoxic. 09/27 patient intubated. She had an additional pneumothorax on the right side. Significant subcutaneous emphysema noted 09/28 patient continues to be intubated. Try to meet the family however patient's family already left for the day. Pulmonology did talk with the patient's family.
--- NOTE | 2020-09-29 11:25 | PRG ---
DATE OF SERVICE: 09/29/2020 SUBJECTIVE: Maci Guerrero remains in the ICU, encephalopathic. She is on sedation with Diprivan and fentanyl. OBJECTIVE: VITAL SIGNS: Temperature 98, blood pressure 114/43, sats . I's and O's have been negative. CHEST: Few rhonchi and crackles. CARDIAC: Normal S1, S2. ABDOMEN: No masses. LABORATORY DATA: White count 20,000, H and H 8 and 26, platelets 205. Liver function is elevated. C-reactive protein is 3.4. Chest x-ray shows bilateral chest tubes, bilateral infiltrates, small right-sided pneumothorax. ASSESSMENT AND PLAN: Respiratory failure, Jean positive pneumonia, prolonged intubation. Family does not want a trach. They are going to make a decision in the next day or two. Contacting additional members. I had a long talk with them yesterday for over 20 minutes. She is clearly not weanable. In the meantime, we are going to continue all supportive care with antibiotics and steroids. One-half hour of critical care time. Job ID: [id number]
[2020-09-29 11:40] VITALS: BP 111/41
[2020-09-29 13:18] VITALS: TEMP 97.6
[2020-09-29 14:37] VITALS: BMI 39.6
--- NOTE | 2020-10-02 06:09 | PQF ---
CLINICAL DOCUMENTATION CLARIFICATION FORM: Dear : Lewis Mcmillan Date / Time: 10/01/20 06:08 Please exercise your independent, professional judgment in responding to the clarification form. Clinical indicators are provided on the bottom of this form for your review Please check appropriate box(es): [ ] Sepsis due to Covid 19 infection [ ] Severe Sepsis due to Covid 19 infection [ ] Septic shock due to Covid 19 infection [ ] Localized infection without sepsis [ ] Other diagnosis, please specify [ ] Unable to determine In addition, please specify: Present on Admission (POA): [ ] Yes [ ] No [ ] Unable to determine Physician Signature: Date/Time: For continuity of documentation, please document condition throughout progress notes and discharge summary. Thank You. To be completed by CDI/Coding staff for physician review: Present Clinical Indicators - Signs / Symptoms / Labs Results and Location in Medical Record [x] Chest Xray: patchy opacities in the lung valentine bilaterally Chest Xray 09/02 [x] Acute hypoxic respiratory failure HP 09/02 [x] Covid 19 PNA HP 09/02 [x] Viral enteritis PN 09/04 [x] Encephalopathy PN 09/27 [x] Temp: 09/13=99.8 09/2082=824.3 Vital Signs 09/13 [x] Pulse: 09/0787=725 09/0823=830 09/0924=197 Vital Signs 09/07 [x] BP: 09/13=86/57 09/1404=711/58 09/2075=774/57 Vital Signs 09/13 [x] Respi: 09/02=25 09/04=30 09/07=32 Vital Signs 09/02 [x] WBC: 09/03=16.7 09/12=26.5 09/23=37.3 Laboratory 09/03 [x] Lactic Acid: 09/02=1.4 Laboratory 09/02 [x] Blood culture: Coagulase neg Staphlococcus Laboratory 09/02 Present Risk Factors Results and Location in Medical Record [x] CKD stage 3 ED Notes 09/02 [x] Asthma ED Notes 09/02 [x] CHF ED Notes 09/02 [x] DM ED Notes 09/02 [x] Obesity HP 09/02 [x] 70 years old female HP 09/02 [x] Covid 19 PNA HP 09/02 [x] Viral enteritis PN 09/04 Present Treatments Results and Location in Medical Record [x] Sepsis protocol initiated HP 09/02 [x] Isolation HP 09/02 [x] Oxygen via NC HP 09/02 [x] Mech Vent PN 09/27 [x] Rocephin 2gm IV DEC 01 [x] Azithromycin 500mg IV DEC 01 [x] IVF DEC 01 [x] Remdesivir 200mg IV DEC 01 [x] Doxycycline 100mg IV DEC 01 [x] ID consult Consult 09/02 CDS/Water Technician Signature: Daryl Sequeira Phone #: [phone] Date/Time: 10/01/20 This is a permanent part of the Medical Record [facility]
--- NOTE | 2020-10-02 16:20 | PDOC.DS.DS ---
Provider - Provider Date of Admission: 09/02/20 02:12 Date of Discharge: 09/29/20 Admitting Provider: Eric Harley MD Primary Care Physician: Eren Alvarado MD Course - Hospital Course Hospital Course: Patient is a 70-year-old female initially presented to the hospital for Resuscitation Status: 09/18/20 15:19 Resuscitation Status Routine Resuscitation Status: DNAR: NO Resuscitation Discussed with: confirmed with MPOA her as well as her daughter - Labs Lab Results: 09/29/20 03:20 09/29/20 03:20 Microbiology - Entire Visit 09/22/20 11:31 Venous blood - Right Hand Blood Culture - Final NO GROWTH IN 5 DAYS 09/22/20 11:13 Venous blood - Right Arm Blood Culture - Final NO GROWTH IN 5 DAYS 09/24/20 12:00 Urine grove catheter Urine Culture - Final NO GROWTH AT 48 HOURS 09/22/20 11:15 Urine grove catheter Urine Culture - Final NO GROWTH AT 48 HOURS 09/02/20 00:36 Venous blood - Right Hand Blood Culture - Final NO GROWTH IN 5 DAYS 09/02/20 00:36 Venous blood - Left Arm Blood Culture - Final Coagulase Neg Staphylococcus - Physical Exam Vitals: Weight Admit Weight 238 lb 1.6 oz Weight 238 lb 8.642 oz Most Recent Monitor Data Heart Rate from ECG 83 NIBP 132/49 NIBP BP-Mean 76 Respiration from ECG 18 SpO2 95 Physical Exam: The patient was seen and examined on the day of discharge. Problem - Discharge Plan Assessment: (1) Pneumonia due to COVID-19 virus Code(s): U07.1 - COVID-19; J12.89 - OTHER VIRAL PNEUMONIA Status: Acute (2) Acute respiratory failure with hypoxia Code(s): J96.01 - ACUTE RESPIRATORY FAILURE WITH HYPOXIA Status: Acute (3) Diarrhea due to COVID-19 Code(s): U07.1 - COVID-19; A08.39 - OTHER VIRAL ENTERITIS Status: Resolved (4) CHF (congestive heart failure) Code(s): I50.9 - HEART FAILURE, UNSPECIFIED Status: Chronic Qualifiers: Heart failure type: diastolic Heart failure chronicity: chronic Qualified Code(s): I50.32 - Chronic diastolic (congestive) heart failure (5) Asthma Code(s): J45.909 - UNSPECIFIED ASTHMA, UNCOMPLICATED Status: Chronic Qualifiers: Asthma severity: mild Asthma persistence: intermittent Asthma complication type: uncomplicated Qualified Code(s): J45.20 - Mild intermittent asthma, uncomplicated (6) Obesity Code(s): E66.9 - OBESITY, UNSPECIFIED Status: Chronic Qualifiers: Body mass index: BMI 35.0-35.9 (7) DM type 2 (diabetes mellitus, type 2) Status: Chronic Qualifiers: Diabetes mellitus terminal system operator insulin use: with care home use (8) Hypothyroidism Code(s): E03.9 - HYPOTHYROIDISM, UNSPECIFIED Status: Chronic Qualifiers: Hypothyroidism type: acquired Qualified Code(s): E03.9 - Hypothyroidism, unspecified (9) Dyslipidemia Code(s): E78.5 - HYPERLIPIDEMIA, UNSPECIFIED Status: Chronic (10) Pneumothorax Code(s): J93.9 - PNEUMOTHORAX, UNSPECIFIED Status: Acute Qualifiers: Pneumothorax type: spontaneous, primary Qualified Code(s): J93.11 - Primary spontaneous pneumothorax (11) Subcutaneous emphysema Code(s): T79.7XXA - TRAUMATIC SUBCUTANEOUS EMPHYSEMA, INITIAL ENCOUNTER Status: Acute Qualifiers: Encounter type: subsequent encounter Qualified Code(s): T79.7XXD - Traumatic subcutaneous emphysema, subsequent encounter Plan - Discharge Medications Home Medications: Medication Instructions Recorded Confirmed Type Aspirin [Aspirin EC] 81 mg PO BID 09/02/20 09/04/20 History Calcium Carbonate [Calcium] 1 tab PO DAILY 09/02/20 09/04/20 History Dulaglutide [Trulicity] 0.5 ml SC Q7D 09/02/20 09/04/20 History Fenofibrate [Tricor] 1 tab PO DAILY 09/02/20 09/04/20 History Fluticasone Propionate [Flonase 2 spray NASAL PRN PRN 09/02/20 09/04/20 History Nasal [place]] Furosemide [Lasix] 1 tab PO BID 09/02/20 09/02/20 History Insulin Degludec [Tresiba] 1 ml SC DAILY 09/02/20 09/04/20 History Levothyroxine Sodium [Synthroid] 1 tab PO DAILY 09/02/20 09/02/20 History Losartan [Cozaar] 1 tab PO DAILY 09/02/20 09/02/20 History Melatonin 4 tab PO HS 09/02/20 09/04/20 History Nitrofurantoin Macrocrystal 1 cap PO DAILY 09/02/20 09/02/20 History [Nitrofurantoin] Pantoprazole Sodium 1 tab PO HS 09/02/20 09/02/20 History Potassium Chloride 1 tab PO BID 09/02/20 09/02/20 History Pravastatin Sodium 1 tab PO DAILY 09/02/20 09/04/20 History Propranolol HCl [Propranolol HCl 1 cap PO HS 09/02/20 09/02/20 History ER] Cetirizine HCl [Zyrtec] 10 mg PO DAILY PRN 09/04/20 09/04/20 History Allergies: No Known Drug Allergies Allergy (Verified 09/04/20 13:08) per pt - Follow up Plan Referrals: Eren Alvarado MD [Primary Care Provider] - Disposition: [facility] Quality - Care Measures CORE MEASURES:: N/A
--- NOTE | 2020-10-02 21:45 | PQF ---
CLINICAL DOCUMENTATION CLARIFICATION FORM: Dear : Laura Garcia Date / Time: 10/02/20 21:44 Please exercise your independent, professional judgment in responding to the clarification form. Clinical indicators are provided on the bottom of this form for your review Please check appropriate box(es): [ x ] Sepsis due to Covid 19 infection [ ] Severe Sepsis due to Covid 19 infection [ ] Septic shock due to Covid 19 infection [ ] Localized infection without sepsis [ ] Other diagnosis, please specify [ ] Unable to determine In addition, please specify: Present on Admission (POA): [ x ] Yes [ ] No [ ] Unable to determine Physician Signature: Date/Time: For continuity of documentation, please document condition throughout progress notes and discharge summary. Thank You. To be completed by CDI/Coding staff for physician review: Present Clinical Indicators - Signs / Symptoms / Labs Results and Location in Medical Record [x] Chest Xray: patchy opacities in the lung valentine bilaterally Chest Xray 09/02 [x] Acute hypoxic respiratory failure HP 09/02 [x] Covid 19 PNA HP 09/02 [x] Viral enteritis PN 09/04 [x] Encephalopathy PN 09/27 [x] Temp: 09/13=99.8 09/2033=924.3 Vital Signs 09/13 [x] Pulse: 09/0796=709 09/0872=015 09/0968=085 Vital Signs 09/07 [x] BP: 09/13=86/57 09/1422=501/58 09/2049=934/57 Vital Signs 09/13 [x] Respi: 09/02=25 09/04=30 09/07=32 Vital Signs 09/02 [x] WBC: 09/03=16.7 09/12=26.5 09/23=37.3 Laboratory 09/03 [x] Lactic Acid: 09/02=1.4 Laboratory 09/02 [x] Blood culture: Coagulase neg Staphlococcus Laboratory 09/02 Present Risk Factors Results and Location in Medical Record [x] CKD stage 3 ED Notes 09/02 [x] Asthma ED Notes 09/02 [x] CHF ED Notes 09/02 [x] DM ED Notes 09/02 [x] Obesity HP 09/02 [x] 70 years old female HP 09/02 [x] Covid 19 PNA HP 09/02 [x] Viral enteritis PN 09/04 Present Treatments Results and Location in Medical Record [x] Sepsis protocol initiated HP 09/02 [x] Isolation HP 09/02 [x] Oxygen via NC HP 09/02 [x] Mech Vent PN 09/27 [x] Rocephin 2gm IV DEC 01 [x] Azithromycin 500mg IV DEC 01 [x] IVF DEC 01 [x] Remdesivir 200mg IV DEC 01 [x] Doxycycline 100mg IV DEC 01 [x] ID consult Consult 09/02 CDS/Information Technology Intern Signature: Daryl Sequeira Phone #: [phone] Date/Time: 10/02/20 This is a permanent part of the Medical Record [facility]
== END 2020-09-29 14:30 | disposition hospice, inpatient (51) | DRG 870 ==
LOC: ERS 23:35 → T4-B 09-02 02:07 → CCU 09-04 19:46 → 2SW 09-07 13:27 → CCU 09-13 10:19
PROVIDERS: ADMIT Internal Medicine; ATTEND Internal Medicine
PROC: 8E0ZXY6 Isolation (ICD-10-PCS; principal; 2020-09-02)
PROC: XW033E5 Introduction of Remdesivir Anti-infective into Peripheral Vein, Percutaneous Approach, New Technology Group 5 (ICD-10-PCS; 2020-09-04)
PROC: XW13325 Transfusion of Convalescent Plasma (Nonautologous) into Peripheral Vein, Percutaneous Approach, New Technology Group 5 (ICD-10-PCS; 2020-09-04)
PROC: 5A09357 Assistance with Respiratory Ventilation, Less than 24 Consecutive Hours, Continuous Positive Airway Pressure (ICD-10-PCS; 2020-09-04)
PROC: 5A1955Z Respiratory Ventilation, Greater than 96 Consecutive Hours (ICD-10-PCS; 2020-09-13)
PROC: 0BH18EZ Insertion of Endotracheal Airway into Trachea, Via Natural or Artificial Opening Endoscopic (ICD-10-PCS; 2020-09-13)
PROC: 0W9B30Z Drainage of Left Pleural Cavity with Drainage Device, Percutaneous Approach (ICD-10-PCS; 2020-09-17)
PROC: 0W9930Z Drainage of Right Pleural Cavity with Drainage Device, Percutaneous Approach (ICD-10-PCS; 2020-09-17)
PROC: 02HV33Z Insertion of Infusion Device into Superior Vena Cava, Percutaneous Approach (ICD-10-PCS; 2020-09-26)
DX: A41.89 Other specified sepsis (principal); U07.1 COVID-19; J12.82 Pneumonia due to coronavirus disease 2019; J80 Acute respiratory distress syndrome; I13.0 Hypertensive heart and chronic kidney disease with heart failure and stage 1 through stage 4 chronic kidney disease, or unspecified chronic kidney disease; A08.39 Other viral enteritis; T79.7XXA Traumatic subcutaneous emphysema, initial encounter; G93.40 Encephalopathy, unspecified; J93.11 Primary spontaneous pneumothorax; I50.32 Chronic diastolic (congestive) heart failure; Z66 Do not resuscitate; G47.00 Insomnia, unspecified; K21.9 Gastro-esophageal reflux disease without esophagitis; N18.30 Chronic kidney disease, stage 3 unspecified; E11.22 Type 2 diabetes mellitus with diabetic chronic kidney disease; E03.9 Hypothyroidism, unspecified; E78.5 Hyperlipidemia, unspecified; E87.5 Hyperkalemia; J45.909 Unspecified asthma, uncomplicated; E66.01 Morbid (severe) obesity due to excess calories; E11.65 Type 2 diabetes mellitus with hyperglycemia; X58.XXXA Exposure to other specified factors, initial encounter; R79.89 Other specified abnormal findings of blood chemistry; Z68.39 Body mass index [BMI] 39.0-39.9, adult; Z90.49 Acquired absence of other specified parts of digestive tract; Z79.82 Long term (current) use of aspirin; Z79.899 Other long term (current) drug therapy
CPT/HCPCS: 36415; 36416; 36430; 36600; 71045; 71275; 80048; 80053; 80076; 81001; 82533; 82728; 82805; 83605; 83735; 83880; 84100; 84145; 84484; 85007; 85025; 85027; 86140; 86850; 86900; 86901; 87040; 87086; 87149; 93005; 94002; 94003; 94660; 94664; 96365; 96367; 96375; J0456; J0696; J1644; J1650; J1815; J1940; J2020; J2060; J2185; J2248; J2270; J2704; J2920; J3010; J3490; J7050; J8540; P9017; P9047; Q9967; U0002

== ENCOUNTER 2020-09-29 14:22 | Inpatient (IN) | payer OTHER ==
[2020-09-29] MEDS ORDERED: Morphine 10 MG/ML VIAL SLOW IVP PRN (14:58)
[2020-09-29] MEDS ORDERED: Lorazepam 2 MG/ML VIAL SLOW IVP PRN (14:59)
[2020-09-29] MEDS ORDERED: Ondansetron PF 4 MG/2 ML Vial IVP PRN (15:15)
[2020-09-29] MEDS ORDERED: Acetaminophen 650 MG Suppository PR PRN (15:15)
[2020-09-29] MEDS ORDERED: Haloperidol Lactate 5 MG/ML VIAL SLOW IVP PRN (15:15)
[2020-09-29] MEDS ORDERED: Scopolamine 1.5 mg/72 hour Patch TOP PRN (15:15)
--- NOTE | 2020-09-29 17:36 | PDOC.DS.DS ---
Provider - Provider Date of Admission: 09/29/20 14:22 Date of Discharge: 09/29/20 Admitting Provider: Michael Palomares MD Consultations: Pulmonary Primary Care Physician: Eren Alvarado MD Course - Hospital Course Resuscitation Status: 09/29/20 14:57 Resuscitation Status Routine Resuscitation Status: DNAR: NO Resuscitation Discussed with: FAYE DELUNA - Physical Exam Vitals: Most Recent Monitor Data Heart Rate from ECG 96 Respiration from ECG 26 SpO2 67 Physical Exam: The patient was seen and examined on the day of discharge. Plan - Discharge Medications Home Medications: Medication Instructions Recorded Confirmed Type Aspirin [Aspirin EC] 81 mg PO BID 09/02/20 09/04/20 History Calcium Carbonate [Calcium] 1 tab PO DAILY 09/02/20 09/04/20 History Dulaglutide [Trulicity] 0.5 ml SC Q7D 09/02/20 09/04/20 History Fenofibrate [Tricor] 1 tab PO DAILY 09/02/20 09/04/20 History Fluticasone Propionate [Flonase 2 spray NASAL PRN PRN 09/02/20 09/04/20 History Nasal [place]] Furosemide [Lasix] 1 tab PO BID 09/02/20 09/02/20 History Insulin Degludec [Tresiba] 1 ml SC DAILY 09/02/20 09/04/20 History Levothyroxine Sodium [Synthroid] 1 tab PO DAILY 09/02/20 09/02/20 History Losartan [Cozaar] 1 tab PO DAILY 09/02/20 09/02/20 History Melatonin 4 tab PO HS 09/02/20 09/04/20 History Nitrofurantoin Macrocrystal 1 cap PO DAILY 09/02/20 09/02/20 History [Nitrofurantoin] Pantoprazole Sodium 1 tab PO HS 09/02/20 09/02/20 History Potassium Chloride 1 tab PO BID 09/02/20 09/02/20 History Pravastatin Sodium 1 tab PO DAILY 09/02/20 09/04/20 History Propranolol HCl [Propranolol HCl 1 cap PO HS 09/02/20 09/02/20 History ER] Cetirizine HCl [Zyrtec] 10 mg PO DAILY PRN 09/04/20 09/04/20 History Allergies: No Known Drug Allergies Allergy (Verified 09/04/20 13:08) per pt - Follow up Plan Referrals: Eren Alvarado MD [Primary Care Provider] - Disposition: Quality - Care Measures CORE MEASURES:: N/A
== END 2020-09-29 15:25 | disposition expired | DRG 951 ==
LOC: CDU 14:22
PROVIDERS: ADMIT Internal Medicine; ATTEND Internal Medicine
DX: Z51.5 Encounter for palliative care (principal); Z66 Do not resuscitate
CPT/HCPCS: J2060; J2270